=== PATIENT | female | born 1940 | race Caucasian/White ===

== ENCOUNTER 2019-10-21 06:48 | Inpatient (IN) ==
--- NOTE | 2019-09-29 15:30 | PAT Medication Instructions ---
Medication Instructions Date of Service September 29, 2019 Home Medications amlodipine 2.5 mg PO HS aspirin [Aspirin Low Dose] 81 mg PO HS atorvastatin 10 mg PO HS metoprolol succinate 50 mg PO HS clopidogrel 75 mg PO QAM acetaminophen [Tylenol Extra Strength] 1,000 mg PO Q6H PRN pantoprazole 20 mg PO QAM hydrochlorothiazide 25 mg PO QAM lisinopril 20 mg PO BID prednisone 5 mg PO DAILY PRN ASK your prescriber and surgeon clopidogrel 75 mg PO QAM DO NOT take the morning of surgery lisinopril 20 mg PO BID hydrochlorothiazide 25 mg PO QAM Take morning of surgery With a small sip of water, OTHERWISE NOTHING TO EAT OR DRINK AFTER MIDNIGHT: prednisone 5 mg PO DAILY PRN (if needed) acetaminophen [Tylenol Extra Strength] 1,000 mg PO Q6H PRN (okay to take up to 4 hours prior to surgery if needed) pantoprazole 20 mg PO QAM Take evening before surgery amlodipine 2.5 mg PO HS aspirin [Aspirin Low Dose] 81 mg PO HS atorvastatin 10 mg PO HS metoprolol succinate 50 mg PO HS acetaminophen [Tylenol Extra Strength] 1,000 mg PO Q6H PRN (if needed) lisinopril 20 mg PO BID prednisone 5 mg PO DAILY PRN (if needed) Other Notes If you have any questions please call us at [phone] or [phone] or [phone] or [phone]
--- NOTE | 2019-10-01 12:17 | Anesthesiology Consultation ---
Date of Service October 01, 2019 Assessment & Plan (1) Encounter for pre-operative examination: Chart Review Chart Review: Pending: Refer to Additional Notes / Consult section (awaiting PCP clearance (seen 09/24) and preop Covid testing ) and Patient seen in Pre Admission Testing Awaiting 09/24 PCP clearance. Did inform blood bank of positive antibodies- blood bank aware and will be prepared DOS. Pt does not need any additional work up prior to DOS. Per PAT appt on 10/01/19, resides in [facility]. Traveled to [facility] 09/19/19 to go out to eat. Travels to [facility] of medical appts. Wears mask and uses good hand hygiene in public. Educated patient to follow up with surgeon's office regarding Covid testing. Educated on importance of self quarantining, social distancing and wearing mask in public both for the patient and household contacts. Teaching & Discussion Pre-Anesthesia Teaching/Discussion Notes: Instructed NPO after midnight before surgery,except medications with 15 cc of water. Medication instructions provided according to the PAT guidelines. History Surgery Operation Date: 10/21/19 07:30 Proposed Procedures p Left Total Shoulder Arthroplasty versus Left Reverse Total Shoulder - Trev Samano, Height/Weight Height: 5 ft 3 in Weight: 101.7 kg Allergies Allergy/AdvReac Type Severity Reaction Status Date / Time No Known Allergies Allergy Unknown Verified 09/25/19 08:12 Medications Home Medications Medication Instructions Recorded Confirmed Last Taken amlodipine 2.5 mg PO HS 07/10/18 09/25/19 11/20/18 aspirin [Aspirin Low Dose] 81 mg PO 07/10/18 09/25/19 11/20/18 atorvastatin 10 mg PO 07/10/18 09/25/19 11/20/18 metoprolol succinate 50 mg PO HS 07/10/18 09/25/19 11/20/18 clopidogrel 75 mg PO QAM 07/24/18 09/25/19 11/21/18 acetaminophen [Tylenol Extra 1,000 mg PO Q6H PRN 11/21/18 09/25/19 11/21/18 08:00 Strength] 1000 mg pantoprazole 20 mg PO QAM 11/21/18 09/25/19 11/21/18 hydrochlorothiazide 25 mg PO QAM 09/25/19 09/25/19 Unknown lisinopril 20 mg PO BID 09/25/19 09/25/19 Unknown prednisone 5 mg PO DAILY PRN 09/25/19 09/25/19 Unknown Past Medical History Medical History (Updated 10/01/19 @ 13:10 by Jaz Villa PA-C) Aortic stenosis Mild per 11/2018 ECHO GERD (gastroesophageal reflux disease) Well controlled and stable Hyperlipidemia Hypertension Rheumatoid arthritis F/U PCP [facility] Can radiate down right or left side Seizure TIA vs SEIZURE: "BLACKED OUT IN HER HEAD AND CAME TO"/BECAME ALERT-NEVER DX'D ANY FURTHER-4 YRS AGO-NO OTHER OCCURRENCES TIA (transient ischemic attack) X 4- PLACED ON PLAVIX (FIRST TIA AFTER SURGERY- HAS HAD SURGERY SINCE WITHOUT ISSUES). NO ISSUES X YEARS Exercise / Class Metabolic Activity III < 4 Walking/Shop/Light housework (one flight of stairs - no chest pain- does have to pull herself up due to knee pain ) Past Family History Family History (Updated 09/25/19 @ 08:26 by Liliya Ashley RN) Father Family history of diabetes mellitus Mother Family hx of colon cancer Past Surgical History Surgical History (Updated 10/01/19 @ 13:09 by Jaz Villa PA-C) History of anesthesia reaction SLOW TO WAKE UP-HAD TIA DURING SURGERY AND POST OP-[facility]AGE 66 History of cataract surgery R/L History of colonoscopy History of esophagogastroduodenoscopy (EGD) S/P bilateral breast reduction AGE 66 YRS S/P TKR (total knee replacement) LEFT Past Anesthesia History No Hx of Anesthesia Complications (with excpetion to slow wake - no reintubation or ICU stay - just groggy ) and No Family Hx of Anesthesia Complications History of PONV No Hx of PONV and No Hx of Motion Sickness Social History Smoking Status: Never smoker Do You Dip or Chew Tobacco: No Hx Alcohol Use: No Hx Substance Use: No Review of Systems Patient denies chest pain, shortness of breath, dyspnea on exertion, cough, wheezing, palpitations. No hx of ID, apnea/snoring. No hx of blood clots or blood transfusions Physical Exam Vital Signs VITALS BP 130/76 P 61 TEMP 98.0 SP02 97% RESP 16 Constitutional no acute distress ENMT Mouth: no TMJ clicking Thyromental Distance: < 3.5 Finger Breadths (3.0) Mallampati Class: III Caps to molars and left upper I tooth Neck + short neck and + limited neck extension (significant ) Respiratory normal respiratory effort; no respiratory distress Auscultation: lungs clear to auscultation bilaterally; no wheezes Cardiovascular Rate/Rhythm: regular rate and regular rhythm Heart Sounds: + murmur (IV/ murmur ) Vessels: + carotid bruit (bilateral faint bruit vs cardiac murmur ) Musculoskeletal Spine: no pain with cervical ROM Neurologic moves all extremities Psychiatric Orientation: alert Testing Laboratory Results 10/01/19 12:35 10/01/19 12:35 PT 10.9 Seconds (9.0-12.0) 10/01/19 12:35 INR 1.0 (0.9-1.1) 10/01/19 12:35 APTT 28.5 Seconds (21.0-31.0) 10/01/19 12:35 Blood Type O Negative 10/01/19 12:35 Antibody Screen POSITIVE A 10/01/19 12:35 Electrocardiogram Date: 10/01/19 NSR with sinus arrhythmia at 62 bpm. Chest X-Ray Date: 10/01/19 Findings: + NAD and + cardiomegaly (mild) Echocardiogram Date: 12/11/18 EF: 60-65% LV Function: normal RWMA: + none Other Findings: + LVH (mild/concentric ) Valvular Disease: + (mild; LILIANE= 0.84cm2; AV velocity 2.001 v/s; AV max gradient 16.0 mmHg) Cervical Spine Date: 10/01/19 Severe disc space narrowing at C5-C6 and C6-C7. 3 mm anterolisthesis C4 on C5 an d 3 mm retrolisthesis C5 on C6 is unchanged with neutral, flexion and extension. C1-C2 articulation appears normal. No acute fracture or subluxation. Moderate to severe multilevel facet arthrosis. T7 cervical segment is suboptimally visualized secondary to overlying soft tissue. No prevertebral soft tissue swelling. IMPRESSION: No acute fracture, subluxation or evidence of instability. Other Testing Neck CTA 12/29/15= No significant stenosis, occlusion, or dissection identified within the carotid or vertebral arteries. Of note, the right internal carotid artery and right vertebral artery are slightly hypoplastic in comparison to the left
--- NOTE | 2019-10-01 13:14 | XRay Report ---
XR cervical spine 2 or 3V HISTORY: 79 years-old Female preop- RA- flexion, ext and neutral positions preoperative exam. COMPARISON: CTA of the neck 12/30/2015 TECHNIQUE: 3 views of the cervical spine FINDINGS: Severe disc space narrowing at C5-C6 and C6-C7. 3 mm anterolisthesis C4 on C5 and 3 mm retrolisthesis C5 on C6 is unchanged with neutral, flexion and extension. C1-C2 articulation appears normal. No acu te fracture or subluxation. Moderate to severe multilevel facet arthrosis. T7 cervical segment is sub optimally visualized secondary to overlying soft tissue. No prevertebral soft tissue swelling. IMPRESSION: No acute fracture, subluxation or evidence of instability. ACT 112: Negative or not required by law. The above report was generated using voice recognition software. It may contain grammatical, syntax o r spelling errors. Electronically signed by: Reinier Flores M.D. 10/01/2019 1:13 PM
[2019-10-01 13:15] LABS: Basophils # (auto) 0.06 K/uL (0-0.2); Basophils % (auto) 0.5 %; Eosinophils # (auto) 0.15 K/uL (0-0.5); Eosinophils % (auto) 1.3 %; Hematocrit (blood only) 37.5 % (37-47); Hemoglobin 12.6 g/dL (12.0-16.0); Immature Granulocytes # (auto) 0.02 K/uL (0.00-0.02); Immature Granulocytes % (auto) 0.2 %; Lymphocytes # (auto) 1.34 K/uL (1.2-3.4); Mean Corpuscular Hgb Conc 33.6 g/dL (32-36); Mean Corpuscular Volume 89.3 fL (80-100); Mean Platelet Volume 10.9 fL (7.4-10.4); Monocytes # (auto) 0.48 K/uL (0.11-0.59); Monocytes % (auto) 4.3 %; Neutrophils # (auto) 9.11 K/uL (1.4-6.5); Neutrophils % (auto) 81.7 %; Platelet Count 314 K/uL (130-400); RDW Coefficient of Variation 13.9 % (11.5-14.5); RDW Standard Deviation 45.4 fL (36.4-46.3); White Blood Count 11.16 K/uL (4.8-10.8)
--- NOTE | 2019-10-01 13:16 | XRay Report ---
XR chest Pre-admission PA/Lat HISTORY: 79 years-old Female U preoperative exam. No acute chest complaints COMPARISON: Chest radiograph 12/28/2015 TECHNIQUE: PA and lateral views of the chest FINDINGS: Calcification of the left breast. Cardiac silhouette is mildly enlarged. Calcified plaque of the thor acic aortic arch. No pneumothorax, pleural effusion, airspace consolidation or overt pulmonary edema. Degenerative changes of the shoulders and spine. IMPRESSION: No acute process. ACT 112: Negative or not required by law. The above report was generated using voice recognition software. It may contain grammatical, syntax o r spelling errors. Electronically signed by: Reinier Flores M.D. 10/01/2019 1:14 PM
[2019-10-01 13:28] LABS: Partial Thromboplastin Time 28.5 Seconds (21.0-31.0); Prothrombin Time 10.9 Seconds (9.0-12.0)
[2019-10-01 13:32] LABS: BUN Creatinine Ratio 21.1 (10-20); Calcium 9.3 mg/dl (8.5-10.1); Creatinine Clr Calc Pharmacy 47.9 ml/min; Est GFR (African American) 54.9; Est GFR (Non-African American) 47.3; Potassium 4.3 mmol/L (3.5-5.1)
--- NOTE | 2019-10-01 17:15 | Electrocardiogram Report ---
Test Reason : Blood Pressure : / mmHG Vent. Rate : 062 BPM Atrial Rate : 062 BPM P-R Int : 148 ms QRS Dur : 082 ms QT Int : 428 ms P-R-T Axes : 048 -13 023 degrees QTc Int : 434 ms Normal sinus rhythm with sinus arrhythmia Normal ECG When compared with ECG of 28-DEC-2015 15:09, No significant change was found Confirmed by Eliseo Terry ([id number]) on 10/01/2019 5:15:02 PM Referred By: Trev Samano Confirmed By:Pierce Terry
--- NOTE | 2019-10-16 13:51 | History & Physical Report ---
Date of Service October 16, 2019 Assessment & Plan (1) DJD of both shoulders: We will proceed with a left total shoulder arthroplasty. Postoperatively she will be placed in a sling and kept overnight in the hospital for postoperative medical management. She plans to use Haofangtong upon discharge. Present on Admission?: Yes History of Present Illness Chief Complaint: Primary osteoarthritis of the left shoulder Primary Care Provider: Justino Levine Anitra Wilcox is a pleasant 79-year-old female who is been dealing with chronic increasing left shoulder pain. X-rays and clinical examination have been diagnostic for advanced osteoarthritis of the left shoulder. She has had 2 cortisone injections in the past. Unfortunately she continues to have pain and limited range of motion. After failing conservative treatment, she has elected proceed with a left total shoulder arthroplasty. Allergies Allergy/AdvReac Type Severity Reaction Status Date / Time No Known Allergies Allergy Unknown Verified 09/25/19 08:12 Home Medications Home Medications Medication Instructions Recorded Confirmed Type amlodipine 2.5 mg PO HS 07/10/18 09/25/19 History aspirin [Aspirin Low Dose] 81 mg PO HS 07/10/18 09/25/19 History atorvastatin 10 mg PO HS 07/10/18 09/25/19 History metoprolol succinate 50 mg PO HS 07/10/18 09/25/19 History clopidogrel 75 mg PO QAM 07/24/18 09/25/19 History acetaminophen [Tylenol Extra 1,000 mg PO Q6H PRN 11/21/18 09/25/19 History Strength] pantoprazole 20 mg PO QAM 11/21/18 09/25/19 History hydrochlorothiazide 25 mg PO QAM 09/25/19 09/25/19 History lisinopril 20 mg PO BID 09/25/19 09/25/19 History prednisone 5 mg PO DAILY PRN 09/25/19 09/25/19 History Past Med/Surg History Medical History Aortic stenosis Mild per 11/2018 ECHO GERD (gastroesophageal reflux disease) Well controlled and stable Hyperlipidemia Hypertension Rheumatoid arthritis F/U PCP [facility] Can radiate down right or left side Seizure TIA vs SEIZURE: "BLACKED OUT IN HER HEAD AND CAME TO"/BECAME ALERT-NEVER DX'D ANY FURTHER-4 YRS AGO-NO OTHER OCCURRENCES TIA (transient ischemic attack) X 4- PLACED ON PLAVIX (FIRST TIA AFTER SURGERY- HAS HAD SURGERY SINCE WITHOUT ISSUES). NO ISSUES X YEARS Surgical History History of anesthesia reaction SLOW TO WAKE UP-HAD TIA DURING SURGERY AND POST OP-[facility]-AGE 66 History of cataract surgery R/L History of colonoscopy History of esophagogastroduodenoscopy (EGD) S/P bilateral breast reduction AGE 66 YRS S/P TKR (total knee replacement) LEFT Family History Father Family history of diabetes mellitus Mother Family hx of colon cancer Social History Smoking Status: Never smoker Second Hand Exposure: No; Hx Alcohol Use: No Hx Substance Use: No Preferred Language: Uruguayan Communication Ability: Effective Revenue Accountant Required: No Beliefs That Will Affect Care: None marital status: Current Living Situation: Spouse Feels Safe at Home: Yes Review of Systems Review of Systems: All systems reviewed & are unremarkable except as noted in HPI & below Physical Exam Constitutional: WD/WN, vitals as above Eyes: PERRL, conjunctivae normal, anicteric sclerae ENMT: external ear and nose normal, oropharynx normal Neck: trachea midline, no thyromegaly Respiratory: normal respiratory effort Cardiovascular: RRR, no murmur, no edema Gastrointestinal (Abdomen): normal bowel sounds, soft, nontender, no hepatosplenomegaly Musculoskeletal: Physical examination of the left shoulder reveals decreased range of motion and crepitis throughout. There is good strength with full can testing and external rotation. There is tenderness palpation along the anterior glenohumeral joint line. The right upper extremity is neurovascularly intact. Psychiatric: A+Ox3, euthymic affect Results & Data Results & Data ([facility]) Diagnostic Findings Radiographs of the left shoulder show osteoarthritis of the glenohumeral joint. There is joint space narrowing, osteophyte formation, and [id number] articulation. PG Care Time/CCT Total # of Minutes Spent Total Time Spent with Patient: Total time spent is greater than 50% in coordination of care (as documented) at patient's floor/unit and/or counseling patient: Coding Level of Care Code 30585 Initial Inpt Care Lvl 2 Diagnoses DJD of both shoulders M19.011; M19.012
[~2019-10-21 06:48] MED LIST: ACETAMINOPHEN 500 MG TAB PO SCH; BUPIVACAINE 0.5 % 5 MG/1 ML MPF 30ML VIAL ONE; CEFAZOLIN 2000MG 2,000 MG/15 ML SYR IV SCH; FAMOTIDINE 20 MG TAB PO SCH; GABAPENTIN 300 MG CAP PO SCH; LR 15ML/HR IV SCH; LR 60ML/HR IV SCH; ROPIVACAINE 0.5% HCL/PF 150 MG, BUPIVACAINE 0.5% MPF 30 ML, EPINEPHrine 30MG/30ML (OR U... INFIL SCH; TRANEXAMIC ACID 1,000 MG **IV Intra-op IV SCH; TRANEXAMIC ACID 1,000 MG **IV Pre-op IV SCH; dexAMETHasone 4 MG TAB PO SCH
[2019-10-21] MEDS ORDERED: fentaNYL citrate 100 MCG/2 ML VIAL ONE (08:05)
[2019-10-21] MEDS ORDERED: MIDAZOLAM HCL 1 MG/ML 2ML VIAL ONE ×2 (08:05)
--- NOTE | 2019-10-21 08:47 | History & Physical Bridge Note ---
Date of Service October 21, 2019 History & Physical Bridge Note I have examined the patient, reviewed the History & Physical and in the interval since the performance of the History & Physical I have noted the following changes of clinical significance: The procedure will be a total shoulder arthrop lasty versus reverse shoulder arthroplasty
[2019-10-21] MEDS ORDERED: ORTHO JOINT ANESTHETIC ONE (09:02)
[2019-10-21] MEDS ORDERED: ePHEDrine sulfate 50 MG/ML AMP IV PRN (09:30)
[2019-10-21] MEDS ORDERED: ATROPINE SULFATE 0.1 MG/ML 10ML SYR IV PRN (09:30)
[2019-10-21] MEDS ORDERED: fentaNYL citrate 100 MCG/2 ML VIAL IV PRN (09:30)
[2019-10-21] MEDS ORDERED: ONDANSETRON INJ 2 MG/ML 2 ML VIAL IV PRN ×2 (09:30→12:30)
[2019-10-21] MEDS ORDERED: ePHEDrine sulfate 50 MG/ML SYR ONE (10:18)
[2019-10-21] MEDS ORDERED: LIDOCAINE HCL 2% 2 ML VIAL/AMP(20MG/ML) INFIL ONE (10:18)
[2019-10-21] MEDS ORDERED: PROPOFOL IV EMULSION 10 MG/ML 20 ML VIAL IV ONE (10:18)
[2019-10-21] MEDS ORDERED: ONDANSETRON INJ 2 MG/ML 2 ML VIAL ONE (10:18)
--- NOTE | 2019-10-21 10:57 | Operative Report ---
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 of the long head of the biceps tendon I identified the patient and participated in the time-out.: Yes Procedure Operation Date: 10/21/19 09:05 Actual Procedures p Left Reverse Total Shoulder Arthroplasty with open biceps tenodesis as a disti nct and separate procedure (modifier 59) (Left) - Trev Samano DO Surgeon Trev Samano DO Stress Analyst Trev Colmenares PAC Estimated Blood Loss 250 Findings Consistent with Post-Op Diagnosis Specimens Left humeral head Complications none Disposition Disposition: Recovery Room Indications Rosario is a pleasant 79-year-old female who is been doing chronic increasing left shoulder pain. X-rays and clinical examination were diagnostic for advanced osteoarthritis of the left shoulder. She is also having some weakness in her shoulder and some pain in the biceps tendon. After failing conservative treatment, she elected proceed with a left shoulder arthroplasty. Description of Procedure A CPT code modifier 59: The long head of the biceps tendon was enlarged and inflamed consistent with tendinopathy. A tenodesis was opted. This was a separate and distinct portion of the procedure. For these reasons, a CPT code modifier 59 will be added to this case. Implants used: I used a [employer] Comprehensive reverse total shoulder arthroplasty system with a size 11 press fit micro humeral stem, a +6 offset humeral tray and a standard humeral bearing, a 25 mm small augment baseplate with a 6.5 mm central screw and superior and inferior locking screws, and a size 40 mm eccentric glenosphere. Rosario arrived at [facility] for the above procedure. She was seen in the preoperative holding area and the operative extremity was identified and signed. She was given a preoperative antibiotic, TXA, and an interscalene nerve block. She was taken back to the operating room, laid on table in supine posi tion, and put under general anesthesia. She was then put into the beachchair position. The shoulder was then prepped and draped in sterile fashion. A timeout was done and the patient and the operative extremity was properly identified. A deltopectoral approach was used. Dissection was taken down through the fascia and the deltoid was retracted laterally and the conjoined tendon was retracted medially. The anterior shoulder was exposed. The biceps groove was opened up and the biceps tendon was examined extensively. The biceps tendon demonstrated enlargement and inflammatory changes consistent with longstanding inflammation in the context of osteoarthritis and cuff arthropathy. The long head of the biceps tendon was then tenodesed to the upper border of the pectoralis major. This was a separate and distinct portion of the procedure. The subscapularis was then directly released off the lesser tuberosity with a peel technique. The inferior capsule was released and the humeral head was dislocated. A canal finding reamer was sent down the center of the humeral canal. Sequential reaming up to a size 11 reamer was done. Off that reamer, a proximal humeral resection guide was placed. The proximal humerus was resected at 135 of inclination and 25 of retroversion. Osteophytes were then removed and the glenoid was exposed. Time was spent doing a complete capsular and labral release. The glenoid guide was then placed in the inferior aspect of the glenoid. A 3.2 mm Steinmann pin was then placed into the glenoid vault at 10 of inclination. The glenoid baseplate was then reamed. The final size 25 mm small augment baseplate was then impacted in the place. A 6.5 mm central screw was then placed followed by superior and inferior locking screws. A 40 mm eccentric glenosphere was then impacted into place. Surrounding soft tissues were then injected with 100 cc an orthopedic pain control cocktail. The proximal humerus was then exposed. Sequential broaching of the humerus up to a size 11 broach was done. Off that broach a +6 offset humeral tray was trialed. The shoulder was then reduced, brought through a full range of motion, and felt to be stable. The shoulder was then dislocated and the broach was removed. The final size 11 micro press-fit humeral stem was then impacted into place. A standard humeral bearing was then snapped onto a +6 offset humeral tray. The humeral tray was then impacted onto the humeral stem. The shoulder was once again reduced, brought through a full range of motion, and felt to be stable. The subscapularis was then tenodesed back to the lesser tuberosity with transosseous FiberWire sutures and side to side sutures with the arm in 45 of external rotation. A dilute betadyne lavage was then done for 3 minutes. The joint was then irrigated with normal saline solution. Hemostasis was obtained. The interval was closed with 2-0 Vicryl suture. The skin was then closed with 2-0 Vicryl and raj. A Silverlon dressing was placed and the arm was rested in a regular arm sling. She was then extubated and transferred to a hospital bed. She taken to the postanesthesia care unit in stable condition. She tolerated the procedure well. Trev Colmenares PA-C, was present for the entire procedure. He was critical for patient positioning, prepping, draping, retraction exposure, wound closure and application of sterile dressing. I attest to the content of the Intraoperative Record and any orders documented therein. Any exceptions are noted below.
[2019-10-21] MEDS ORDERED: METOPROLOL TARTRATE 1 MG/ML VIAL IV ONE (11:47)
[2019-10-21] MEDS ORDERED: METOPROLOL TARTRATE 1 MG/ML VIAL IV STA (11:48)
--- NOTE | 2019-10-21 11:55 | XRay Report ---
LEFT SHOULDER 2 VIEWS CLINICAL HISTORY: Postoperative examination. FINDINGS: 2 portable views of the left shoulder are obtained. A left shoulder arthroplasty is in near anatomic alignment. No acute fracture is seen. Productive degenerative change is noted at the acromi oclavicular joint. Soft tissue edema, subcutaneous gas, and skin clips are expected postoperative fin dings. The visualized left lung parenchyma appears clear. IMPRESSION: Expected postoperative findings status post left shoulder arthroplasty. No fracture is se en. Electronically signed by: Garrett Weathers M.D. 10/21/2019 11:54 AM
[2019-10-21] MEDS ORDERED: HYDROmorphone INJ 0.5 MG/0.5 ML SYR IV PRN (12:30)
[2019-10-21] MEDS ORDERED: OXYCODONE HCL IR 5 MG TAB (IMMEDIATE RELEASE) PO PRN (12:30)
[2019-10-21] MEDS ORDERED: bisacodyL 10 MG SUPP PR PRN (12:30)
[2019-10-21] MEDS ORDERED: MAGNESIUM HYDROXIDE SUSP 30 ML UDC PO PRN (12:30)
[2019-10-21] MEDS ORDERED: METOCLOPRAMIDE HCL INJ 5 MG/ML 2 ML VIAL IV PRN (12:30)
[2019-10-21] MEDS ORDERED: NALOXONE HCL 0.4 MG/1 ML VIAL/CARP IV PRN (12:30)
--- NOTE | 2019-10-21 12:32 | Anesthesiology Progress Note ---
Date of Service October 21, 2019 Anesthesia Post Procedure Vital Signs Vital Signs: Temp Pulse Pulse Pulse Resp BP BP 10/21/19 11:55 97.5 F L 90 17 121/56 L 10/21/19 11:49 110 H 129/42 L 10/21/19 11:45 112 H 17 129/72 10/21/19 11:35 104 H 17 127/58 L 10/21/19 11:25 103 H 18 131/58 L 10/21/19 11:19 97.0 F L 116 H 18 112/80 10/21/19 09:16 79 19 132/71 10/21/19 09:12 77 15 10/21/19 09:07 85 16 150/60 H 10/21/19 09:02 74 14 130/74 10/21/19 08:57 72 18 112/80 10/21/19 08:18 76 20 162/63 H 10/21/19 07:30 99.0 F 90 20 157/69 H Pulse Ox 10/21/19 11:55 94 10/21/19 11:49 10/21/19 11:45 93 10/21/19 11:35 95 10/21/19 11:25 97 10/21/19 11:19 97 10/21/19 09:16 99 10/21/19 09:12 100 10/21/19 09:07 99 10/21/19 09:02 97 10/21/19 08:57 98 10/21/19 08:18 97 10/21/19 07:30 95 Pain Intensity Left Shoulder: Pain Intensity: 3 Transfer of Care Handoff Completed per policy Notes Mental Status: alert / awake / arousable and participated in evaluation Patient Amnestic to Procedure: Yes Nausea / Vomiting: adequately controlled Pain: adequately controlled Airway Patency, RR, SpO2: stable & adequate BP & HR: stable & adequate Hydration State: stable & adequate Anesthetic Complications: no major complications apparent and Pt Satisfied with anesthetic care
[2019-10-21] MEDS: SODIUM CHLORIDE 0.9% 1000ML 1,000 ML IV SCH ×2 (12:55→22:57)
[2019-10-21] MEDS: KETOROLAC TROMETHAMINE 15 MG/ML VIAL IV SCH ×2 (12:57→18:34)
[2019-10-21] MEDS: ACETAMINOPHEN 500 MG TAB PO SCH ×2 (13:20→21:00)
[2019-10-21] MEDS: CEFAZOLIN 2000MG 2,000 MG/15 ML SYR IV SCH (18:57)
[2019-10-21] MEDS: lisinopriL 20 MG TAB PO SCH (20:58)
[2019-10-21] MEDS: DOCUSATE SODIUM 100 MG CAP PO SCH (20:59)
[2019-10-21] MEDS ORDERED: AMLODIPINE BESYLATE 5 MG TAB PO SCH (21:00)
[2019-10-21] MEDS ORDERED: SENNA 8.6 MG TAB PO SCH (21:00)
[2019-10-21] MEDS ORDERED: METOPROLOL SUCC 50MG EXT REL TAB PO SCH (21:00)
[2019-10-21] MEDS ORDERED: ATORVASTATIN 10 MG TAB PO SCH (21:00)
[2019-10-21] MEDS ORDERED: ASPIRIN 81 MG ECTAB PO SCH (21:00)
[2019-10-22] MEDS: KETOROLAC TROMETHAMINE 15 MG/ML VIAL IV SCH ×3 (00:10→11:26)
[2019-10-22] MEDS: CEFAZOLIN 2000MG 2,000 MG/15 ML SYR IV SCH (02:59)
[2019-10-22] MEDS: ACETAMINOPHEN 500 MG TAB PO SCH ×2 (06:27→12:43)
--- NOTE | 2019-10-22 06:39 | Orthopedic Progress Note ---
Date of Service October 22, 2019 Assessment & Plan (1) Status post replacement of left shoulder joint: Overall she is doing very well. She is not having much pain in the left shoulder. She will be seen by physical therapy this morning for ambulation and range of motion exercises. She can be discharged home later today. She will follow-up with orthopedics in 2 weeks. Present on Admission?: Yes Admission and Anticipated Discharge Date Admission Date: October 21, 2019 Kaya Wilcox was seen and examined at bedside this morning. Overall she is doing very well. She is not having any pain in the left shoulder. She was able to get some sleep last night. She has no complaints. Physical Exam Musculoskeletal: On physical examination of the left shoulder, the Silverlon dressing is clean and dry. Her radial, median, and ulnar nerves are checked and intact at her wrist. Her axillary nerve was not checked yet. She is wearing her sling as instructed. Results & Data ([facility]) Vital Signs (Past 12 Hours) Vital Signs Temp Pulse Resp BP Pulse Ox 10/22/19 03:02 36.5 C 78 16 101/62 93 10/22/19 00:11 36.4 C L 98 H 15 147/75 H 91 10/21/19 20:57 83 116/67 94 10/21/19 20:24 36.6 C 88 17 104/61 92 Diagnostic Findings Postoperative x-rays of the left shoulder show the prosthesis to be in anatomic alignment without any evidence of fracture, dislocation, or loosening. PG Care Time/CCT Total # of Minutes Spent Total Time Spent with Patient: Total time spent is greater than 50% in coordination of care (as documented) at patient's floor/unit and/or counseling patient: Coding Level of Care Code None Diagnoses Status post replacement of left shoulder joint Z96.612
--- NOTE | 2019-10-22 06:41 | Discharge Summary ---
Date of Service October 22, 2019 Admission HPI Per Admitting Provider Jeri is a pleasant 79-year-old female who is been dealing with chronic increasing left shoulder pain. X-rays and clinical examination have been diagnostic for advanced osteoarthritis of the left shoulder. She has had 2 cortisone injections in the past. Unfortunately she continues to have pain and limited range of motion. After failing conservative treatment, she has elected proceed with a left total shoulder arthroplasty. Principal Diagnosis Left reverse shoulder replacement Discharge Data Allergies Allergy/AdvReac Type Severity Reaction Status Date / Time No Known Allergies Allergy Unknown Verified 10/21/19 07:12 Consultations 10/21/19 12:30 Consult Case Management - Discharge Planning Routine Procedures Performed Operation Date: 10/21/19 09:05 Actual Procedures p Left Reverse Total Shoulder Arthroplasty(Left) - Trev Samano DO Ordered Studies 10/21/19 05:00 US - OR guided needle placemen Routine Hospital Course (1) Status post replacement of left shoulder joint: On October 21, 2019 jeri arrived at [facility] and underwent a left reverse shoulder arthroplasty without complication. She had a general anesthetic and a left interscalene nerve block. Postoperatively she was placed in a sling and transferred to the general orthopedic floors. Her hospital course was uneventful. On postop day #1 her H&H was stable and her pain was well controlled. She was able to participate well with physical therapy doing ambulation and range of motion exercises. She was then discharged home. She will follow-up with orthopedics in 2 weeks. Total Time Total Time Spent Total Time Spent (In Minutes): 20 Discharge Plan Discharge Items Patient Disposition: Home - Home Health Services Reason For Visit: Left Shoulder Degeneative Joint Disease Discharge Diagnosis: Left reverse shoulder arthroplasty Activity: As commented below Non-emergency contact: Surgeon Call non-emergency contact if: your wound has increased redness and your wound has increased drainage Follow-up/Referrals: Justino Ayoub [Primary Care Provider] - Diet: Regular Addtl Attending Provider Instructions: Activity and Therapy Recommendations: * If you are using [facility] then therapy will be provided at your home until they feel you have accomplished all of your goals. * If you are using [facility] then Physical Therapy will be provided until they feel you are ready to start Outpatient Physical Therapy. * If you are not using home therapy then Outpatient Physical Therapy should start about 3-5 days from your day of surgery. Therapy will last about 8-12 weeks * Wear your sling for 3 weeks, unless otherwise instructed. You may remove your sling to shower and to dress, but otherwise, you should be in your sling at all times, including while sleeping * The shoulder replacement is very stable and you can use your hand while in the sling * You were shown a series of exercises in the hospital. Do these exercises daily including the exercises you were shown in physical therapy. Medications: * Narcotic You will likely be sent home from the hospital with a prescription for the narcotic pain medication that worked best throughout your stay. * Other medications may be prescribed for specific circumstances. If you have any questions, please call the office at . * Resume previous home medications unless otherwise instructed Dressing Care: Leave the Silverlon dressing in place for 7 days. After 7 days you may remove the dressing. If the incision is not draining then you may leave the raj open to air. If there is a little bit of drainage or if the raj are getting stuck on your clothing then cover the incision with a dry dressing. The raj will be removed at your 2 week follow-up appointment. Showering: You may shower with the Silverlon dressing in place. Do not let the shower spray hit the dressing directly. Pat the Silverlon dressing dry. If the dressing becomes wet underneath, then simply remove the dressing. Keep the incision dry until you are 7 days out from the day of surgery. After 7 days you may remove the Silverlon dressing and shower with the raj exposed. Let soapy water run over the raj and pat them dry. Do not scrub or soak the incision. Things To Watch For: * Drainage from the incision site that occurs more than one week after your surgery. * Increased redness at the incision site. * Fever above 102 degrees Fahrenheit. * Unusual chest pain or shortness of breath. * Call [facility] at with any of the above problems Follow-Up Visit: Follow-up with Dr. Samano's PA (Trev Colmenares) 2-3 weeks after your day of surgery. He will remove your raj and answer any questions. If you have any additional questions or concerns, Dr Samano is usually in the office at the same time and will be available An appointment was probably scheduled when you signed-up for surgery in the office. If you have any questions call More detailed instructions as well as Frequently Asked Questions were provided in a folder by our office when you signed-up for surgery. Please review these instructions when you get home. If you have any further questions or concerns, please feel free to call the office at [phone] Pending Studies at Discharge: No Stand-Alone Forms: [facility], Smoking Cessation Medications and DC Order Prescriptions: New tramadol 50 mg tablet 50 mg PO Q8H PRN (Reason: pain) Qty: 30 RF: 0 Continued clopidogrel 75 mg tablet 75 mg PO QAM RF: 0 lisinopril 20 mg Tablet 20 mg PO BID RF: 0 prednisone 5 mg Tablet 5 mg PO DAILY PRN (Reason: Pain) RF: 0 hydrochlorothiazide 25 mg Tablet 25 mg PO QAM RF: 0 atorvastatin 10 mg tablet 10 mg PO HS RF: 0 metoprolol succinate 50 mg tablet extended release 24 hr 50 mg PO HS RF: 0 amlodipine 2.5 mg tablet 2.5 mg PO HS RF: 0 aspirin [Aspirin Low Dose] 81 mg Tablet,Delayed Release (Dr/Ec) 81 mg PO HS RF: 0 pantoprazole 20 mg tablet,delayed release (DR/EC) 20 mg PO QAM RF: 0 acetaminophen [Tylenol Extra Strength] 500 mg Tablet 1,000 mg PO Q6H PRN (Reason: Pain) RF: 0 Discharge Orders: Discharge Order (Routine); Ordered 10/22/19 Ordered By: Trev Samano Admission Data Admit Date/Time: 10/21/19 11:18 Attending Provider: Trev Samano Admit Provider: Trev Samano Primary Care Provider: Justino Ayoub Coding Level of Care Code D/C Day Management <30 mins Diagnoses Status post replacement of left shoulder joint Z96.612
[2019-10-22 07:35] LABS: Basophils # (auto) 0.01 K/uL (0-0.2); Hematocrit (blood only) 34.4 % (37-47); Hemoglobin 11.3 g/dL (12.0-16.0); Immature Granulocytes # (auto) 0.07 K/uL (0.00-0.02); Immature Granulocytes % (auto) 0.3 %; Lymphocytes # (auto) 1.33 K/uL (1.2-3.4); Lymphocytes % (auto) 6.3 %; Mean Corpuscular Hgb Conc 32.8 g/dL (32-36); Mean Corpuscular Volume 94.2 fL (80-100); Mean Platelet Volume 10.4 fL (7.4-10.4); Monocytes # (auto) 1.08 K/uL (0.11-0.59); Monocytes % (auto) 5.1 %; Neutrophils # (auto) 18.49 K/uL (1.4-6.5); Neutrophils % (auto) 88.3 %; Platelet Count 355 K/uL (130-400); RDW Coefficient of Variation 13.6 % (11.5-14.5); RDW Standard Deviation 46.7 fL (36.4-46.3); Red Blood Count 3.65 M/uL (4.2-5.4); White Blood Count 20.98 K/uL (4.8-10.8)
[2019-10-22] MEDS ORDERED: dexAMETHasone 4 MG TAB PO SCH (08:00)
--- NOTE | 2019-10-22 08:08 | Anesthesiology Progress Note ---
Date of Service October 22, 2019 Anesthesia Post Procedure Vital Signs Vital Signs: Temp Pulse Pulse Pulse Resp BP BP 10/22/19 07:58 36.7 C 61 18 112/67 10/22/19 07:43 36.5 C 78 16 101/62 10/22/19 03:02 36.5 C 78 16 101/62 10/22/19 00:11 36.4 C L 98 H 15 147/75 H 10/21/19 20:57 83 116/67 10/21/19 20:24 36.6 C 88 17 104/61 10/21/19 16:14 100 H 18 123/72 10/21/19 14:54 85 18 150/79 H 10/21/19 14:13 36.5 C 95 H 18 121/64 10/21/19 13:19 36.5 C 91 H 18 119/71 10/21/19 12:45 36.4 C L 85 18 115/72 10/21/19 12:15 36.4 C L 90 18 123/74 10/21/19 11:55 36.4 C L 90 17 121/56 L 10/21/19 11:49 110 H 129/42 L 10/21/19 11:45 112 H 17 129/72 10/21/19 11:35 104 H 17 127/58 L 10/21/19 11:25 103 H 18 131/58 L 10/21/19 11:19 36.1 C L 116 H 18 112/80 10/21/19 09:16 79 19 132/71 10/21/19 09:12 77 15 10/21/19 09:07 85 16 150/60 H 10/21/19 09:02 74 14 130/74 10/21/19 08:57 72 18 112/80 10/21/19 08:18 76 20 162/63 H Pulse Ox 10/22/19 07:58 93 10/22/19 07:43 93 10/22/19 03:02 93 10/22/19 00:11 91 10/21/19 20:57 94 10/21/19 20:24 92 10/21/19 16:14 92 10/21/19 14:54 100 10/21/19 14:13 97 10/21/19 13:19 91 10/21/19 12:45 98 10/21/19 12:15 97 10/21/19 11:55 94 10/21/19 11:49 10/21/19 11:45 93 10/21/19 11:35 95 10/21/19 11:25 97 10/21/19 11:19 97 10/21/19 09:16 99 10/21/19 09:12 100 10/21/19 09:07 99 10/21/19 09:02 97 10/21/19 08:57 98 10/21/19 08:18 97 Pain Intensity Left Shoulder: Pain Intensity: 3 Notes Mental Status: alert / awake / arousable Patient Amnestic to Procedure: Yes Nausea / Vomiting: adequately controlled Pain: adequately controlled Airway Patency, RR, SpO2: stable & adequate BP & HR: stable & adequate Hydration State: stable & adequate Anesthetic Complications: no major complications apparent and Pt Satisfied with anesthetic care
[2019-10-22 08:09] LABS: Calcium 8.7 mg/dl (8.5-10.1); Creatinine Clr Calc Pharmacy 29.9 ml/min; Est GFR (African American) 30.7; Est GFR (Non-African American) 26.5; Potassium 4.1 mmol/L (3.5-5.1)
[2019-10-22] MEDS: DOCUSATE SODIUM 100 MG CAP PO SCH (08:10)
[2019-10-22] MEDS: lisinopriL 20 MG TAB PO SCH (08:10)
[2019-10-22] MEDS ORDERED: PANTOprazole 40 MG TAB PO SCH (09:00)
[2019-10-22] MEDS ORDERED: CLOPIDOGREL BISULFATE 75 MG TAB PO SCH (09:00)
[2019-10-22] MEDS ORDERED: hydroCHLOROthiazide 25 MG TAB PO SCH (09:00)
[2019-10-22] MEDS ORDERED: MULTIVITAMIN TAB PO SCH (09:00)
== END 2019-10-22 14:27 | disposition home health service (06) | DRG 483 ==
LOC: ASU 06:48 → 3E 11:18

== ENCOUNTER 2021-10-18 12:21 | Observation (INO) ==
[2021-10-18 13:15] LABS: Basophils # (auto) 0.04 K/uL (0-0.2); Basophils % (auto) 0.2 %; Eosinophils # (auto) 0.03 K/uL (0-0.50); Eosinophils % (auto) 0.2 %; Hematocrit (blood only) 36.5 % (34.1-44.9); Hemoglobin 12.2 g/dl (12.0-16.0); Immature Granulocytes # (auto) 0.11 K/uL (0.00-0.02); Immature Granulocytes % (auto) 0.7 %; Lymphocytes # (auto) 1.66 K/uL (1.2-3.4); Lymphocytes % (auto) 10.1 %; Mean Corpuscular Hemoglobin 31.1 pg (25.0-34.0); Mean Corpuscular Hgb Conc 33.4 g/dL (32.0-36.0); Mean Corpuscular Volume 93.1 fL (80.0-100.0); Mean Platelet Volume 10.3 fL (9.4-12.3); Monocytes # (auto) 0.81 K/uL (0.24-0.82); Monocytes % (auto) 4.9 %; Neutrophils # (auto) 13.83 K/uL (1.4-6.5); Neutrophils % (auto) 83.9 %; Platelet Count 314 K/uL (130-400); RDW Coefficient of Variation 13.9 % (11.5-14.5); RDW Standard Deviation 47.5 fL (36.4-46.3); Red Blood Count 3.92 M/uL (3.93-5.22); White Blood Count 16.48 K/ul (4.8-10.8)
[2021-10-18 13:29] LABS: Partial Thromboplastin Ratio 0.9; Prothrombin Time 10.4 Seconds (9.0-12.0)
[2021-10-18 13:37] LABS: Albumin Globulin Ratio 1.4 (0.9-2); Albumin Level 3.9 gm/dl (3.4-5.0); Bilirubin,Total 0.9 mg/dl (0.2-1.0); Est GFR (African American) 52.4 ml/min; Est GFR (Non-African American) 45.2 ml/min; Globulin 2.7 gm/dl (2.5-4.0); Potassium 3.9 mmol/L (3.5-5.1); Total Protein 6.6 gm/dl (6.0-8.3)
--- NOTE | 2021-10-18 13:38 | Electrocardiogram Report ---
Test Reason : Blood Pressure : / mmHG Vent. Rate : 076 BPM Atrial Rate : 076 BPM P-R Int : 142 ms QRS Dur : 074 ms QT Int : 362 ms P-R-T Axes : 031 -15 048 degrees QTc Int : 407 ms Poor data quality, interpretation may be adversely affected Sinus rhythm with Premature atrial complexes Minimal voltage criteria for LVH, may be normal variant Borderline ECG When compared with ECG of 02-AUG-2021 17:17, Premature atrial complexes are now Present Confirmed by Deni Viera ([id number]) on 10/18/2021 1:37:51 PM Referred By: Confirmed By:Deni Viera
[2021-10-18] MEDS ORDERED: fentaNYL citrate 100 MCG/2 ML VIAL IV STA ×2 (15:15→16:16)
[2021-10-18] MEDS ORDERED: ONDANSETRON INJ 2 MG/ML 2 ML VIAL IV STA (15:15)
--- NOTE | 2021-10-18 15:26 | Emergency Department Note ---
Impression & Plan Left-sided chest pain, Elevated troponin Admit to the [facility] Provider Note NAME: ROJELIO PARKS AGE: 81 SEX: F ARRIVES VIA: Walk-In INFORMANT: Patient and her daughters ED PROVIDER(S): Nica Kauffman DO CHIEF COMPLAINT: Left-sided chest pain PLAN: Disposition: Admit to the [facility] Condition: Stable MEDICAL DECISION MAKING: This is a 81-year-old female patient who presents to the emergency department with left-sided chest pain. Patient noted some swelling in her left arm and left leg. The pain seems to grab her when she takes a deep breath. The pain woke her from her sleep. The patient has a normal-appearing EKG but has an elevated troponin. I did a CT scan of the chest to rule out aortic dissection and this was unremarkable. The patient received IV fentanyl for pain with moderate relief of her symptoms. I discussed the case with the [facility] and they will evaluate for further management. Triage Nursing notes reviewed and agree with them. Additional history obtained from family members at the bedside Prior medical records reviewed Vital Signs: reviewed and remarkable for hypertension Differential diagnosis: Cardiac ischemia, STEMI, aortic dissection, costochondritis ER treatment provided: IV fentanyl IV Zofran x2 Diagnostics interpreted by me: ECG: Normal sinus rhythm at a rate of [address] segment elevation or signs of ischemia. There are PACs. Cardiac Monitoring: Normal sinus rhythm at a rate of 77 Laboratory studies: See below Imaging studies: As per radiology CT scan of the chest: See report HPI: 81/F arrives for evaluation of chest pain. The patient woke this morning with midsternal chest pain that radiated into her back and shoulders. She describes some chills and shortness of breath. The patient took heartburn medications which did not help. She noted some swelling in her left leg and left arm. Every time the patient takes a breath the pain seems to grab her. The pain is worsened since she arrived here in the emergency department. ROS: See above HPI for pertinent positives & negatives. A total of 10 systems reviewed and were otherwise negative. PAST MEDICAL HISTORY:See Below PAST SURGICAL HISTORY:See Below FAMILY HISTORY:See Below SOCIAL HISTORY:See Below HOME MEDICATIONS: See list ALLERGIES: None VITALS:See Below PHYSICAL EXAMINATION: HEENT: Head - normocephalic and atraumatic Pupils are equal, round, and reactive to light. Extraocular eye muscles are intact, and sclera are anicteric. Nose - moist nasal mucosa without discharge. Mouth - moist buccal mucosa. Oropharynx is nonerythematous and there is no tonsillar exudate or edema noted. Neck: Supple; no JVD, nuchal rigidity, cervical lymphadenopathy, or auscultated bruits. Chest: I could not reproduce any pain in the anterior chest wall. Heart: Regular rate and rhythm. There is a normal S1 and S2 with no murmurs, clicks, or gallops appreciated. Lungs: Clear to auscultation bilaterally with no wheezes, rales, or rhonchi. Abdomen: Soft, completely nontender, nondistended, with good bowel sounds. There are no palpable pulsatile masses or hepatosplenomegaly. There is no guarding, rigidity, or rebound noted. Extremities: I cannot appreciate any edema in the patient's left arm or left leg. There are easily palpable peripheral pulses. Skin: warm and dry with good turgor and no rashes. Back: I could not reproduce any pain in the left side of the patient's back. ED COURSE: Times/Reassessments: 1445 the patient was evaluated in room A7 initially. A complete history and physical was performed. Laboratory studies have been drawn by nurses for protocol. The patient had a twelve-lead EKG performed and it was reviewed by me. Patient was medicated with IV fentanyl and Zofran for her chest discomfort. She was ordered up a CT scan of her chest to rule out dissection. She was then moved to room C1. An order was placed for continuous cardiac monitoring. The patient was in a normal sinus rhythm at a rate of 77. I reviewed the results of the laboratory studies and CT scan with the patient and her family. The patient was having some return of the discomfort in her chest especially as it would grab her if she would take a deeper breath. I redosed her with IV fentanyl. I discussed the case with the [facility] and they will evaluate her for further management. Nica Kauffman DO Past Med/Surg History Medical History (Updated 10/19/21 @ 12:33 by Nica Kauffman DO) Aortic stenosis Mild per 11/2018 ECHO GERD (gastroesophageal reflux disease) Well controlled and stable Hyperlipidemia Hypertension Knee pain, right Rheumatoid arthritis F/U PCP Right knee DJD Rotator cuff arthropathy Sciatica Can radiate down right or left side Seizure TIA vs SEIZURE: "BLACKED OUT IN HER HEAD AND CAME TO"/BECAME ALERT-NEVER DX'D ANY FURTHER-4 YRS AGO-NO OTHER OCCURRENCES TIA (transient ischemic attack) X 4- PLACED ON PLAVIX (FIRST TIA AFTER SURGERY- HAS HAD SURGERY SINCE WITHOUT ISSUES). NO ISSUES X YEARS Surgical History History of anesthesia reaction SLOW TO WAKE UP-HAD [place] DURING SURGERY [place] [place] 66 History of cataract surgery R/L History of colonoscopy History of esophagogastroduodenoscopy (EGD) S/P bilateral breast reduction AGE 66 YRS S/P TKR (total knee replacement) LEFT Status post replacement of left shoulder joint (~09/2019) Family History Father Family history of diabetes mellitus Mother Family hx of colon cancer Social History Smoking Status: Never smoker Second Hand Exposure: No; Hx Alcohol Use: No Hx Substance Use: No Preferred Language: Kazakh Communication Ability: Effective Creative Recruiter Required: No Beliefs That Will Affect Care: None marital status: Current Living Situation: Spouse Other Information That Helps Us Care for You: No Feels Safe at Home: Yes Safety Concerns: Feels Safe At This Time Assistive Devices: Cane Allergies Allergies Allergy/AdvReac Type Severity Reaction Status Date / Time No Known Allergies Allergy Unknown Verified 08/02/21 17:59 Home Meds Home Medications Medication Instructions Recorded Confirmed atorvastatin 10 mg tablet 10 mg PO MOWEFR@0900 07/10/18 10/18/21 metoprolol succinate 50 mg 50 mg PO HS 07/10/18 10/18/21 tablet,extended release 24 hr acetaminophen 500 mg tablet 1,000 mg PO Q6H PRN Pain 11/21/18 10/18/21 (Tylenol Extra Strength) pantoprazole 20 mg tablet,delayed 20 mg PO QAM 11/21/18 10/18/21 release hydrochlorothiazide 25 mg tablet 25 mg PO QAM 09/25/19 10/18/21 lisinopril 20 mg tablet 20 mg PO BID 09/25/19 10/18/21 amlodipine 5 mg tablet 5 mg PO QPM 08/02/21 10/18/21 aspirin 25 mg-dipyridamole 200 mg 1 cap PO BID 10/18/21 10/18/21 capsule,ext.release 12 hr multiphase cholecalciferol (vitamin D3) 1,250 1,250 mcg PO FR@0900 10/18/21 10/18/21 mcg (50,000 unit) capsule Results & Data (ED) Vital Signs Vital Signs - 24 hr 10/18/21 14:44 10/18/21 15:30 10/18/21 16:35 Pulse Rate 80 73 Pulse Rate [Left Finger] 77 Respiratory Rate 18 20 20 Blood Pressure 138/76 154/66 H Blood Pressure [Left Arm] 150/76 H Blood Pressure Mean 96 95 Blood Pressure Mean [Left Arm] 100 Blood Pressure Position [Left Arm] Sitting Pulse Oximetry 98 98 98 Oxygen Delivery Method Room Air Nasal Cannula Nasal Cannula Oxygen Flow Rate 2 2 Laboratory Data Result diagrams: 10/19/21 08:04 10/19/21 06:59 Lab Results 10/18/21 10/18/21 10/18/21 Range/Units 12:59 12:59 12:59 WBC 16.48 H (4.8-10.8) K/ul RBC 3.92 L (3.93-5.22) M/uL Hgb 12.2 (12.0-16.0) g/dl Hct 36.5 (34.1-44.9) % MCV 93.1 (80.0-100.0) fL MCH 31.1 (25.0-34.0) pg MCHC 33.4 (32.0-36.0) g/dL RDW Std Deviation 47.5 H (36.4-46.3) fL RDW Coeff of Marcio 13.9 (11.5-14.5) % Plt Count 314 (130-400) K/uL MPV 10.3 (9.4-12.3) fL Immature Gran % (Auto) 0.7 % Neut % (Auto) 83.9 % Lymph % (Auto) 10.1 % Scurry % (Auto) 4.9 % Eos % (Auto) 0.2 % Baso % (Auto) 0.2 % Neut # (Auto) 13.83 H (1.4-6.5) K/uL Lymph # (Auto) 1.66 (1.2-3.4) K/uL Scurry # (Auto) 0.81 (0.24-0.82) K/uL Eos # (Auto) 0.03 (0-0.50) K/uL Baso # (Auto) 0.04 (0-0.2) K/uL Immature Gran # (Auto) 0.11 H (0.00-0.02) K/uL ESR (0-30) mm/hr PT 10.4 (9.0-12.0) Seconds INR 1.0 (0.9-1.1) APTT 26.0 (21.0-31.0) Seconds PTT Ratio 0.9 Sodium 138 (136-145) mmol/L Potassium 3.9 (3.5-5.1) mmol/L Chloride 101 (98-107) mmol/L Carbon Dioxide 29 (21-32) mmol/L Anion Gap 8 (3-11) BUN 23 (6-23) mg/dl Creatinine 1.15 (0.6-1.2) mg/dl Est Cr Clr Drug Dosing 46.0 ml/min Est GFR ( Amer) 52.4 ml/min Est GFR (Non-Af Amer) 45.2 ml/min BUN/Creatinine Ratio 20.0 (10-20) Glucose 127 H (70-99(Fasting)) mg/dl Calcium 10.0 (8.5-10.1) mg/dl Total Bilirubin 0.9 (0.2-1.0) mg/dl AST 16 (13-39) U/L ALT 13 (7-52) U/L Alkaline Phosphatase 73 (34-104) U/L Troponin I High Sens 33.0 H D (0-14) pg/ml Total Protein 6.6 (6.0-8.3) gm/dl Albumin 3.9 (3.4-5.0) gm/dl Globulin 2.7 (2.5-4.0) gm/dl Albumin/Globulin Ratio 1.4 (0.9-2) Procalcitonin (0-0.5) ng/ml Anaplasma Smear Babesia Smear Lyme Disease IgG Ab (Negative) Lyme Disease IgM Ab (Negative) SARS-CoV-2, RNA, NAAT (NEGATIVE) 10/18/21 10/18/21 10/18/21 Range/Units 12:59 12:59 12:59 WBC (4.8-10.8) K/ul RBC (3.93-5.22) M/uL Hgb (12.0-16.0) g/dl Hct (34.1-44.9) % MCV (80.0-100.0) fL MCH (25.0-34.0) pg MCHC (32.0-36.0) g/dL RDW Std Deviation (36.4-46.3) fL RDW Coeff of Marcio (11.5-14.5) % Plt Count (130-400) K/uL MPV (9.4-12.3) fL Immature Gran % (Auto) % Neut % (Auto) % Lymph % (Auto) % Scurry % (Auto) % Eos % (Auto) % Baso % (Auto) % Neut # (Auto) (1.4-6.5) K/uL Lymph # (Auto) (1.2-3.4) K/uL Scurry # (Auto) (0.24-0.82) K/uL Eos # (Auto) (0-0.50) K/uL Baso # (Auto) (0-0.2) K/uL Immature Gran # (Auto) (0.00-0.02) K/uL ESR 32 H (0-30) mm/hr PT (9.0-12.0) Seconds INR (0.9-1.1) APTT (21.0-31.0) Seconds PTT Ratio Sodium (136-145) mmol/L Potassium (3.5-5.1) mmol/L Chloride (98-107) mmol/L Carbon Dioxide (21-32) mmol/L Anion Gap (3-11) BUN (6-23) mg/dl Creatinine (0.6-1.2) mg/dl Est Cr Clr Drug Dosing ml/min Est GFR ( Amer) ml/min Est GFR (Non-Af Amer) ml/min BUN/Creatinine Ratio (10-20) Glucose (70-99(Fasting)) mg/dl Calcium (8.5-10.1) mg/dl Total Bilirubin (0.2-1.0) mg/dl AST (13-39) U/L ALT (7-52) U/L Alkaline Phosphatase (34-104) U/L Troponin I High Sens (0-14) pg/ml Total Protein (6.0-8.3) gm/dl Albumin (3.4-5.0) gm/dl Globulin (2.5-4.0) gm/dl Albumin/Globulin Ratio (0.9-2) Procalcitonin 0.06 (0-0.5) ng/ml Anaplasma Smear See Comment Babesia Smear See Comment Lyme Disease IgG Ab Negative (Negative) Lyme Disease IgM Ab Negative (Negative) SARS-CoV-2, RNA, NAAT (NEGATIVE) 10/18/21 Range/Units 16:35 WBC (4.8-10.8) K/ul RBC (3.93-5.22) M/uL Hgb (12.0-16.0) g/dl Hct (34.1-44.9) % MCV (80.0-100.0) fL MCH (25.0-34.0) pg MCHC (32.0-36.0) g/dL RDW Std Deviation (36.4-46.3) fL RDW Coeff of Marcio (11.5-14.5) % Plt Count (130-400) K/uL MPV (9.4-12.3) fL Immature Gran % (Auto) % Neut % (Auto) % Lymph % (Auto) % Scurry % (Auto) % Eos % (Auto) % Baso % (Auto) % Neut # (Auto) (1.4-6.5) K/uL Lymph # (Auto) (1.2-3.4) K/uL Scurry # (Auto) (0.24-0.82) K/uL Eos # (Auto) (0-0.50) K/uL Baso # (Auto) (0-0.2) K/uL Immature Gran # (Auto) (0.00-0.02) K/uL ESR (0-30) mm/hr PT (9.0-12.0) Seconds INR (0.9-1.1) APTT (21.0-31.0) Seconds PTT Ratio Sodium (136-145) mmol/L Potassium (3.5-5.1) mmol/L Chloride (98-107) mmol/L Carbon Dioxide (21-32) mmol/L Anion Gap (3-11) BUN (6-23) mg/dl Creatinine (0.6-1.2) mg/dl Est Cr Clr Drug Dosing ml/min Est GFR ( Amer) ml/min Est GFR (Non-Af Amer) ml/min BUN/Creatinine Ratio (10-20) Glucose (70-99(Fasting)) mg/dl Calcium (8.5-10.1) mg/dl Total Bilirubin (0.2-1.0) mg/dl AST (13-39) U/L ALT (7-52) U/L Alkaline Phosphatase (34-104) U/L Troponin I High Sens (0-14) pg/ml Total Protein (6.0-8.3) gm/dl Albumin (3.4-5.0) gm/dl Globulin (2.5-4.0) gm/dl Albumin/Globulin Ratio (0.9-2) Procalcitonin (0-0.5) ng/ml Anaplasma Smear Babesia Smear Lyme Disease IgG Ab (Negative) Lyme Disease IgM Ab (Negative) SARS-CoV-2, RNA, NAAT NEGATIVE (NEGATIVE) Administered Medications Amlodipine Besylate (Amlodipine Besylate 5 Mg Tab) 5 mg PO QPM [facility] Stop: 11/17/21 21:24 Last Admin: 10/18/21 22:35 Dose: Not Given Documented By: MACY Atorvastatin Calcium (Atorvastatin 10 Mg Tab) 10 mg PO MOWEFR@0900 [facility] Stop: 11/18/21 08:59 Last Admin: 10/19/21 08:20 Dose: 10 mg Documented By: KIAH Dipyridamole/Aspirin (Dipyridamole/Aspirin Cap) 1 cap PO BID [facility] Stop: 11/17/21 21:08 Last Admin: 10/19/21 08:20 Dose: 1 cap Documented By: Admin: 10/18/21 23:13 Dose: 1 cap Documented By: [facility] Hydrochlorothiazide (Hydrochlorothiazide 25 Mg Tab) 25 mg PO QAM [facility] Stop: 11/18/21 08:59 Last Admin: 10/19/21 08:20 Dose: 25 mg Documented By: KIAH Ceftriaxone Sodium 2,000 mg/ (Dextrose) 70 mls @ 100 mls/hr IV Q24H [facility]; Protocol Stop: 10/20/21 20:59 Last Infusion: 10/18/21 23:54 Dose: 0 mls/hr Documented By: Admin: 10/18/21 23:12 Dose: 100 mls/hr Documented By: MACY Ibuprofen (Ibuprofen 600 Mg Tab) 600 mg PO QID [facility] Stop: 11/17/21 20:59 Last Admin: 10/19/21 12:29 Dose: 600 mg Documented By: Admin: 10/19/21 08:21 Dose: 600 mg Documented By: Admin: 10/18/21 21:22 Dose: 600 mg Documented By: MACY Lisinopril (Lisinopril 20 Mg Tab) 20 mg PO BID [facility] Stop: 11/18/21 08:59 Last Admin: 10/19/21 09:24 Dose: 20 mg Documented By: Admin: 10/18/21 23:13 Dose: 20 mg Documented By: MACY Metoprolol Succinate (Metoprolol Succ 50mg Ext Rel Tab) 50 mg PO HS [facility] Stop: 11/17/21 21:24 Last Admin: 10/18/21 22:35 Dose: Not Given Documented By: MACY Pantoprazole Sodium (Pantoprazole 40 Mg Tab) 40 mg PO QAM [facility] Stop: 11/18/21 08:59 Last Admin: 10/19/21 08:21 Dose: 40 mg Documented By: CG Tramadol HCl (Tramadol Hcl 50 Mg Tablet) 50 mg PO Q6H PRN PRN Reason: moderate-severe pain Stop: 11/18/21 09:27 Last Admin: 10/19/21 10:01 Dose: 50 mg Documented By: KIAH Discontinued Medications Fentanyl Citrate (Fentanyl Citrate 100 Mcg/2 Ml Vial) 50 mcg IV NOW STA Stop: 10/18/21 15:16 Last Admin: 10/18/21 15:23 Dose: 50 mcg Documented By: KT Fentanyl Citrate (Fentanyl Citrate 100 Mcg/2 Ml Vial) 50 mcg IV NOW STA Stop: 10/18/21 16:17 Last Admin: 10/18/21 16:33 Dose: 50 mcg Documented By: NATALIA Ioversol (Optiray 300 500ml) 119 ml IV ONCE ONE Stop: 10/18/21 15:49 Last Admin: 10/18/21 15:49 Dose: 110 ml Documented By: DARYL Ondansetron HCl (Ondansetron Inj 2 Mg/Ml 2 Ml Vial) 4 mg IV NOW STA Stop: 10/18/21 15:16 Last Admin: 10/18/21 15:23 Dose: 4 mg Documented By: KT Discharge Plan Visit Data Chief Complaint: Chest Pain Stated Complaint: CHEST PAIN ED Provider: Nica Kauffman Discharge Problem: Left-sided chest pain, Elevated troponin Patient Disposition: Admitted As Inpatient Discharge Instructions Interventions: ED Discharge Assessment Last Done: 10/18/21 20:37
[2021-10-18] MEDS ORDERED: OPTIRAY 300 500mL IV ONE (15:48)
--- NOTE | 2021-10-18 16:05 | CT Scan Report ---
CT ANGIOGRAM OF THE CHEST COMBO CLINICAL HISTORY: Atypical chest pain. COMPARISON STUDY: Chest x-ray dated 10/01/2019. TECHNIQUE: Before and following the IV administration of 110 cc of Optiray 300, CT angiogram of the c hest was performed from the thoracic inlet to the upper abdomen utilizing the dissection protocol. Im ages are reviewed in the axial, sagittal, and coronal planes. 3-D MIPS images are created and assesse d. IV contrast was administered without complication. A dose lowering technique was utilized adherin g to the principles of ALARA. The examination is degraded by streak artifact from a left shoulder art hroplasty. CT DOSE: 1440.31 mGy.cm FINDINGS: Thyroid: Normal in size and heterogeneous in attenuation. Thoracic aorta: No intramural hematoma is seen on the unenhanced series. There is mild atheroscleroti c calcification of the thoracic aorta, which is normal in caliber and demonstrates standard 3-vessel arch anatomy. No dissection is seen. The arch vessels are widely patent. Pulmonary vasculature: The pulmonary trunk is normal in caliber. There are no central filling defects identified in the pulmonary vessels to suggest pulmonary embolus. Note that this examination was not specifically protocoled to assess for pulmonary emboli. Heart: The heart is normal in size and without pericardial effusion. The coronary arteries are densel y calcified. Lungs and pleural spaces: Evaluation of the lung parenchyma is compromised by motion artifact. There is no airspace consolidation typical for pneumonia or pleural effusion. Scarring/atelectasis is prese nt at both lung bases. The trachea and central airways are clear. An 8 mm pleural-based nodule at the right lung base is seen on image #136, and a 5 mm pleural-based nodule in the right lower lobe is se en on image #105. Mediastinum: There is no mediastinal lymphadenopathy. Josefina: Clear. Axillae: There is no axillary lymphadenopathy. Upper abdomen: There is a small hiatal hernia. Partially visualized upper abdominal viscera is within normal limits. Skeletal structures: The skeletal structures are osteopenic. Spondylotic change is noted in the thora cic spine. No lytic or blastic bony lesions are seen. A left shoulder arthroplasty is in place. Advan gianluca arthritic change is seen in the right shoulder. There are subacute appearing right anterior rib f ractures (4th-7th). Soft tissues: A 6.3 cm peripherally calcified structure in the left breast has been present on prior examinations. IMPRESSION: 1. Unremarkable CT angiogram of the thoracic aorta. 2. There is no airspace consolidation or pleural effusion. 3. There are subacute appearing right anterior rib fractures. Correlate for point tenderness. 4. Low suspicion pleural-based nodules in the right lower lobe measure up to 8mm. This can be followe d as per the Fleischner criteria if clinically warranted. See below. 5. A 6.3 cm peripherally calcified and benign-appearing structure in the right breast has been presen t on prior examinations. Clinical correlation will be required. If not recently performed consider no nemergent mammographic follow-up. 6. Additional findings as above. ACT 112: Negative or not required by law. Electronically signed by: Garrett Weathers M.D. 10/18/2021 4:04 PM
--- NOTE | 2021-10-18 17:12 | History & Physical Report ---
Date of Service October 18, 2021 Assessment & Plan (1) Chest pain: (2) Hypertension: (3) GERD (gastroesophageal reflux disease): (4) TIA (transient ischemic attack): (5) Aortic stenosis: (6) Rheumatoid arthritis: (7) Dyslipidemia: Plan This is a 81-year-old female with PMH of carotid stenosis, hypertension, history of stroke, GERD, dyslipidemia and other medical problems listed below who presents with chest pain since 4 this morning. Chest pain Pain is worse when lying down and with deep inspiration Chest CTA performed -unremarkable CT angiogram of the thoracic aorta. No evidence of pericardial effusion. No findings to suggest pulmonary emboli EKG unchanged from prior HS troponin 33 --> 35 Concern for pericarditis given clinical presentation - last viral illness over a month ago VSS, BP stable Ibuprofen 600mg QID, added GI ppx with Protonix 2D echo, trend troponin, discussed with Dr. Broderick Leukocytosis WBC 16 K, afebrile, Chest CTA without infectious picture, UA and tick serology pending Pro-Prashant ESR, CRP and blood cx added Empiric Rocephin for now Carotid stenosis History of TIA Continue aspirin-dipyridamole Lung nodule on CT RLL 8 mm nodule, needs repeat CT scan in 3-6 months, patient made aware to contact with PCP as outpatient Hypertension Home medications include lisinopril BID, amlodipine, hctz, Toprol Aortic stenosis Mild noted on 2019 echo DVT Ppx: SCDs Code status: FULL PCP: Anitra Dispo: Observation PCU Patient seen in collaboration with Dr. Vines. Please see addendum. History of Present Illness Chief Complaint: Chest discomfort Primary Care Provider: Justino Ayoub This is a 81-year-old female with PMH of carotid stenosis, hypertension, history of stroke, GERD, dyslipidemia and other medical problems listed below who presents with chest pain since 4 this morning. Woke up with sharp, pleuritic chest pain radiating to her back that is exacerbated with inspiration. Pain is also much more severe when lying down and patient has been sitting upright since then with some improvement. Had another severe bout of pain around 7 AM that persisted despite taking antacid medication. Notes trace swelling in lower extremities but states it is close to baseline. No nausea or vomiting. Does endorse chills. No fever. Did have bronchitis at the end of July but no viral illnesses since then. No recent medication changes. Denies known history of coronary artery disease but states she did have an echo in the past and was told the one of her valves was abnormal. Follows with Dr. Ayoub for primary care. No headache, congestion, wheezing, nausea, vomiting, abdominal pain, dysuria, diarrhea or constipation. Allergies Allergy/AdvReac Type Severity Reaction Status Date / Time No Known Allergies Allergy Unknown Verified 08/02/21 17:59 Home Medications Medication Instructions Recorded Confirmed Type atorvastatin 10 mg tablet 10 mg PO MOWEFR@0900 07/10/18 10/18/21 History metoprolol succinate 50 mg 50 mg PO HS 07/10/18 10/18/21 History tablet,extended release 24 hr acetaminophen 500 mg tablet 1,000 mg PO Q6H PRN Pain 11/21/18 10/18/21 History (Tylenol Extra Strength) pantoprazole 20 mg tablet,delayed 20 mg PO QAM 11/21/18 10/18/21 History release hydrochlorothiazide 25 mg tablet 25 mg PO QAM 09/25/19 10/18/21 History lisinopril 20 mg tablet 20 mg PO BID 09/25/19 10/18/21 History amlodipine 5 mg tablet 5 mg PO QPM 08/02/21 10/18/21 History aspirin 25 mg-dipyridamole 200 mg 1 cap PO BID 10/18/21 10/18/21 History capsule,ext.release 12 hr multiphase cholecalciferol (vitamin D3) 1,250 1,250 mcg PO FR@0900 10/18/21 10/18/21 History mcg (50,000 unit) capsule Past Med/Surg History Medical History (Updated 10/18/21 @ 20:42 by Rahel Collazo PA-C) Aortic stenosis Mild per 11/2018 ECHO GERD (gastroesophageal reflux disease) Well controlled and stable Hyperlipidemia Hypertension Knee pain, right Rheumatoid arthritis F/U PCP Right knee DJD Rotator cuff arthropathy Sciatica Can radiate down right or left side Seizure TIA vs SEIZURE: "BLACKED OUT IN HER HEAD AND CAME TO"/BECAME ALERT-NEVER DX'D ANY FURTHER-4 YRS AGO-NO OTHER OCCURRENCES TIA (transient ischemic attack) X 4- PLACED ON PLAVIX (FIRST TIA AFTER SURGERY- HAS HAD SURGERY SINCE WITHOUT ISSUES). NO ISSUES X YEARS Surgical History History of anesthesia reaction SLOW TO WAKE UP-HAD TIA DURING SURGERY AND POST OP-C-AGE 66 History of cataract surgery R/L History of colonoscopy History of esophagogastroduodenoscopy (EGD) S/P bilateral breast reduction AGE 66 YRS S/P TKR (total knee replacement) LEFT Status post replacement of left shoulder joint (~09/2019) Family History Father Family history of diabetes mellitus Mother Family hx of colon cancer Social History Smoking Status: Never smoker Second Hand Exposure: No; Hx Alcohol Use: No Hx Substance Use: No Preferred Language: Frisian Communication Ability: Effective 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 Physical Exam Physical Exam: General Appearance: WD/WN, vitals as above, NAD, sitting up in wheelchair, pleasant, conversing easily Head: normocephalic, atraumatic Eyes: normal inspection, PERRL, conjunctivae normal, anicteric sclerae ENT: external ear and nose normal, oropharynx normal Neck: normal visual inspection, trachea midline, no thyromegaly Respiratory: normal respiratory effort, diminished lung sounds bilaterally 2/2 shallow breathing, no wheeze, rales or rhonchi. No accessory muscle use Cardiovascular: regular rate, rhythm, +systolic murmur, normal peripheral pulses, trace BLE edema. Vessels: no JVD Chest: normal inspection of chest Abdomen/GI: normal bowel sounds, soft, nontender, no hepatosplenomegaly Extremities/Musculoskeletal: no cyanosis or clubbing, extremities motor strength 5/5 Neurologic: PERRL, EOMI, accommodation nl, no face palsy, no dysarthria, CN's II-XI intact bilaterally and moves all extremities Psychiatric: A+Ox3, euthymic affect Skin: no rashes, normal color, warm/dry Results & Data Results & Data ([facility]) Vital Signs (Past 12 Hours) Vital Signs Temp Pulse Pulse Resp BP BP Pulse Ox 10/18/21 16:35 73 20 154/66 H 98 10/18/21 15:30 80 20 138/76 98 10/18/21 14:44 77 18 150/76 H 98 10/18/21 12:28 36.5 C 81 20 142/68 H 99 O2 Del Method O2 Flow Rate 10/18/21 16:35 Nasal Cannula 2 10/18/21 15:30 Nasal Cannula 2 10/18/21 14:44 Room Air 10/18/21 12:28 Room Air Laboratory Results Short CBC 10/18/21 Range/Units 12:59 WBC 16.48 H (4.8-10.8) K/ul Hgb 12.2 (12.0-16.0) g/dl Hct 36.5 (34.1-44.9) % Plt Count 314 (130-400) K/uL BMP 10/18/21 12:59 Sodium 138 Potassium 3.9 Chloride 101 Carbon Dioxide 29 BUN 23 Creatinine 1.15 Glucose 127 H Calcium 10.0 Liver Function 10/18/21 Range/Units 12:59 Total Bilirubin 0.9 (0.2-1.0) mg/dl AST 16 (13-39) U/L ALT 13 (7-52) U/L Alkaline Phosphatase 73 (34-104) U/L Albumin 3.9 (3.4-5.0) gm/dl Diagnostic Findings Chest CTA 10/18/21 15:15 CT ANGIOGRAM OF THE CHEST COMBO CLINICAL HISTORY: Atypical chest pain. COMPARISON STUDY: Chest x-ray dated 10/01/2019. TECHNIQUE: Before and following the IV administration of 110 cc of Optiray 300, CT angiogram of the chest was performed from the thoracic inlet to the upper abdomen utilizing the dissection protocol. Images are reviewed in the axial, sagittal, and coronal planes. 3-D MIPS images are created and assessed. IV contrast was administered without complication. A dose lowering technique was utilized adhering to the principles of ALARA. The examination is degraded by streak artifact from a left shoulder arthroplasty. CT DOSE: 1440.31 mGy.cm FINDINGS: Thyroid: Normal in size and heterogeneous in attenuation. Thoracic aorta: No intramural hematoma is seen on the unenhanced series. There is mild atherosclerotic calcification of the thoracic aorta, which is normal in caliber and demonstrates standard 3-vessel arch anatomy. No dissection is seen. The arch vessels are widely patent. Pulmonary vasculature: The pulmonary trunk is normal in caliber. There are no central filling defects identified in the pulmonary vessels to suggest pulmonary embolus. Note that this examination was not specifically protocoled to assess for pulmonary emboli. Heart: The heart is normal in size and without pericardial effusion. The coronary arteries are densely calcified. Lungs and pleural spaces: Evaluation of the lung parenchyma is compromised by motion artifact. There is no airspace consolidation typical for pneumonia or pleural effusion. Scarring/atelectasis is present at both lung bases. The trachea and central airways are clear. An 8 mm pleural-based nodule at the right lung base is seen on image #136, and a 5 mm pleural-based nodule in the right lower lobe is seen on image #105. Mediastinum: There is no mediastinal lymphadenopathy. Josefina: Clear. Axillae: There is no axillary lymphadenopathy. Upper abdomen: There is a small hiatal hernia. Partially visualized upper abdominal viscera is within normal limits. Skeletal structures: The skeletal structures are osteopenic. Spondylotic change is noted in the thoracic spine. No lytic or blastic bony lesions are seen. A left shoulder arthroplasty is in place. Advanced arthritic change is seen in the right shoulder. There are subacute appearing right anterior rib fractures (4th- 7th). Soft tissues: A 6.3 cm peripherally calcified structure in the left breast has been present on prior examinations. IMPRESSION: 1. Unremarkable CT angiogram of the thoracic aorta. 2. There is no airspace consolidation or pleural effusion. 3. There are subacute appearing right anterior rib fractures. Correlate for point tenderness. 4. Low suspicion pleural-based nodules in the right lower lobe measure up to 8mm. This can be followed as per the Fleischner criteria if clinically warranted. See below. 5. A 6.3 cm peripherally calcified and benign-appearing structure in the right breast has been present on prior examinations. Clinical correlation will be required. If not recently performed consider nonemergent mammographic follow-up. 6. Additional findings as above. ACT 112: Negative or not required by law. Electronically signed by: Garrett Weathers M.D. 10/18/2021 4:04 PM Code Status & VTE Plan VTE Prophylaxis Plan VTE Prophylaxis will be ordered: Yes Supervising Physician Co-Signing Physician Notes 81-year-old lady with PMH of carotid stenosis, HTN, stroke, GERD, HLD presented to our ED 10/18 with complaint of chest pain that onset 4 AM today morning. Patient reports being woken up by chest pain 4 AM in the morning, exacerbated by lying down and deep inspiration, sharp and pleuritic in nature, radiating to back, also complained of left forearm and hand pain which has resolved at bedside exam. Patient denies any tick bite, last once he could remember was tick bite 5 years ago. Patient reports feeling heavy in the chest and worsening pain. Patient does not have a history of gastritis or GI bleed. Patient denies any acute changes in her bowel or bladder habits, denies fever/chills/sore throat/cough/any new skin rashes anywhere in the body. Patient does report having recurrent falls. Labs reviewed with mild elevation of troponin, trend troponin, EKG with sinus rhythm with PACs. Given clinical picture, likely pericarditis, tickborne serology, ibuprofen, cardiology consult, trend troponin, EKG in a.m., ESR/CRP. ECHO. GI prophylaxis while on ibuprofen. RLL 8 mm nodule, patient made aware, needs repeat CT scan in 3-6 months, patient made aware to contact with PCP as outpatient. Patient denies smoking history. For recurrent falls, PT/OT. WBC elevated, procal sent, iv rocephin until procal is out and negative, consider continuing antibiotic if tick borne serology is positive. Upon examination: GENERAL: Alert and oriented x3. NAD. Sitting up in Chair, on 2L NC O2 HEENT: No pallor, no icterus. Pupils equal, round and reactive to light. Oral mucosa moist. NECK: No JVD, no neck masses. HEART: S1 and S2 heard. Regular rate and rhythm. systolic murmur at Aortic > Pulmonic area, no gallop. RESPIRATORY SYSTEM: Normal AP diameter. No accessory muscle use. No wheezing, no crackles. ABDOMEN: Soft, bowel sounds present, nontender, no distention. CENTRAL NERVOUS SYSTEM: No facial droop. Speech is clear. Obeys simple commands. Moves extremities. EXTREMITIES: trace ble edema, no erythema seen. I have seen and examined the patient and have discussed the case with the provider above. I agree with the assessment and plan as stated.
[2021-10-18] MEDS ORDERED: ACETAMINOPHEN 500 MG TAB PO PRN (21:09)
[2021-10-18] MEDS ORDERED: ONDANSETRON INJ 2 MG/ML 2 ML VIAL IV PRN (21:09)
[2021-10-18] MEDS ORDERED: NITROGLYCERIN SL 0.4 MG/TAB TAB SL PRN (21:09)
[2021-10-18] MEDS ORDERED: POLYETHYLENE (MIRALAX) 17 GM PACK PO PRN (21:09)
[2021-10-18 21:17] LABS: Procalcitonin 0.06 ng/ml (0-0.5)
[2021-10-18] MEDS: IBUPROFEN 600 MG TAB PO SCH (21:22)
[2021-10-18 21:23] LABS: Lyme Ab IgG w/WB Rflx Negative (Negative); Lyme Ab IgM w/WB Rflx Negative (Negative)
[2021-10-18] MEDS: METOPROLOL SUCC 50MG EXT REL TAB PO SCH (22:35)
[2021-10-18] MEDS: amLODIPine BESYLATE 5 MG TAB PO SCH (22:35)
[2021-10-18] MEDS: cefTRIAXone SODIUM 2,000 MG in DEXTROSE 5% 50 ML IV SCH (23:12)
[2021-10-18] MEDS: DIPYRIDAMOLE/ASPIRIN CAP PO SCH (23:13)
[2021-10-18] MEDS: lisinopril 20 MG TAB PO SCH (23:13)
[2021-10-19] MEDS: ATORVASTATIN 10 MG TAB PO SCH (08:20)
[2021-10-19] MEDS: DIPYRIDAMOLE/ASPIRIN CAP PO SCH ×2 (08:20→20:34)
[2021-10-19 08:21] LABS: Hematocrit (blood only) 35.3 % (34.1-44.9); Hemoglobin 11.9 g/dl (12.0-16.0); Mean Corpuscular Hemoglobin 31.3 pg (25.0-34.0); Mean Corpuscular Hgb Conc 33.7 g/dL (32.0-36.0); Mean Corpuscular Volume 92.9 fL (80.0-100.0); Mean Platelet Volume 10.3 fL (9.4-12.3); Platelet Count 246 K/uL (130-400); RDW Coefficient of Variation 14.4 % (11.5-14.5); White Blood Count 15.04 K/ul (4.8-10.8)
[2021-10-19] MEDS: PANTOprazole 40 MG TAB PO SCH (08:21)
[2021-10-19] MEDS: IBUPROFEN 600 MG TAB PO SCH ×2 (08:21→12:29)
[2021-10-19 08:25] LABS: Troponin I High Sensitivity 34.8 pg/ml (0-14)
[2021-10-19 08:30] LABS: BUN Creatinine Ratio 19.2 (10-20); Calcium 9.4 mg/dl (8.5-10.1); Creatinine Clr Calc Pharmacy 36.3 ml/min; Est GFR (African American) 39.3 ml/min; Est GFR (Non-African American) 33.9 ml/min; Potassium 4.4 mmol/L (3.5-5.1)
--- NOTE | 2021-10-19 08:48 | Cardiology Consultation ---
Date of Consultation October 19, 2021 Assessment & Plan (1) Ribs, multiple fractures: (2) Chest pain: (3) Rheumatoid arthritis: (4) TIA (transient ischemic attack): (5) Osteopenia: Plan 2D echocardiogram did confirm the presence of a small loculated anterior pericardial effusion without hemodynamic compromise. With recent rib fractures it is not unexpected for pericarditis/pericardial fluid to develop. Recommend treating for acute pericarditis with colchicine 0.6 mg p.o. twice daily x3 months along with ibuprofen 600 mg p.o. 3 times daily for 1 month. GI prophylaxis is also recommended. No further cardiac test intervention necessary at this time. Okay to discharge to home from a cardiac standpoint once pain is controlled. Should follow-up with cardiology as an outpatient in 4 to 6 weeks. History of Present Illness Reason for Consultation: Chest pain Requesting Physician: Rahel Collazo Attending Physician: Nalini Vines MD History of Present Illness It was my pleasure to see Mrs. Winters in cardiac consultation today October 19, 2021. She is a very pleasant 81-year-old woman who presented to [facility] on 10/18/2021 with complaints of chest pain. She states that she was woken up abruptly at approximately 4 AM with significant left-sided chest pain. She described as a pressure sensation that radiated to her left shoulder and to her back. The discomfort was worse with movement, inhalation and lying down. Discomfort improved with sitting upright. She has had 3 mechanical falls over the last several weeks including complications of 3 broken ribs on the right. Allergies Allergy/AdvReac Type Severity Reaction Status Date / Time No Known Allergies Allergy Unknown Verified 08/02/21 17:59 Home Medications Medication Instructions Recorded Confirmed Type atorvastatin 10 mg tablet 10 mg PO MOWEFR@0900 07/10/18 10/18/21 History metoprolol succinate 50 mg 50 mg PO HS 07/10/18 10/18/21 History tablet,extended release 24 hr acetaminophen 500 mg tablet 1,000 mg PO Q6H PRN Pain 11/21/18 10/18/21 History (Tylenol Extra Strength) pantoprazole 20 mg tablet,delayed 20 mg PO QAM 11/21/18 10/18/21 History release hydrochlorothiazide 25 mg tablet 25 mg PO QAM 09/25/19 10/18/21 History lisinopril 20 mg tablet 20 mg PO BID 09/25/19 10/18/21 History amlodipine 5 mg tablet 5 mg PO QPM 08/02/21 10/18/21 History aspirin 25 mg-dipyridamole 200 mg 1 cap PO BID 10/18/21 10/18/21 History capsule,ext.release 12 hr multiphase cholecalciferol (vitamin D3) 1,250 1,250 mcg PO FR@0900 10/18/21 10/18/21 History mcg (50,000 unit) capsule Patient History Medical History (Updated 10/19/21 @ 08:47 by Eyal Aragon, DO) Aortic stenosis Mild per 11/2018 ECHO GERD (gastroesophageal reflux disease) Well controlled and stable Hyperlipidemia Hypertension Knee pain, right Rheumatoid arthritis F/U PCP Right knee DJD Rotator cuff arthropathy Sciatica Can radiate down right or left side Seizure TIA vs SEIZURE: "BLACKED OUT IN HER HEAD AND CAME TO"/BECAME ALERT-NEVER DX'D ANY FURTHER-4 YRS AGO-NO OTHER OCCURRENCES TIA (transient ischemic attack) X 4- PLACED ON PLAVIX (FIRST TIA AFTER SURGERY- HAS HAD SURGERY SINCE WITHOUT ISSUES). NO ISSUES X YEARS Surgical History History of anesthesia reaction SLOW TO WAKE UP-HAD [place]IA DUR[place] [place] 66 History of cataract surgery R/L History of colonoscopy History of esophagogastroduodenoscopy (EGD) S/P bilateral breast reduction AGE 66 YRS S/P TKR (total knee replacement) LEFT Status post replacement of left shoulder joint (~09/2019) Family History Father Family history of diabetes mellitus Mother Family hx of colon cancer Social History Smoking Status: Never smoker Second Hand Exposure: No; Hx Alcohol Use: No Hx Substance Use: No Preferred Language: Maltese Communication Ability: Effective Manager Of Network Required: No Beliefs That Will Affect Care: None marital status: Current Living Situation: Spouse Other Information That Helps Us Care for You: No Feels Safe at Home: Yes Safety Concerns: Feels Safe At This Time Assistive Devices: Cane Physical Exam Physical Exam: General: Awake, alert and oriented x 3. No acute distress. HEENT: Normocephalic, atraumatic. Pupils equal, round and reactive to light and accommodation. Extraocular muscles are intact. Anicteric sclera. Moist mucous membranes. Neck: No JVD. No bruit. Cardiovascular: Regular. Positive S-4. Normal S-1 and S-2. No S-3. 3/6 mid to late systolic ejection murmur, greatest at the right sternal border, second intercostal space with radiation to the bilateral carotids. No rubs. Pulmonary: Clear to auscultation bilaterally. No rales, rhonchi, or wheezing. Abdomen: Bowel sounds x 4, soft. No rebound, guarding or tenderness. No organomegaly. Extremities: No clubbing, cyanosis or edema. +2 pedal pulses bilaterally. Skin: Warm and dry. Musculoskeletal: Direct palpation of the left sternal border was unable to elic it the discomfort Results & Data ([facility]) Vital Signs (Past 12 Hours) Vital Signs Temp Pulse Pulse Resp BP Pulse Ox O2 Del Method 10/19/21 06:06 67 10/19/21 07:16 36.3 C L 70 19 137/67 98 Nasal Cannula 10/19/21 03:30 36.9 C 73 18 135/75 99 Nasal Cannula 10/18/21 23:00 59 L 10/18/21 23:06 36.9 C 68 18 102/66 99 Nasal Cannula 10/18/21 21:15 Nasal Cannula 10/18/21 21:15 Nasal Cannula 10/18/21 21:21 36.6 C 70 20 97/58 L 99 Nasal Cannula O2 Flow Rate 10/19/21 06:06 10/19/21 07:16 2 10/19/21 03:30 2 10/18/21 23:00 10/18/21 23:06 2 10/18/21 21:15 3 10/18/21 21:15 3 10/18/21 21:21 3
[2021-10-19 08:52] LABS: Estimated Average Glucose 117 mg/dl; Hemoglobin A1C 5.7 % (4.5-5.6)
--- NOTE | 2021-10-19 08:58 | Electrocardiogram Report ---
Test Reason : Blood Pressure : / mmHG Vent. Rate : 070 BPM Atrial Rate : 070 BPM P-R Int : 140 ms QRS Dur : 080 ms QT Int : 396 ms P-R-T Axes : 042 -16 038 degrees QTc Int : 427 ms Sinus rhythm with Premature atrial complexes Minimal voltage criteria for LVH, may be normal variant Minor ST elevation in multiple leads Abnormal ECG When compared with ECG of 18-OCT-2021 12:38, Minor ST elevation now present in multiple leads Confirmed by Deni Viera ([id number]) on 10/19/2021 8:57:37 AM Referred By: REFERRED SELF Confirmed By:Deni Viera
[2021-10-19] MEDS ORDERED: hydroCHLOROthiazide 25 MG TAB PO SCH (09:00)
[2021-10-19] MEDS: lisinopril 20 MG TAB PO SCH (09:24)
[2021-10-19] MEDS: traMADol HCL 50 MG TABLET PO PRN ×2 (10:01→20:43)
[2021-10-19] MEDS: SODIUM CHLORIDE 0.9% 1000ML 1,000 ML IV SCH (13:37)
[2021-10-19] MEDS: COLCHICINE 0.6 MG TAB PO SCH ×2 (14:19→20:33)
--- NOTE | 2021-10-19 17:01 | Hospitalist Progress Note ---
Date of Service October 19, 2021 Assessment & Plan (1) Chest pain: (2) Hypertension: (3) GERD (gastroesophageal reflux disease): (4) TIA (transient ischemic attack): (5) Aortic stenosis: (6) Rheumatoid arthritis: (7) Dyslipidemia: Plan per admitting service notes with addendum: This is a 81-year-old female with PMH of carotid stenosis, hypertension, history of stroke, GERD, dyslipidemia and other medical problems listed below who presents with chest pain since 4 this morning. Chest pain Pain is worse when lying down and with deep inspiration Chest CTA performed -unremarkable CT angiogram of the thoracic aorta. No evidence of pericardial effusion. No findings to suggest pulmonary emboli EKG unchanged from prior HS troponin 33 --> 35 Concern for pericarditis given clinical presentation - last viral illness over a month ago VSS, BP stable Ibuprofen 600mg QID, added GI ppx with Protonix 2D echo, trend troponin, discussed with Dr. Broderick 10/19: Colchicine 0.6mg po BID started per Cardiology Hold Ibuprofen 600mg TID for now in light of acute kidney injury PRN Tramadol ordered once crea improves, start Ibuprofen Acute Kidney Injury crea 1.1 to 1.4 hold HCTZ, Lisinopril gentle IV fluids repeat labs tomorrow Leukocytosis WBC 16 K, afebrile, Chest CTA without infectious picture, UA and tick serology pending Pro-Prashant ESR, CRP and blood cx added Empiric Rocephin for now Carotid stenosis History of TIA Continue aspirin-dipyridamole Lung nodule on CT RLL 8 mm nodule, needs repeat CT scan in 3-6 months, patient made aware to contact with PCP as outpatient Hypertension Home medications include l amlodipine, Toprol hold Lisinopril, HCTZ Aortic stenosis Mild noted on 2019 echo DVT Ppx: SCDs Code status: FULL PCP: Anitra Dispo: PT/OT anticipate d/c home when pain controlled Admission and Anticipated Discharge Date Admission Date: October 18, 2021 Subjective ff up for acute pericarditis, etc seen resting in bed, comfortable states chest pain has improved from 10 to 3 no palpitations, dyspnea, fever/chills, nausea/vomiting no other symptoms Review of Systems Review of Systems: all noted and negative except for above Physical Exam Physical Exam: General- oriented x 3, not in distress, speaks in sentences with no effort or accessory muscle use Eyes- anicteric Neck- no JVD Lungs- clear BS bilaterally, no rales/wheezes Heart- normal rate, regular rhythm; no murmurs Abdomen- normal bowel sounds, nondistended, soft, nontender Extremities- no pretibial edema, no calf tenderness Neuro- alert, oriented x 3; no gross focal neurologic deficits Skin- warm & dry Results & Data Results & Data ([facility]) Vital Signs (Past 12 Hours) Vital Signs Temp Pulse Pulse Resp BP Pulse Ox O2 Del Method 10/19/21 15:37 36.3 C L 77 19 105/66 92 10/19/21 14:16 79 10/19/21 11:13 36.5 C 74 16 97/61 L 97 Nasal Cannula 10/19/21 08:00 Nasal Cannula 10/19/21 06:06 67 10/19/21 07:16 36.3 C L 70 19 137/67 98 Nasal Cannula O2 Flow Rate 10/19/21 15:37 10/19/21 14:16 10/19/21 11:13 2 10/19/21 08:00 2 10/19/21 06:06 10/19/21 07:16 2 all noted and reviewed including below
[2021-10-19] MEDS: amLODIPine BESYLATE 5 MG TAB PO SCH (20:33)
[2021-10-19] MEDS: METOPROLOL SUCC 50MG EXT REL TAB PO SCH (20:34)
[2021-10-19] MEDS: cefTRIAXone SODIUM 2,000 MG in DEXTROSE 5% 50 ML IV SCH (20:42)
[2021-10-20] MEDS: SODIUM CHLORIDE 0.9% 1000ML 1,000 ML IV SCH (05:45)
[2021-10-20 07:46] LABS: Basophils # (auto) 0.04 K/uL (0-0.2); Basophils % (auto) 0.3 %; Eosinophils # (auto) 0.11 K/uL (0-0.50); Eosinophils % (auto) 0.8 %; Hematocrit (blood only) 31.5 % (34.1-44.9); Hemoglobin 10.3 g/dl (12.0-16.0); Immature Granulocytes # (auto) 0.08 K/uL (0.00-0.02); Immature Granulocytes % (auto) 0.6 %; Lymphocytes # (auto) 1.14 K/uL (1.2-3.4); Lymphocytes % (auto) 8.3 %; Mean Corpuscular Hemoglobin 30.7 pg (25.0-34.0); Mean Corpuscular Hgb Conc 32.7 g/dL (32.0-36.0); Mean Corpuscular Volume 93.8 fL (80.0-100.0); Mean Platelet Volume 10.9 fL (9.4-12.3); Monocytes # (auto) 0.69 K/uL (0.24-0.82); Neutrophils # (auto) 11.71 K/uL (1.4-6.5); Platelet Count 278 K/uL (130-400); RDW Coefficient of Variation 14.3 % (11.5-14.5); RDW Standard Deviation 49.6 fL (36.4-46.3); Red Blood Count 3.36 M/uL (3.93-5.22); White Blood Count 13.77 K/ul (4.8-10.8)
[2021-10-20 08:13] LABS: BUN Creatinine Ratio 22.3 (10-20); Creatinine Clr Calc Pharmacy 35.9 ml/min; Est GFR (African American) 38.6 ml/min; Est GFR (Non-African American) 33.3 ml/min; Potassium 4.2 mmol/L (3.5-5.1)
[2021-10-20] MEDS: DIPYRIDAMOLE/ASPIRIN CAP PO SCH ×2 (08:48→20:10)
[2021-10-20] MEDS: PANTOprazole 40 MG TAB PO SCH (08:48)
[2021-10-20] MEDS: COLCHICINE 0.6 MG TAB PO SCH ×2 (08:48→20:10)
--- NOTE | 2021-10-20 11:48 | Cardiology Progress Note ---
Date of Service October 20, 2021 Assessment & Plan (1) Ribs, multiple fractures: (2) Chest pain: (3) Rheumatoid arthritis: (4) TIA (transient ischemic attack): (5) Osteopenia: Plan 2D echocardiogram did confirm the presence of a small loculated anterior pericardial effusion without hemodynamic compromise. With recent rib fractures it is not unexpected for pericarditis/pericardial fluid to develop. Recommend treating for acute pericarditis with colchicine 0.6 mg p.o. twice kuldip y x3 months along with ibuprofen 600 mg p.o. 3 times daily for 1 month. Slight decline in renal function so ibuprofen has not been started GI prophylaxis is also recommended. No further cardiac test intervention necessary at this time. Okay to discharge to home from a cardiac standpoint Should follow-up with cardiology as an outpatient in 4 to 6 weeks. Admission and Anticipated Discharge Date Admission Date: October 19, 2021 Subjective Patient seen and examined. Chart reviewed. Telemetry reviewed. States that she is feeling better today. Notes chest pain has resolved but still with continued left shoulder pain which is a chronic issue. Review of Systems Review of Systems: All systems reviewed & are unremarkable except as noted in HPI & below Physical Exam Physical Exam: General: Awake, alert and oriented x 3. No acute distress. HEENT: Normocephalic, atraumatic. Pupils equal, round and reactive to light and accommodation. Extraocular muscles are intact. Anicteric sclera. Moist mucous membranes. Neck: No JVD. No bruit. Cardiovascular: Regular. Positive S-4. Normal S-1 and S-2. No S-3. 3/6 mid to late systolic ejection murmur, greatest at the right sternal border, second intercostal space with radiation to the bilateral carotids. No rubs. Pulmonary: Clear to auscultation bilaterally. No rales, rhonchi, or wheezing. Abdomen: Bowel sounds x 4, soft. No rebound, guarding or tenderness. No organomegaly. Extremities: No clubbing, cyanosis or edema. +2 pedal pulses bilaterally. Skin: Warm and dry. Musculoskeletal: Direct palpation of the left sternal border was unable to elicit the discomfort Results & Data ([facility]) Vital Signs (Past 12 Hours) Vital Signs Temp Pulse Pulse Resp BP Pulse Ox O2 Del Method 10/20/21 09:18 Room Air 10/20/21 07:17 37.3 C 70 18 121/71 94 Room Air 10/20/21 07:09 60 10/20/21 02:48 36.4 C L 63 18 137/70 93 Room Air
[2021-10-20] MEDS: LOPERAMIDE HCL 2 MG CAP PO PRN ×2 (11:58→20:10)
[2021-10-20] MEDS: traMADol HCL 50 MG TABLET PO PRN ×2 (11:58→20:09)
[2021-10-20 12:19] LABS: Appearance Urine Clear (Clear); Bacteria Urine Automated Negative (Negative); Bilirubin Urine Negative (Negative); Blood Urine Negative (Negative); Color Urine Yellow; Epithelial Cell Urine Auto >30 /lpf (0-5); Glucose Urine UA Negative (Negative); Ketones Urine Negative (Negative); Leukocyte Esterase Urine Trace (Negative); Nitrite Urine Negative (Negative); Protein Urine Trace (Negative); RBC Urine Automated 0-4 /hpf (0-4); Specific Gravity Urine 1.016 (1.000-1.030); Urobilinogen Urine Negative (Negative); pH Urine 5.5 (4.5-7.5)
--- NOTE | 2021-10-20 15:55 | XRay Report ---
XR chest 1V portable HISTORY: wheezing COMPARISON: Chest 10/01/2019. Chest CTA 10/18/2021. FINDINGS: No pneumothorax. The cardiac silhouette is mildly enlarged. Is left-sided shoulder prosthes is. There is mild central pulmonary vascular congestion without overt edema. No new focal lung consol idations to suggest pneumonia. There may be trace bilateral pleural effusions. IMPRESSION: 1. Cardiomegaly with mild central pulmonary vascular congestion without overt edema. 2. Possible trace bilateral pleural effusions. ACT 112: Negative or not required by law. Electronically signed by: Bo Christine M.D. 10/20/2021 3:53 PM
--- NOTE | 2021-10-20 17:51 | Hospitalist Progress Note ---
Date of Service October 20, 2021 Assessment & Plan (1) Chest pain: (2) Hypertension: (3) GERD (gastroesophageal reflux disease): (4) TIA (transient ischemic attack): (5) Aortic stenosis: (6) Rheumatoid arthritis: (7) Dyslipidemia: Plan per admitting service notes with addendum: This is a 81-year-old female with PMH of carotid stenosis, hypertension, history of stroke, GERD, dyslipidemia and other medical problems listed below who presents with chest pain since 4 this morning. Chest pain, secondary to acute pericarditis Right anterior rib fractures contributing Pain is worse when lying down and with deep inspiration Chest CTA performed -unremarkable CT angiogram of the thoracic aorta. No evidence of pericardial effusion. No findings to suggest pulmonary emboli EKG unchanged from prior HS troponin 33 --> 35 Concern for pericarditis given clinical presentation - last viral illness over a month ago Echocardiogram: Small, loculated anterior pericardial effusion without hemodynamic significance, mild concentric LVH, EF 65 to 70%, no segmental left ventricular wall motion abnormalities, grade 1 diastolic dysfunction 10/20: Chest pain mild to moderate, improved since admission overall Colchicine 0.6mg po BID started per Cardiology Hold Ibuprofen 600mg TID for now in light of acute kidney injury PRN Tramadol ordered once crea improves, start Ibuprofen Acute Kidney Injury CT contrast nephropathy? crea 1.1 to 1.4 hold HCTZ, Lisinopril Creatinine remains at 1.4 IV fluids held in light of wheezing Monitor creatinine Hold off on ibuprofen Diarrhea Stool for C. difficile negative Patient reports having diarrhea at home secondary to IBS As needed Imodium Leukocytosis WBC 16 K, afebrile, Chest CTA without infectious picture, UA and tick serology pending Pro-Prashant ESR, CRP and blood cx added --Leukocytosis improving --No urinary symptoms, DC ceftriaxone Carotid stenosis History of TIA Continue aspirin-dipyridamole Lung nodule on CT RLL 8 mm nodule, needs repeat CT scan in 3-6 months, patient made aware to contact with PCP as outpatient Abnormal CT chest findings A 6.3 cm peripherally calcified and benign-appearing structure in the right breast has been present on prior examinations. Clinical correlation will be required. If not recently performed consider nonemergent mammographic follow-up. -- Follow-up as an outpatient Hypertension Home medications include amlodipine, Toprol hold Lisinopril, HCTZ in light of ALAN Aortic stenosis Mild noted on 2018 echo DVT Ppx: SCDs Code status: FULL PCP: Anitra Dispo: PT/OT anticipate d/c home when kidney function improves Admission and Anticipated Discharge Date Admission Date: October 19, 2021 Subjective Follow-up for acute pericarditis, etc. Seen resting in bed, comfortable not in distress States chest pain mostly improving this morning, but seems to be worsening this afternoon again Relieved with tramadol No shortness of breath, fevers, palpitations No problems with urination No Other symptoms Review of Systems Review of Systems: all noted and negative except for above Physical Exam Physical Exam: General- oriented x 3, not in distress, speaks in sentences with no effort or accessory muscle use Eyes- anicteric Neck- no JVD Lungs- clear breath sounds bilaterally, no rales/wheezes Heart- normal rate, regular rhythm; no murmurs Abdomen- normal bowel sounds, nondistended, soft, nontender Extremities- no pretibial edema, no calf tenderness Neuro- alert, oriented x 3; no gross focal neurologic deficits Skin- warm & dry Results & Data Results & Data ([facility]) Vital Signs (Past 12 Hours) Vital Signs Temp Pulse Pulse Resp BP Pulse Ox O2 Del Method 10/20/21 15:48 75 10/20/21 15:36 37.2 C 58 L 18 127/57 L 91 Room Air 10/20/21 12:18 36.4 C L 67 18 112/62 91 Room Air 10/20/21 09:18 Room Air 10/20/21 07:17 37.3 C 70 18 121/71 94 Room Air 10/20/21 07:09 60
[2021-10-20] MEDS ORDERED: LEVALBUTEROL 1.25MG/0.5ML NEB NEB SCH (19:00)
[2021-10-20] MEDS: amLODIPine BESYLATE 5 MG TAB PO SCH (20:11)
[2021-10-20] MEDS: METOPROLOL SUCC 50MG EXT REL TAB PO SCH (20:11)
[2021-10-21] MEDS: DIPYRIDAMOLE/ASPIRIN CAP PO SCH (07:35)
[2021-10-21] MEDS: COLCHICINE 0.6 MG TAB PO SCH (07:35)
[2021-10-21] MEDS: ATORVASTATIN 10 MG TAB PO SCH (07:35)
[2021-10-21] MEDS: PANTOprazole 40 MG TAB PO SCH (07:35)
[2021-10-21 08:32] LABS: Basophils # (auto) 0.05 K/uL (0-0.2); Basophils % (auto) 0.5 %; Eosinophils # (auto) 0.14 K/uL (0-0.50); Eosinophils % (auto) 1.5 %; Hematocrit (blood only) 32.7 % (34.1-44.9); Hemoglobin 10.7 g/dl (12.0-16.0); Immature Granulocytes # (auto) 0.06 K/uL (0.00-0.02); Immature Granulocytes % (auto) 0.6 %; Lymphocytes # (auto) 1.33 K/uL (1.2-3.4); Lymphocytes % (auto) 14.3 %; Mean Corpuscular Hemoglobin 31.1 pg (25.0-34.0); Mean Corpuscular Hgb Conc 32.7 g/dL (32.0-36.0); Mean Corpuscular Volume 95.1 fL (80.0-100.0); Mean Platelet Volume 10.4 fL (9.4-12.3); Monocytes # (auto) 0.77 K/uL (0.24-0.82); Monocytes % (auto) 8.3 %; Neutrophils # (auto) 6.97 K/uL (1.4-6.5); Neutrophils % (auto) 74.8 %; Platelet Count 301 K/uL (130-400); RDW Coefficient of Variation 14.2 % (11.5-14.5); RDW Standard Deviation 48.9 fL (36.4-46.3); Red Blood Count 3.44 M/uL (3.93-5.22); White Blood Count 9.32 K/ul (4.8-10.8)
[2021-10-21 08:53] LABS: Calcium 8.9 mg/dl (8.5-10.1); Creatinine Clr Calc Pharmacy 40.2 ml/min; Est GFR (African American) 44.4 ml/min; Est GFR (Non-African American) 38.3 ml/min; Potassium 4.1 mmol/L (3.5-5.1)
[2021-10-21] MEDS ORDERED: ERGOCALCIFEROL 50,000 UNITS 1250 MCG CAP PO SCH (09:00)
--- NOTE | 2021-10-21 10:35 | Cardiology Progress Note ---
Date of Service October 21, 2021 Assessment & Plan (1) Ribs, multiple fractures: (2) Chest pain: (3) Rheumatoid arthritis: (4) TIA (transient ischemic attack): (5) Osteopenia: Plan 2D echocardiogram did confirm the presence of a small loculated anterior pericardial effusion without hemodynamic compromise. With recent rib fractures it is not unexpected for pericarditis/pericardial fluid to develop. Recommend treating for acute pericarditis with colchicine 0.6 mg p.o. twice kuldip y x3 months along with ibuprofen 600 mg p.o. 3 times daily for 1 month. Slight decline in renal function so ibuprofen has not been started GI prophylaxis is also recommended. No further cardiac test intervention necessary at this time. Okay to discharge to home from a cardiac standpoint Should follow-up with cardiology as an outpatient in 4 to 6 weeks. Admission and Anticipated Discharge Date Admission Date: October 19, 2021 Subjective Patient seen and examined. Chart reviewed. Telemetry reviewed. Complains of diarrhea overnight. States chest pain has significantly improved. Still with chronic left shoulder pain. Review of Systems Review of Systems: All systems reviewed & are unremarkable except as noted in HPI & below Physical Exam Physical Exam: General: Awake, alert and oriented x 3. No acute distress. HEENT: Normocephalic, atraumatic. Pupils equal, round and reactive to light and accommodation. Extraocular muscles are intact. Anicteric sclera. Moist mucous membranes. Neck: No JVD. No bruit. Cardiovascular: Regular. Positive S-4. Normal S-1 and S-2. No S-3. 3/6 mid to late systolic ejection murmur, greatest at the right sternal border, second intercostal space with radiation to the bilateral carotids. No rubs. Pulmonary: Clear to auscultation bilaterally. No rales, rhonchi, or wheezing. Abdomen: Bowel sounds x 4, soft. No rebound, guarding or tenderness. No organomegaly. Extremities: No clubbing, cyanosis or edema. +2 pedal pulses bilaterally. Skin: Warm and dry. Musculoskeletal: Direct palpation of the left sternal border was unable to elicit the discomfort Results & Data ([facility]) Vital Signs (Past 12 Hours) Vital Signs Temp Pulse Pulse Pulse Resp BP Pulse Ox 10/21/21 08:00 36.9 C 56 L 20 114/70 94 10/21/21 02:53 36.8 C 54 L 18 127/64 91 10/20/21 23:27 36.8 C 57 L 18 126/51 L 90 10/20/21 22:52 59 L O2 Del Method O2 Flow Rate 10/21/21 08:00 Nasal Cannula 2 10/21/21 02:53 Room Air 10/20/21 23:27 Room Air 10/20/21 22:52
--- NOTE | 2021-10-21 12:29 | Hospitalist Progress Note ---
Date of Service October 21, 2021 Assessment & Plan (1) Chest pain: (2) Hypertension: (3) GERD (gastroesophageal reflux disease): (4) TIA (transient ischemic attack): (5) Aortic stenosis: (6) Rheumatoid arthritis: (7) Dyslipidemia: Plan per admitting service notes with addendum: This is a 81-year-old female with PMH of carotid stenosis, hypertension, history of stroke, GERD, dyslipidemia and other medical problems listed below who presents with chest pain since 4 this morning. Chest pain, secondary to acute pericarditis Right anterior rib fractures contributing Pain is worse when lying down and with deep inspiration Chest CTA performed -unremarkable CT angiogram of the thoracic aorta. No evidence of pericardial effusion. No findings to suggest pulmonary emboli EKG unchanged from prior HS troponin 33 --> 35 Concern for pericarditis given clinical presentation - last viral illness over a month ago Echocardiogram: Small, loculated anterior pericardial effusion without hemodynamic significance, mild concentric LVH, EF 65 to 70%, no segmental left ventricular wall motion abnormalities, grade 1 diastolic dysfunction 10/21 Chest pain- much better, now -04/07 Colchicine 0.6mg po BID and Ibuprofen 600mg TID x 1 month recommended by Card iologist Held Ibuprofen 600mg TID for now in light of acute kidney injury--> crea improving to 1.3, recommend Ibuprofen 400mg BID continue Colchicine 0.6mg BID x 1 month Ibuprofen 400mg TID x 2 weeks, consider tapering earlief repeat crea next week and monitor regularly while on Ibuprofem PRN Tramadol ordered Acute Kidney Injury CT contrast nephropathy? crea 1.1 to 1.4 held HCTZ, Lisinopril Creatinine improved to 1.3 resume Lisinopril, hold HCTZ monitor BP as outpatient Diarrhea Stool for C. difficile negative Patient reports having diarrhea at home secondary to IBS As needed Imodium Leukocytosis WBC 16 K, afebrile, Chest CTA without infectious picture, UA and tick serology pending Pro-Prashant ESR, CRP and blood cx added --Leukocytosis improving --No urinary symptoms, DC ceftriaxone Carotid stenosis History of TIA Continue aspirin-dipyridamole Lung nodule on CT RLL 8 mm nodule, needs repeat CT scan in 3-6 months, patient made aware to contact with PCP as outpatient Abnormal CT chest findings A 6.3 cm peripherally calcified and benign-appearing structure in the right breast has been present on prior examinations. Clinical correlation will be required. If not recently performed consider nonemergent mammographic follow-up. -- Mammogram and Follow-up as an outpatient Hypertension Home medications include amlodipine, Toprol hold Lisinopril, HCTZ in light of ALAN Aortic stenosis Mild noted on 2019 echo DVT Ppx: SCDs Code status: FULL PCP: Anitra Dispo: d/c home ff up with PCP in 1 week plan of care discussed with patient in detail and at length all questions answered she is understanding, agreeable, comfortable with the plan of care Admission and Anticipated Discharge Date Admission Date: October 19, 2021 Subjective ff up for acute pericarditis, etc seen resting in bed, comfortable states chest pain is much better 1-2/10 denies shortness of breath, palpitations, dizziness no diarrhea, abdominal pain, nausea/vomiting no other symptoms Review of Systems Review of Systems: all noted and negative except for above Physical Exam Physical Exam: General- oriented x 3, not in distress, speaks in sentences with no effort or accessory muscle use Eyes- anicteric Neck- no JVD Lungs- clear breath sounds bilaterally, no rales/wheezes Heart- normal rate, regular rhythm; no murmurs Abdomen- normal bowel sounds, nondistended, soft, nontender Extremities- no pretibial edema, no calf tenderness Neuro- alert, oriented x 3; no gross focal neurologic deficits Skin- warm & dry Results & Data Results & Data ([facility]) Vital Signs (Past 12 Hours) Vital Signs Temp Pulse Pulse Resp BP Pulse Ox O2 Del Method 10/21/21 08:00 36.9 C 56 L 20 114/70 94 Nasal Cannula 10/21/21 02:53 36.8 C 54 L 18 127/64 91 Room Air O2 Flow Rate 10/21/21 08:00 2 10/21/21 02:53 all noted and reviewed including below
[2021-10-21] MEDS: LOPERAMIDE HCL 2 MG CAP PO PRN (13:19)
--- NOTE | 2021-10-23 18:46 | Discharge Summary ---
Date of Service October 23, 2021 delayed entry date of service 10/21/21 Admission HPI Per Admitting Provider This is a 81-year-old female with PMH of carotid stenosis, hypertension, history of stroke, GERD, dyslipidemia and other medical problems listed below who presents with chest pain since 4 this morning. Woke up with sharp, pleuritic chest pain radiating to her back that is exacerbated with inspiration. Pain is also much more severe when lying down and patient has been sitting upright since then with some improvement. Had another severe bout of pain around 7 AM that persisted despite taking antacid medication. Notes trace swelling in lower extremities but states it is close to baseline. No nausea or vomiting. Does endorse chills. No fever. Did have bronchitis at the end of July but no viral illnesses since then. No recent medication changes. Denies known history of coronary artery disease but states she did have an echo in the past and was told the one of her valves was abnormal. Follows with Dr. Ayoub for primary care. No headache, congestion, wheezing, nausea, vomiting, abdominal pain, dysuria, diarrhea or constipation. Admission Exam Per Admitting Provider General Appearance:WD/WN, vitals as above, NAD, sitting up in wheelchair, pleasant, conversing easily Head: normocephalic, atraumatic Eyes:normal inspection, PERRL, conjunctivae normal, anicteric sclerae ENT: external ear and nose normal, oropharynx normal Neck: normal visual inspection, trachea midline, no thyromegaly Respiratory:normal respiratory effort, diminished lung sounds bilaterally 2/2 shallow breathing, no wheeze, rales or rhonchi. No accessory muscle use Cardiovascular: regular rate, rhythm, +systolic murmur, normal peripheral pulses, trace BLE edema. Vessels: no JVD Chest: normal inspection of chest Abdomen/GI: normal bowel sounds, soft, nontender, no hepatosplenomegaly Extremities/Musculoskeletal: no cyanosis or clubbing, extremities motor strength 5/5 Neurologic: PERRL, EOMI, accommodation nl, no face palsy, no dysarthria, CN's II-XI intact bilaterally and moves all extremities Psychiatric:A+Ox3, euthymic affect Skin: no rashes, normal color, warm/dry Principal Diagnosis ACUTE PERICARDITIS Discharge Data Allergies Allergy/AdvReac Type Severity Reaction Status Date / Time No Known Allergies Allergy Unknown Verified 08/02/21 17:59 Consultations 08/23/22 17:04 ED Decision to Admit Stat 10/18/21 21:09 Consult Cardiology Routine Ordered Studies 10/18/21 15:15 CT angio chest dissec wo/w con Stat COMPARISON STUDY: Chest x-ray dated 10/01/2019. TECHNIQUE: Before and following the IV administration of 110 cc of Optiray 300, CT angiogram of the chest was performed from the thoracic inlet to the upper abdomen utilizing the dissection protocol. Images are reviewed in the axial, sagittal, and coronal planes. 3-D MIPS images are created and assessed. IV contrast was administered without complication. A dose lowering technique was utilized adhering to the principles of ALARA. The examination is degraded by streak artifact from a left shoulder arthroplasty. CT DOSE: 1440.31 mGy.cm FINDINGS: Thyroid: Normal in size and heterogeneous in attenuation. Thoracic aorta: No intramural hematoma is seen on the unenhanced series. There is mild atherosclerotic calcification of the thoracic aorta, which is normal in caliber and demonstrates standard 3-vessel arch anatomy. No dissection is seen. The arch vessels are widely patent. Pulmonary vasculature: The pulmonary trunk is normal in caliber. There are no central filling defects identified in the pulmonary vessels to suggest pulmonary embolus. Note that this examination was not specifically protocoled to assess for pulmonary emboli. Heart: The heart is normal in size and without pericardial effusion. The hermelinda nary arteries are densely calcified. Lungs and pleural spaces: Evaluation of the lung parenchyma is compromised by motion artifact. There is no airspace consolidation typical for pneumonia or pleural effusion. Scarring/atelectasis is present at both lung bases. The trachea and central airways are clear. An 8 mm pleural-based nodule at the right lung base is seen on image #136, and a 5 mm pleural-based nodule in the right lower lobe is seen on image #105. Mediastinum: There is no mediastinal lymphadenopathy. Josefina: Clear. Axillae: There is no axillary lymphadenopathy. Upper abdomen: There is a small hiatal hernia. Partially visualized upper abdominal viscera is within normal limits. Skeletal structures: The skeletal structures are osteopenic. Spondylotic change is noted in the thoracic spine. No lytic or blastic bony lesions are seen. A left shoulder arthroplasty is in place. Advanced arthritic change is seen in the right shoulder. There are subacute appearing right anterior rib fractures (4th- 7th). Soft tissues: A 6.3 cm peripherally calcified structure in the left breast has been present on prior examinations. IMPRESSION: 1. Unremarkable CT angiogram of the thoracic aorta. 2. There is no airspace consolidation or pleural effusion. 3. There are subacute appearing right anterior rib fractures. Correlate for point tenderness. 4. Low suspicion pleural-based nodules in the right lower lobe measure up to 8mm. This can be followed as per the Fleischner criteria if clinically warranted. See below. 5. A 6.3 cm peripherally calcified and benign-appearing structure in the right breast has been present on prior examinations. Clinical correlation will be required. If not recently performed consider nonemergent mammographic follow-up. 6. Additional findings as above. ACT 112: Negative or not required by law. Hospital Course (1) Chest pain: (2) Hypertension: (3) GERD (gastroesophageal reflux disease): (4) TIA (transient ischemic attack): (5) Aortic stenosis: (6) Rheumatoid arthritis: (7) Dyslipidemia: Plan per admitting service notes with addendum: This is a 81-year-old female with PMH of carotid stenosis, hypertension, history of stroke, GERD, dyslipidemia and other medical problems listed below who presents with chest pain since 4 this morning. Chest pain, secondary to acute pericarditis Right anterior rib fractures contributing Pain is worse when lying down and with deep inspiration Chest CTA performed -unremarkable CT angiogram of the thoracic aorta. No evidence of pericardial effusion. No findings to suggest pulmonary emboli EKG unchanged from prior HS troponin 33 --> 35 Concern for pericarditis given clinical presentation - last viral illness over a month ago Echocardiogram: Small, loculated anterior pericardial effusion without hemodynamic significance, mild concentric LVH, EF 65 to 70%, no segmental left ventricular wall motion abnormalities, grade 1 diastolic dysfunction 10/21 Chest pain- much better, now -04/07 Colchicine 0.6mg po BID and Ibuprofen 600mg TID x 1 month recommended by [employer] Ibuprofen 600mg TID for now in light of acute kidney injury--> crea improving to 1.3, recommend Ibuprofen 400mg BID continue Colchicine 0.6mg BID x 1 month Ibuprofen 400mg TID x 2 weeks, consider tapering earlief repeat crea next week and monitor regularly while on Ibuprofem PRN Tramadol ordered Acute Kidney Injury CT contrast nephropathy? crea 1.1 to 1.4 held HCTZ, Lisinopril Creatinine improved to 1.3 resume Lisinopril, hold HCTZ monitor BP as outpatient Diarrhea Stool for C. difficile negative Patient reports having diarrhea at home secondary to IBS As needed Imodium Leukocytosis WBC 16 K, afebrile, Chest CTA without infectious picture, UA and tick serology pending Pro-Prashant ESR, CRP and blood cx added --Leukocytosis improving --No urinary symptoms, DC ceftriaxone Carotid stenosis History of TIA Continue aspirin-dipyridamole Lung nodule on CT Please refer to full report in the Ordered Studies section above Low suspicion pleural-based nodules in the right lower lobe measure up to 8mm. This can be followed as per the Fleischner criteria if clinically warranted. See below. RLL 8 mm nodule, needs repeat CT scan in 3-6 months, patient made aware to contact with PCP as outpatient Abnormal CT chest findings Please refer to full report in the Ordered Studies section above A 6.3 cm peripherally calcified and benign-appearing structure in the right breast has been present on prior examinations. Clinical correlation will be required. If not recently performed consider nonemergent mammographic follow-up. -- Mammogram and Follow-up as an outpatient Hypertension Home medications include amlodipine, Toprol hold Lisinopril, HCTZ in light of ALAN Aortic stenosis Mild noted on 2019 echo DVT Ppx: SCDs Code status: FULL PCP: Anitra Dispo: d/c home ff up with PCP in 1 week plan of care discussed with patient in detail and at length all questions answered she is understanding, agreeable, comfortable with the plan of care Total Time Total Time Spent Total Time Spent (In Minutes): >30 minutes Discharge Plan Discharge Items Patient Disposition: Home - Self-Care Reason For Visit: CP Discharge Diagnosis: ACUTE PERICARDITIS Activity: Resume your previous activity Activity Comment: RESUME ACTIVITY GRADUALLY TOLERATED Driving/Machine Use: NO DRIVING UNTIL RE-EVALUATED AND ALLOWED BY PRIMARY CARE PHYSICIAN Non-emergency contact: Primary Care Provider Call non-emergency contact if: you have any medication questions, your symptoms worsen, your pain is not controlled, your pain is worsening, your pain is unusual for you, your pain is concerning for you and you have a fever Follow-up/Referrals: Eyal Aragon DO [Physician] - Justino Ayoub [Primary Care Provider] - Diet: Heart Healthy Add Attending Provider Instructions: PLEASE REFER TO YOUR NEW MEDICATION LIST AND FOLLOW INSTRUCTIONS CAREFULLY. YOUR NEW MEDICATIONS INCLUDE: Colchicine-for acute pericarditis Ibuprofen-for acute pericarditis Tramadol-as needed for chest pain ALWAYS TAKE IBUPROFEN WITH A FULL STOMACH. DRINK PLENTY OF WATER- AT LEAST 8 CUPS/DAY. ALWAYS TALK TO YOUR PRIMARY CARE PHYSICIAN BEFORE STARTING ANY NEW MEDIATI PLEASE CALL YOUR PRIMARY CARE PHYSICIAN OR RETURN TO THE ER IF WITH WORSENING OF SYMPTOMS, INCLUDING CHEST PAIN, SHORTNESS OF BREATH, FEVER/CHILLS, CHANGES WITH URINATION. FOLLOW UP WITH PRIMARY CARE PHYSICIAN OUTLINED ABOVE. Pending Studies at Discharge: Yes Studies:: REPEAT BLOOD WORK (BASIC METABOLIC PROFILE) AT [facility] 1 DAY BEFORE FF UP APPOINTMENT WITH DR. AYOUB. MAMMOGRAM TO BE SCHEDULED ON FF UP WITH DR. AYOUB NEXT WEEK. REPEAT CT SCAN CHEST IN 3 MONTHS. Stand-Alone Forms: My Wipebook, Smoking Cessation Medications and DC Order Prescriptions: New tramadol 50 mg Tablet 50 mg PO Q6H PRN (Reason: severe pain (scale score 7-10)) Qty: 10 0RF colchicine [Colcrys] 0.6 mg Tablet 0.6 mg PO BID 28 Days Qty: 56 0RF ibuprofen 400 mg tablet 400 mg PO BID 14 Days Qty: 28 0RF promethazine 12.5 mg tablet 12.5 mg PO Q6H PRN (Reason: nausea and vomiting) Qty: 8 0RF Continued lisinopril 20 mg Tablet 20 mg PO BID atorvastatin 10 mg tablet 10 mg PO MOWEFR@0900 Rx Instructions: take daily sunday,sunday,fridays metoprolol succinate 50 mg tablet extended release 24 hr 50 mg PO HS pantoprazole 20 mg tablet,delayed release (DR/EC) 20 mg PO QAM Rx Instructions: take 1/2 hour before breakfast acetaminophen [Tylenol Extra Strength] 500 mg Tablet 1,000 mg PO Q6H PRN (Reason: Pain) amlodipine 5 mg tablet 5 mg PO QPM aspirin-dipyridamole 25-200 mg capsule, ER multiphase 12 hr 1 cap PO BID cholecalciferol (vitamin D3) 1,250 mcg (50,000 unit) capsule 1,250 mcg PO FR@0900 Discontinued hydrochlorothiazide 25 mg Tablet 25 mg PO QAM Discharge Orders: Discharge Order (Routine); Ordered 10/21/21 Ordered By: Jc West Admission Data Admit Date/Time: 10/19/21 18:22 Attending Provider: Jc West Admit Provider: Nalini Vines Primary Care Provider: Justino Ayoub Other Providers: Nalini Vines ; Phil Broderick Other Interventions: Discharge Summary Assessment (RN) Last Done: 10/21/21 13:11
[2021-10-24 15:53] LABS: Ehrlichia chaff DNA Bld Negative (Negative)
[2021-10-29] MEDS ORDERED: LIDOCAINE 1% LOCAL 20 ML VIAL ONE (08:52)
== END 2021-10-21 14:48 | disposition home or self-care (01) ==
LOC: EDINP 12:21 → ED 12:21 → SUATTDRO 17:09 → 2S 20:37

== ENCOUNTER 2021-10-24 16:38 | Observation (INO) ==
[2021-10-24] MEDS ORDERED: SODIUM CHLORIDE 0.9% 1000ML 1,000 ML IV SCH (17:15)
[2021-10-24 17:40] LABS: Basophils # (auto) 0.07 K/uL (0-0.2); Basophils % (auto) 0.8 %; Eosinophils # (auto) 0.18 K/uL (0-0.50); Eosinophils % (auto) 2.1 %; Hematocrit (blood only) 33.1 % (34.1-44.9); Hemoglobin 11.2 g/dl (12.0-16.0); Immature Granulocytes # (auto) 0.04 K/uL (0.00-0.02); Immature Granulocytes % (auto) 0.5 %; Lymphocytes # (auto) 1.48 K/uL (1.2-3.4); Lymphocytes % (auto) 17.1 %; Mean Corpuscular Hemoglobin 31.7 pg (25.0-34.0); Mean Corpuscular Hgb Conc 33.8 g/dL (32.0-36.0); Mean Corpuscular Volume 93.8 fL (80.0-100.0); Mean Platelet Volume 10.7 fL (9.4-12.3); Monocytes % (auto) 8.1 %; Neutrophils # (auto) 6.21 K/uL (1.4-6.5); Neutrophils % (auto) 71.4 %; Platelet Count 358 K/uL (130-400); RDW Coefficient of Variation 14.1 % (11.5-14.5); RDW Standard Deviation 48.1 fL (36.4-46.3); Red Blood Count 3.53 M/uL (3.93-5.22); White Blood Count 8.68 K/ul (4.8-10.8)
[2021-10-24] MEDS ORDERED: FAMOTIDINE 20MG IV PUSH 20 MG/5 ML SYR IV STA (17:41)
[2021-10-24] MEDS ORDERED: ONDANSETRON INJ 2 MG/ML 2 ML VIAL IV STA (17:41)
[2021-10-24 18:05] LABS: Alanine Aminotransferase 20 U/L (7-52); Albumin Globulin Ratio 1.2 (0.9-2); Albumin Level 3.5 gm/dl (3.4-5.0); Alkaline Phosphatase 69 U/L (34-104); Anion Gap 9 (3-11); Aspartate Aminotransferase 28 U/L (13-39); BUN Creatinine Ratio 13.1 (10-20); Bilirubin,Total 0.4 mg/dl (0.2-1.0); Blood Urea Nitrogen 20 mg/dl (6-23); Calcium 9.5 mg/dl (8.5-10.1); Carbon Dioxide 23 mmol/L (21-32); Chloride 108 mmol/L (98-107); Est GFR (African American) 37.1 ml/min; Glucose 83 mg/dl (70-99(Fasting)); Lipase 14 U/L (11-82); Magnesium 1.1 mg/dl (1.7-2.4); Potassium 3.9 mmol/L (3.5-5.1); Sodium 140 mmol/L (136-145); Total Protein 6.5 gm/dl (6.0-8.3)
--- NOTE | 2021-10-24 18:40 | Emergency Department Note ---
History of Present Illness General Chief complaint: Diarrhea Stated complaint: UNABLE TO EAT, DIARRHEA, NAUSEA, VOMIT, ABD PAIN Time Seen by Provider: 10/24/21 17:08 Source: patient Mode of arrival: wheelchair Limitations: no limitations History of Present Illness Provider complaint: Vomiting, diarrhea, dehydration Onset (ago): day(s) 2 This is a 81-year-old female presents due to concern for persistent nausea, vomiting, dehydration. Patient just recently discharged from the hospital yes terday after being admitted with chest pain and being found to have pericarditis. She states she was started on colchicine and ibuprofen for this. Patient states she does have prior history of GERD and takes a stomach medication daily. She has not noticed any hematemesis or hematochezia. Patient states she did contact the on-call physician last night and was instructed to stop the colchicine. She states her stools are now more loose and not malcolm watery diarrhea. She states she has been unable to take a lot of her medications due to the vomiting. She states a prescription for Zofran was called in and she did take that and had short-term relief of symptoms for approximately 2 hours. She states she has been increasingly fatigued from all the vomiting and diarrhea. She denies fevers or chills. Denies abdominal pain. She states the chest pain she originally presented with is resolved however she still gets intermittent left shoulder pain and is slightly winded with exertion. Pt seen during a time of high acuity and national emergency pandemic while wearing PPE. Home Medications Medication Instructions Recorded Confirmed Type atorvastatin 10 mg tablet 10 mg PO MOWEFR@0900 07/10/18 10/24/21 History metoprolol succinate 50 mg 50 mg PO HS 07/10/18 10/24/21 History tablet,extended release 24 hr acetaminophen 500 mg tablet 1,000 mg PO Q6H PRN Pain 11/21/18 10/24/21 History (Tylenol Extra Strength) pantoprazole 20 mg tablet,delayed 20 mg PO QAM 11/21/18 10/24/21 History release lisinopril 20 mg tablet 20 mg PO BID 09/25/19 10/24/21 History amlodipine 5 mg tablet 5 mg PO QPM 08/02/21 10/24/21 History aspirin 25 mg-dipyridamole 200 mg 1 cap PO BID 10/18/21 10/24/21 History capsule,ext.release 12 hr multiphase cholecalciferol (vitamin D3) 1,250 1,250 mcg PO FR@0900 10/18/21 10/24/21 History mcg (50,000 unit) capsule colchicine 0.6 mg tablet (Colcrys) 0.6 mg PO BID 28 days #56 tabs 10/21/21 10/24/21 Rx ibuprofen 400 mg tablet 400 mg PO BID 14 days #28 tabs 10/21/21 10/24/21 Rx tramadol 50 mg tablet 50 mg PO Q6H PRN severe pain 10/21/21 10/24/21 Rx (scale score 7-10) #10 tabs promethazine 12.5 mg tablet 12.5 mg PO Q6H PRN nausea and 10/22/21 10/24/21 Rx vomiting #8 tabs Allergies Allergy/AdvReac Type Severity Reaction Status Date / Time colchicine AdvReac Intermediate Diarrhea Verified 10/24/21 20:22 Past Med/Surg History Medical History Aortic stenosis Mild per 11/2018 ECHO GERD (gastroesophageal reflux disease) Well controlled and stable Hyperlipidemia Hypertension Knee pain, right Rheumatoid arthritis F/U PCP Right knee DJD Rotator cuff arthropathy Sciatica Can radiate down right or left side Seizure TIA vs SEIZURE: "BLACKED OUT IN HER HEAD AND CAME TO"/BECAME ALERT-NEVER DX'D ANY FURTHER-4 YRS AGO-NO OTHER OCCURRENCES TIA (transient ischemic attack) X 4- PLACED ON PLAVIX (FIRST TIA AFTER SURGERY- HAS HAD SURGERY SINCE WITHOUT ISSUES). NO ISSUES X YEARS Surgical History History of anesthesia reaction SLOW TO WAKE UP-HAD TIA DURING SURGERY AND POST OP-[facility] [place]-AGE 66 History of cataract surgery R/L History of colonoscopy History of esophagogastroduodenoscopy (EGD) S/P bilateral breast reduction AGE 66 YRS S/P TKR (total knee replacement) LEFT Status post replacement of left shoulder joint (~09/2019) Family History Father Family history of diabetes mellitus Mother Family hx of colon cancer Social History Smoking Status: Never smoker Second Hand Exposure: No; Hx Alcohol Use: No Hx Substance Use: No Preferred Language: Azeri Communication Ability: Effective Workforce Planner Required: No Beliefs That Will Affect Care: None marital status: Current Living Situation: Spouse How many Children do You have: 2 Other Information That Helps Us Care for You: No Feels Safe at Home: Yes Safety Concerns: Feels Safe At This Time Assistive Devices: Cane and Walker Review of Systems A total of 10 systems reviewed and were otherwise negative All systems reviewed & are unremarkable except as noted in HPI & below Physical Exam Vital Signs Vital Signs - 24 hr 10/24/21 16:39 10/24/21 18:32 10/24/21 18:32 Temperature 36.7 C Temperature Source Temporal Artery Scan Pulse Rate 65 58 L Pulse Rate [Apical] Pulse Rate from SpO2 Sensor 57 L Pulse Rhythm [Apical] Respiratory Rate 18 26 H Respiratory Effort / Characteristics Non-Labored Respiratory Depth Normal Blood Pressure 215/107 H 151/47 H Blood Pressure [Right Arm] Blood Pressure Mean 143 81 Blood Pressure Mean [Right Arm] Pulse Oximetry 96 95 Oxygen Delivery Method Room Air Sepsis Recent Fever Within 48 Hours No Sepsis New/Unexplained Change in Mental Status No Sepsis Action Taken by Nursing No Action Required 10/24/21 20:45 Temperature Temperature Source Pulse Rate Pulse Rate [Apical] 56 L Pulse Rate from SpO2 Sensor Pulse Rhythm [Apical] Regular Respiratory Rate 17 Respiratory Effort / Characteristics Respiratory Depth Blood Pressure Blood Pressure [Right Arm] 152/68 H Blood Pressure Mean Blood Pressure Mean [Right Arm] 96 Pulse Oximetry 97 Oxygen Delivery Method Room Air Sepsis Recent Fever Within 48 Hours Sepsis New/Unexplained Change in Mental Status Sepsis Action Taken by Nursing GENERAL: alert, well appearing, well nourished, no distress, non-toxic EYE EXAM: normal conjunctiva, PERRL and EOM's grossly intact OROPHARYNX: no exudate, no erythema, lips, buccal mucosa, and tongue normal and mucous membranes are moist NECK: supple, no nuchal rigidity, no adenopathy, non-tender LUNGS: Clear to auscultation. Normal chest wall mechanics, no w/r/r HEART: no murmurs, S1 normal and S2 normal ABDOMEN: abdomen soft, non-tender, normo-active bowel sounds, no masses, no rebound or guarding. BACK: Back is symmetrical on inspection and there is no deformity, no midline tenderness, no CVA tenderness. SKIN: no rashes and no bruising UPPER EXTREMITIES: upper extremities are grossly normal. FROM, nml pulses b/l. LOWER EXTREMITIES: No pitting edema. FROM, nml pulses b/l. NEURO EXAM: Normal sensorium, cranial nerves II-XII grossly intact, normal speech, no gross weakness of arms, no gross weakness of legs. Gross sensation intact. Course Administered Medications Amlodipine Besylate (Amlodipine Besylate 5 Mg Tab) 5 mg PO QPM LAVERNE Stop: 11/24/21 20:59 Last Admin: 10/25/21 20:15 Dose: 5 mg Documented By: ZANDRA Dipyridamole/Aspirin (Dipyridamole/Aspirin Cap) 1 cap PO BID LAVERNE Stop: 11/23/21 22:51 Last Admin: 10/25/21 20:15 Dose: 1 cap Documented By: Admin: 10/25/21 08:16 Dose: 1 cap Documented By: Admin: 10/24/21 23:49 Dose: 1 cap Documented By: MARLIN Heparin Sodium (Porcine) (Heparin Sod 5,000 Unit/0.5 Ml Vial) 5,000 units SQ Q8 LAVERNE Stop: 11/24/21 05:59 Last Admin: 10/26/21 04:53 Dose: 5,000 units Documented By: Admin: 10/25/21 20:14 Dose: 5,000 units Documented By: Admin: 10/25/21 15:07 Dose: 5,000 units Documented By: Admin: 10/25/21 05:38 Dose: 5,000 units Documented By: MARLIN Lactated Ringer's (Lr) 1,000 mls @ 80 mls/hr IV .[id number] LAVERNE Stop: 11/24/21 21:59 Last Admin: 10/25/21 23:35 Dose: 80 mls/hr Documented By: ZANDRA Metoprolol Succinate (Metoprolol Succ 50mg Ext Rel Tab) 50 mg PO HS LAVERNE Stop: 11/23/21 22:51 Last Admin: 10/25/21 20:16 Dose: 50 mg Documented By: Admin: 10/24/21 23:49 Dose: 50 mg Documented By: LMP Nystatin (Nystatin Susp 500,000 U/5 Ml Udc) 5 ml PO QID LAVERNE Stop: 11/04/21 12:59 Last Admin: 10/25/21 20:16 Dose: Not Given Documented By: Admin: 10/25/21 17:21 Dose: 5 ml Documented By: Admin: 10/25/21 13:56 Dose: 5 ml Documented By: MG Pantoprazole Sodium (Pantoprazole 40 Mg Tab) 40 mg PO DAILYBB LAVERNE Stop: 11/24/21 06:29 Last Admin: 10/26/21 04:53 Dose: 40 mg Documented By: Admin: 10/25/21 05:37 Dose: 40 mg Documented By: LMP Discontinued Medications Sodium Chloride (Nss 1000ml) 1,000 mls @ 125 mls/hr IV .Q8H LAVERNE Stop: 11/23/21 17:14 Last Infusion: 10/25/21 00:01 Dose: 0 mls/hr Documented By: Admin: 10/24/21 17:54 Dose: 125 mls/hr Documented By: MNE Famotidine (Pepcid 20mg Iv Push) 20 mg in 5 mls @ 2.5 mls/min IV NOW STA Stop: 10/24/21 17:42 Last Admin: 10/24/21 17:54 Dose: 2.5 mls/min Documented By: MNE Magnesium Sulfate/Dextrose (Magnesium Sulfate / D5w) 1 gm in 100 mls @ 100 mls/hr IV Q1H LAVERNE Stop: 10/24/21 21:04 Last Infusion: 10/24/21 22:29 Dose: 0 mls/hr Documented By: Admin: 10/24/21 20:42 Dose: 100 mls/hr Documented By: Infusion: 10/24/21 20:34 Dose: 100 mls/hr Documented By: Admin: 10/24/21 19:34 Dose: 100 mls/hr Documented By: EMB Sodium Chloride (Nss 1000ml) 1,000 mls @ 100 mls/hr IV .Q10H ONE Stop: 10/25/21 06:23 Last Infusion: 10/25/21 09:40 Dose: 0 mls/hr Documented By: Admin: 10/24/21 22:50 Dose: 100 mls/hr Documented By: LMP Magnesium Sulfate/Dextrose (Magnesium Sulfate / D5w) 1 gm in 100 mls @ 50 mls/hr IV ONE ONE Stop: 10/24/21 22:31 Last Infusion: 10/25/21 00:20 Dose: 0 mls/hr Documented By: Infusion: 10/24/21 23:57 Dose: 50 mls/hr Documented By: Infusion: 10/24/21 23:57 Dose: 0 mls/hr Documented By: Admin: 10/24/21 22:13 Dose: 50 mls/hr Documented By: EMB Sodium Chloride (Nss) 500 mls @ 60 mls/hr IV .Q8H20M LAVERNE Stop: 11/24/21 10:44 Last Admin: 10/25/21 20:16 Dose: 60 mls/hr Documented By: Infusion: 10/25/21 19:37 Dose: 60 mls/hr Documented By: Admin: 10/25/21 11:17 Dose: 60 mls/hr Documented By: MG Miscellaneous (Patient's Height &/Or Weight Needed) 1 each N/A Q30M LAVERNE Stop: 10/25/21 03:00 Last Admin: 10/24/21 23:59 Dose: 1 each Documented By: Admin: 10/24/21 23:59 Dose: 1 each Documented By: Admin: 10/24/21 23:50 Dose: 1 each Documented By: LMP Ondansetron HCl (Ondansetron Inj 2 Mg/Ml 2 Ml Vial) 4 mg IV NOW STA Stop: 10/24/21 17:42 Last Admin: 10/24/21 17:54 Dose: 4 mg Documented By: MNE Medical Decision Making Differential Diagnosis Differential: Gastroenteritis, Food Borne, Esophageal Perforation, , Electrolyte Abnormality, Dehydration, Intraabdominal Infection, UTI/Pyelonephritis, Bowel Obstruction, Biliary Pathology, amongst other pathology entertained. Medical Records Attestation: I reviewed the patient's medical records. Home Medications Current Medication List: was personally reviewed by me Laboratory Data Attestation: I reviewed the patient's lab results. Result diagrams: 10/25/21 07:12 10/25/21 21:07 Lab Results 10/24/21 10/24/21 10/24/21 Range/Units 17:22 17:22 19:51 WBC 8.68 (4.8-10.8) K/ul RBC 3.53 L (3.93-5.22) M/uL Hgb 11.2 L (12.0-16.0) g/dl Hct 33.1 L (34.1-44.9) % MCV 93.8 (80.0-100.0) fL MCH 31.7 (25.0-34.0) pg MCHC 33.8 (32.0-36.0) g/dL RDW Std Deviation 48.1 H (36.4-46.3) fL RDW Coeff of Marcio 14.1 (11.5-14.5) % Plt Count 358 (130-400) K/uL MPV 10.7 (9.4-12.3) fL Immature Gran % (Auto) 0.5 % Neut % (Auto) 71.4 % Lymph % (Auto) 17.1 % [place] % (Auto) 8.1 % Eos % (Auto) 2.1 % Baso % (Auto) 0.8 % Neut # (Auto) 6.21 (1.4-6.5) K/uL Lymph # (Auto) 1.48 (1.2-3.4) K/uL [place] # (Auto) 0.70 (0.24-0.82) K/uL Eos # (Auto) 0.18 (0-0.50) K/uL Baso # (Auto) 0.07 (0-0.2) K/uL Immature Gran # (Auto) 0.04 H (0.00-0.02) K/uL Sodium 140 (136-145) mmol/L Potassium 3.9 (3.5-5.1) mmol/L Chloride 108 H (98-107) mmol/L Carbon Dioxide 23 (21-32) mmol/L Anion Gap 9 (3-11) BUN 20 (6-23) mg/dl Creatinine 1.53 H (0.6-1.2) mg/dl Est Cr Clr Drug Dosing Not Reportable Est GFR ( Amer) 37.1 ml/min Est GFR (Non-Af Amer) 32.0 ml/min BUN/Creatinine Ratio 13.1 (10-20) Glucose 83 (70-99(Fasting)) mg/dl Calcium 9.5 (8.5-10.1) mg/dl Magnesium 1.1 L (1.7-2.4) mg/dl Total Bilirubin 0.4 (0.2-1.0) mg/dl AST 28 (13-39) U/L ALT 20 (7-52) U/L Alkaline Phosphatase 69 (34-104) U/L Total Protein 6.5 (6.0-8.3) gm/dl Albumin 3.5 (3.4-5.0) gm/dl Globulin 3.0 (2.5-4.0) gm/dl Albumin/Globulin Ratio 1.2 (0.9-2) Lipase 14 (11-82) U/L TSH 2.866 (0.300-4.500) uIu/ml Imaging Data Radiologist's Impression: Chest X-Ray 10/24/21 19:21 XR chest 1V portable CLINICAL HISTORY: tachypnea TECHNIQUE: Single frontal radiograph of the chest was obtained. Comparison: Comparison is made to chest radiograph 10/20/2021 FINDINGS: Right reverse shoulder arthroplasty is seen. Cardiomegaly is noted. Calcified aortic knob is seen. The lungs are clear . Pulmonary vascular prominence is unchanged from prior exam but there is no malcolm edema. No evidence of pleural effusion or pneumothorax. IMPRESSION: Cardiomegaly without additional acute abnormality. ACT 112: Negative or not required by law. Electronically signed by: Raul Rehman M.D. 10/24/2021 8:15 PM ECG Data Attestation: I personally reviewed and interpreted this ECG as follows: Indication: + vomiting and + weakness Rate (beats per minute): 57 Rhythm: + sinus bradycardia ECG Intervals/blocks: + Normal QRS and + Normal QT ECG [place]: + Normal ECG ST segments: + Nonspecific ST abnormalities MDM Narrative An order was placed for continuous cardiac monitoring. The monitor shows a rate of ___59 with _sinus bradycardia_ rhythm. THis is a 81 yo female who presents with nausea/vomiting/diarrhea and concern for dehydration. Patient feels symptoms related to recent initiation of med ication for pericarditis. Patient just discharged yesterday. While chest pain is improved, diarrhea began with start of colchicine. She was advised she could stop this, however she still was nauseated and zofran called in. No improvement with zofran. No reported GI bleed. Patient found to have significant hypomagnesemia and worsening Creatinine. She was afebrile and VS stable. We discussed repletion of magnesium and careful IVF while monitored in the hospital and discussion of possible alternatives to treat her pericarditis. She and family verbalized understanding. Case discussed with hospitalist. Impression & Plan Nausea & vomiting, Diarrhea, Hypomagnesemia, ALAN (acute kidney injury), Dehydration Discharge Plan Visit Data Chief Complaint: Diarrhea Stated Complaint: UNABLE TO EAT, DIARRHEA, NAUSEA, VOMIT, ABD PAIN ED Provider: Katy Kinsey Discharge Problem: Nausea & vomiting, Diarrhea, Hypomagnesemia, ALAN (acute kidney injury), Dehydration Patient Disposition: Admitted As Inpatient Discharge Instructions Interventions: ED Discharge Assessment Last Done: 10/24/21 22:52
--- NOTE | 2021-10-24 19:21 | History & Physical Report ---
Date of Service October 24, 2021 Assessment & Plan (1) ARF (acute renal failure): Plan: ? Underlying CKD (Serum creatinine on discharge last week was 1.3) Multifactorial: NSAID Rx, GI symptoms from colchicine for pericarditis Other home medications contributory hx CVA/PVD hx aortic stenosis hypertension, slightly elevated hyperlipidemia on statin Rx GERD, symptoms controlled chronic anemia, hemoglobin at baseline Hyperglycemia likely secondary to prediabetes, hemoglobin A1c of 5.7 from last confinement GMF Baseline UA Monitor creatinine response to IVF Hold NSAID, MARY inhibitor for now given kidney dysfunction Renal ultrasound if without improvement in renal function Cardiology consult Re: Recommendations for alternative Rx for viral pericarditis given colchicine intolerance and current kidney dysfunction. DVT prophylaxis. Heparin subcu Full code Patient daughter requesting updates providers. Ms. Jackie Gupta, contact #[phone]. Text document was generated using [employer] voice recognition software. It may contain grammatical or spelling errors. Kindly contact undersigned for clarification of any documentation item in question. History of Present Illness Chief Complaint: Nausea, vomiting, diarrhea Primary Care Provider: Justino Ayoub History obtained from patient, family, and records. Medical history significant for CVA, PVD, aortic stenosis, rheumatoid arthritis, hypertension, hyperlipidemia, GERD, chronic anemia (baseline hemoglobin 10-11 ). Recent confinement last week for chest pain attributed to pericarditis.. Cardiology recommended colchicine and ibuprofen course. Patient noted nausea and diarrhea symptoms upon starting medications in the hospital. No abdominal pain. Stool C. difficile was negative. Patient not feeling well on day of discharge but she just wanted to go home. At home, patient noted worsening nausea, vomiting, diarrhea symptoms. No fever, no chills. Mild chest pain going to the shoulder from recent pericarditis attack as per patient No actual abdominal pain or dysuria symptoms. Poor appetite. Patient primary care doctor recommended stopping colchicine. Diarrhea not as bad with initiation of Imodium Rx. Patient brought to ER for persistent nausea, emesis, dehydration symptoms. MEDICAL HISTORY: As above. SURGERIES: She has had knee surgery and breast reduction surgery. FAMILY HISTORY: There is a family history of hypertension and diabetes, colon cancer PERSONAL AND SOCIAL HISTORY: Nonsmoker. No EtOH intake, retired business services sales agent Allergies Allergy/AdvReac Type Severity Reaction Status Date / Time colchicine AdvReac Intermediate Diarrhea Verified 10/24/21 20:22 Home Medications Medication Instructions Recorded Confirmed Type atorvastatin 10 mg tablet 10 mg PO MOWEFR@0900 07/10/18 10/24/21 History metoprolol succinate 50 mg 50 mg PO HS 07/10/18 10/24/21 History tablet,extended release 24 hr acetaminophen 500 mg tablet 1,000 mg PO Q6H PRN Pain 11/21/18 10/24/21 History (Tylenol Extra Strength) pantoprazole 20 mg tablet,delayed 20 mg PO QAM 11/21/18 10/24/21 History release lisinopril 20 mg tablet 20 mg PO BID 09/25/19 10/24/21 History amlodipine 5 mg tablet 5 mg PO QPM 08/02/21 10/24/21 History aspirin 25 mg-dipyridamole 200 mg 1 cap PO BID 10/18/21 10/24/21 History capsule,ext.release 12 hr multiphase cholecalciferol (vitamin D3) 1,250 1,250 mcg PO FR@0900 10/18/21 10/24/21 History mcg (50,000 unit) capsule colchicine 0.6 mg tablet (Colcrys) 0.6 mg PO BID 28 days #56 tabs 10/21/21 10/24/21 Rx ibuprofen 400 mg tablet 400 mg PO BID 14 days #28 tabs 10/21/21 10/24/21 Rx tramadol 50 mg tablet 50 mg PO Q6H PRN severe pain 10/21/21 10/24/21 Rx (scale score 7-10) #10 tabs promethazine 12.5 mg tablet 12.5 mg PO Q6H PRN nausea and 10/22/21 10/24/21 Rx vomiting #8 tabs Past Med/Surg History Medical History Aortic stenosis Mild per 11/2018 ECHO GERD (gastroesophageal reflux disease) Well controlled and stable Hyperlipidemia Hypertension Knee pain, right Rheumatoid arthritis F/U PCP Right knee DJD Rotator cuff arthropathy Sciatica Can radiate down right or left side Seizure TIA vs SEIZURE: "BLACKED OUT IN HER HEAD AND CAME TO"/BECAME ALERT-NEVER DX'D ANY FURTHER-4 YRS AGO-NO OTHER OCCURRENCES TIA (transient ischemic attack) X 4- PLACED ON PLAVIX (FIRST TIA AFTER SURGERY- HAS HAD SURGERY SINCE WITHOUT ISSUES). NO ISSUES X YEARS Surgical History History of anesthesia reaction SLOW TO WAKE UP-HAD TIA DURING SURGERY AND POST OP-[facility]-AGE 66 History of cataract surgery R/L History of colonoscopy History of esophagogastroduodenoscopy (EGD) S/P bilateral breast reduction AGE 66 YRS S/P TKR (total knee replacement) LEFT Status post replacement of left shoulder joint (~09/2019) Family History Father Family history of diabetes mellitus Mother Family hx of colon cancer Social History Smoking Status: Never smoker Second Hand Exposure: No; Hx Alcohol Use: No Hx Substance Use: No Preferred Language: Yoruba Communication Ability: Effective Punchboard Stuffer Required: No Beliefs That Will Affect Care: None marital status: Current Living Situation: Spouse How many Children do You have: 2 Other Information That Helps Us Care for You: No Feels Safe at Home: Yes Safety Concerns: Feels Safe At This Time Assistive Devices: Cane and Walker Review of Systems Review of Systems: As per HPI, all other systems reviewed and negative Physical Exam Physical Exam: GENERAL: Comfortable, pleasant, morbidly obese, no respiratory distress SKIN: Pallor,, warm HEENT: Pale palpebral conjunctivae, no ptosis, dry buccal mucosa NECK : Supple, short neck, no tenderness CHEST : Decreased breath sounds, no tenderness HEART : Bradycardic, systolic murmur ABDOMEN: Some distention, nontender EXTREMITIES : Minimal LE swelling, no LE tenderness, no other conspicuous deformities noted NEUROLOGIC : Coherent, no facial asymmetry, no other gross focality Results & Data Results & Data ([facility]) Vital Signs (Past 12 Hours) Vital Signs Temp Pulse Resp BP Pulse Ox O2 Del Method 10/24/21 18:32 58 L 26 H 95 10/24/21 18:32 151/47 H 10/24/21 16:39 36.7 C 65 18 215/107 H 96 Room Air Laboratory Results Laboratory Results WBC 8.68 K/ul (4.8-10.8) 10/24/21 17:22 RBC 3.53 M/uL (3.93-5.22) L 10/24/21 17:22 Hgb 11.2 g/dl (12.0-16.0) L 10/24/21 17: Hct 33.1 % (34.1-44.9) L 10/24/21 17: MCV 93.8 fL (80.0-100.0) 10/24/21 17: MCH 31.7 pg (25.0-34.0) 10/24/21 17: MCHC 33.8 g/dL (32.0-36.0) 10/24/21 17: RDW Std Deviation 48.1 fL (36.4-46.3) H 10/24/21: RDW Coeff of Marcio 14.1 % (11.5-14.5) 10/24/21: Plt Count 358 K/uL (130-400) 10/24/21: MPV 10.7 fL (9.4-12.3) 10/24/21 17: Immature Gran % (Auto) 0.5 % 10/24/21 17: Neut % (Auto) 71.4 % 10/24/21 17: Lymph % (Auto) 17.1 % 10/24/21 17: [place] % (Auto) 8.1 % 10/24/21 17: Eos % (Auto) 2.1 % 10/24/21 17: Baso % (Auto) 0.8 % 10/24/21: Neut # (Auto) 6.21 K/uL (1.4-6.5) 10/24/21: Lymph # (Auto) 1.48 K/uL (1.2-3.4) 10/24/21 17: [place] # (Auto) 0.70 K/uL (0.24-0.82) 10/24/21: Eos # (Auto) 0.18 K/uL (0-0.50) 10/24/21: Baso # (Auto) 0.07 K/uL (0-0.2) 10/24/21 17: Immature Gran # (Auto) 0.04 K/uL (0.00-0.02) H 10/24/21 17:22 Sodium 140 mmol/L (136-145) 10/24/21 17:22 Potassium 3.9 mmol/L (3.5-5.1) 10/24/21 17:22 Chloride 108 mmol/L (98-107) H 10/24/21 17:22 Carbon Dioxide 23 mmol/L (21-32) 10/24/21 17:22 Anion Gap 9 (3-11) 10/24/21 17:22 BUN 20 mg/dl (6-23) 10/24/21 17:22 Creatinine 1.53 mg/dl (0.6-1.2) H 10/24/21 17:22 Est Cr Clr Drug Dosing Not Reportable 10/24/21 17:22 Est GFR ( Amer) 37.1 ml/min 10/24/21 17:22 Est GFR (Non-Af Amer) 32.0 ml/min 10/24/21 17:22 BUN/Creatinine Ratio 13.1 (10-20) 10/24/21 17:22 Glucose 83 mg/dl (70-99(Fasting)) 10/24/21 17:22 Calcium 9.5 mg/dl (8.5-10.1) 10/24/21 17:22 Magnesium 1.1 mg/dl (1.7-2.4) L 10/24/21 17:22 Total Bilirubin 0.4 mg/dl (0.2-1.0) 10/24/21 17:22 AST 28 U/L (13-39) 10/24/21 17:22 ALT 20 U/L (7-52) 10/24/21 17:22 Alkaline Phosphatase 69 U/L (34-104) 10/24/21 17:22 Total Protein 6.5 gm/dl (6.0-8.3) 10/24/21 17:22 Albumin 3.5 gm/dl (3.4-5.0) 10/24/21 17:22 Globulin 3.0 gm/dl (2.5-4.0) 10/24/21 17:22 Albumin/Globulin Ratio 1.2 (0.9-2) 10/24/21 17:22 Lipase 14 U/L (11-82) 10/24/21 17:22 Diagnostic Findings Chest x-ray: Cardiomegaly without additional acute abnormality. EKG as per my interpretation : Rate 55, sinus bradycardia, LAD, LAFB, LVH, ischemia
[2021-10-24] MEDS: MAGNESIUM SULFATE / D5W 1 GM/100 ML BAG IV SCH ×2 (19:34→20:42)
--- NOTE | 2021-10-24 20:16 | XRay Report ---
XR chest 1V portable CLINICAL HISTORY: tachypnea TECHNIQUE: Single frontal radiograph of the chest was obtained. Comparison: Comparison is made to chest radiograph 10/20/2021 FINDINGS: Right reverse shoulder arthroplasty is seen. Cardiomegaly is noted. Calcified aortic knob is seen. Th e lungs are clear . Pulmonary vascular prominence is unchanged from prior exam but there is no malcolm edema. No evidence of pleural effusion or pneumothorax. IMPRESSION: Cardiomegaly without additional acute abnormality. ACT 112: Negative or not required by law. Electronically signed by: Raul Rehman M.D. 10/24/2021 8:15 PM
[2021-10-24] MEDS ORDERED: PROMETHAZINE HCL 12.5 MG in SODIUM CHLORIDE 0.9% 50 ML IV PRN (20:24)
[2021-10-24] MEDS ORDERED: LOPERAMIDE HCL 2 MG CAP PO PRN (20:24)
[2021-10-24] MEDS ORDERED: SODIUM CHLORIDE 0.9% 1000ML 1,000 ML IV ONE (20:24)
[2021-10-24] MEDS ORDERED: traMADol HCL 50 MG TABLET PO PRN (20:24)
[2021-10-24] MEDS ORDERED: MAGNESIUM SULFATE / D5W 1 GM/100 ML BAG IV ONE (20:32)
[2021-10-24 22:32] LABS: Appearance Urine Clear (Clear); Bacteria Urine Automated Negative (Negative); Bilirubin Urine Negative (Negative); Blood Urine Negative (Negative); Color Urine Yellow; Epithelial Cell Urine Auto >30 /lpf (0-5); Glucose Urine UA Negative (Negative); Ketones Urine Negative (Negative); Leukocyte Esterase Urine 2+ (Negative); Nitrite Urine Negative (Negative); Protein Urine Negative (Negative); RBC Urine Automated 0-4 /hpf (0-4); Specific Gravity Urine 1.008 (1.000-1.030); Urobilinogen Urine Negative (Negative)
[2021-10-24] MEDS ORDERED: ACETAMINOPHEN 325 MG TAB PO PRN (22:52)
[2021-10-24] MEDS: DIPYRIDAMOLE/ASPIRIN CAP PO SCH (23:49)
[2021-10-24] MEDS: METOPROLOL SUCC 50MG EXT REL TAB PO SCH (23:49)
[2021-10-24] MEDS: Patient's HEIGHT &/or WEIGHT Needed SCH ×2 (23:50→23:59)
[2021-10-25] MEDS: PANTOprazole 40 MG TAB PO SCH (05:37)
[2021-10-25] MEDS: HEPARIN SOD 5,000 UNIT/0.5 ML VIAL SQ SCH ×3 (05:38→20:14)
[2021-10-25 07:58] LABS: Basophils # (auto) 0.05 K/uL (0-0.2); Basophils % (auto) 0.6 %; Eosinophils # (auto) 0.19 K/uL (0-0.50); Eosinophils % (auto) 2.3 %; Hematocrit (blood only) 34.3 % (34.1-44.9); Hemoglobin 11.1 g/dl (12.0-16.0); Immature Granulocytes # (auto) 0.03 K/uL (0.00-0.02); Immature Granulocytes % (auto) 0.4 %; Lymphocytes # (auto) 0.95 K/uL (1.2-3.4); Lymphocytes % (auto) 11.4 %; Mean Corpuscular Hemoglobin 30.7 pg (25.0-34.0); Mean Corpuscular Hgb Conc 32.4 g/dL (32.0-36.0); Mean Platelet Volume 10.7 fL (9.4-12.3); Monocytes # (auto) 0.69 K/uL (0.24-0.82); Monocytes % (auto) 8.3 %; Neutrophils # (auto) 6.45 K/uL (1.4-6.5); Platelet Count 349 K/uL (130-400); RDW Standard Deviation 48.5 fL (36.4-46.3); Red Blood Count 3.61 M/uL (3.93-5.22); White Blood Count 8.36 K/ul (4.8-10.8)
[2021-10-25] MEDS: DIPYRIDAMOLE/ASPIRIN CAP PO SCH ×2 (08:16→20:15)
[2021-10-25 08:29] LABS: BUN Creatinine Ratio 11.6 (10-20); Creatinine Clr Calc Pharmacy 38.3 ml/min; Est GFR (Non-African American) 36.3 ml/min; Potassium 4.1 mmol/L (3.5-5.1)
[2021-10-25] MEDS ORDERED: PANTOprazole 40 MG TAB PO SCH (09:00)
[2021-10-25] MEDS ORDERED: ENOXAPARIN INJ 40 MG/0.4 ML SYR SQ SCH (09:00)
--- NOTE | 2021-10-25 09:54 | Cardiology Consultation ---
Date of Consultation October 25, 2021 Assessment & Plan (1) Ribs, multiple fractures: (2) Chest pain: (3) Rheumatoid arthritis: Plan I suspect that the patient's findings on echocardiogram of a loculated small pericardial effusion most likely represent a cardiac contusion due to a m echanical fall and that her chest pain was more likely to be from her rib fractures than an actual pericarditis. In any case, I think her gastroenteritis is most likely from the colchicine with some contribution of the high dose ibuprofen. I would not restart the the colchicine. Currently, 95% of her chest discomfort is gone and I would continue to treat her with as needed tramadol as well as ibuprofen at a much lower dose of 200 mg on an as-needed basis. From our standpoint I do not believe any further work-up is indicated. When the patient is ready, I think she can be discharged to outpatient follow-up. History of Present Illness Attending Physician: Jc West MD History of Present Illness This is a 81-year-old female with a history of aortic stenosis, rheumatoid arthritis, hypertension, and GERD who had mechanical fall approximately 2 weeks ago resulting in several rib fractures on the right side. She then presented with pleuritic chest pain and had a small loculated anterior pericardial effusion by echocardiography most likely from a cardiac contusion from her fall. She was started on colchicine and high-dose ibuprofen. She returned to the hospital with dehydration from nausea, vomiting and diarrhea most likely from the colchicine and contributed to by the high-dose ibuprofen. These medications have been stopped. She ate breakfast this morning and has felt well for the first time in about a week. Her chest pain has almost completely resolved. She denies shortness of breath. She has had no heart palpitations or tachycardia. Allergies Allergy/AdvReac Type Severity Reaction Status Date / Time colchicine AdvReac Intermediate Diarrhea Verified 10/24/21 20:22 Home Medications Medication Instructions Recorded Confirmed Type atorvastatin 10 mg tablet 10 mg PO MOWEFR@0900 07/10/18 10/24/21 History metoprolol succinate 50 mg 50 mg PO HS 07/10/18 10/24/21 History tablet,extended release 24 hr acetaminophen 500 mg tablet 1,000 mg PO Q6H PRN Pain 11/21/18 10/24/21 History (Tylenol Extra Strength) pantoprazole 20 mg tablet,delayed 20 mg PO QAM 11/21/18 10/24/21 History release lisinopril 20 mg tablet 20 mg PO BID 09/25/19 10/24/21 History amlodipine 5 mg tablet 5 mg PO QPM 08/02/21 10/24/21 History aspirin 25 mg-dipyridamole 200 mg 1 cap PO BID 10/18/21 10/24/21 History capsule,ext.release 12 hr multiphase cholecalciferol (vitamin D3) 1,250 1,250 mcg PO FR@0900 10/18/21 10/24/21 History mcg (50,000 unit) capsule colchicine 0.6 mg tablet (Colcrys) 0.6 mg PO BID 28 days #56 tabs 10/21/21 10/24/21 Rx ibuprofen 400 mg tablet 400 mg PO BID 14 days #28 tabs 10/21/21 10/24/21 Rx tramadol 50 mg tablet 50 mg PO Q6H PRN severe pain 10/21/21 10/24/21 Rx (scale score 7-10) #10 tabs promethazine 12.5 mg tablet 12.5 mg PO Q6H PRN nausea and 10/22/21 10/24/21 Rx vomiting #8 tabs Patient History Medical History Aortic stenosis Mild per 11/2018 ECHO GERD (gastroesophageal reflux disease) Well controlled and stable Hyperlipidemia Hypertension Knee pain, right Rheumatoid arthritis F/U PCP Right knee DJD Rotator cuff arthropathy Sciatica Can radiate down right or left side Seizure TIA vs SEIZURE: "BLACKED OUT IN HER HEAD AND CAME TO"/BECAME ALERT-NEVER DX'D ANY FURTHER-4 YRS AGO-NO OTHER OCCURRENCES TIA (transient ischemic attack) X 4- PLACED ON PLAVIX (FIRST TIA AFTER SURGERY- HAS HAD SURGERY SINCE WITHOUT ISSUES). NO ISSUES X YEARS Surgical History History of anesthesia reaction SLOW TO WAKE UP-HAD TIA DURING SURGERY AND POST OP-[facility] [place]-AGE 66 History of cataract surgery R/L History of colonoscopy History of esophagogastroduodenoscopy (EGD) S/P bilateral breast reduction AGE 66 YRS S/P TKR (total knee replacement) LEFT Status post replacement of left shoulder joint (~09/2019) Family History Father Family history of diabetes mellitus Mother Family hx of colon cancer Social History Smoking Status: Never smoker Second Hand Exposure: No; Hx Alcohol Use: No Hx Substance Use: No Preferred Language: Mauritian Communication Ability: Effective Public Relations Player Required: No Beliefs That Will Affect Care: None marital status: Current Living Situation: Spouse How many Children do You have: 2 Other Information That Helps Us Care for You: No Feels Safe at Home: Yes Safety Concerns: Feels Safe At This Time Assistive Devices: Cane and Walker Review of Systems Review of Systems: Review of Systems: See HPI for pertinent positives. All other 10 point review of systems are negative. Physical Exam Physical Exam: General: no acute distress and stated age Head: normocephalic, no masses, lesions, tenderness or abnormalities Eyes: conjunctiva are pink and non-injected, sclera clear Neck: supple, no adenopathy, no bruits, normal jugular venous pulse, no hepatoju gular reflux Chest: normal shape and normal respiratory effort Lungs: clear to auscultation and percussion Cardiac Exam: - regular rate & rhythm, no murmurs gallops or rubs - normal S1, normal S2 Pulses: 2(+) throughout Abdomen: abdomen soft, non-tender, no abnormal masses and no hepatosplenomegaly Musculoskeletal: no gait disturbance, no joint inflammation, no deforming arthritis Extremities: no edema and no cyanosis Neuro: grossly normal exam Results & Data ([facility]) Vital Signs (Past 12 Hours) Vital Signs Temp Pulse Pulse Resp BP BP BP 10/25/21 07:49 10/25/21 07:37 36.8 C 50 L 18 161/63 H 10/24/21 23:04 36.7 C 59 L 143/56 H 10/24/21 22:00 60 23 10/24/21 22:00 176/84 H Pulse Ox O2 Del Method 10/25/21 07:49 Room Air 10/25/21 07:37 93 10/24/21 23:04 95 Room Air 10/24/21 22:00 94 10/24/21 22:00 Laboratory Results Laboratory Results - last 24 hr 10/24/21 10/24/21 10/24/21 17:22 17:22 19:51 WBC 8.68 RBC 3.53 L Hgb 11.2 L Hct 33.1 L MCV 93.8 MCH 31.7 MCHC 33.8 RDW Std Deviation 48.1 H RDW Coeff of Marcio 14.1 Plt Count 358 MPV 10.7 Immature Gran % (Auto) 0.5 Neut % (Auto) 71.4 Lymph % (Auto) 17.1 Gu[place]upe % (Auto) 8.1 Eos % (Auto) 2.1 Baso % (Auto) 0.8 Neut # (Auto) 6.21 Lymph # (Auto) 1.48 [place]upe # (Auto) 0.70 Eos # (Auto) 0.18 Baso # (Auto) 0.07 Immature Gran # (Auto) 0.04 H Sodium 140 Potassium 3.9 Chloride 108 H Carbon Dioxide 23 Anion Gap 9 BUN 20 Creatinine 1.53 H Est Cr Clr Drug Dosing Not Reportable Est GFR ( Amer) 37.1 Est GFR (Non-Af Amer) 32.0 BUN/Creatinine Ratio 13.1 Glucose 83 Calcium 9.5 Magnesium 1.1 L Total Bilirubin 0.4 AST 28 ALT 20 Alkaline Phosphatase 69 Total Protein 6.5 Albumin 3.5 Globulin 3.0 Albumin/Globulin Ratio 1.2 Lipase 14 TSH 2.866 Urine Color Urine Appearance Urine pH Ur Specific Exline Urine Protein Urine Glucose (UA) Urine Ketones Urine Blood Urine Nitrite Urine Bilirubin Urine Urobilinogen Ur Leukocyte Esterase Urine WBC (Auto) Urine RBC (Auto) U Hyaline Cast (Auto) U Epithel Cells (Auto) Urine Bacteria (Auto) SARS-CoV-2, RNA, NAAT 10/24/21 10/24/21 10/25/21 21:52 22:27 07:12 WBC 8.36 RBC 3.61 L Hgb 11.1 L Hct 34.3 MCV 95.0 MCH 30.7 MCHC 32.4 RDW Std Deviation 48.5 H RDW Coeff of Marcio 14.0 Plt Count 349 MPV 10.7 Immature Gran % (Auto) 0.4 Neut % (Auto) 77.0 Lymph % (Auto) 11.4 [place]upe % (Auto) 8.3 Eos % (Auto) 2.3 Baso % (Auto) 0.6 Neut # (Auto) 6.45 Lymph # (Auto) 0.95 L [place] # (Auto) 0.69 Eos # (Auto) 0.19 Baso # (Auto) 0.05 Immature Gran # (Auto) 0.03 H Sodium Potassium Chloride Carbon Dioxide Anion Gap BUN Creatinine Est Cr Clr Drug Dosing Est GFR ( Amer) Est GFR (Non-Af Amer) BUN/Creatinine Ratio Glucose Calcium Magnesium Total Bilirubin AST ALT Alkaline Phosphatase Total Protein Albumin Globulin Albumin/Globulin Ratio Lipase TSH Urine Color Yellow Urine Appearance Clear Urine pH 5.0 Ur Specific Exline 1.008 Urine Protein Negative Urine Glucose (UA) Negative Urine Ketones Negative Urine Blood Negative Urine Nitrite Negative Urine Bilirubin Negative Urine Urobilinogen Negative Ur Leukocyte Esterase 2+ H Urine WBC (Auto) 10-30 H Urine RBC (Auto) 0-4 U Hyaline Cast (Auto) 5-10 H U Epithel Cells (Auto) >30 H Urine Bacteria (Auto) Negative SARS-CoV-2, RNA, NAAT NEGATIVE 10/25/21 07:12 WBC RBC Hgb Hct MCV MCH MCHC RDW Std Deviation RDW Coeff of Marcio Plt Count MPV Immature Gran % (Auto) Neut % (Auto) Lymph % (Auto) [place]upe % (Auto) Eos % (Auto) Baso % (Auto) Neut # (Auto) Lymph # (Auto) [place] # (Auto) Eos # (Auto) Baso # (Auto) Immature Gran # (Auto) Sodium 142 Potassium 4.1 Chloride 111 H Carbon Dioxide 25 Anion Gap 6 BUN 16 Creatinine 1.38 H Est Cr Clr Drug Dosing 38.3 Est GFR ( Amer) 42.0 Est GFR (Non-Af Amer) 36.3 BUN/Creatinine Ratio 11.6 Glucose 85 Calcium 9.0 Magnesium Total Bilirubin AST ALT Alkaline Phosphatase Total Protein Albumin Globulin Albumin/Globulin Ratio Lipase TSH Urine Color Urine Appearance Urine pH Ur Specific Exline Urine Protein Urine Glucose (UA) Urine Ketones Urine Blood Urine Nitrite Urine Bilirubin Urine Urobilinogen Ur Leukocyte Esterase Urine WBC (Auto) Urine RBC (Auto) U Hyaline Cast (Auto) U Epithel Cells (Auto) Urine Bacteria (Auto) SARS-CoV-2, RNA, NAAT Medications Administered Current Inpatient Medications Acetaminophen (Acetaminophen 325 Mg Tab) 650 mg PO Q4H PRN PRN Reason: pain/fever Stop: 11/23/21 22:51 Amlodipine Besylate (Amlodipine Besylate 5 Mg Tab) 5 mg PO QPM [place] Stop: 11/24/21 20:59 Atorvastatin Calcium (Atorvastatin 10 Mg Tab) 10 mg PO MOWEFR@0900 [facility] Stop: 11/25/21 08:59 Dipyridamole/Aspirin (Dipyridamole/Aspirin Cap) 1 cap PO BID [facility] Stop: 11/23/21 22:51 Last Admin: 10/25/21 08:16 Dose: 1 cap Heparin Sodium (Porcine) (Heparin Sod 5,000 Unit/0.5 Ml Vial) 5,000 units SQ Q8 [facility] Stop: 11/24/21 05:59 Last Admin: 10/25/21 05:38 Dose: 5,000 units Promethazine HCl 12.5 mg/ (Sodium Chloride) 50.5 mls @ 202 mls/hr IV Q6H PRN PRN Reason: Nausea And Vomiting Stop: 11/23/21 20:23 Loperamide HCl (Loperamide Hcl 2 Mg Cap) 2 mg PO UD PRN PRN Reason: Diarrhea Stop: 11/23/21 20:23 Metoprolol Succinate (Metoprolol Succ 50mg Ext Rel Tab) 50 mg PO HS [facility] Stop: 11/23/21 22:51 Last Admin: 10/24/21 23:49 Dose: 50 mg Pantoprazole Sodium (Pantoprazole 40 Mg Tab) 40 mg PO DAILYBB [facility] Stop: 11/24/21 06:29 Last Admin: 10/25/21 05:37 Dose: 40 mg Tramadol HCl (Tramadol Hcl 50 Mg Tablet) 25 - 50 mg PO Q4H PRN PRN Reason: Pain Stop: 11/23/21 20:23
[2021-10-25] MEDS: SODIUM CHLORIDE 0.9% 500 ML IV SCH ×2 (11:17→20:16)
--- NOTE | 2021-10-25 13:55 | Electrocardiogram Report ---
Test Reason : Blood Pressure : / mmHG Vent. Rate : 057 BPM Atrial Rate : 057 BPM P-R Int : 140 ms QRS Dur : 082 ms QT Int : 450 ms P-R-T Axes : 015 -15 024 degrees QTc Int : 438 ms Poor data quality, interpretation may be adversely affected Sinus bradycardia Minimal voltage criteria for LVH, may be normal variant Borderline ECG When compared with ECG of 19-OCT-2021 06:38, Premature atrial complexes are no longer Present Confirmed by Polo Yu ([id number]) on 10/25/2021 1:54:53 PM Referred By: REFERRED SELF Confirmed By:Polo Yu
[2021-10-25] MEDS: NYSTATIN SUSP 500,000 U/5 ML UDC PO SCH ×3 (13:56→20:16)
--- NOTE | 2021-10-25 19:03 | Hospitalist Progress Note ---
Date of Service October 25, 2021 Assessment & Plan (1) ARF (acute renal failure): Plan: ? Underlying CKD (Serum creatinine on discharge last week was 1.3) Multifactorial: NSAID Rx, GI symptoms from colchicine for pericarditis Other home medications contributory -Creatinine improving, 1.5 now 1.3 500 cc NSS continue Monitor -Hospital Clinic Assistant consulted Does not recommend further treatment for acute pericarditis Findings during last echocardiogram likely cardiac contusion hx CVA/PVD hx aortic stenosis hypertension, slightly elevated, continue amlodipine hyperlipidemia on statin Rx GERD, symptoms controlled chronic anemia, hemoglobin at baseline Hyperglycemia likely secondary to prediabetes, hemoglobin A1c of 5.7 from last confinement DVT prophylaxis. Heparin subcu Full code Disposition Anticipate discharge to home tomorrow Admission and Anticipated Discharge Date Admission Date: October 24, 2021 Subjective For acute renal failure, nausea and vomiting secondary to colchicine, etc. Seen resting in chair, comfortable, not in distress States she feels fine overall Much better since admission Nausea vomiting, abdominal pain resolved Chest pain has also resolved, no palpitation dizziness No other symptoms Review of Systems Review of Systems: all noted and negative except for above Physical Exam Physical Exam: General- oriented x 3, not in distress, speaks in sentences with no effort or accessory muscle use Eyes- anicteric Neck- no JVD Lungs- clear breath sounds bilaterally, no rales/wheezes Heart- normal rate, regular rhythm; no murmurs Abdomen- normal bowel sounds, nondistended, soft, nontender Extremities- no pretibial edema, no calf tenderness Neuro- alert, oriented x 3; no gross focal neurologic deficits Skin- warm & dry Results & Data Results & Data ([facility]) Vital Signs (Past 12 Hours) Vital Signs Temp Pulse Resp BP BP Pulse Ox O2 Del Method 10/25/21 14:23 36.8 C 64 18 142/74 H 98 Room Air 10/25/21 07:49 Room Air 10/25/21 07:37 36.8 C 50 L 18 161/63 H 93 all noted and reviewed including below
[2021-10-25] MEDS: METOPROLOL SUCC 50MG EXT REL TAB PO SCH (20:16)
[2021-10-25] MEDS ORDERED: SODIUM CHLORIDE 0.9% 500 ML IV ONE (20:27)
[2021-10-25] MEDS ORDERED: amLODIPine BESYLATE 5 MG TAB PO SCH (21:00)
[2021-10-25 21:40] LABS: BUN Creatinine Ratio 11.8 (10-20); Calcium 8.8 mg/dl (8.5-10.1); Creatinine Clr Calc Pharmacy 25.9 ml/min; Est GFR (African American) 26.2 ml/min; Est GFR (Non-African American) 22.6 ml/min; Potassium 3.9 mmol/L (3.5-5.1)
--- NOTE | 2021-10-25 21:51 | Communication Note ---
Date of Service: October 25, 2021 Patient asked RN if ongoing maintenance IVF still needed. Patient thought she needed just 1 bag as per RN. Serum creatinine 2.04 from 1.38 in a.m. AP Worsening kidney dysfunction Rule out obstructive uropathy Continue IVF Renal ultrasound May need nephrology eval if renal ultrasound does not show obstruction and kidney function does not improve in a.m.
[2021-10-25] MEDS: LACTATED RINGER'S 1,000 ML IV SCH (23:35)
[2021-10-26] MEDS: PANTOprazole 40 MG TAB PO SCH (04:53)
[2021-10-26] MEDS: HEPARIN SOD 5,000 UNIT/0.5 ML VIAL SQ SCH ×2 (04:53→13:12)
[2021-10-26] MEDS: NYSTATIN SUSP 500,000 U/5 ML UDC PO SCH ×2 (08:41→13:11)
[2021-10-26] MEDS: DIPYRIDAMOLE/ASPIRIN CAP PO SCH (08:41)
--- NOTE | 2021-10-26 08:55 | Ultrasound Report ---
RENAL ULTRASOUND HISTORY: renal failure COMPARISON: None. FINDINGS: Right kidney: 8.3 cm. No hydronephrosis. Mild cortical thinning. Left kidney: 8.1 cm. No hydronephrosis. Mild cortical thinning. Bladder: Decompressed and not well visualized. IMPRESSION: 1. No hydronephrosis. 2. Mild bilateral renal atrophy. 3. The bladder is decompressed and not well visualized. ACT 112: Negative or not required by law. Electronically signed by: Bo Christine M.D. 10/26/2021 8:54 AM
[2021-10-26] MEDS ORDERED: ATORVASTATIN 10 MG TAB PO SCH (09:00)
[2021-10-26 09:33] LABS: Basophils # (auto) 0.05 K/uL (0-0.2); Basophils % (auto) 0.8 %; Eosinophils # (auto) 0.13 K/uL (0-0.50); Eosinophils % (auto) 2.1 %; Hematocrit (blood only) 31.9 % (34.1-44.9); Hemoglobin 10.6 g/dl (12.0-16.0); Immature Granulocytes # (auto) 0.03 K/uL (0.00-0.02); Immature Granulocytes % (auto) 0.5 %; Lymphocytes # (auto) 1.11 K/uL (1.2-3.4); Lymphocytes % (auto) 18.3 %; Mean Corpuscular Hemoglobin 30.7 pg (25.0-34.0); Mean Corpuscular Hgb Conc 33.2 g/dL (32.0-36.0); Mean Corpuscular Volume 92.5 fL (80.0-100.0); Mean Platelet Volume 10.3 fL (9.4-12.3); Monocytes # (auto) 0.51 K/uL (0.24-0.82); Monocytes % (auto) 8.4 %; Neutrophils # (auto) 4.24 K/uL (1.4-6.5); Neutrophils % (auto) 69.9 %; Platelet Count 328 K/uL (130-400); RDW Standard Deviation 47.7 fL (36.4-46.3); Red Blood Count 3.45 M/uL (3.93-5.22); White Blood Count 6.07 K/ul (4.8-10.8)
[2021-10-26 10:16] LABS: BUN Creatinine Ratio 13.9 (10-20); Calcium 8.8 mg/dl (8.5-10.1); Creatinine Clr Calc Pharmacy 36.7 ml/min; Est GFR (African American) 39.9 ml/min; Est GFR (Non-African American) 34.5 ml/min; Magnesium 1.5 mg/dl (1.7-2.4); Potassium 3.8 mmol/L (3.5-5.1)
--- NOTE | 2021-10-26 10:38 | Cardiology Progress Note ---
Date of Service October 26, 2021 Assessment & Plan (1) Nausea & vomiting: (2) Diarrhea: (3) Heart contusion: Plan 81-year-old female with a recent mechanical falls with resultant right sided rib fractures, pleuritic chest pain. Minimal high sensitivity troponin I, minor ST elevated in multiple leads, and a small loculated anterior pericardial effusion noted, pericarditis versus cardiac contusion. Patient returned to the hospital with GI upset likely secondary to colchicine and high-dose ibuprofen, resolving with discontinuation. At present, she is asymptomatic and feels back to baseline. Continue without colchicine and NSAID's. Limited resting echocardiography requested to reassess the previously observed pericardial effusion. Admission and Anticipated Discharge Date Admission Date: October 24, 2021 Supervising Physician Co-Signing Physician Notes Patient seen and examined with Vladimir Lau PA-C. Agree with findings and assessment as above. Patient is now symptom-free from a cardiac standpoint. Would not restart colchicine. Ibuprofen can be used as needed. Okay to discharge home from a cardiac standpoint. Subjective Patient seen and examined. Chart, medications, and telemetry reviewed. Feeling well. No complaints. " I feel great. I'm back to my old self. Can I go home?" No chest pain. No palpitations. No unusual shortness of breath. No orthopnea or PND. No peripheral edema. No fevers or chills. Physical Exam Physical Exam: General: A&Ox3. NAD. HENT: Normocephalic. Atraumatic. Eyes: PER. Conjunctiva pink, sclera clear. Neck: No overt JVD. Heart: RRR. Grade II systolic murmur in the outflow tract. No diastolic murmur. No rub. Lungs: Clear to auscultation. Abdomen: +BS. Extremities: Minimal edema. No clubbing. No cyanosis. Limited neurological examination is without focal deficits. Results & Data ([facility]) Vital Signs (Past 12 Hours) Vital Signs Temp Pulse Resp BP Pulse Ox O2 Del Method 10/26/21 07:46 36.7 C 63 18 157/77 H 94 Room Air Laboratory Results CBC 10/26/21 Range/Units 09:20 WBC 6.07 (4.8-10.8) K/ul RBC 3.45 L (3.93-5.22) M/uL Hgb 10.6 L (12.0-16.0) g/dl Hct 31.9 L (34.1-44.9) % Plt Count 328 (130-400) K/uL Neut # (Auto) 4.24 (1.4-6.5) K/uL Lymph # (Auto) 1.11 L (1.2-3.4) K/uL Sunflower # (Auto) 0.51 (0.24-0.82) K/uL Eos # (Auto) 0.13 (0-0.50) K/uL Baso # (Auto) 0.05 (0-0.2) K/uL Comprehensive Metabolic Panel 10/25/21 10/26/21 Range/Units 21:07 09:20 Sodium 138 142 (136-145) mmol/L Potassium 3.9 3.8 (3.5-5.1) mmol/L Chloride 107 110 H (98-107) mmol/L Carbon Dioxide 24 25 (21-32) mmol/L BUN 24 H 20 (6-23) mg/dl Creatinine 2.04 H D 1.44 H D (0.6-1.2) mg/dl Glucose 98 95 (70-99(Fasting)) mg/dl Calcium 8.8 8.8 (8.5-10.1) mg/dl Intake and Output 10/25/21 10/26/21 10/26/21 22:59 06:59 14:59 Intake Total 800 / 2325 150 / 2325 Balance 800 / 2325 150 / 2325 Intake: IV 500 / 1500 Sodium Chloride 0.9% 500 ml @ 500 / 500 60 mls/hr IV .Q8H20M [facility] Rx#: [id number] Oral 300 / 825 150 / 825 Other: # Unmeasured Voids 1 1
[2021-10-26] MEDS ORDERED: MAGNESIUM SULFATE / D5W 1 GM/100 ML BAG IV ONE (10:59)
[2021-10-26] MEDS ORDERED: MAGNESIUM SULFATE / D5W 1 GM/100 ML BAG IV SCH (11:00)
[2021-10-26] MEDS: LACTATED RINGER'S 1,000 ML IV SCH (15:12)
--- NOTE | 2021-10-26 15:30 | Hospitalist Progress Note ---
Date of Service October 26, 2021 Assessment & Plan (1) ARF (acute renal failure): Plan: This is a 81-year-old female with PMH of carotid stenosis, hypertension, history of stroke, GERD, dyslipidemia and other medical problems listed below who was admitted 3 days for acute pericarditis, discharged on Colchicine and Ibuprofen, presenting with persistent nausea/vomiting, poor oral intake. Nausea/Vomiting, secondary to Colchicine, Ibuprofen - Colchicine, Ibuprofen discontinued given IV fluids, antiemetics - all GI symptoms resolved discussed with Cardiology- recommend to discontinue Colchicine, Ibuprofen; no further treatment necessary as anterior loculated effusion on echo may have been secondary to cardiac contusion repeat limited echo: unchanged, small loculated effusion w/o HD significance - cleared for discharge Episode of Chest pain Right anterior rib fractures Possible Cardiac contusion - reason for previous admission 10/18 to 10/23 Chest CTA performed -unremarkable CT angiogram of the thoracic aorta. No evidence of pericardial effusion. No findings to suggest pulmonary emboli EKG unchanged from prior HS troponin 33 --> 35 Concern for pericarditis given clinical presentation - last viral illness over a month ago Echocardiogram: Small, loculated anterior pericardial effusion without hemodynamic significance, mild concentric LVH, EF 65 to 70%, no segmental left ventricular wall motion abnormalities, grade 1 diastolic dysfunction PRN Tramadol ordered Acute Kidney Injury CT contrast nephropathy? poor oral intake crea 1.1 --> 1.4 --> 2.0 --> 1.4 HOLD HCTZ, Lisinopril increase Amlodipine to 5mg BID ff up with PCP in 1 week Diarrhea Stool for C. difficile negative Patient reports having diarrhea at home secondary to IBS As needed Imodium Leukocytosis WBC 16 K, afebrile, Chest CTA without infectious picture, UA and tick serology negative --Leukocytosis resolved Carotid stenosis History of TIA Continue aspirin-dipyridamole Lung nodule on CT Please refer to full report in the Ordered Studies section above Low suspicion pleural-based nodules in the right lower lobe measure up to 8mm. This can be followed as per the Fleischner criteria if clinically warranted. See below. RLL 8 mm nodule, needs repeat CT scan in 3-6 months, patient made aware to contact with PCP as outpatient Abnormal CT chest findings Please refer to full report in the Ordered Studies section above A 6.3 cm peripherally calcified and benign-appearing structure in the right breast has been present on prior examinations. Clinical correlation will be required. If not recently performed consider nonemergent mammographic follow-up. -- Mammogram and Follow-up as an outpatient Hypertension Home medications include amlodipine, Toprol hold Lisinopril, HCTZ in light of ALAN increase Amlodipine to 5mg BID ff up with PCP in 1 week Aortic stenosis Mild noted on 2019 echo PCP: Anitra Dispo: d/c home ff up with PCP in 1 week plan of care discussed with patient in detail and at length all questions answered she is understanding, agreeable, comfortable with the plan of care Admission and Anticipated Discharge Date Admission Date: October 24, 2021 Subjective ff up for nausea/vomiting, etc seen resting in chair, comfortable states she feels fine overall nausea, vomiting, abdominal pain resolved tolerating low fiber diet well no chest pain at all no dyspnea, palpitations, dizziness ambulating well no other symptoms Review of Systems Review of Systems: all noted and negative except for above Physical Exam Physical Exam: General- oriented x 3, not in distress, speaks in sentences with no effort or accessory muscle use Eyes- anicteric Neck- no JVD Lungs- clear BS bilaterally, no rales/wheezes Heart- normal rate, regular rhythm; no murmurs Abdomen- normal bowel sounds, nondistended, soft, nontender Extremities- no pretibial edema, no calf tenderness Neuro- alert, oriented x 3; no gross focal neurologic deficits Skin- warm & dry Results & Data Results & Data ([place]) Vital Signs (Past 12 Hours) Vital Signs Temp Pulse Pulse Pulse Resp BP BP 10/26/21 15:25 36.8 C 56 L 64 57 L 18 148/71 H 157/77 H 10/26/21 14:10 36.8 C 57 L 18 148/71 H 10/26/21 07:46 36.7 C 63 18 157/77 H Pulse Ox O2 Del Method 10/26/21 15:25 95 10/26/21 14:10 95 Room Air 10/26/21 07:46 94 Room Air all noted and reviewed including below
--- NOTE | 2021-10-26 15:48 | Discharge Summary ---
Date of Service October 26, 2021 Admission HPI Per Admitting Provider History obtained from patient, family, and records. Medical history significant for CVA, PVD, aortic stenosis, rheumatoid arthritis, hypertension, hyperlipidemia, GERD, chronic anemia (baseline hemoglobin 10-11 ). Recent confinement last week for chest pain attributed to pericarditis.. Cardiology recommended colchicine and ibuprofen course. Patient noted nausea and diarrhea symptoms upon starting medications in the hospital. No abdominal pain. Stool C. difficile was negative. Patient not feeling well on day of discharge but she just wanted to go home. At home, patient noted worsening nausea, vomiting, diarrhea symptoms. No fever, no chills. Mild chest pain going to the shoulder from recent pericarditis attack as per patient No actual abdominal pain or dysuria symptoms. Poor appetite. Patient primary care doctor recommended stopping colchicine. Diarrhea not as bad with initiation of Imodium Rx. Patient brought to ER for persistent nausea, emesis, dehydration symptoms. MEDICAL HISTORY: As above. SURGERIES: She has had knee surgery and breast reduction surgery. FAMILY HISTORY: There is a family history of hypertension and diabetes, colon cancer PERSONAL AND SOCIAL HISTORY: Nonsmoker. No EtOH intake, retired business info consultant Admission Exam Per Admitting Provider GENERAL: Comfortable, pleasant, morbidly obese, no respiratory distress SKIN: Pallor,, warm HEENT: Pale palpebral conjunctivae, no ptosis, dry buccal mucosa NECK : Supple, short neck, no tenderness CHEST : Decreased breath sounds, no tenderness HEART : Bradycardic, systolic murmur ABDOMEN: Some distention, nontender EXTREMITIES : Minimal LE swelling, no LE tenderness, no other conspicuous deformities noted NEUROLOGIC : Coherent, no facial asymmetry, no other gross focality Principal Diagnosis INTRACTABLE NAUSEA/VOMITING SECONDARY TO COLCHICINE, IBUPROFEN Discharge Exam General- oriented x 3, not in distress, speaks in sentences with no effort or accessory muscle use Eyes- anicteric Neck- no JVD Lungs- clear BS bilaterally, no rales/wheezes Heart- normal rate, regular rhythm; no murmurs Abdomen- normal bowel sounds, nondistended, soft, nontender Extremities- no pretibial edema, no calf tenderness Neuro- alert, oriented x 3; no gross focal neurologic deficits Skin- warm & dry Discharge Data Allergies Allergy/AdvReac Type Severity Reaction Status Date / Time colchicine AdvReac Intermediate Diarrhea Verified 10/24/21 20:22 Consultations 10/24/21 19:13 ED Decision to Admit Stat 10/24/21 22:52 Consult Cardiology Routine Ordered Studies 10/18/21 15:15 CT angio chest dissec wo/w con Stat COMPARISON STUDY: Chest x-ray dated 10/01/2019. TECHNIQUE: Before and following the IV administration of 110 cc of Optiray 300, CT angiogram of the chest was performed from the thoracic inlet to the upper abdomen utilizing the dissection protocol. Images are reviewed in the axial, sagittal, and coronal planes. 3-D MIPS images are created and assessed. IV contrast was administered without complication. A dose lowering technique was utilized adhering to the principles of ALARA. The examination is degraded by streak artifact from a left shoulder arthroplasty. CT DOSE: 1440.31 mGy.cm FINDINGS: Thyroid: Normal in size and heterogeneous in attenuation. Thoracic aorta: No intramural hematoma is seen on the unenhanced series. There is mild atherosclerotic calcification of the thoracic aorta, which is normal in caliber and demonstrates standard 3-vessel arch anatomy. No dissection is seen. The arch vessels are widely patent. Pulmonary vasculature: The pulmonary trunk is normal in caliber. There are no central filling defects identified in the pulmonary vessels to suggest pulmonary embolus. Note that this examination was not specifically protocoled to assess for pulmonary emboli. Heart: The heart is normal in size and without pericardial effusion. The coronary arteries are densely calcified. Lungs and pleural spaces: Evaluation of the lung parenchyma is compromised by motion artifact. There is no airspace consolidation typical for pneumonia or pleural effusion. Scarring/atelectasis is present at both lung bases. The trachea and central airways are clear. An 8 mm pleural-based nodule at the right lung base is seen on image #136, and a 5 mm pleural-based nodule in the right lower lobe is seen on image #105. Mediastinum: There is no mediastinal lymphadenopathy. Josefina: Clear. Axillae: There is no axillary lymphadenopathy. Upper abdomen: There is a small hiatal hernia. Partially visualized upper abdominal viscera is within normal limits. Skeletal structures: The skeletal structures are osteopenic. Spondylotic change is noted in the thoracic spine. No lytic or blastic bony lesions are seen. A left shoulder arthroplasty is in place. Advanced arthritic change is seen in the right shoulder. There are subacute appearing right anterior rib fractures (4th- 7th). Soft tissues: A 6.3 cm peripherally calcified structure in the left breast has been present on prior examinations. IMPRESSION: 1. Unremarkable CT angiogram of the thoracic aorta. 2. There is no airspace consolidation or pleural effusion. 3. There are subacute appearing right anterior rib fractures. Correlate for point tenderness. 4. Low suspicion pleural-based nodules in the right lower lobe measure up to 8mm. This can be followed as per the Fleischner criteria if clinically warranted . See below. 5. A 6.3 cm peripherally calcified and benign-appearing structure in the right breast has been present on prior examinations. Clinical correlation will be required. If not recently performed consider nonemergent mammographic follow-up. 6. Additional findings as above. ACT 112: Negative or not required by law. 10/25/21 21:50 US Renal Bladder [US renal/blad retro comp] Urgent FINDINGS: Right kidney: 8.3 cm. No hydronephrosis. Mild cortical thinning. Left kidney: 8.1 cm. No hydronephrosis. Mild cortical thinning. Bladder: Decompressed and not well visualized. IMPRESSION: 1. No hydronephrosis. 2. Mild bilateral renal atrophy. 3. The bladder is decompressed and not well visualized. ACT 112: Negative or not required by law. Hospital Course (1) ARF (acute renal failure): This is a 81-year-old female with PMH of carotid stenosis, hypertension, history of stroke, GERD, dyslipidemia and other medical problems listed below who was admitted 3 days for acute pericarditis, discharged on Colchicine and Ibuprofen, presenting with persistent nausea/vomiting, poor oral intake. Nausea/Vomiting, secondary to Colchicine, Ibuprofen - Colchicine, Ibuprofen discontinued given IV fluids, antiemetics - all GI symptoms resolved discussed with Cardiology- recommend to discontinue Colchicine, Ibuprofen; no further treatment necessary as anterior loculated effusion on echo may have been secondary to cardiac contusion repeat limited echo: unchanged, small loculated effusion w/o HD significance - cleared for discharge Hypomagnesemia - Mg 1.1, given IV Mg improved to 1.5 - Mg Oxide 500mg BID ordered repeat Mg on ff up with PCP next week Oral Thrush - Nystatin x 1 week Episode of Chest pain Right anterior rib fractures Possible Cardiac contusion - reason for previous admission 10/18 to 10/23 Chest CTA performed -unremarkable CT angiogram of the thoracic aorta. No evidence of pericardial effusion. No findings to suggest pulmonary emboli EKG unchanged from prior HS troponin 33 --> 35 Concern for pericarditis given clinical presentation - last viral illness over a month ago Echocardiogram: Small, loculated anterior pericardial effusion without hemodynamic significance, mild concentric LVH, EF 65 to 70%, no segmental left ventricular wall motion abnormalities, grade 1 diastolic dysfunction PRN Tramadol ordered Acute Kidney Injury CT contrast nephropathy? poor oral intake crea 1.1 --> 1.4 --> 2.0 --> 1.4 HOLD HCTZ, Lisinopril increase Amlodipine to 5mg BID ff up with PCP in 1 week Diarrhea Stool for C. difficile negative Patient reports having diarrhea at home secondary to IBS As needed Imodium Leukocytosis WBC 16 K, afebrile, Chest CTA without infectious picture, UA and tick serology negative --Leukocytosis resolved Carotid stenosis History of TIA Continue aspirin-dipyridamole Lung nodule on CT Please refer to full report in the Ordered Studies section above Low suspicion pleural-based nodules in the right lower lobe measure up to 8mm. This can be followed as per the Fleischner criteria if clinically warranted. See below. RLL 8 mm nodule, needs repeat CT scan in 3-6 months, patient made aware to contact with PCP as outpatient Abnormal CT chest findings Please refer to full report in the Ordered Studies section above A 6.3 cm peripherally calcified and benign-appearing structure in the right breast has been present on prior examinations. Clinical correlation will be required. If not recently performed consider nonemergent mammographic follow-up. -- Mammogram and Follow-up as an outpatient Hypertension Home medications include amlodipine, Toprol hold Lisinopril, HCTZ in light of ALAN increase Amlodipine to 5mg BID ff up with PCP in 1 week Aortic stenosis Mild noted on 2019 echo PCP: Anitra Dispo: d/c home ff up with PCP in 1 week plan of care discussed with patient in detail and at length all questions answered she is understanding, agreeable, comfortable with the plan of care Total Time Total Time Spent Total Time Spent (In Minutes): >30 minutes Discharge Plan Discharge Items Patient Disposition: Home - Self-Care Reason For Visit: HYPOMAGNESEMIA Discharge Diagnosis: NAUSEA/VOMITING/DIARRHEA SECONDARY TO COLCHICINE, IBUPROFEN ACUTE KIDNEY INJURY Activity: Resume your previous activity Activity Comment: INCREASE ACTIVITY GRADUALLY TOLERATED Lifting: Wait until after follow-up appointment Exercise/Sports: Wait until after follow-up appointment Non-emergency contact: Primary Care Provider Call non-emergency contact if: you have any medication questions, your symptoms worsen, your pain is not controlled, your pain is worsening, your pain is unusual for you, your pain is concerning for you and you have a fever Follow-up/Referrals: Justino Ayoub [Primary Care Provider] - Diet: Heart Healthy Addtl Attending Provider Instructions: PLEASE REFER TO YOUR NEW MEDICATION LIST AND FOLLOW INSTRUCTIONS CAREFULLY. YOUR NEW MEDICATIONS INCLUDE: HOLD (DO NOT TAKE) LISINOPRIL AND HCTZ FOR NOW. (DR. AYOUB WILL ADVISE YOU ON YOUR FF UP VISIT WITH HER.) INCREASE AMLODIPINE TO 5MG TWICE A DAY. NYSTATIN- for oral thrush MAGNESIUM OXIDE- supplement for low magnesium DRINK PLENTY OF WATER- AT LEAST 8 CUPS/DAY. ALWAYS TALK TO YOUR PRIMARY CARE PHYSICIAN BEFORE STARTING ANY NEW MEDICATIONS. PLEASE CALL YOUR PRIMARY CARE PHYSICIAN OR RETURN TO THE ER IF WITH WORSENING OF SYMPTOMS, INCLUDING nausea, vomiting, abdominal pain, diarrhea, chest pain, changes with urination. FOLLOW UP WITH PRIMARY CARE PHYSICIAN in 1 week. Pending Studies at Discharge: Yes Studies:: REPEAT BLOOD WORK- BASIC METABOLIC PROFILE, MAGNESIUM LEVEL, ON FOLLOW UP WITH PRIMARY CARE PHYSICIAN WITHIN 1 WEEK MAMMOGRAM TO BE SCHEDULED ON FF UP WITH DR. AYOUB REPEAT CT SCAN CHEST IN 3 MONTHS. Stand-Alone Forms: My [facility] [email or web address], Smoking Cessation Medications and DC Order Prescriptions: New nystatin 100,000 unit/mL Suspension 5 ml PO QID 6 Days Qty: 120 0RF amlodipine [Norvasc] 5 mg Tablet 5 mg PO BID 30 Days Qty: 60 0RF magnesium oxide 400 mg (241.3 mg magnesium) Tablet 400 mg PO BID 7 Days Qty: 14 0RF Continued atorvastatin 10 mg tablet 10 mg PO MOWEFR@0900 Rx Instructions: take daily sunday,sunday,fridays metoprolol succinate 50 mg tablet extended release 24 hr 50 mg PO HS pantoprazole 20 mg tablet,delayed release (DR/EC) 20 mg PO QAM Rx Instructions: take 1/2 hour before breakfast acetaminophen [Tylenol Extra Strength] 500 mg Tablet 1,000 mg PO Q6H PRN (Reason: Pain) aspirin-dipyridamole 25-200 mg capsule, ER multiphase 12 hr 1 cap PO BID cholecalciferol (vitamin D3) 1,250 mcg (50,000 unit) capsule 1,250 mcg PO FR@0900 tramadol 50 mg Tablet 50 mg PO Q6H PRN (Reason: severe pain (scale score 7-10)) Qty: 10 0RF promethazine 12.5 mg tablet 12.5 mg PO Q6H PRN (Reason: nausea and vomiting) Qty: 8 0RF Discontinued lisinopril 20 mg Tablet 20 mg PO BID amlodipine 5 mg tablet 5 mg PO QPM colchicine [Colcrys] 0.6 mg Tablet 0.6 mg PO BID 28 Days Qty: 56 0RF ibuprofen 400 mg tablet 400 mg PO BID 14 Days Qty: 28 0RF Discharge Orders: Discharge Order (Routine); Ordered 10/26/21 Ordered By: Jc West Admission Data Admit Date/Time: 10/24/21 20:20 Attending Provider: Edgar Buitrago Admit Provider: Gildardo Ramos Primary Care Provider: Justino Ayoub Other Providers: Gildardo Ramos ; Eyal Aragon ; Arnel Lane ; Phil Broderick ; Jonathan Cervantes ; Sam Blue ; Vladimir Lau ; Jaz Robison ; Britney Taylor ; Marah Khanna ; William Quintero ; Jc West Other Interventions: Discharge Summary Assessment (RN) Last Done: 10/26/21 15:25
[2021-10-26] MEDS ORDERED: MAGNESIUM OXIDE 400 MG TAB PO SCH (21:00)
== END 2021-10-26 16:39 | disposition home or self-care (01) ==
LOC: ED 16:38 → 3N 20:20 → INTOOBSV 20:20 → SUATTDRO 20:20 → 3N 22:52

== ENCOUNTER 2024-01-15 08:06 | Inpatient (IN) ==
[2024-01-15 08:54] LABS: Basophils % (auto) 0.5 %; Eosinophils # (auto) 0.03 K/uL (0.00-0.50); Eosinophils % (auto) 0.2 %; Hematocrit (blood only) 37.2 % (37.0-47.0); Hemoglobin 12.1 g/dl (12.0-16.0); Immature Granulocytes # (auto) 0.18 K/uL (0.01-0.20); Lymphocytes # (auto) 1.58 K/uL (1.20-3.40); Lymphocytes % (auto) 8.4 %; Mean Corpuscular Hemoglobin 29.7 pg (25.0-34.0); Mean Corpuscular Hgb Conc 32.5 g/dL (32.0-36.0); Mean Corpuscular Volume 91.4 fL (80.0-100.0); Mean Platelet Volume 10.5 fL (9.4-12.4); Monocytes # (auto) 1.94 K/uL (0.11-0.59); Monocytes % (auto) 10.3 %; Neutrophils # (auto) 15.01 K/uL (1.40-6.50); Neutrophils % (auto) 79.6 %; Platelet Count 301 K/uL (130-400); RDW Coefficient of Variation 15.7 % (11.5-14.5); RDW Standard Deviation 52.7 fL (36.4-46.3); Red Blood Count 4.07 M/uL (4.20-5.40); White Blood Count 18.84 K/ul (4.8-10.8)
--- NOTE | 2024-01-15 09:01 | Electrocardiogram Report ---
Test Reason : Blood Pressure : */* mmHG Vent. Rate : 88 BPM Atrial Rate : * BPM P-R Int : * ms QRS Dur : 76 ms QT Int : 358 ms P-R-T Axes : * -21 32 degrees QTcB Int : 433 ms Poor data quality, interpretation may be adversely affected Sinus rhythm with Premature atrial complexes Minimal voltage criteria for LVH, may be normal variant ( R in aVL ) Cannot rule out Anterior infarct , age undetermined Possible Inferior infarct Abnormal ECG When compared with ECG of 24-Oct-2021 17:35, Premature atrial complexes are now Present Vent. rate has increased by 31 bpm Confirmed by Polo Yu ([id number]) on 01/15/2024 9:01:26 AM Referred By: Confirmed By: Polo Yu
[2024-01-15 09:22] LABS: Albumin Globulin Ratio 1.1 (0.9-2); Albumin Level 3.5 gm/dl (3.4-5.0); Bilirubin,Total 1.5 mg/dl (0.2-1.0); Calcium 9.9 mg/dl (8.6-10.3); Creatinine Clr Calc Pharmacy 50.1 ml/min; Globulin 3.2 gm/dl (2.5-4.0); Potassium 4.5 mmol/L (3.5-5.1); Total Protein 6.7 gm/dl (6.0-8.3)
--- NOTE | 2024-01-15 09:25 | XRay Report ---
XR chest 1V portable CLINICAL HISTORY: Dyspnea COMPARISON STUDY: Chest CT October 18, 2021. Chest radiograph October 24, 2021. FINDINGS: Left shoulder arthroplasty is incidentally noted. There is no pneumothorax or pleural effus ion. Moderate cardiomegaly is unchanged. There is no evidence for pulmonary edema. Linear right basil ar densities represent atelectasis or scarring. IMPRESSION: No acute cardiopulmonary findings. Stable cardiomegaly. ACT 112: Negative or not required by law. Electronically signed by: Anmol Cuellar M.D. 01/15/2024 9:23 AM
[2024-01-15 09:44] LABS: Adenovirus PCR Not Detected (NotDetected); Bordetella parapertussis PCR Not Detected (NotDetected); Bordetella pertussis PCR Not Detected (NotDetected); Chlamydia pneumoniae PCR Not Detected (NotDetected); Coronavirus 229E PCR Not Detected (NotDetected); Coronavirus CoV-2 (COVID19)PCR Not Detected (NotDetected); Coronavirus HKU1 PCR Not Detected (NotDetected); Coronavirus NL63 PCR Not Detected (NotDetected); Coronavirus OC43PCR Not Detected (NotDetected); Human Metapneumovirus PCR Not Detected (NotDetected); Influenza A PCR Not Detected (NotDetected); Influenza B PCR Not Detected (NotDetected); Mycoplasma pneumoniae PCR Not Detected (NotDetected); Parainfluenza Virus 1 PCR Not Detected (NotDetected); Parainfluenza Virus 2 PCR Not Detected (NotDetected); Parainfluenza Virus 3 PCR Not Detected (NotDetected); Parainfluenza Virus 4 PCR Not Detected (NotDetected); Respiratory Syncytial VirusPCR Not Detected (NotDetected); Rhinovirus/Enterovirus PCR DETECTED (NotDetected)
--- NOTE | 2024-01-15 09:50 | Emergency Department Note ---
Impression & Plan Upper respiratory infection, viral, Acute hypoxemic respiratory failure ED Provider Note NAME: ROJELIO PARKS AGE: 83 SEX: F : 1940 ARRIVES VIA: Walk-In INFORMANT: Patient, ED PROVIDER(S): Garcia Lee MD CHIEF COMPLAINT: shortness of breath, leg pain HPI: This is a an 83-year-old female presenting for shortness of breath. Patient states that she has had cough, congestion and upper respiratory type symptoms for the past few days. She notes that she also has had a new left lower foot/leg pain and swelling. She notes that she usually has swelling in this leg. She notes it is painful to walk and she is unable to walk due to the pain. She also notes weakness that is progressive over the past few days and extremities. She notes fatigue. She does have productive sputum. ROS: See above HPI for pertinent positives & negatives. A total of 10 systems reviewed and were otherwise negative. PAST MEDICAL HISTORY: See Below PAST SURGICAL HISTORY: See Below FAMILY HISTORY: See Below SOCIAL HISTORY: See Below HOME MEDICATIONS: See Below ALLERGIES: See Below VITALS: See Below PHYSICAL EXAMINATION: General: resting comfortably in no acute distress Head: Normocephalic and atraumatic Eyes: Normal inspection, extraocular muscles intact Ear, nose, throat: Normal external exam Neck: Normal range of motion Respiratory: lungs clear to auscultation bilaterally Cardiovascular: Regular rate/rhythm, no murmur GI: soft, nontender, no guarding or rebound, Extremities: nontender, moves all extremities2+ pitting edema to left lower extremity Neuro: The patient awake and alert, appropriately conversive, no focal deficits, symmetric faces Skin: Warm, dry, and intact MEDICAL DECISION MAKING: This is an 83-year-old female present for shortness of breath. Consider CHF, PE, DVT, pneumonia, URI -Blood work is reviewed showing leukocytosis to 18 otherwise electrolytes within normal limits. -Upper respiratory panel is positive for entero-/rhinovirus -Lower extremity DVT study is currently negative -Patient is currently hypoxic requiring 2 L nasal cannula. Will admit for URI with hypoxia and leg pain/swelling -[facility] Differential diagnosis: CHF, PE, DVT, pneumonia, URI ER treatment provided: See below Independent History obtained from: Daughter Diagnostics interpreted by me: ECG: ECG independently interpreted by me with sinus rhythm with rate of 88, occasional PAC, normal QRS, normal QTc, no ST segment elevations consistent with STEMI criteria Cardiac Monitoring: An order was placed for continuous cardiac monitoring. The monitor shows a rate of 76 with sinus rhythm. Laboratory studies: As stated above and show below. Imaging studies: See below. Past Med/Surg History Problem List (Updated 01/15/24 @ 14:40 by Garcia Lee MD) Acute hypoxemic respiratory failure (Acute) Upper respiratory infection, viral (Acute) PAF (paroxysmal atrial fibrillation) Left ankle pain Cellulitis of left leg Acute bronchitis due to Rhinovirus Hypoxia Rotator cuff arthropathy of right shoulder Osteoarthritis, knee Heart contusion Nausea & vomiting (Acute) Diarrhea (Acute) Hypomagnesemia (Acute) ALAN (acute kidney injury) (Acute) Dehydration (Acute) ARF (acute renal failure) Left-sided chest pain (Acute) Elevated troponin (Acute) Osteopenia Ribs, multiple fractures There are subacute appearing right anterior rib fractures (4th-7th). Chest pain Rheumatoid arthritis F/U PCP Aortic stenosis Mild per 11/2018 ECHO Status post replacement of left shoulder joint (~09/2019) Dyslipidemia Hypertension GERD (gastroesophageal reflux disease) Well controlled and stable S/P TKR (total knee replacement) LEFT Seizure TIA vs SEIZURE: "BLACKED OUT IN HER HEAD AND CAME TO"/BECAME ALERT-NEVER DX'D ANY FURTHER-4 YRS AGO-NO OTHER OCCURRENCES TIA (transient ischemic attack) X 4- PLACED ON PLAVIX (FIRST TIA AFTER SURGERY- HAS HAD SURGERY SINCE WITHOUT ISSUES). NO ISSUES X YEARS Medical History Rotator cuff arthropathy Sciatica Can radiate down right or left side Hyperlipidemia Knee pain, right Right knee DJD Surgical History History of cataract surgery R/L History of anesthesia reaction SLOW TO WAKE UP-HAD TIA DURING SURGERY AND POST [place] [place] 66 History of esophagogastroduodenoscopy (EGD) History of colonoscopy S/P bilateral breast reduction AGE 66 YRS Family History Father Family history of diabetes mellitus Mother Family hx of colon cancer Social History Smoking Status: Never smoker Second Hand Exposure: No; Do You Dip or Chew Tobacco: No; Hx Alcohol Use: No Hx Substance Use: No Preferred Language: [place]amb[place] Communication Ability: Effective Caisson Worker Required: No Beliefs That Will Affect Care: None marital status: Current Living Situation: Spouse How many Children do You have: 2 Feels Safe at Home: Yes Assistive Devices: Cane and Walker Allergies Allergies Allergy/AdvReac Type Severity Reaction Status Date / Time colchicine AdvReac Intermediate Diarrhea Verified 01/15/24 10:17 Home Meds Home Medications Medication Instructions Recorded Confirmed atorvastatin 10 mg tablet 10 mg PO 3XWK 07/10/18 01/15/24 metoprolol succinate 50 mg 50 mg PO HS 07/10/18 01/15/24 tablet,extended release 24 hr pantoprazole 20 mg tablet,delayed 20 mg PO QAM 11/21/18 01/15/24 release cholecalciferol (vitamin D3) 1,250 1,250 mcg PO WK 10/18/21 01/15/24 mcg (50,000 unit) capsule amlodipine 10 mg tablet 10 mg PO DAILYBL 01/15/24 01/15/24 apixaban 2.5 mg tablet (Eliquis) 2.5 mg PO BID 01/15/24 01/15/24 aspirin 81 mg tablet,delayed 81 mg PO QAM 01/15/24 01/15/24 release furosemide 40 mg tablet 40 mg PO QAM 01/15/24 01/15/24 Results & Data (ED) Vital Signs Vital Signs - 24 hr 01/15/24 08:31 01/15/24 08:31 01/15/24 08:32 Temperature 37.1 C Temperature Source Oral Pulse Rate 87 88 Pulse Rate from SpO2 Sensor Pulse Rhythm Regular Pulse Strength Normal Respiratory Rate 22 Respiratory Effort / Characteristics Non-Labored Respiratory Depth Normal Respiratory Pattern Regular Blood Pressure 170/114 H 162/85 H Blood Pressure Mean 132 90 Blood Pressure Position Lying Pulse Oximetry 91 Oxygen Delivery Method Room Air Sepsis Recent Fever Within 48 Hours No Sepsis New/Unexplained Change in Mental Status N/A Sepsis Action Taken by Nursing No Action Required 01/15/24 08:36 01/15/24 08:42 01/15/24 08:42 Temperature Temperature Source Pulse Rate 87 Pulse Rate from SpO2 Sensor 87 Pulse Rhythm Pulse Strength Respiratory Rate 18 Respiratory Effort / Characteristics Non-Labored Spontaneous Respiratory Depth Normal Respiratory Pattern Regular Blood Pressure Blood Pressure Mean Blood Pressure Position Pulse Oximetry 93 90 Oxygen Delivery Method Room Air Room Air Sepsis Recent Fever Within 48 Hours Sepsis New/Unexplained Change in Mental Status Sepsis Action Taken by Nursing 01/15/24 08:45 01/15/24 08:57 01/15/24 09:01 Temperature Temperature Source Pulse Rate 92 H Pulse Rate from SpO2 Sensor 84 Pulse Rhythm Pulse Strength Respiratory Rate 20 Respiratory Effort / Characteristics Respiratory Depth Respiratory Pattern Blood Pressure 155/63 H Blood Pressure Mean 130 Blood Pressure Position Pulse Oximetry 92 91 Oxygen Delivery Method Room Air Sepsis Recent Fever Within 48 Hours Sepsis New/Unexplained Change in Mental Status Sepsis Action Taken by Nursing 01/15/24 09:15 01/15/24 09:21 01/15/24 09:27 Temperature Temperature Source Pulse Rate 81 85 78 Pulse Rate from SpO2 Sensor 82 84 79 Pulse Rhythm Pulse Strength Respiratory Rate 20 20 20 Respiratory Effort / Characteristics Respiratory Depth Respiratory Pattern Blood Pressure Blood Pressure Mean Blood Pressure Position Pulse Oximetry 87 L 89 L 95 Oxygen Delivery Method Sepsis Recent Fever Within 48 Hours Sepsis New/Unexplained Change in Mental Status Sepsis Action Taken by Nursing 01/15/24 09:31 01/15/24 09:33 01/15/24 09:51 Temperature Temperature Source Pulse Rate 84 82 Pulse Rate from SpO2 Sensor 83 Pulse Rhythm Pulse Strength Respiratory Rate 24 20 Respiratory Effort / Characteristics Respiratory Depth Respiratory Pattern Blood Pressure 163/71 H Blood Pressure Mean 95 Blood Pressure Position Pulse Oximetry 97 Oxygen Delivery Method Sepsis Recent Fever Within 48 Hours Sepsis New/Unexplained Change in Mental Status Sepsis Action Taken by Nursing 01/15/24 10:18 01/15/24 10:27 01/15/24 10:30 Temperature Temperature Source Pulse Rate 81 76 Pulse Rate from SpO2 Sensor 84 78 Pulse Rhythm Pulse Strength Respiratory Rate 19 24 Respiratory Effort / Characteristics Respiratory Depth Respiratory Pattern Blood Pressure 157/104 H Blood Pressure Mean 120 Blood Pressure Position Pulse Oximetry 90 88 L Oxygen Delivery Method Sepsis Recent Fever Within 48 Hours Sepsis New/Unexplained Change in Mental Status Sepsis Action Taken by Nursing 01/15/24 10:30 01/15/24 11:00 01/15/24 11:06 Temperature Temperature Source Pulse Rate 81 86 Pulse Rate from SpO2 Sensor 82 85 Pulse Rhythm Pulse Strength Respiratory Rate 20 20 Respiratory Effort / Characteristics Respiratory Depth Respiratory Pattern Blood Pressure 103/77 Blood Pressure Mean 91 Blood Pressure Position Pulse Oximetry 84 L 85 L Oxygen Delivery Method Sepsis Recent Fever Within 48 Hours Sepsis New/Unexplained Change in Mental Status Sepsis Action Taken by Nursing 01/15/24 11:18 01/15/24 11:21 01/15/24 11:30 Temperature Temperature Source Pulse Rate 76 74 78 Pulse Rate from SpO2 Sensor 76 75 78 Pulse Rhythm Pulse Strength Respiratory Rate 19 19 22 Respiratory Effort / Characteristics Respiratory Depth Respiratory Pattern Blood Pressure Blood Pressure Mean Blood Pressure Position Pulse Oximetry 97 97 98 Oxygen Delivery Method Sepsis Recent Fever Within 48 Hours Sepsis New/Unexplained Change in Mental Status Sepsis Action Taken by Nursing 01/15/24 11:30 01/15/24 11:45 01/15/24 11:57 Temperature Temperature Source Pulse Rate 79 80 Pulse Rate from SpO2 Sensor 79 79 Pulse Rhythm Pulse Strength Respiratory Rate 23 23 Respiratory Effort / Characteristics Respiratory Depth Respiratory Pattern Blood Pressure 159/84 H Blood Pressure Mean 100 Blood Pressure Position Pulse Oximetry 95 98 Oxygen Delivery Method Sepsis Recent Fever Within 48 Hours Sepsis New/Unexplained Change in Mental Status Sepsis Action Taken by Nursing 01/15/24 12:00 01/15/24 12:03 01/15/24 12:12 Temperature Temperature Source Pulse Rate 80 80 Pulse Rate from SpO2 Sensor 78 81 Pulse Rhythm Pulse Strength Respiratory Rate 22 22 Respiratory Effort / Characteristics Respiratory Depth Respiratory Pattern Blood Pressure 150/111 H Blood Pressure Mean 124 Blood Pressure Position Pulse Oximetry 98 98 Oxygen Delivery Method Sepsis Recent Fever Within 48 Hours Sepsis New/Unexplained Change in Mental Status Sepsis Action Taken by Nursing 01/15/24 12:21 01/15/24 12:27 01/15/24 12:30 Temperature Temperature Source Pulse Rate 81 79 Pulse Rate from SpO2 Sensor 80 79 Pulse Rhythm Pulse Strength Respiratory Rate 21 21 Respiratory Effort / Characteristics Respiratory Depth Respiratory Pattern Blood Pressure 149/92 H Blood Pressure Mean 111 Blood Pressure Position Pulse Oximetry 98 98 Oxygen Delivery Method Sepsis Recent Fever Within 48 Hours Sepsis New/Unexplained Change in Mental Status Sepsis Action Taken by Nursing 01/15/24 12:37 01/15/24 12:39 01/15/24 13:01 Temperature Temperature Source Pulse Rate 78 78 Pulse Rate from SpO2 Sensor 78 Pulse Rhythm Pulse Strength Respiratory Rate 25 H Respiratory Effort / Characteristics Respiratory Depth Respiratory Pattern Blood Pressure 165/91 H Blood Pressure Mean 105 Blood Pressure Position Pulse Oximetry 98 Oxygen Delivery Method Sepsis Recent Fever Within 48 Hours Sepsis New/Unexplained Change in Mental Status Sepsis Action Taken by Nursing 01/15/24 13:01 01/15/24 13:03 01/15/24 13:12 Temperature Temperature Source Pulse Rate 76 76 Pulse Rate from SpO2 Sensor 77 75 Pulse Rhythm Pulse Strength Respiratory Rate 15 17 Respiratory Effort / Characteristics Respiratory Depth Respiratory Pattern Blood Pressure 165/91 H Blood Pressure Mean 105 Blood Pressure Position Pulse Oximetry 98 97 Oxygen Delivery Method Sepsis Recent Fever Within 48 Hours Sepsis New/Unexplained Change in Mental Status Sepsis Action Taken by Nursing Laboratory Data 01/15/24 08:40 01/15/24 08:40 Lab Results 01/15/24 01/15/24 Range/Units 08:10 08:40 WBC 18.84 H (4.8-10.8) K/ul RBC 4.07 L (4.20-5.40) M/uL Hgb 12.1 (12.0-16.0) g/dl Hct 37.2 (37.0-47.0) % MCV 91.4 (80.0-100.0) fL MCH 29.7 (25.0-34.0) pg MCHC 32.5 (32.0-36.0) g/dL RDW Std Deviation 52.7 H (36.4-46.3) fL RDW Coeff of Marcio 15.7 H (11.5-14.5) % Plt Count 301 (130-400) K/uL MPV 10.5 (9.4-12.4) fL Immature Gran % (Auto) 1.0 % Neut % (Auto) 79.6 % Lymph % (Auto) 8.4 % Coffey % (Auto) 10.3 % Eos % (Auto) 0.2 % Baso % (Auto) 0.5 % Neut # (Auto) 15.01 H (1.40-6.50) K/uL Lymph # (Auto) 1.58 (1.20-3.40) K/uL Coffey # (Auto) 1.94 H (0.11-0.59) K/uL Eos # (Auto) 0.03 (0.00-0.50) K/uL Baso # (Auto) 0.10 (0.00-0.20) K/uL Immature Gran # (Auto) 0.18 (0.01-0.20) K/uL ESR 64 H (0-30) mm/hr Sodium 138 (136-145) mmol/L Potassium 4.5 (3.5-5.1) mmol/L Chloride 98 (98-107) mmol/L Carbon Dioxide 31 (21-32) mmol/L Anion Gap 9 (3-11) BUN 19 (6-23) mg/dl Creatinine 1.00 (0.6-1.2) mg/dl Est Cr Clr Drug Dosing 50.1 ml/min eGFR 56.60 BUN/Creatinine Ratio 19.0 (10-20) Glucose 134 H (70-99(Fasting)) mg/dl Uric Acid 4.6 (2.6-7.2) mg/dl Calcium 9.9 (8.6-10.3) mg/dl Total Bilirubin 1.5 H (0.2-1.0) mg/dl AST 19 (13-39) U/L ALT 10 (7-52) U/L Alkaline Phosphatase 84 (34-104) U/L C-Reactive Protein 23.49 H (0-0.5) mg/dl B-Natriuretic Peptide 258 H (0-100) pg/ml Total Protein 6.7 (6.0-8.3) gm/dl Albumin 3.5 (3.4-5.0) gm/dl Globulin 3.2 (2.5-4.0) gm/dl Albumin/Globulin Ratio 1.1 (0.9-2) Procalcitonin 0.84 H (0-0.5) ng/ml Adenovirus (PCR) Not Detected (NotDetected) B. pertussis DNA (PCR) Not Detected (NotDetected) B.parapertussis DNA PCR Not Detected (NotDetected) C. pneumoniae DNA (PCR) Not Detected (NotDetected) Coronavirus OC43 (PCR) Not Detected (NotDetected) Coronavirus HKU1 (PCR) Not Detected (NotDetected) Coronavirus 229E (PCR) Not Detected (NotDetected) SARS-CoV-2 (PCR) Not Detected (NotDetected) Coronavirus NL63 (PCR) Not Detected (NotDetected) Human Metapneumovir PCR Not Detected (NotDetected) Influenza Type A (PCR) Not Detected (NotDetected) Influenza Type B (PCR) Not Detected (NotDetected) M. pneumoniae (PCR) Not Detected (NotDetected) Parainfluenza 1 (PCR) Not Detected (NotDetected) Parainfluenza 2 (PCR) Not Detected (NotDetected) Parainfluenza 3 (PCR) Not Detected (NotDetected) Parainfluenza 4 (PCR) Not Detected (NotDetected) RSV (PCR) Not Detected (NotDetected) Entero/Rhino (PCR) DETECTED A (NotDetected) Administered Medications Discontinued Medications Albuterol (Albuterol 0.083% Nebu Soln 3 Ml Vial) 2.5 mg NEB NOW STA; Protocol Stop: 01/15/24 12:55 Last Admin: 01/15/24 13:39 Dose: 2.5 mg Documented By: BINA Apixaban (Apixaban 2.5 Mg Tab) 2.5 mg PO NOW STA Stop: 01/15/24 12:44 Last Admin: 01/15/24 13:38 Dose: 2.5 mg Documented By: BINA Imaging Data Radiologist's Impression: Chest X-Ray 01/15/24 08:39 XR chest 1V portable CLINICAL HISTORY: Dyspnea COMPARISON STUDY: Chest CT October 18, 2021. Chest radiograph October 24, 2021. FINDINGS: Left shoulder arthroplasty is incidentally noted. There is no pneumothorax or pleural effusion. Moderate cardiomegaly is unchanged. There is no evidence for pulmonary edema. Linear right basilar densities represent atelectasis or scarring. IMPRESSION: No acute cardiopulmonary findings. Stable cardiomegaly. ACT 112: Negative or not required by law. Electronically signed by: Anmol Cuellar M.D. 01/15/2024 9:23 AM Venous Doppler Study 01/15/24 09:50 LEFT LOWER EXTREMITY VENOUS DOPPLER CLINICAL HISTORY: Left leg pain and swelling. Evaluate for deep venous thrombus. COMPARISON STUDY: Left lower extremity venous Doppler ultrasound June 24, 2012. TECHNIQUE: Sonography of the deep venous system of the left lower extremity was performed. Compression and augmentation were evaluated. FINDINGS: The left common femoral, superficial femoral and popliteal veins were compressible. Augmentation was normal. Flow was shown within the deep calf vessels. IMPRESSION: No evidence of deep venous thrombus within the left lower extremity. ACT 112: Negative or not required by law. Electronically signed by: Anmol Cuellar M.D. 01/15/2024 11:14 AM Discharge Plan Visit Data Chief Complaint: Shortness of Breath/Dyspnea Stated Complaint: FELL, ON FLOOR LAST NIGHT, WEAKNESS, LT LEG/FOOT P ED Provider: Garcia Lee Discharge Problem: Upper respiratory infection, viral, Acute hypoxemic respiratory failure Forms Stand Alone Forms: My [facility] Prescriptions Prescriptions: No Action atorvastatin 10 mg tablet 10 mg PO [id number] Rx Instructions: Sun/Sun/Sun only metoprolol succinate 50 mg tablet extended release 24 hr 50 mg PO HS pantoprazole 20 mg tablet,delayed release (DR/EC) 20 mg PO QAM Rx Instructions: take 1/2 hour before breakfast cholecalciferol (vitamin D3) 1,250 mcg (50,000 unit) capsule 1,250 mcg PO WK Rx Instructions: Fridays furosemide 40 mg tablet 40 mg PO QAM aspirin 81 mg Tablet,Delayed Release (Dr/Ec) 81 mg PO QAM amlodipine 10 mg tablet 10 mg PO DAILYBL Eliquis 2.5 mg tablet 2.5 mg PO BID Referrals Referrals: Justino Ayoub [Primary Care Provider] -
--- NOTE | 2024-01-15 11:15 | Ultrasound Report ---
LEFT LOWER EXTREMITY VENOUS DOPPLER CLINICAL HISTORY: Left leg pain and swelling. Evaluate for deep venous thrombus. COMPARISON STUDY: Left lower extremity venous Doppler ultrasound June 24, 2012. TECHNIQUE: Sonography of the deep venous system of the left lower extremity was performed. Compressi on and augmentation were evaluated. FINDINGS: The left common femoral, superficial femoral and popliteal veins were compressible. Augmen tation was normal. Flow was shown within the deep calf vessels. IMPRESSION: No evidence of deep venous thrombus within the left lower extremity. ACT 112: Negative or not required by law. Electronically signed by: Anmol Cuellar M.D. 01/15/2024 11:14 AM
--- NOTE | 2024-01-15 13:08 | History & Physical Report ---
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 Hypoxia Acute bronchitis due to rhinovirus admit to med tele continue supplemental O2, wean as able pulmonary toilet with ISP, flutter valve, scheduled nebs BID and prn Robitussin DM CXR: no acute cardiopulmonary abn Pt will be covered with IV rocephin for skin/soft tissue No evidence of PNA Generalized weakness: likely 2/2 above, PT/OT L ankle Pain LLE Cellulitis vs inflammatory arthropathy? Chronic LLE edema/venous stasis Given leukocytosis favor celluitis tx with Empiric IV Rocephin and probiotic will utilize skin marker to follow progression checking ESR, CRP, Uric acid to r/o gout vs pseudogout Obtain Ankle & foot XR possible L ankle sprain as well - ICE and topical volaren Gel for now, prn APAP PAF: continue metoprolol and eliquis, pt reports eliquis reduced to 2.5mg bid by PCP, will increase pt to 5mg bid as she does not meet requirements for reduced dosage and has prior hx of 4 CVA, obtain records froM PCP to monitor outpt cr to make final decision at discharge HTN: chronic, stable, continue amlodipine and metoprolol, hold lasix for now given poor intake, monitor and resume HLD: Chronic, stable continue statin Hx of CVA with residual L sided weakness: continue asa, statin, eliquis DVT ppx: Eliquis FULL CODE PCP: Anitra Dispo: admit to med tele, PT OT orders placed, may need rehab prior to return home Pt was seen and examined in collaboration with Dr. Raymond, please see addendum I spent a total of 76 minutes reviewing notes, outpatient records, labs, medication, coordinating, documenting and providing care for this patient excluding time spent in the performance of separately billed services. History of Present Illness Chief Complaint: Generalized weakness, URI sx x 4 days. 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 History was obtained from patient, daughter and chart review. She reports that symptoms started approximately 4 days ago with sinus congestion, rhinorrhea, postnasal drip and a productive cough with yellow sputum. She also complains of wheezing. She did have a one-time episode of fever where she woke up in the Middle of the night and was completely soaked. she reports taking [id number] Mucinex for symptom relief. She also has decreased appetite. She notes over the last 2 days that she has been getting increasingly more weak. Typically she ambulates with a cane and lives with her . This morning the daughter states that it took 3 of them just to get her out of bed. She also reported an episode of where she slid out of bed. Further she complains of left sided foot pain that started approximately 3 days ago. She denies any trauma, fall or inverting her ankle. The pain has been so severe she is been having difficulty putting weight on it. She denied any numbness or tingling to the left foot. She does have chronic lower extremity swelling for which she feels this is unchanged. Daughter also notes redness and to the lower left leg which is new. She has been compliant with her medications, but she did not take anything this morning. In ED patient made hemodynamically stable. She was slightly hypoxic requiring 2 L of oxygen via nasal cannula. She did have a significant leukocytosis at 18,000 otherwise lab work was generally unremarkable. Her BNP was mildly elevated at 258. Her respiratory bio fire was positive for entero-/rhinovirus. Allergies Allergy/AdvReac Type Severity Reaction Status Date / Time colchicine AdvReac Intermediate Diarrhea Verified 01/15/24 10:17 Home Medications Medication Instructions Recorded Confirmed Type atorvastatin 10 mg tablet 10 mg PO 3XWK 07/10/18 01/15/24 History metoprolol succinate 50 mg 50 mg PO HS 07/10/18 01/15/24 History tablet,extended release 24 hr pantoprazole 20 mg tablet,delayed 20 mg PO QAM 11/21/18 01/15/24 History release cholecalciferol (vitamin D3) 1,250 1,250 mcg PO WK 10/18/21 01/15/24 History mcg (50,000 unit) capsule amlodipine 10 mg tablet 10 mg PO DAILYBL 01/15/24 01/15/24 History apixaban 2.5 mg tablet (Eliquis) 2.5 mg PO BID 01/15/24 01/15/24 History aspirin 81 mg tablet,delayed 81 mg PO QAM 01/15/24 01/15/24 History release furosemide 40 mg tablet 40 mg PO QAM 01/15/24 01/15/24 History Past Med/Surg History Problem List (Updated 01/15/24 @ 14:40 by Garcia Lee MD) Acute hypoxemic respiratory failure (Acute) Upper respiratory infection, viral (Acute) PAF (paroxysmal atrial fibrillation) Left ankle pain Cellulitis of left leg Acute bronchitis due to Rhinovirus Hypoxia Rotator cuff arthropathy of right shoulder Osteoarthritis, knee Heart contusion Nausea & vomiting (Acute) Diarrhea (Acute) Hypomagnesemia (Acute) ALAN (acute kidney injury) (Acute) Dehydration (Acute) ARF (acute renal failure) Left-sided chest pain (Acute) Elevated troponin (Acute) Osteopenia Ribs, multiple fractures There are subacute appearing right anterior rib fractures (4th-7th). Chest pain Rheumatoid arthritis F/U PCP Aortic stenosis Mild per 11/2018 ECHO Status post replacement of left shoulder joint (~09/2019) Dyslipidemia Hypertension GERD (gastroesophageal reflux disease) Well controlled and stable S/P TKR (total knee replacement) LEFT Seizure TIA vs SEIZURE: "BLACKED OUT IN HER HEAD AND CAME TO"/BECAME ALERT-NEVER DX'D ANY FURTHER-4 YRS AGO-NO OTHER OCCURRENCES TIA (transient ischemic attack) X 4- PLACED ON PLAVIX (FIRST TIA AFTER SURGERY- HAS HAD SURGERY SINCE WITHOUT ISSUES). NO ISSUES X YEARS Medical History Rotator cuff arthropathy Sciatica Can radiate down right or left side Hyperlipidemia Knee pain, right Right knee DJD Surgical History History of cataract surgery R/L History of anesthesia reaction SLOW TO WAKE UP-HAD TIA DURING SURGERY AND POST OP-[facility] [place]-AGE 66 History of esophagogastroduodenoscopy (EGD) History of colonoscopy S/P bilateral breast reduction AGE 66 YRS Family History Father Family history of diabetes mellitus Mother Family hx of colon cancer Social History Smoking Status: Never smoker Second Hand Exposure: No; Do You Dip or Chew Tobacco: No; Hx Alcohol Use: No Hx Substance Use: No Preferred Language: [place] Communication Ability: Effective Grouter Helper Required: No Beliefs That Will Affect Care: None marital status: Current Living Situation: Spouse How many Children do You have: 2 Feels Safe at Home: Yes Assistive Devices: Cane and Walker Review of Systems Review of Systems: All systems reviewed & are unremarkable except as noted in HPI & below Physical Exam Physical Exam: Gen: WD/WN, Elderly, F, sitting up in bed, converising easily, NAD, A&O x3 HEENT: Normocephalic, atraumatic, conjunctivae moist, sclerae anicteric, mucous membranes dry . Lung: Clear to Auscultation bilaterally with expiratory wheezing throughout, initial rhonchi noted which cleared with coughing, no rales Heart: Regular rate, regular rhythm,1/6 ANGI noted LUSB no, rubs, or gallops Abdomen: Soft, obese, NT, ND +BS x 4 Extremities: LLE pretibial nodular edema which is chronic per pt, erythematous and warm MSK: pain with passive ROM to b/l ankle/feet, pain with dorsiflexion to L foot Skin: Warm, no rash, negative turgor. Results & Data Results & Data Vital Signs (Past 12 Hours) Vital Signs Temp Pulse Resp BP Pulse Ox O2 Del Method 01/15/24 12:37 78 01/15/24 12:03 80 22 98 01/15/24 12:00 150/111 H 01/15/24 11:57 80 23 98 01/15/24 11:45 79 23 95 01/15/24 11:30 159/84 H 01/15/24 11:30 78 22 98 01/15/24 11:21 74 19 97 01/15/24 11:18 76 19 97 01/15/24 11:06 86 20 85 L 01/15/24 11:00 103/77 01/15/24 10:30 81 20 84 L 01/15/24 10:30 157/104 H 01/15/24 10:27 76 24 88 L 01/15/24 10:18 81 19 90 01/15/24 09:51 82 20 01/15/24 09:33 84 24 97 01/15/24 09:31 163/71 H 01/15/24 09:27 78 20 95 01/15/24 09:21 85 20 89 L 01/15/24 09:15 81 20 87 L 01/15/24 09:01 155/63 H 01/15/24 08:57 92 H 20 91 01/15/24 08:45 92 Room Air 01/15/24 08:42 90 Room Air 01/15/24 08:42 Room Air 01/15/24 08:36 87 18 93 01/15/24 08:32 88 01/15/24 08:31 162/85 H 01/15/24 08:31 37.1 C 87 22 170/114 H 91 Room Air Laboratory Results I have independently reviewed and interpreted patient's admitting labs including CBC, CMP, resp biofire Diagnostic Findings Chest X-Ray 01/15/24 08:39 XR chest 1V portable CLINICAL HISTORY: Dyspnea COMPARISON STUDY: Chest CT October 18, 2021. Chest radiograph October 24, 2021. FINDINGS: Left shoulder arthroplasty is incidentally noted. There is no pneumothorax or pleural effusion. Moderate cardiomegaly is unchanged. There is no evidence for pulmonary edema. Linear right basilar densities represent atelectasis or scarring. IMPRESSION: No acute cardiopulmonary findings. Stable cardiomegaly. ACT 112: Negative or not required by law. Electronically signed by: Anmol Cuellar M.D. 01/15/2024 9:23 AM Venous Doppler Study 01/15/24 09:50 LEFT LOWER EXTREMITY VENOUS DOPPLER CLINICAL HISTORY: Left leg pain and swelling. Evaluate for deep venous thrombus. COMPARISON STUDY: Left lower extremity venous Doppler ultrasound June 24, 2012. TECHNIQUE: Sonography of the deep venous system of the left lower extremity was performed. Compression and augmentation were evaluated. FINDINGS: The left common femoral, superficial femoral and popliteal veins were compressible. Augmentation was normal. Flow was shown within the deep calf vessels. IMPRESSION: No evidence of deep venous thrombus within the left lower extremity. ACT 112: Negative or not required by law. Electronically signed by: Anmol Cuellar M.D. 01/15/2024 11:14 AM ECG Additional Comments: I have independently reviewed and interpreted patient's admitting EKG which revealed: NSR, PAC 99 bpm, PAC, qtc 433ms COVID-19 Results Results COVID-19 Adm Lab Results: RBC 4.07 M/uL (4.20-5.40) L 01/15/24 WBC 18.84 K/ul (4.8-10.8) H 01/15/24 Hgb 12.1 g/dl (12.0-16.0) 01/15/24 Hct 37.2 % (37.0-47.0) 01/15/24 Plt Count 301 K/uL (130-400) 01/15/24 Neutrophils (%) (Auto) 79.6 % 01/15/24 Lymphocytes (%) (Auto) 8.4 % 01/15/24 Monocytes # (Auto) 1.94 K/uL (0.11-0.59) H 01/15/24 Eosinophils # (Auto) 0.03 K/uL (0.00-0.50) 01/15/24 Immature Granulocyte % (Auto) 1.0 % 01/15/24 Neutrophils # (Auto) 15.01 K/uL (1.40-6.50) H 01/15/24 Lymphocytes # (Auto) 1.58 K/uL (1.20-3.40) 01/15/24 Monocytes # (Auto) 1.94 K/uL (0.11-0.59) H 01/15/24 Eosinophils # (Auto) 0.03 K/uL (0.00-0.50) 01/15/24 Basophils # (Auto) 0.10 K/uL (0.00-0.20) 01/15/24 Immature Granulocyte # (Auto) 0.18 K/uL (0.01-0.20) 4 Na 138 mmol/L (136-145) 01/15/24 K 4.5 mmol/L (3.5-5.1) 01/15/24 Cl 98 mmol/L (98-107) 01/15/24 CO2 31 mmol/L (21-32) 01/15/24 Anion Gap 9 (3-11) 01/15/24 BUN 19 mg/dl (6-23) 01/15/24 Creatinine 1.00 mg/dl (0.6-1.2) 01/15/24 BUN/Creatinine Ratio 19.0 (10-20) 01/15/24 Glucose Level 134 mg/dl (70-99(Fasting)) H 01/15/24 Ca 9.9 mg/dl (8.6-10.3) 01/15/24 Total Bilirubin 1.5 mg/dl (0.2-1.0) H 01/15/24 AST/SGOT 19 U/L (13-39) 01/15/24 ALT/SGPT 10 U/L (7-52) 01/15/24 Alkaline Phosphatase 84 U/L (34-104) 01/15/24 Total Protein 6.7 gm/dl (6.0-8.3) 01/15/24 Albumin 3.5 gm/dl (3.4-5.0) 01/15/24 Globulin 3.2 gm/dl (2.5-4.0) 01/15/24 Albumin/Globulin Ratio 1.1 (0.9-2) 01/15/24 Total CK 77 U/L (26-192) 01/15/24 CRP 23.49 mg/dl (0-0.5) H 01/15/24 Procalcitonin 0.84 ng/ml (0-0.5) H 01/15/24 Adenovirus (PCR) Not Detected (NotDetected) 01/15/24 B. parapertussis DNA (PCR) Not Detected (NotDetected) 12/27 11/19 B. pertussis DNA (PCR) Not Detected (NotDetected) 01/15/24 C. pneumoniae DNA (PCR) Not Detected (NotDetected) 4 Coronavirus Type OC43 (PCR) Not Detected (NotDetected) Coronavirus Type HKU1 (PCR) Not Detected (NotDetected) Coronavirus Type 229E (PCR) Not Detected (NotDetected) COVID-19 PCR Not Detected (NotDetected) 01/15/24 Coronavirus Type NL63 (PCR) Not Detected (NotDetected) Human Metapneumovirus (PCR) Not Detected (NotDetected) Influenza Virus Type A (PCR) Not Detected (NotDetected) Influenza Virus Type B (PCR) Not Detected (NotDetected) M. pneumoniae (PCR) Not Detected (NotDetected) 01/15/24 Parainfluenza Type 1 (PCR) Not Detected (NotDetected) 12/27 11/19 Parainfluenza Type 2 (PCR) Not Detected (NotDetected) 12/27 11/19 Parainfluenza Type 3 (PCR) Not Detected (NotDetected) 12/27 11/19 Parainfluenza Type 4 (PCR) Not Detected (NotDetected) 12/27 11/19 RSV (PCR) Not Detected (NotDetected) 01/15/24 Enterovirus/Rhinovirus (PCR) DETECTED (NotDetected) A 12/27 11/19 Chest X-Ray 01/15/24 Code Status & VTE Plan Code Status FULL CODE VTE Prophylaxis Plan VTE Prophylaxis will be ordered: No Supervising Physician Co-Signing Physician Notes 83-year-old female who has significant past medical history of PAF anticoagulated on Eliquis, 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 Sick contacts at home Reported left foot pain and increased swelling overnight. She even tried to get out of bed and had difficulty walking, slid down and stayed on the ground from about 1AM to 6AM She stated she did not fall but slid down on her own due to difficulty and laid there. Denied head trauma/LOC Exam notable for obese elderly woman on nasal cannula, diminished breath sounds, Left leg edema/erythema and tenderness marked by clerical car checker notable for leukocytosis of 18K, Resp PCR +rhinovirus CXR did not show acute abnormalities Rhinovirus infection Left leg cellulitis IV ceftriaxone Get XR Left leg Doppler was negative for DVT Check Uric acid Supportive care for rhinovirus infection. Agree with plans as detailed by Teresa Teran PA-C I spent a total of 40 minutes coordinating, documenting and providing care for this patient excluding time spent in performance of separately billed services
[2024-01-15 13:27] LABS: C Reactive Protein 23.49 mg/dl (0-0.5)
[2024-01-15] MEDS: APIXABAN 2.5 MG TAB PO STA (13:38)
[2024-01-15] MEDS: ALBUTEROL 0.083% NEBU SOLN 3 ML VIAL NEB STA (13:39)
[2024-01-15 13:51] LABS: Uric Acid 4.6 mg/dl (2.6-7.2)
--- NOTE | 2024-01-15 14:45 | XRay Report ---
XR foot LT min 3V routine HISTORY: 83 years-old Female pain acute pain left foot and ankle with soft tissue swelling COMPARISON: Left ankle radiographs of same day TECHNIQUE: 3 views of the left foot FINDINGS: Arterial calcifications. Moderate soft tissue swelling. Multifocal osteoarthritis is predominantly mi ld. No acute fracture, dislocation, osseous erosion or opaque foreign body. IMPRESSION: Soft tissue swelling without acute osseous abnormality. ACT 112: Negative or not required by law. The above report was generated using voice recognition software. It may contain grammatical, syntax o r spelling errors. Electronically signed by: Eros Flores M.D. 01/15/2024 2:44 PM
--- NOTE | 2024-01-15 15:10 | XRay Report ---
XR ankle LT min 3V routine CLINICAL HISTORY: Left ankle pain. Possible cellulitis. COMPARISON: None FINDINGS: Alignment of the left ankle is anatomic. There is no acute fracture. No bony erosions are identified. Talar dome is intact. Diffuse soft tissue swelling is noted. Minimal posterior calcaneal spurring is noted. There is soft tissue swelling posterior to the calcaneus. IMPRESSION: 1. No fractures within the left ankle. No evidence for acute osteomyelitis. 2. Left ankle soft tissue swelling. ACT 112: Negative or not required by law. Electronically signed by: Anmol Cuellar M.D. 01/15/2024 3:08 PM
[2024-01-15] MEDS: cefTRIAXone SODIUM 2,000 MG/50 ML BAG IV ONE (15:54)
[2024-01-15] MEDS ORDERED: DICLOFENAC SOD 1% GEL 100 GM TUBE EXT STA (16:04)
[2024-01-15] MEDS ORDERED: ONDANSETRON INJ 2 MG/ML 2 ML VIAL IV PRN (16:11)
[2024-01-15] MEDS ORDERED: POLYETHYLENE (MIRALAX) 17 GM PACK PO PRN (16:11)
[2024-01-15] MEDS ORDERED: ACETAMINOPHEN 325 MG TAB PO PRN (16:11)
[2024-01-15] MEDS ORDERED: ALBUTEROL 0.083% NEBU SOLN 3 ML VIAL NEB PRN (16:11)
[2024-01-15] MEDS ORDERED: NON-FORMULARY MEDICATION (Cholecalciferol (Vitamin D3) 1,250 mcg (50,000 unit) capsule) PO SCH (16:11)
[2024-01-15] MEDS: DICLOFENAC SOD 1% GEL 100 GM TUBE EXT SCH (16:31)
[2024-01-15] MEDS: amLODIPine BESYLATE 5 MG TAB PO SCH (17:19)
[2024-01-15] MEDS: predniSONE 20 MG TAB PO SCH (17:20)
[2024-01-15 18:29] LABS: Appearance Urine Clear (Clear); Bacteria Urine Automated 1+ (None Seen); Bilirubin Urine Negative (Negative); Blood Urine 1+ (Negative); Cast Urine Automated 0-2 /lpf (0-2); Color Urine Dark Yellow; Glucose Urine UA Negative (Negative); Ketones Urine Trace (Negative); Leukocyte Esterase Urine 1+ (Negative); Nitrite Urine Negative (Negative); Protein Urine 1+ (Negative); Specific Gravity Urine 1.018 (1.000-1.030); Urobilinogen Urine Negative (Negative); WBC Urine Automated 0-5 /hpf (0-5); pH Urine 6.5 (4.5-7.5)
[2024-01-15] MEDS: ALBUTEROL 0.083% NEBU SOLN 3 ML VIAL NEB SCH (19:44)
[2024-01-15] MEDS: APIXABAN 5 MG TABLET PO SCH (20:17)
[2024-01-15] MEDS: METOPROLOL SUCC 50MG EXT REL TAB PO SCH (20:17)
[2024-01-15] MEDS: guaiFENesin/DEXTROM SYRUP 200MG/20MG 10ML UDC PO PRN (20:17)
[2024-01-15] MEDS ORDERED: MELATONIN 3 MG TAB PO PRN (21:00)
[2024-01-16 08:16] LABS: Hematocrit (blood only) 34.6 % (37.0-47.0); Hemoglobin 11.5 g/dl (12.0-16.0); Mean Corpuscular Hemoglobin 30.3 pg (25.0-34.0); Mean Corpuscular Hgb Conc 33.2 g/dL (32.0-36.0); Mean Corpuscular Volume 91.1 fL (80.0-100.0); Mean Platelet Volume 10.7 fL (9.4-12.4); Platelet Count 292 K/uL (130-400); RDW Coefficient of Variation 14.9 % (11.5-14.5); RDW Standard Deviation 50.3 fL (36.4-46.3); White Blood Count 16.75 K/ul (4.8-10.8)
[2024-01-16 08:40] LABS: BUN Creatinine Ratio 22.4 (10-20); Calcium 9.4 mg/dl (8.6-10.3); Creatinine Clr Calc Pharmacy 51.2 ml/min
[2024-01-16 08:44] LABS: Basophils # (auto) 0.01 K/uL (0.00-0.20); Basophils % (auto) 0.1 %; Immature Granulocytes % (auto) 0.6 %; Lymphocytes # (auto) 0.68 K/uL (1.20-3.40); Lymphocytes % (auto) 4.1 %; Monocytes # (auto) 0.66 K/uL (0.11-0.59); Monocytes % (auto) 3.9 %; Neutrophils % (auto) 91.3 %
[2024-01-16] MEDS: ADVANCED PROBIOTIC 625 MG CAPSULE PO SCH (08:52)
[2024-01-16] MEDS: ATORVASTATIN 10 MG TAB PO SCH (08:54)
[2024-01-16] MEDS: ASPIRIN 81 MG ECTAB PO SCH (08:54)
[2024-01-16] MEDS: PANTOprazole 40 MG TAB PO SCH (08:55)
[2024-01-16 09:05] LABS: Estimated Average Glucose 114 mg/dl; Hemoglobin A1C 5.6 % (4.5-5.6)
--- NOTE | 2024-01-16 11:49 | Hospitalist Progress Note ---
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 Hypoxia Acute bronchitis due to rhinovirus cont. on med/tele Has been weaned to RA; SpO2 92% continue pulmonary toilet with Incentive spirometry, flutter valve, scheduled nebs BID and prn Robitussin DM seems to help per patient; continues with yellow productive sputum CXR: no acute cardiopulmonary abn No evidence of PNA. Leukocytosis improving 18.84--> 16.75 today; being covered with IV Rocephin as outlined below L ankle Pain LLE Cellulitis vs inflammatory arthropathy? Chronic LLE edema/venous stasis Given leukocytosis favor cellulitis; significantly improving today tx with Empiric IV Rocephin and probiotic CRP elevated 23.49, urine acid 4.6 Ankle & foot XR obtained yesterday; Soft tissue swelling without acute osseous abnormality and no fractures possible L ankle sprain as well - ICE and topical volaren Gel, prn APAP; does not recall any falls Generalized weakness: likely 2/2 above, PT/OT started today PAF: continue metoprolol and eliquis, pt reports eliquis reduced to 2.5mg bid by PCP, will increase pt to 5mg bid as she does not meet requirements for reduced dosage and has prior hx of 4 CVA, obtain records froM PCP to monitor outpt cr to make final decision at discharge HTN: chronic, stable, continue amlodipine and metoprolol, hold lasix for now given poor intake, monitor and resume HLD: Chronic, stable continue statin Hx of CVA with residual L sided weakness: continue asa, statin, eliquis Disposition: DVT ppx: Eliquis Code Status: FULL CODE PCP: Anitra Dispo: admit to med tele, PT OT orders placed, has significant family support at home; likely DC 11/21 I spent a total of 52 minutes reviewing notes, outpatient records, labs, medication, coordinating, documenting and providing care for this patient excluding time spent in the performance of separately billed services. Admission and Anticipated Discharge Date Admission Date: January 15, 2024 Supervising Physician Co-Signing Physician Notes Patient seen and examined Presenting symptoms significantly improved URI symptoms improving Left leg edema, erythema and tenderness improving Continue current treatment PT/OT Agree with other plans as detailed by Joana YARBROUGH I spent a total of 35 minutes coordinating, documenting and providing care for this patient excluding time spent in performance of separately billed services Subjective Pt was working with PT when I entered the room. Pt had just ambulated to BR with walker without assistance from PT to the BR and is able to speak in complete sentences States "I feel much better than yesterday" Denies AGUILAR, dizziness, SOB, chest pain, palpitations, N/V/D. Swelling improved in RLE. See A/P For further details and POC. Review of Systems Review of Systems: Neuro: (-) Falls, trauma, slurred speech HEENT: (-) AGUILAR, dizziness, dysphagia, visual or auditory changes CV: (-) CP, palpitations, swelling Resp: (-) SOB GI: (-) appetite changes, N/V/D, bowel changes : (-) urinary changes Skin: (-) rashes (+) swelling RLE; improved per patient Psych: (-) anxiety, depression Physical Exam Physical Exam: Neuro: AAOx4, PERRLA, no aphagia, memory changes, CNII-XII grossly intact HEENT: head normocephalic, moist mucus membranes CV: S1/S2, (-) M/G/R, (-) edema, cap refill < 3 seconds Resp: (+) course rhonchi posterior lung [place] GI: Abdomen S/NT/ND, Ax4 bowel sounds, (-) CVA tenderness Musculoskeletal: 5/5 B/L UE strength, 5/5 B/L LE strength. No gait disturbance Skin: (-) rashes , (-) erythema (+) non pitting edema in RLE; erythema improved from admission. Psych: euthymic mood Results & Data Results & Data Vital Signs (Past 12 Hours) Vital Signs Temp Pulse Pulse Resp BP Pulse Ox O2 Del Method 01/16/24 11:32 36.7 C 76 20 148/70 H 91 Room Air 01/16/24 10:00 75 01/16/24 09:41 Room Air 01/16/24 07:42 76 16 99 Nasal Cannula 01/16/24 07:39 36.5 C 65 20 128/72 97 Nasal Cannula 01/16/24 03:46 36.6 C 79 20 158/68 H 98 Room Air 01/16/24 00:00 36.7 C 85 20 157/73 H 97 Nasal Cannula O2 Flow Rate 01/16/24 11:32 01/16/24 10:00 01/16/24 09:41 01/16/24 07:42 5 01/16/24 07:39 5 01/16/24 03:46 01/16/24 00:00 2 Laboratory Results Short CBC 01/16/24 Range/Units 07:54 WBC 16.75 H (4.8-10.8) K/ul Hgb 11.5 L (12.0-16.0) g/dl Hct 34.6 L (37.0-47.0) % Plt Count 292 (130-400) K/uL BMP 01/16/24 07:54 Sodium 140 Potassium 4.0 Chloride 103 Carbon Dioxide 27 BUN 22 Creatinine 0.98 Glucose 128 H Calcium 9.4 Cardiac Enzymes 01/15/24 Range/Units 08:40 Total Creatine Kinase 77 (26-192) U/L Urine 01/15/24 Range/Units 18:10 Urine Color Dark Yellow Urine Appearance Clear (Clear) Urine pH 6.5 (4.5-7.5) Ur Specific [place] 1.018 (1.000-1.030) Urine Protein 1+ H (Negative) Urine Glucose (UA) Negative (Negative)
[2024-01-16] MEDS: cefTRIAXone SODIUM 2,000 MG/50 ML BAG IV SCH (16:28)
[2024-01-17 07:26] LABS: Hematocrit (blood only) 32.5 % (37.0-47.0); Hemoglobin 10.8 g/dl (12.0-16.0); Mean Corpuscular Hemoglobin 29.9 pg (25.0-34.0); Mean Corpuscular Hgb Conc 33.2 g/dL (32.0-36.0); Mean Platelet Volume 10.7 fL (9.4-12.4); Platelet Count 324 K/uL (130-400); RDW Coefficient of Variation 14.8 % (11.5-14.5); RDW Standard Deviation 48.7 fL (36.4-46.3); Red Blood Count 3.61 M/uL (4.20-5.40); White Blood Count 15.36 K/ul (4.8-10.8)
[2024-01-17 07:43] LABS: BUN Creatinine Ratio 31.9 (10-20); Calcium 9.4 mg/dl (8.6-10.3); Creatinine Clr Calc Pharmacy 45.5 ml/min; Potassium 4.2 mmol/L (3.5-5.1)
[2024-01-17 08:00] VITALS: PULSE 65; RESP 18; TEMP 97.9
[2024-01-17 12:04] VITALS: BP 137/68; O2SAT 95
--- NOTE | 2024-01-17 13:30 | Discharge Summary ---
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 History was obtained from patient, daughter and chart review. She reports that symptoms started approximately 4 days ago with sinus congestion, rhinorrhea, postnasal drip and a productive cough with yellow sputum. She also complains of wheezing. She did have a one-time episode of fever where she woke up in the Middle of the night and was completely soaked. she reports taking [id number] Mucinex for symptom relief. She also has decreased appetite. She notes over the last 2 days that she has been getting increasingly more weak. Typically she ambulates with a cane and lives with her . This morning the daughter states that it took 3 of them just to get her out of bed. She also reported an episode of where she slid out of bed. Further she complains of left sided foot pain that started approximately 3 days ago. She denies any trauma, fall or inverting her ankle. The pain has been so severe she is been having difficulty putting weight on it. She denied any numbness or tingling to the left foot. She does have chronic lower extremity swelling for which she feels this is unchanged. Daughter also notes redness and to the lower left leg which is new. She has been compliant with her medications, but she did not take anything this morning. In ED patient made hemodynamically stable. She was slightly hypoxic requiring 2 L of oxygen via nasal cannula. She did have a significant leukocytosis at 18,000 otherwise lab work was generally unremarkable. Her BNP was mildly elevated at 258. Her respiratory bio fire was positive for entero-/rhinovirus. Admission Exam Per Admitting Provider Gen: WD/WN, Elderly, F, sitting up in bed, converising easily, NAD, A&O x3 HEENT: Normocephalic, atraumatic, conjunctivae moist, sclerae anicteric, mucous membranes dry . Lung: Clear to Auscultation bilaterally with expiratory wheezing throughout, initial rhonchi noted which cleared with coughing, no rales Heart: Regular rate, regular rhythm,1/6 ANGI noted LUSB no, rubs, or gallops Abdomen: Soft, obese, NT, ND +BS x 4 Extremities: LLE pretibial nodular edema which is chronic per pt, erythematous and warm MSK: pain with passive ROM to b/l ankle/feet, pain with dorsiflexion to L foot Skin: Warm, no rash, negative turgor. Principal Diagnosis Left leg cellulitis Rhinovirus infection Discharge Exam Neuro: AAOx4, PERRLA, no aphagia, memory changes, CNII-XII grossly intact HEENT: head normocephalic, moist mucus membranes CV: S1/S2, (-) M/G/R, cap refill < 3 seconds, lower extremity swelling significantly improved Resp: Lungs CTA in all [place]. On RA GI: Abdomen S/NT/ND, Ax4 bowel sounds, (-) CVA tenderness Musculoskeletal: 5/5 B/L UE strength, 5/5 B/L LE strength. No gait disturbance Skin: (-) rashes , (-) erythema. Psych: euthymic mood Discharge Data Allergies Allergy/AdvReac Type Severity Reaction Status Date / Time colchicine AdvReac Intermediate Diarrhea Verified 01/15/24 10:17 Consultations 01/15/24 12:18 ED Decision to Admit Stat 01/15/24 13:35 HIM [Consult Health Information Management] Stat Ordered Studies 01/15/24 09:50 US venous doppler LE LT Urgent Hospital Course (1) Cellulitis of left leg: (2) Upper respiratory infection, viral: Plan Ms. Winters was admitted to the [facility] on 01/14 for weakness and upper respiratory symptoms. Additionally, she were experiencing left lower extremity swelling. Due to her history of having atrial fibrillation and a history of stroke; despite being on a blood thinner, it was recommended that she receive a LE doppler US which was negative for clots. A left foot and a left ankle x-ray were obtained and revealed soft tissue swelling without acute osseous abnormality. She had leukocytosis initially 18.84 improved upon discharge 15.36. There also was suspicion that she may have a gout flare, but her uric acid level which is typically high with gout, was normal. You were started on IV Ceftriaxone for treatment of cellulitis and discharged home on Keflex for the continued course. She did test positive for rhinovirus infection and was being treated supportively including Robitussin DM. See below for her discharge instructions. Total Time Total Time Spent Total Time Spent (In Minutes): I spent a total of 54 minutes coordinating, documenting, and providing care for this patient excluding time spent in the performance of separately billed services. All of the aforementioned completed while collaborating with the assigned attending physician for a full treatment plan. Please see their addendum for further details. Discharge Plan Discharge Items Patient Disposition: Home - Self-Care Reason For Visit: HYPOXIA, RHINOVIRUS, cellulitis Discharge Diagnosis: rhinovirus Condition on Discharge: Good Activity: Resume your previous activity Bathing: No limitations Non-emergency contact: Primary Care Provider Call non-emergency contact if: you have any medication questions, your symptoms worsen, your pain is not controlled and your temperature is above 101 Follow-up/Referrals: Justino Ayoub [Primary Care Provider] - (Post Hospital follow up appointment: SundayJanuary 20 at 3:00 PM [address] [place] [id number]) Diet: Heart Healthy Diet Texture: Easy to Chew Addtl Attending Provider Instructions: Jeri, You were admitted to the [facility] on 01/14 for weakness and upper respiratory symptoms. Additionally, you were experiencing left lower extremity swelling. Due to your history of having atrial fibrillation and a history of stroke; despite being on a blood thinner, it was recommended that you receive a scan to rule out a DVT (Deep Vein Thrombosis) otherwise known as clots. This scan was negative for clots. We also considered that you may have a gout flare, but your uric acid level which is typically high with gout, was normal. You were started on IV Antibiotics which is not necessary for a viral illness, rather will assist with treating any infection that could be in your left foot. A left foot and a left ankle x-ray were obtained and revealed soft tissue swelling without acute osseous abnormality. You did test positive for rhinovirus infection, otherwise known as the common cold and you are being treated for conservatively. MEDICATION CHANGES: You received three doses of IV antibiotics and will be sent home on the following antibiotic: Keflex 500 mg by mouth twice daily for 4 days; completing on SundayJanuary 20. When you are taking an antibiotic, you should take a probiotic as well to protect your gut lining. Please continue taking a probiotic x1 week post completion of your antibiotics. For your upper respiratory symptoms, continue conservative treatment including Mucinex and nightly cough syrup as indicated over the counter. RECOMMENDATIONS FOR FOLLOW-UP: It is recommended that you follow up with your primary care provider and an appointment has been arranged with Shital Ayoub for: SundayJanuary 20 at 3:[address] [place] [id number] OTHER INSTRUCTIONS: Seek medical attention if you have: * temperature above 101 * chest pain or trouble breathing * abdominal pain, nausea, vomiting * diarrhea, dark stools or bloody stools * any unanswered questions or concerns Call 911 if symptoms are severe. Please take good care of yourself. It has been a pleasure taking care of you. Please take care of yourself. If you have any questions regarding your recent hospitalization please contact [facility] and request Tori Duarteist @ [phone]. Pending Studies at Discharge: No Stand-Alone Forms: My [facility], Smoking Cessation Medications and DC Order Prescriptions: New diclofenac sodium [Voltaren Arthritis Pain] 1 % Gel 2 g EXT QID Qty: 100 0RF cephalexin 500 mg capsule 500 mg PO BID 4 Days Qty: 8 0RF Continued atorvastatin 10 mg tablet 10 mg PO 3XWK Rx Instructions: Sun/Sun/Sun only metoprolol succinate 50 mg tablet extended release 24 hr 50 mg PO HS pantoprazole 20 mg tablet,delayed release (DR/EC) 20 mg PO QAM Rx Instructions: take 1/2 hour before breakfast cholecalciferol (vitamin D3) 1,250 mcg (50,000 unit) capsule 1,250 mcg PO WK Rx Instructions: Fridays furosemide 40 mg tablet 40 mg PO QAM aspirin 81 mg Tablet,Delayed Release (Dr/Ec) 81 mg PO QAM amlodipine 10 mg tablet 10 mg PO DAILYBL Eliquis 2.5 mg tablet 2.5 mg PO BID Discharge Orders: Discharge Order (Routine); Ordered 01/17/24 Ordered By: Joana Howard Admission Data Admit Date/Time: 01/15/24 12:28 Attending Provider: Mila Raymond I. Admit Provider: Mila Raymond I. Primary Care Provider: Justino Ayoub Other Providers: Mila Raymond I. Other Interventions: Discharge Summary Assessment (RN) Last Done: 01/17/24 13:49 Supervising Physician Co-Signing Physician Notes Patient seen and examined Agree with findings and plans as detailed by Joana YARBROUGH and take full responsibility
== END 2024-01-17 14:25 | disposition home or self-care (01) | DRG 202 ==
LOC: ED 08:06 → EDINP 12:28 → 2W 16:06
DX: I35.0 Nonrheumatic aortic (valve) stenosis; I73.9 Peripheral vascular disease, unspecified; I69.354 Hemiplegia and hemiparesis following cerebral infarction affecting left non-dominant side; K21.9 Gastro-esophageal reflux disease without esophagitis; M06.9 Rheumatoid arthritis, unspecified; I48.0 Paroxysmal atrial fibrillation; I10 Essential (primary) hypertension; M25.572 Pain in left ankle and joints of left foot; Z79.01 Long term (current) use of anticoagulants; Z88.8 Allergy status to other drugs, medicaments and biological substances; L03.116 Cellulitis of left lower limb; Z79.82 Long term (current) use of aspirin; J20.6 Acute bronchitis due to rhinovirus; E78.5 Hyperlipidemia, unspecified; R09.02 Hypoxemia; I87.8 Other specified disorders of veins

== ENCOUNTER 2024-02-04 13:47 | Inpatient (IN) ==
[2024-02-04 14:30] LABS: Basophils # (auto) 0.08 K/uL (0.00-0.20); Basophils % (auto) 0.5 %; Eosinophils # (auto) 0.14 K/uL (0.00-0.50); Eosinophils % (auto) 0.8 %; Hemoglobin 12.4 g/dl (12.0-16.0); Immature Granulocytes # (auto) 0.12 K/uL (0.01-0.20); Immature Granulocytes % (auto) 0.7 %; Lymphocytes # (auto) 1.48 K/uL (1.20-3.40); Lymphocytes % (auto) 8.6 %; Mean Corpuscular Hemoglobin 28.9 pg (25.0-34.0); Mean Corpuscular Hgb Conc 32.6 g/dL (32.0-36.0); Mean Corpuscular Volume 88.6 fL (80.0-100.0); Mean Platelet Volume 10.8 fL (9.4-12.4); Monocytes # (auto) 1.07 K/uL (0.11-0.59); Monocytes % (auto) 6.2 %; Neutrophils # (auto) 14.41 K/uL (1.40-6.50); Neutrophils % (auto) 83.2 %; Platelet Count 495 K/uL (130-400); RDW Coefficient of Variation 14.7 % (11.5-14.5); RDW Standard Deviation 47.7 fL (36.4-46.3); Red Blood Count 4.29 M/uL (4.20-5.40)
[2024-02-04 14:46] LABS: Alanine Aminotransferase 13 U/L (7-52); Albumin Globulin Ratio 0.9 (0.9-2); Albumin Level 3.7 gm/dl (3.4-5.0); Alkaline Phosphatase 109 U/L (34-104); Anion Gap 8 (3-11); Bilirubin,Total 0.8 mg/dl (0.2-1.0); Blood Urea Nitrogen 15 mg/dl (6-23); Calcium 9.8 mg/dl (8.6-10.3); Carbon Dioxide 29 mmol/L (21-32); Chloride 99 mmol/L (98-107); Globulin 3.9 gm/dl (2.5-4.0); Glucose 122 mg/dl (70-99(Fasting)); Sodium 136 mmol/L (136-145); Total Protein 7.6 gm/dl (6.0-8.3)
[2024-02-04 14:59] LABS: Appearance Urine Cloudy (Clear); Bilirubin Urine Negative (Negative); Blood Urine Trace-lysed (Negative); Color Urine Yellow; Glucose Urine UA Negative (Negative); Ketones Urine Negative (Negative); Leukocyte Esterase Urine 2+ (Negative); Nitrite Urine Negative (Negative); Protein Urine Negative (Negative); Specific Gravity Urine 1.015 (1.000-1.030); Urobilinogen Urine Negative (Negative)
--- NOTE | 2024-02-04 15:04 | XRay Report ---
XR chest 1V portable HISTORY: 83 years-old Female fluid build up acute shortness of breath COMPARISON: 01/15/2024 TECHNIQUE: AP view the chest FINDINGS: Cardiac silhouette is enlarged. Pulmonary vascular congestion with interstitial coarsening. No pneumo thorax. Trace pleural effusions with bibasilar densities. Reverse left shoulder arthroplasty. Degener ative changes of the spine and right shoulder. IMPRESSION: 1. Cardiomegaly with mild interstitial pulmonary edema. 2. Trace pleural effusions. ACT 112: Negative or not required by law. The above report was generated using voice recognition software. It may contain grammatical, syntax o r spelling errors. Electronically signed by: Eros Flores M.D. 02/04/2024 3:02 PM
[2024-02-04 15:14] LABS: Epithelial Cell Urine >20 /hpf (0-2)
[2024-02-04 15:15] LABS: Bacteria Urine 1+ (None Seen); RBC Urine 0-2 /hpf (0-2); Renal Epithelial Cells Urine Present /lpf (None Presnt); WBC Urine 0-5 /hpf (0-5)
[2024-02-04 15:59] LABS: Potassium 4.2 mmol/L (3.5-5.1)
--- NOTE | 2024-02-04 16:08 | Emergency Department Note ---
Impression & Plan Hypoxia, Weakness, CHF (congestive heart failure), Cellulitis, Fracture of hand, Hypomagnesemia ED Provider Note NAME: ROJELIO PARKS AGE: 83 SEX: F : 1940 ARRIVES VIA: Walk-In INFORMANT: [Patient][family] ED PROVIDER(S): [Garrett Jordan MD] CHIEF COMPLAINT: Shoulder pain, weakness HISTORY OF PRESENT ILLNESS: The patient is an 83-year-old female who presents with several weeks of increasing right shoulder pain to the point where she cannot move her arm. She cannot sleep. She has tried aehr-[id number] meds without relief. She does have a history of issues with this right shoulder. The patient in addition, has been weaker and could not really get out of bed the last few days. She has been holding her Lasix because she cannot get to the bathroom. As per her family, they have noticed that she seems more short of breath. They also state that the patient appears now to have some swelling of her left hand, this has been present for about a week, some redness has been noted. There was no fall or trauma. There has been no fever, no cough. The patient denies current dyspnea although, the nursing staff noted an oxygen saturation in the upper 80s and applied nasal cannula O2 when she was brought back into her room. The patient was admitted to the hospital a few weeks ago for a lower extremity cellulitis. She has never really bounced back since that timeframe. She did not attend rehab after discharge. She is not currently on antibiotics. PMHx/PSHx/Social Hx: See Below PHYSICAL EXAM: GENERAL: Patient is in no acute distress. HEENT: No acute trauma, normocephalic atraumatic, mucous membranes moist, no nasal congestion. NECK: No stridor, no adenopathy, no meningismus, trachea is midline. LUNGS: Clear to auscultation bilaterally, no wheeze, no rhonchi, breath sounds equal. HEART: Without murmurs gallops or rubs, regular rate and rhythm. ABDOMEN: Soft, nontender, no peritonitis. EXTREMITIES: No cyanosis. There is warmth and erythema to the left palm and left wrist. There is pain to palpate this area. No gross deformity. NEUROLOGIC: Oriented x 3, no acute motor or sensory deficits, no focal weakness. SKIN: No jaundice, no diaphoresis. DIFFERENTIAL DIAGNOSIS: Cellulitis, fracture, fluid overload, CHF, anemia, electrolyte imbalance, KS, among others. EMERGENCY DEPARTMENT PROCEDURES: MEDICAL DECISION MAKING: There is a moderate leukocytosis, this would be consistent with infection. There was a normal hemoglobin. Platelet count slightly elevated at 495. No renal failure. Magnesium was somewhat low at 1.5. Lactic acid level was not elevated making severe sepsis less likely. No concerning liver enzyme elevation. ECG showed a normal sinus rhythm, no obvious ischemia. Cardiac enzyme testing x 1 was slightly elevated, patient does have a history of a mild troponin elevation at baseline. Chest x-ray suggests some heart failure, no pneumonia. BNP was elevated consistent with fluid overload. Urinalysis did not show findings of infection. Left hand film does show a subtle fracture to the base of the second metacarpal. The patient had an external Molina catheter placed. She was given 40 mg of IV Lasix for the fluid overload/CHF. She was maintained on nasal cannula O2 as she was borderline hypoxic without O2 supplementation. She was given IV magnesium for the lower magnesium value. She received IV ceftriaxone as antibiotic therapy for the left upper extremity cellulitis. The patient presents with weakness, she has not taken her Lasix lately. She appears today to be in heart failure. She has a left upper extremity cellulitis, she has a fracture to the base of the second metacarpal of the left hand. Given her findings and presentation, given her hypoxia, hospitalization is indicated. I spoke with the patient and case management, the on-call hospitalist was consulted. Of note, I did not place a splint on the left hand as this is the same hand that appears cellulitic. I feel it is reasonable to withhold splinting so as to follow the left hand erythema/swelling. Prior/Outside records/notes reviewed: Previous discharge summary describing her presentation, hospital care and plan at discharge. ECG per my interpretation: Indication was weakness. The ECG shows a normal sinus rhythm with a rate of 76. LVH is present. There is no acute ST elevation, no PVCs. There is poor R wave progression. QTc is 445. Continuous Cardiac Monitoring per my interpretation: An order was placed for continuous cardiac monitoring. The monitor shows a rate of 81 with normal sinus rhythm. Imaging/x-ray results per my interpretation: Chest x-ray does not show pneumonia however, there appears to be some fluid overload/CHF. Left hand film shows a subtle fracture to the proximal aspect of the second metacarpal. Chronic Medical/Social conditions affecting care: Advanced age. Care/Management discussed with: Case management, the on-call hospitalist. Level of care consideration(s): After review of the information above and other included data: --I believe the patient requires escalation of care to admission DISPOSITION: Admission Past Med/Surg History Problem List Hypomagnesemia (Acute) Fracture of hand (Acute) Cellulitis (Acute) CHF (congestive heart failure) (Acute) Weakness (Acute) Hypoxia (Acute) Cellulitis of left hand Acute hypoxemic respiratory failure (Acute) Upper respiratory infection, viral (Acute) PAF (paroxysmal atrial fibrillation) Left ankle pain Cellulitis of left leg Acute bronchitis due to Rhinovirus Hypoxia Rotator cuff arthropathy of right shoulder Osteoarthritis, knee Heart contusion Nausea & vomiting (Acute) Diarrhea (Acute) Hypomagnesemia (Acute) ALAN (acute kidney injury) (Acute) Dehydration (Acute) ARF (acute renal failure) Left-sided chest pain (Acute) Elevated troponin (Acute) Osteopenia Ribs, multiple fractures There are subacute appearing right anterior rib fractures (4th-7th). Chest pain Rheumatoid arthritis F/U PCP Aortic stenosis Mild per 11/2018 ECHO Status post replacement of left shoulder joint (~09/2019) Dyslipidemia Hypertension GERD (gastroesophageal reflux disease) Well controlled and stable S/P TKR (total knee replacement) LEFT Seizure TIA vs SEIZURE: "BLACKED OUT IN HER HEAD AND CAME TO"/BECAME ALERT-NEVER DX'D ANY FURTHER-4 YRS AGO-NO OTHER OCCURRENCES TIA (transient ischemic attack) X 4- PLACED ON PLAVIX (FIRST TIA AFTER SURGERY- HAS HAD SURGERY SINCE WITHOUT ISSUES). NO ISSUES X YEARS Medical History Rotator cuff arthropathy Sciatica Can radiate down right or left side Hyperlipidemia Knee pain, right Right knee DJD Surgical History History of cataract surgery R/L History of anesthesia reaction SLOW TO WAKE UP-HAD TIA DURING SURGERY AND POST OP-[facility] [place]-AGE 66 History of esophagogastroduodenoscopy (EGD) History of colonoscopy S/P bilateral breast reduction AGE 66 YRS Family History Father Family history of diabetes mellitus Mother Family hx of colon cancer Social History Smoking Status: Never smoker Second Hand Exposure: No; Do You Dip or Chew Tobacco: No; Hx Alcohol Use: No Hx Substance Use: No Preferred Language: Tajik Communication Ability: Effective Monitor Worker Required: No Beliefs That Will Affect Care: None marital status: Current Living Situation: Spouse How many Children do You have: 2 Feels Safe at Home: Yes Assistive Devices: Raised Toilet Seat and Walker Allergies Allergies Allergy/AdvReac Type Severity Reaction Status Date / Time colchicine AdvReac Intermediate Diarrhea Verified 01/15/24 10:17 Home Meds Home Medications Medication Instructions Recorded Confirmed atorvastatin 10 mg tablet 10 mg PO 3XWK 07/10/18 02/04/24 metoprolol succinate 50 mg 50 mg PO HS 07/10/18 02/04/24 tablet,extended release 24 hr pantoprazole 20 mg tablet,delayed 20 mg PO QAM 11/21/18 02/04/24 release cholecalciferol (vitamin D3) 1,250 1,250 mcg PO WK 10/18/21 02/04/24 mcg (50,000 unit) capsule amlodipine 10 mg tablet 10 mg PO DAILYBL 01/15/24 02/04/24 apixaban 2.5 mg tablet (Eliquis) 2.5 mg PO BID 01/15/24 02/04/24 aspirin 81 mg tablet,delayed 81 mg PO QAM 01/15/24 02/04/24 release furosemide 40 mg tablet 40 mg PO QAM 01/15/24 02/04/24 tramadol 50 mg tablet 50 mg PO TID PRN Severe Pain 02/04/24 02/04/24 (Scale Score 7-10) Previous Rx's Medication Instructions Recorded diclofenac sodium 1 % topical gel 2 g EXT QID #100 grams 01/16/24 (Voltaren Arthritis Pain) Results & Data (ED) Vital Signs Vital Signs - 24 hr 02/04/24 13:53 02/04/24 14:55 02/04/24 14:59 Temperature 37.1 C Temperature Source Temporal Artery Scan Pulse Rate 73 74 Pulse Rate [Apical] 73 Pulse Rhythm Regular Pulse Strength Normal Respiratory Rate 18 18 Respiratory Effort / Characteristics Non-Labored Spontaneous Non-Labored Spontaneous Respiratory Depth Normal Blood Pressure 157/79 H Blood Pressure [Left Arm] 150/93 H Blood Pressure Mean 105 Blood Pressure Mean [Left Arm] 112 Blood Pressure Position Sitting Blood Pressure Position [Left Arm] Lying Pulse Oximetry 94 93 Oxygen Delivery Method Room Air Sepsis Recent Fever Within 48 Hours No Sepsis New/Unexplained Change in Mental Status N/A Sepsis Action Taken by Nursing No Action Required 02/04/24 15:12 02/04/24 16:00 Temperature Temperature Source Pulse Rate 77 Pulse Rate [Apical] 81 Pulse Rhythm Pulse Strength Respiratory Rate 16 Respiratory Effort / Characteristics Non-Labored Spontaneous Respiratory Depth Blood Pressure Blood Pressure [Left Arm] 148/106 H Blood Pressure Mean Blood Pressure Mean [Left Arm] 120 Blood Pressure Position Blood Pressure Position [Left Arm] Lying Pulse Oximetry 97 Oxygen Delivery Method Room Air Sepsis Recent Fever Within 48 Hours Sepsis New/Unexplained Change in Mental Status Sepsis Action Taken by Assisted Medications Current Medication List: was personally reviewed by me Laboratory Data Attestation: I reviewed the patient's lab results. 02/04/24 14:15 02/04/24 15:23 Lab Results 02/04/24 02/04/24 02/04/24 Range/Units 14:15 14:49 15:23 WBC 17.30 H (4.8-10.8) K/ul RBC 4.29 (4.20-5.40) M/uL Hgb 12.4 (12.0-16.0) g/dl Hct 38.0 (37.0-47.0) % MCV 88.6 (80.0-100.0) fL MCH 28.9 (25.0-34.0) pg MCHC 32.6 (32.0-36.0) g/dL RDW Std Deviation 47.7 H (36.4-46.3) fL RDW Coeff of Marcio 14.7 H (11.5-14.5) % Plt Count 495 H (130-400) K/uL MPV 10.8 (9.4-12.4) fL Immature Gran % (Auto) 0.7 % Neut % (Auto) 83.2 % Lymph % (Auto) 8.6 % [place] % (Auto) 6.2 % Eos % (Auto) 0.8 % Baso % (Auto) 0.5 % Neut # (Auto) 14.41 H (1.40-6.50) K/uL Lymph # (Auto) 1.48 (1.20-3.40) K/uL [place] # (Auto) 1.07 H (0.11-0.59) K/uL Eos # (Auto) 0.14 (0.00-0.50) K/uL Baso # (Auto) 0.08 (0.00-0.20) K/uL Immature Gran # (Auto) 0.12 (0.01-0.20) K/uL Sodium 136 (136-145) mmol/L Potassium TNP 4.2 Chloride 99 (98-107) mmol/L Carbon Dioxide 29 (21-32) mmol/L Anion Gap 8 (3-11) BUN 15 (6-23) mg/dl Creatinine 0.88 (0.6-1.2) mg/dl Est Cr Clr Drug Dosing Not Reportable eGFR 65.98 BUN/Creatinine Ratio 17.0 (10-20) Glucose 122 H (70-99(Fasting)) mg/dl Lactate (0.4-2.0) mmol/L Calcium 9.8 (8.6-10.3) mg/dl Magnesium 1.5 L (1.7-2.4) mg/dl Total Bilirubin 0.8 (0.2-1.0) mg/dl AST TNP 18 ALT 13 (7-52) U/L Alkaline Phosphatase 109 H (34-104) U/L Troponin I High Sens 26.5 H (0-14) pg/ml B-Natriuretic Peptide 316 H (0-100) pg/ml Total Protein 7.6 (6.0-8.3) gm/dl Albumin 3.7 (3.4-5.0) gm/dl Globulin 3.9 (2.5-4.0) gm/dl Albumin/Globulin Ratio 0.9 (0.9-2) Urine Color Yellow Urine Appearance Cloudy A (Clear) Urine pH 6.0 (4.5-7.5) Ur Specific [place] 1.015 (1.000-1.030) Urine Protein Negative (Negative) Urine Glucose (UA) Negative (Negative) Urine Ketones Negative (Negative) Urine Blood Trace-lysed H (Negative) Urine Nitrite Negative (Negative) Urine Bilirubin Negative (Negative) Urine Urobilinogen Negative (Negative) Ur Leukocyte Esterase 2+ H (Negative) Urine RBC 0-2 (0-2) /hpf Urine WBC 0-5 (0-5) /hpf Ur Epithelial Cells >20 H (0-2) /hpf Ur Renal Epithelial Cell Present A (None Presnt) /lpf Urine Bacteria 1+ H (None Seen) 02/04/24 Range/Units 16:18 WBC (4.8-10.8) K/ul RBC (4.20-5.40) M/uL Hgb (12.0-16.0) g/dl Hct (37.0-47.0) % MCV (80.0-100.0) fL MCH (25.0-34.0) pg MCHC (32.0-36.0) g/dL RDW Std Deviation (36.4-46.3) fL RDW Coeff of Marcio (11.5-14.5) % Plt Count (130-400) K/uL MPV (9.4-12.4) fL Immature Gran % (Auto) % Neut % (Auto) % Lymph % (Auto) % [place] % (Auto) % Eos % (Auto) % Baso % (Auto) % Neut # (Auto) (1.40-6.50) K/uL Lymph # (Auto) (1.20-3.40) K/uL [place] # (Auto) (0.11-0.59) K/uL Eos # (Auto) (0.00-0.50) K/uL Baso # (Auto) (0.00-0.20) K/uL Immature Gran # (Auto) (0.01-0.20) K/uL Sodium (136-145) mmol/L Potassium Chloride (98-107) mmol/L Carbon Dioxide (21-32) mmol/L Anion Gap (3-11) BUN (6-23) mg/dl Creatinine (0.6-1.2) mg/dl Est Cr Clr Drug Dosing eGFR BUN/Creatinine Ratio (10-20) Glucose (70-99(Fasting)) mg/dl Lactate 1.3 (0.4-2.0) mmol/L Calcium (8.6-10.3) mg/dl Magnesium (1.7-2.4) mg/dl Total Bilirubin (0.2-1.0) mg/dl AST ALT (7-52) U/L Alkaline Phosphatase (34-104) U/L Troponin I High Sens (0-14) pg/ml B-Natriuretic Peptide (0-100) pg/ml Total Protein (6.0-8.3) gm/dl Albumin (3.4-5.0) gm/dl Globulin (2.5-4.0) gm/dl Albumin/Globulin Ratio (0.9-2) Urine Color Urine Appearance (Clear) Urine pH (4.5-7.5) Ur Specific Gro[place] (1.000-1.030) Urine Protein (Negative) Urine Glucose (UA) (Negative) Urine Ketones (Negative) Urine Blood (Negative) Urine Nitrite (Negative) Urine Bilirubin (Negative) Urine Urobilinogen (Negative) Ur Leukocyte Esterase (Negative) Urine RBC (0-2) /hpf Urine WBC (0-5) /hpf Ur Epithelial Cells (0-2) /hpf Ur Renal Epithelial Cell (None Presnt) /lpf Urine Bacteria (None Seen) Administered Medications Discontinued Medications Furosemide (Furosemide 40 Mg/4 Ml Vial) 40 mg IV ONE ONE Stop: 02/04/24 15:56 Last Admin: 02/04/24 16:22 Dose: 40 mg Documented By: MORALES Ceftriaxone Sodium (Rocephin) 2,000 mg in 50 mls @ 100 mls/hr IV NOW STA Stop: 02/04/24 16:24 Last Admin: 02/04/24 17:27 Dose: 100 mls/hr Documented By: MORALES Imaging Data Radiologist's Impression: Chest X-Ray 02/04/24 13:57 XR chest 1V portable HISTORY: 83 years-old Female fluid build up acute shortness of breath COMPARISON: 01/15/2024 TECHNIQUE: AP view the chest FINDINGS: Cardiac silhouette is enlarged. Pulmonary vascular congestion with interstitial coarsening. No pneumothorax. Trace pleural effusions with bibasilar densities. Reverse left shoulder arthroplasty. Degenerative changes of the spine and right shoulder. IMPRESSION: 1. Cardiomegaly with mild interstitial pulmonary edema. 2. Trace pleural effusions. ACT 112: Negative or not required by law. The above report was generated using voice recognition software. It may contain grammatical, syntax or spelling errors. Electronically signed by: Eros Flores M.D. 02/04/2024 3:02 PM Hand X-Ray 02/04/24 15:55 EXAM:Radiographs of the Left Hand Complete 3 Views INDICATION: Pain and redness for about 1 week. Possible injury from pushing on hand due to shoulder immobility. TECHNIQUE: Frontal, lateral and oblique views of the left hand. COMPARISON: No relevant prior studies available. FINDINGS: Bones/joints: There is an acute minimally distracted fracture base of the second metacarpal along the radial side. Here is severe narrowing of the third and fourth distal interphalangeal joints. Mild to moderate narrowing of all other joints noted. Soft tissues: No abnormality noted. No radiopaque foreign body noted. IMPRESSION: 1. Acute minimally distracted fracture base of the second. 2. 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 ACT 112: Negative or not required by law. Electronically signed by Mary Ellen Brock 02-04-2024 4:20 PM Discharge Plan Visit Data Chief Complaint: Shoulder Pain Stated Complaint: PAIN IN SHOULDERS, ACROSS NECK AND ARMS/HANDS ED Provider: Garrett Jordan Discharge Problem: Hypoxia, Weakness, CHF (congestive heart failure), Cellulitis, Fracture of hand, Hypomagnesemia Patient Disposition: Admitted As Inpatient Condition: Fair Forms Stand Alone Forms: [facility], Important Visit Information Prescriptions Prescriptions: No Action atorvastatin 10 mg tablet 10 mg PO 3XWK Rx Instructions: Mon/Wed/Fri only metoprolol succinate 50 mg tablet extended release 24 hr 50 mg PO HS pantoprazole 20 mg tablet,delayed release (DR/EC) 20 mg PO QAM Rx Instructions: take 1/2 hour before breakfast cholecalciferol (vitamin D3) 1,250 mcg (50,000 unit) capsule 1,250 mcg PO WK Rx Instructions: Fridays furosemide 40 mg tablet 40 mg PO QAM aspirin 81 mg Tablet,Delayed Release (Dr/Ec) 81 mg PO QAM amlodipine 10 mg tablet 10 mg PO DAILYBL Eliquis 2.5 mg tablet 2.5 mg PO BID diclofenac sodium [Voltaren Arthritis Pain] 1 % Gel 2 g EXT QID Qty: 100 0RF tramadol 50 mg tablet 50 mg PO TID PRN (Reason: Severe Pain (Scale Score 7-10)) Rx Instructions: filled 01/29 7 day supply Referrals Referrals: Justino Ayoub [Primary Care Provider] - Discharge Problem: CHF (congestive heart failure) Qualifiers: Heart failure type: unspecified Heart failure chronicity: acute Qualified Code(s): I50.9 - Heart failure, unspecified Cellulitis Qualifiers: Site of cellulitis: extremity Site of cellulitis of extremity: upper extremity Laterality: left Qualified Code(s): L03.114 - Cellulitis of left upper limb Fracture of hand Qualifiers: Encounter type: initial encounter Fracture type: closed Laterality: left Q ualified Code(s): S62.92XA - Unspecified fracture of left wrist and hand, initial encounter for closed fracture
--- NOTE | 2024-02-04 16:21 | XRay Report ---
EXAM:Radiographs of the Left Hand Complete 3 Views INDICATION: Pain and redness for about 1 week. Possible injury from pushing on hand due to shoulder immobility. TECHNIQUE: Frontal, lateral and oblique views of the left hand. COMPARISON: No relevant prior studies available. FINDINGS: Bones/joints: There is an acute minimally distracted fracture base of the second metacarpal along the radial side. Here is severe narrowing of the third and fourth distal interphalangeal joints. Mild to moderate narrowing of all other joints noted. Soft tissues: No abnormality noted. No radiopaque foreign body noted. IMPRESSION: 1. Acute minimally distracted fracture base of the second. 2. 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 ACT 112: Negative or not required by law. Electronically signed by Mary Ellen Brock 02-04-2024 4:20 PM
[2024-02-04] MEDS: FUROSEMIDE 40 MG/4 ML VIAL IV ONE (16:22)
[2024-02-04 16:29] LABS: Magnesium 1.5 mg/dl (1.7-2.4); Troponin I High Sensitivity 26.5 pg/ml (0-14)
--- NOTE | 2024-02-04 17:10 | Electrocardiogram Report ---
Test Reason : Blood Pressure : */* mmHG Vent. 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
[2024-02-04] MEDS ORDERED: MAGNESIUM HYDROXIDE SUSP 30 ML UDC PO PRN (17:20)
[2024-02-04] MEDS ORDERED: POLYETHYLENE (MIRALAX) 17 GM PACK PO PRN (17:20)
[2024-02-04] MEDS ORDERED: ALUMINUM/MAGNESIUM SUSP 30 ML UDC PO PRN (17:20)
[2024-02-04] MEDS: cefTRIAXone SODIUM 2,000 MG/50 ML BAG IV STA (17:27)
--- NOTE | 2024-02-04 17:38 | History & Physical Report ---
Date of Service February 04, 2024 Assessment & Plan (1) Cellulitis of left hand: Plan Persistent/severe right shoulder pain And base of 2nd metacarpal fracture x left hand: Rt shoulder pain affecting activities of daily living, Has been ongoing for a while, receives cortisone injection at orthopedics office, her last cortisone injection was postponed until February of next year, patient has not been able to move around much because of severe right shoulder pain and has been overusing her left hand, patient noted to have left hand second metacarpal fracture in ED. Continue with pain management, bowel regimen. Orthopedic consult. PT/OT once more stable. Left hand cellulitis: Patient reports warmth and redness starting today, received Rocephin in the ED, will continue Rocephin, follow admitting blood culture. 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 Patient was saturating in upper 80s at presentation, needing 2 to 3 L oxygen at bedside exam. CXR with congestion, 2+ pitting edema on exam. BNP elevated. Last echo from September 2021 with EF of 65 to 70%, grade 1 diastolic dysfunction. Continue IV Lasix 40 mg daily, monitor replete electrolytes, give total of 3 g of IV magnesium today. Monitor I's and O's. Fluid restriction of 1800 mL a day Cardiology consult, notified via TT.. PAF: Continue home Eliquis. Other chronic medical conditions: History of stroke, CAD, GERD ---- continue with/resume home meds as and when able. DVT prophylaxis: Patient on Eliquis Full code PT/OT when more stable. 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 She finds herself using her left hand more since last 3 weeks. Patient reports that she has been lying in recliner mostly since last few weeks. Patient reports she was supposed to get right shoulder injection but it was postponed until February next year, she has been trying heat pad/tramadol/Motrin without any help and hence she decided to come to the ED. Patient also reports that since last 2 weeks she has left hand swelling, denies any trauma, has started getting redness and warmth over the right hand since today. Patient was noted to be saturating in upper 80s at presentation, received IV Lasix in the ED, has congestions in the CXR, 2-3+ BLE pitting edema on exam. Patient denies any obvious shortness of breath but is needing 2 to 3 L oxygen at bedside exam. Patient does not use any oxygen at home. Patient did stop her Eliquis and Lasix about 3 days ago CERTIFIED WELDER, resumed last evening. She stopped Lasix because he could not move out of her recliner chair to go to the bathroom, says stopped her Eliquis because she wanted to take Motrin. Patient denies fever/sore throat/cough/chest pain/belly pain/nausea/vomiting/diarrhea. Last bowel movement today. Denies pain or burning with passing urine. Reports eating okay. Patient denies smoking/alcohol/recreational drug use. Full code as per my discussion with the patient. Medications reviewed with the patient in detail at bedside. Plan of care discussed with the patient and her daughter at bedside, they voiced understanding. Allergies Allergy/AdvReac Type Severity Reaction Status Date / Time colchicine AdvReac Intermediate Diarrhea Verified 01/15/24 10:17 Home Medications Medication Instructions Recorded Confirmed Type atorvastatin 10 mg tablet 10 mg PO 3XWK 07/10/18 02/04/24 History metoprolol succinate 50 mg 50 mg PO HS 07/10/18 02/04/24 History tablet,extended release 24 hr pantoprazole 20 mg tablet,delayed 20 mg PO QAM 11/21/18 02/04/24 History release cholecalciferol (vitamin D3) 1,250 1,250 mcg PO WK 10/18/21 02/04/24 History mcg (50,000 unit) capsule amlodipine 10 mg tablet 10 mg PO DAILYBL 01/15/24 02/04/24 History apixaban 2.5 mg tablet (Eliquis) 2.5 mg PO BID 01/15/24 02/04/24 History aspirin 81 mg tablet,delayed 81 mg PO QAM 01/15/24 02/04/24 History release furosemide 40 mg tablet 40 mg PO QAM 01/15/24 02/04/24 History diclofenac sodium 1 % topical gel 2 g EXT QID #100 grams 01/16/24 02/04/24 Rx (Voltaren Arthritis Pain) tramadol 50 mg tablet 50 mg PO TID PRN Severe Pain 02/04/24 02/04/24 History (Scale Score 7-10) Past Med/Surg History Problem List (Updated 02/04/24 @ 17:38 by Nalini Vines MD) Cellulitis of left hand Acute hypoxemic respiratory failure (Acute) Upper respiratory infection, viral (Acute) PAF (paroxysmal atrial fibrillation) Left ankle pain Cellulitis of left leg Acute bronchitis due to Rhinovirus Hypoxia Rotator cuff arthropathy of right shoulder Osteoarthritis, knee Heart contusion Nausea & vomiting (Acute) Diarrhea (Acute) Hypomagnesemia (Acute) ALAN (acute kidney injury) (Acute) Dehydration (Acute) ARF (acute renal failure) Left-sided chest pain (Acute) Elevated troponin (Acute) Osteopenia Ribs, multiple fractures There are subacute appearing right anterior rib fractures (4th-7th). Chest pain Rheumatoid arthritis F/U PCP Aortic stenosis Mild per 11/2018 ECHO Status post replacement of left shoulder joint (~09/2019) Dyslipidemia Hypertension GERD (gastroesophageal reflux disease) Well controlled and stable S/P TKR (total knee replacement) LEFT Seizure TIA vs SEIZURE: "BLACKED OUT IN HER HEAD AND CAME TO"/BECAME ALERT-NEVER DX'D ANY FURTHER-4 YRS AGO-NO OTHER OCCURRENCES TIA (transient ischemic attack) X 4- PLACED ON PLAVIX (FIRST TIA AFTER SURGERY- HAS HAD SURGERY SINCE WITHOUT ISSUES). NO ISSUES X YEARS Medical History Rotator cuff arthropathy Sciatica Can radiate down right or left side Hyperlipidemia Knee pain, right Right knee DJD Surgical History History of cataract surgery R/L History of anesthesia reaction SLOW TO WAKE UP-HAD TIA DURING SURGERY AND POST OP-[facility] [place]-AGE 66 History of esophagogastroduodenoscopy (EGD) History of colonoscopy S/P bilateral breast reduction AGE 66 YRS Family History Father Family history of diabetes mellitus Mother Family hx of colon cancer Social History Smoking Status: Never smoker Second Hand Exposure: No; Do You Dip or Chew Tobacco: No; Hx Alcohol Use: No Hx Substance Use: No Preferred Language: Telugu Communication Ability: Effective Bus Boy Required: No Beliefs That Will Affect Care: None marital status: Current Living Situation: Spouse How many Children do You have: 2 Feels Safe at Home: Yes Assistive Devices: Raised Toilet Seat and Walker Review of Systems Review of Systems: Negative otherwise mentioned in HPI. Physical Exam Physical Exam: GENERAL: Alert and oriented x3. NAD, on 2L NC O2. Obese class II. HEENT: No pallor, no icterus. Pupils equal, round and reactive to light. Oral mucosa moist. NECK: No JVD, no neck masses. HEART: S1 and S2 heard. Regular rate and rhythm. + murmur, no gallop. RESPIRATORY SYSTEM: Normal AP diameter. No accessory muscle use. No wheezing, bb crackles. ABDOMEN: Soft, bowel sounds present, nontender, no distention. CENTRAL NERVOUS SYSTEM: No facial droop. Speech is clear. Obeys simple commands. Moves extremities. EXTREMITIES: 2-3 + ble pitting edema, no erythema seen. Left hand warm/red w/ tender base of 2nd metacarpal. Rt shoulder extremely painful rom. Results & Data Results & Data Vital Signs (Past 12 Hours) Vital Signs Temp Pulse Pulse Resp BP BP Pulse Ox 02/04/24 16:00 81 16 148/106 H 97 02/04/24 15:12 77 02/04/24 14:59 74 02/04/24 14:55 73 18 150/93 H 93 02/04/24 13:53 37.1 C 73 18 157/79 H 94 O2 Del Method 02/04/24 16:00 Room Air 02/04/24 15:12 02/04/24 14:59 02/04/24 14:55 02/04/24 13:53 Room Air
[2024-02-04] MEDS: MAGNESIUM SULFATE / D5W 1 GM/100 ML BAG IV SCH (18:14)
--- NOTE | 2024-02-04 18:20 | XRay Report ---
EXAM: Radiographs of the Right Shoulder Complete 2 Views INDICATION: Chronic shoulder pain. TECHNIQUE: 2 views of the right shoulder. COMPARISON: No relevant prior studies available. FINDINGS: Bones/joints: There is severe glenohumeral degenerative spurring and narrowing. There is significant loss of the supra humeral space consistent with chronic rotator cuff thinning and/or tear. There is moderate acromioclavicular spurring. No acute fracture. No subluxation or dislocation. Soft tissues: No abnormality noted. No radiopaque foreign body noted. IMPRESSION: Severe degenerative changes. No acute abnormality. ACT 112: Negative or not required by law. Electronically signed by Mary Ellen Brock 02-04-2024 6:19 PM
[2024-02-04] MEDS ORDERED: LABETALOL HCL IV 5 MG/ML 20ML IV PRN (18:26)
[2024-02-04] MEDS: MAGNESIUM SULFATE / D5W 1 GM/100 ML BAG IV STA (18:33)
[2024-02-04] MEDS: HYDROmorphone INJ 0.5 MG/0.5 ML SYR IV PRN (18:37)
--- NOTE | 2024-02-04 19:50 | Orthopedic Consultation ---
Date of Consultation February 04, 2024 Assessment & Plan (1) Right shoulder pain: Suspect severe arthritis as the cause of her pain. There is no warmth, swelling, or redness about the joint, do not suspect a septic joint. Pain seems better controlled now. Will likely benefit from a steroid injection which could either be performed at her outpatient appointment in 2 days or by her primary orthopedic team while she is admitted. She would likely benefit from another conversation about shoulder replacement in the future. Continue pain medication per primary service. PT/OT Pain radiating up into the trapezius area, may benefit from application of lidocaine patches as she is likely tense from self splinting the shoulder. (2) Cellulitis of left hand: Per my and Dr. Wu's impression of the left hand x-ray which was read as an acute fracture of the second metacarpal, we are not visualizing any definitive fracture. Suspect skin and soft tissue infection. Do not suspect osteomyelitis. There is no abscess to drain. Do not suspect gout. Leukocytosis could be attributed to the infection however could also be secondary to pain in shoulder and now hand. She has had leukocytosis since being discharged 2 weeks ago, and it appears she has been elevated in the past as well. Monitor blood cultures. Continue IV antibiotics per primary service. Range of motion as tolerated. Elevate extremity. Consider trending inflammatory markers. DVT prophylaxis per primary service History of Present Illness Reason for Consultation: Right shoulder pain, left hand redness pain and swelling Requesting Physician: Dr. Vines hospitalist Attending Physician: Israel Wu MD History of Present Illness This is an 83 year old female with a history of CVA, atrial fibrillation on eliquis, rheumatoid arthritis, CHF, s/p left shoulder replacement 2 years ago, follows with [facility] orthoped[facility] for her right shoulder, who presented to the emergency department this evening with persistent right shoulder pain and some new pain, redness, and swelling in her left hand. Patient also recently stopped taking her Lasix 3 days ago. X-ray of the right shoulder demonstrated severe degenerative change with evidence of likely chronic rotator cuff injury and bone spurring. Left hand x-ray was read by radiology as a fracture at the base of the left second metacarpal. White blood cell count was elevated at 17.3. Orthopedics was consulted. Patient states the right shoulder has been giving her pain for several years and she has been receiving cortisone injections every 3 months. This has been working well for her. She was due for another injection around this time but her appointment was unavailable. 2 weeks ago she woke up and felt like her shoulder was locked in place and she had severe pain anytime she tried to move the shoulder. The range of motion gradually improved however she still has severe pain with range of motion of the shoulder. She rescheduled her cortisone injection for this coming 02/06 but did not feel that she could wait any longer so decided to come to the emergency department. This pain starts deep in her shoulder and radiates up across the back of her neck. It is worse when she tries to move the shoulder. Regarding her left hand, she noticed gradual onset of pain, swelling, and redness about 3 to 4 days ago. She thinks this may be from pushing herself out of her recliner repetitively. She also notes that her right hand swelled up like this and she was having pain in the palm aspect near her thumb on both sides initially, but the pain and swelling in the right hand dissipated. The redness has become more progressive in the left hand. She denies any other specific injuries or falls where she may have injured the left hand recently. She is able to move all of her fingers including her thumb with minimal discomfort. She has been using heating pad, tramadol, and [id number] pain medication with little relief. She received pain medication in the emergency department and stating that she is feeling much better. She states that she was told she would need a shoulder replacement on the right side but she is hesitant to move forward with the surgery due to fears of suffering another TIA which apparently happened during another surgery. Patient denies any fevers, chills, sweats, recent tick bites, numbness or tingling in her fingers, pain in her left shoulder or bilateral knees. She has no history of gout. Of note, patient was discharged from this hospital about 2 weeks ago for cellulitis of her left leg and an upper respiratory infection. Allergies Allergy/AdvReac Type Severity Reaction Status Date / Time colchicine AdvReac Intermediate Diarrhea Verified 01/15/24 10:17 Home Medications Medication Instructions Recorded Confirmed Type atorvastatin 10 mg tablet 10 mg PO 3XWK 07/10/18 02/04/24 History metoprolol succinate 50 mg 50 mg PO HS 07/10/18 02/04/24 History tablet,extended release 24 hr pantoprazole 20 mg tablet,delayed 20 mg PO QAM 11/21/18 02/04/24 History release cholecalciferol (vitamin D3) 1,250 1,250 mcg PO WK 10/18/21 02/04/24 History mcg (50,000 unit) capsule amlodipine 10 mg tablet 10 mg PO DAILYBL 01/15/24 02/04/24 History apixaban 2.5 mg tablet (Eliquis) 2.5 mg PO BID 01/15/24 02/04/24 History aspirin 81 mg tablet,delayed 81 mg PO QAM 01/15/24 02/04/24 History release furosemide 40 mg tablet 40 mg PO QAM 01/15/24 02/04/24 History diclofenac sodium 1 % topical gel 2 g EXT QID #100 grams 01/16/24 02/04/24 Rx (Voltaren Arthritis Pain) tramadol 50 mg tablet 50 mg PO TID PRN Severe Pain 02/04/24 02/04/24 History (Scale Score 7-10) Patient History Medical History Rotator cuff arthropathy Sciatica Can radiate down right or left side Hyperlipidemia Knee pain, right Right knee DJD Surgical History (Updated 02/05/24 @ 00:28 by SONAL Chang) History of arthroplasty of left shoulder History of cataract surgery R/L History of anesthesia reaction SLOW TO WAKE UP-HAD TIA DURING SURGERY AND POST OP-[facility] [place], [place]-AGE 66 History of esophagogastroduodenoscopy (EGD) History of colonoscopy S/P bilateral breast reduction AGE 66 YRS Family History Father Family history of diabetes mellitus Mother Family hx of colon cancer Social History Smoking Status: Never smoker Second Hand Exposure: No; Do You Dip or Chew Tobacco: No; Hx Alcohol Use: No Hx Substance Use: No Preferred Language: Algerian Communication Ability: Effective Hi Ranger Operator Required: No Beliefs That Will Affect Care: None marital status: Current Living Situation: Spouse How many Children do You have: 2 Feels Safe at Home: Yes Assistive Devices: Walker Physical Exam Constitutional: Resting comfortably in no distress, laying in bed. Pleasant. Conversational. Cardiovascular: Radial pulses 2+ bilaterally Musculoskeletal: Right upper extremity: No deformities are noted. There is no swelling. Within the shoulder region, there is no redness or warmth, and active and passive range of motion is significantly limited secondary to pain. There is audible and palpable crepitus appreciated in the shoulder with passive range of motion. There is full range of motion without pain at the elbow, wrist, and fingers. Left upper extremity: The hand has a mild amount of diffuse soft tissue swelling extending into the wrist. There is skin erythema present about the thenar eminence extending onto the dorsum of the hand to about the third metacarpal and the erythema tracks up the dorsal radial forearm to about a third up the forearm. This is warm to touch. The majority of tenderness is located over the first metacarpal/thenar eminence. There is minimal tenderness in the second metacarpal. There is no decreased active range of motion in the wrist with flexion or extension. Patient is able to perform thumb extension, oppose thumb to little finger, make a complete fist, and fully extend all fingers. Passive range of motion of the thumb and second and third fingers does not elicit any pain. There is no fluctuance or abscess present. No lymphatic streaking. Able to perform thumb extension, opposition to little finger, wrist extension, and resisted finger abduction bilaterally. Bilateral lower extremities with 2+ pitting edema in the feet, ankles, and mid lower leg. Active range of motion of bilateral knees is full without any pain. There is no swelling about the knees. No redness or warmth. Skin: Pain, warm, dry Neurologic: No sensory deficits in bilateral fingers to light touch Results & Data Vital Signs (Past 12 Hours) Vital Signs Temp Pulse Pulse Resp BP BP Pulse Ox 02/04/24 19:37 77 16 136/81 96 02/04/24 18:57 77 02/04/24 18:24 81 18 191/109 H 97 02/04/24 18:24 18 96 02/04/24 18:00 79 18 191/109 H 97 02/04/24 16:00 81 16 148/106 H 97 02/04/24 15:12 77 02/04/24 14:59 74 02/04/24 14:55 73 18 150/93 H 93 02/04/24 13:53 98.8 F 73 18 157/79 H 94 O2 Del Method O2 Flow Rate 02/04/24 19:37 Nasal Cannula 2 02/04/24 18:57 02/04/24 18:24 Nasal Cannula 2 02/04/24 18:24 Nasal Cannula 2 02/04/24 18:00 Room Air 02/04/24 16:00 Room Air 02/04/24 15:12 02/04/24 14:59 02/04/24 14:55 02/04/24 13:53 Room Air Laboratory Results 02/04/24 16:18 Aerobic Blood Culture - Pending Blood Anaerobic Blood Culture - Pending 02/04/24 16:18 Aerobic Blood Culture - Pending Blood Anaerobic Blood Culture - Pending 02/04/24 14:49 Urine Culture - Pending Urine,Clean Catch 02/04/24 02/04/24 02/04/24 19:47 16:18 15:23 WBC RBC Hgb Hct MCV MCH MCHC RDW Std Deviation RDW Coeff of Marcio Plt Count MPV Immature Gran % (Auto) Neut % (Auto) Lymph % (Auto) Hettinger % (Auto) Eos % (Auto) Baso % (Auto) Neut # (Auto) Lymph # (Auto) Hettinger # (Auto) Eos # (Auto) Baso # (Auto) Immature Gran # (Auto) Sodium Potassium 4.2 Chloride Carbon Dioxide Anion Gap BUN Creatinine Est Cr Clr Drug Dosing eGFR BUN/Creatinine Ratio Glucose Lactate 1.3 Calcium Magnesium Total Bilirubin AST 18 ALT Alkaline Phosphatase Troponin I High Sens 26.7 H B-Natriuretic Peptide Total Protein Albumin Globulin Albumin/Globulin Ratio Urine Color Urine Appearance Urine pH Ur Specific Chama Urine Protein Urine Glucose (UA) Urine Ketones Urine Blood Urine Nitrite Urine Bilirubin Urine Urobilinogen Ur Leukocyte Esterase Urine RBC Urine WBC Ur Epithelial Cells Ur Renal Epithelial Cell Urine Bacteria 02/04/24 02/04/24 14:49 14:15 WBC 17.30 H RBC 4.29 Hgb 12.4 Hct 38.0 MCV 88.6 MCH 28.9 MCHC 32.6 RDW Std Deviation 47.7 H RDW Coeff of Marcio 14.7 H Plt Count 495 H MPV 10.8 Immature Gran % (Auto) 0.7 Neut % (Auto) 83.2 Lymph % (Auto) 8.6 Hettinger % (Auto) 6.2 Eos % (Auto) 0.8 Baso % (Auto) 0.5 Neut # (Auto) 14.41 H Lymph # (Auto) 1.48 Hettinger # (Auto) 1.07 H Eos # (Auto) 0.14 Baso # (Auto) 0.08 Immature Gran # (Auto) 0.12 Sodium 136 Potassium TNP Chloride 99 Carbon Dioxide 29 Anion Gap 8 BUN 15 Creatinine 0.88 Est Cr Clr Drug Dosing Not Reportable eGFR 65.98 BUN/Creatinine Ratio 17.0 Glucose 122 H Lactate Calcium 9.8 Magnesium 1.5 L Total Bilirubin 0.8 AST TNP ALT 13 Alkaline Phosphatase 109 H Troponin I High Sens 26.5 H B-Natriuretic Peptide 316 H Total Protein 7.6 Albumin 3.7 Globulin 3.9 Albumin/Globulin Ratio 0.9 Urine Color Yellow Urine Appearance Cloudy A Urine pH 6.0 Ur Specific Chama 1.015 Urine Protein Negative Urine Glucose (UA) Negative Urine Ketones Negative Urine Blood Trace-lysed H Urine Nitrite Negative Urine Bilirubin Negative Urine Urobilinogen Negative Ur Leukocyte Esterase 2+ H Urine RBC 0-2 Urine WBC 0-5 Ur Epithelial Cells >20 H Ur Renal Epithelial Cell Present A Urine Bacteria 1+ H Diagnostic Findings Hand X-Ray 02/04/24 15:55 EXAM:Radiographs of the Left Hand Complete 3 Views INDICATION: Pain and redness for about 1 week. Possible injury from pushing on hand due to shoulder immobility. TECHNIQUE: Frontal, lateral and oblique views of the left hand. COMPARISON: No relevant prior studies available. FINDINGS: Bones/joints: There is an acute minimally distracted fracture base of the second metacarpal along the radial side. Here is severe narrowing of the third and fourth distal interphalangeal joints. Mild to moderate narrowing of all other joints noted. Soft tissues: No abnormality noted. No radiopaque foreign body noted. IMPRESSION: 1. Acute minimally distracted fracture base of the second. 2. 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 ACT 112: Negative or not required by law. Electronically signed by Mary Ellen Brock 02-04-2024 4:20 PM Shoulder X-Ray 02/04/24 17:50 EXAM: Radiographs of the Right Shoulder Complete 2 Views INDICATION: Chronic shoulder pain. TECHNIQUE: 2 views of the right shoulder. COMPARISON: No relevant prior studies available. FINDINGS: Bones/joints: There is severe glenohumeral degenerative spurring and narrowing. There is significant loss of the supra humeral space consistent with chronic rotator cuff thinning and/or tear. There is moderate acromioclavicular spurring. No acute fracture. No subluxation or dislocation. Soft tissues: No abnormality noted. No radiopaque foreign body noted. IMPRESSION: Severe degenerative changes. No acute abnormality. ACT 112: Negative or not required by law. Electronically signed by Mary Ellen Brock 02-04-2024 6:19 PM (1) Right shoulder pain Chronicity: unspecified Qualified Code(s): M25.511 - Pain in right shoulder
[2024-02-04] MEDS: METOPROLOL SUCC 50MG EXT REL TAB PO SCH (21:27)
[2024-02-04] MEDS: DICLOFENAC SOD 1% GEL 100 GM TUBE EXT SCH (21:27)
[2024-02-04] MEDS: APIXABAN 2.5 MG TAB PO SCH (21:27)
[2024-02-04] MEDS: ATORVASTATIN 10 MG TAB PO SCH (21:27)
[2024-02-04] MEDS: DOCUSATE SODIUM 100 MG CAP PO SCH (21:28)
[2024-02-04] MEDS: NYSTATIN POWDER 15GM BTL EXT SCH (23:46)
[2024-02-04] MEDS: oxyCODONE HCL IR 5 MG TAB (IMMEDIATE RELEASE) PO PRN (23:53)
[2024-02-05 07:32] LABS: Hematocrit (blood only) 35.6 % (37.0-47.0); Hemoglobin 11.6 g/dl (12.0-16.0); Mean Corpuscular Hemoglobin 28.9 pg (25.0-34.0); Mean Corpuscular Hgb Conc 32.6 g/dL (32.0-36.0); Mean Corpuscular Volume 88.8 fL (80.0-100.0); Mean Platelet Volume 10.8 fL (9.4-12.4); Platelet Count 463 K/uL (130-400); RDW Coefficient of Variation 14.7 % (11.5-14.5); RDW Standard Deviation 47.5 fL (36.4-46.3); Red Blood Count 4.01 M/uL (4.20-5.40); White Blood Count 14.04 K/ul (4.8-10.8)
[2024-02-05 07:47] LABS: BUN Creatinine Ratio 14.6 (10-20); Calcium 9.5 mg/dl (8.6-10.3); Creatinine Clr Calc Pharmacy 57.7 ml/min; Phosphorus 3.8 mg/dl (2.5-4.9); Potassium 3.5 mmol/L (3.5-5.1)
--- NOTE | 2024-02-05 08:35 | Cardiology Consultation ---
Date of Consultation February 05, 2024 Assessment & Plan (1) Leukocytosis: (2) Neck pain: (3) Acute heart failure with preserved ejection fraction: (4) Aortic stenosis: Plan Patient with persistent Leukocytosis since Mid Dec. initially felt to be LE cellulitis treated with antibiotics during that admission. Blood cultures not performed. Repeat admission now with severe right shoulder pain. No signs of septic arthritis per ortho. Concerns for Left hand cellulitis? Started on IV ceftriaxone. This morning, patient with worsening neck pain with movement. Difficulty moving head side to side. 8/10 pain reported by patient. Recommend cervical/thoracic spinal imaging to r/o infectious process. Blood cultures are pending. Echo pending. At this time, source of infection is not clear. Patient reported non compliance of her diuretics at home this week due to difficulty getting out of chair quickly due to shoulder and hand pain. Upon admission, she was mildly hypoxic and chest xray with pulm vascular congestion. Started on IV furosemide in ER. Continue furosemide 40 mg IV today. Add potassium 20 meq this morning. Monitor I+O's. Minimally elevated troponin at 26, likely demand ischemia. No ischemic EKG changes Continue ASA, statin, BB Echo results pending. Continue amlodipine for HTN. History of Mild , per last known echo in [place] (2021). She reports she has yearly echo with Cardiology in [place]. History of PAF -continue metoprolol -currently NSR -Home dose Eliquis is 2.5 mg BID. She previously had findings of CKD stage 4 per review of labs several years ago, and likely was placed on low dose at that time. However, currently her labs would indicate she should be on higher dose Eliquis 5 mg BID given age, normal creatinine, weight. will not increase dose until further imaging is done on patients neck. May need to hold Eliquis. Case discussed with Dr. Lane I spent a total of 60 minutes on the date of service in preparation, delivery, and documentation of the care provided to this patient, excluding any time spent in the performance of separately billed services. Jaz Robison PA-C Department of Cardiology, [facility] This chart was completed in part utilizing Speech Voice Recognition Software. Grammatical errors, random word insertions, pronoun errors, and incomplete sentences are an occasional consequence of this system due to software limitations, ambient noise, and hardware issues. Any formal questions or concerns about the content, text, or information contained within the body of this dictation should be directly addressed to the provider for clarification. Supervising Physician Co-Signing Physician Notes Attending attestation: Case reviewed with the advanced practitioner. I have personally performed a history and physical examination on the patient. I have reviewed the advanced practitioner's documentation on the date of service referenced in note, and I agree with, and take responsibility for the plan of care. Subjective: Patient states that her degree of leg edema is much improved compared to when she had recently been admitted for cellulitis. Right now she is lying supine and in no acute distress. Her only subjective complaint is ongoing shoulder and neck pain. Exam: Cardiovascular regular rhythm, 1/6 systolic murmur, no edema Data: Leukocytosis noted Shoulder x-ray suggestive of arthritis Chest x-ray on presentation with interstitial edema Impression/ Plan: Acute on chronic heart failure with preserved ejection fraction Leukocytosis, possible underlying infection Right shoulder arthritis Neck pain -Continue IV furosemide -Echocardiogram has been requested and will be reviewed -Blood cultures have been obtained -Would have low threshold for considering advanced imaging of the cervical/thoracic spine with MRI or CT given patient's subjective complaints to exclude discitis or epidural abscess. I spent a total of 20 minutes coordinating, documenting, and providing care for this patient excluding time spent in the performance of separately billed services or time spent by another provider. Arnel Lane DO History of Present Illness Reason for Consultation: HFpEF Requesting Physician: Tori Light Attending Physician: Dr. Lane History of Present Illness Patient is a 83 year old female who presented to [facility] with severe right shoulder pain and left hand pain and swelling over the last few days/weeks. She was recently hospitalized in Dec 2023 for LE cellulitis and upper respiratory infection. Treated with antibiotics and discharged on Keflex. WBC was elevated during this admission. Blood cultures not drawn. Over the last few weeks, patient reported worsening shoulder pain. Due to inability to get out of recliner quickly, she stopped her diuretic several days ago. Due to pain, she presented to [facility] yesterday for evaluation. Upon evaluation, she was also found to be mildly hypoxic and pulm vascular congestion on chest xray consistent with HFpEF. Cardiology was consulted She was given several doses of IV lasix yesterday. She reports seeing cardiology 1x per year in [place] (Dr. Campbell). History includes: 1. PAF anticoagulated on Eliquis 2. 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 RA 4. Mild aortic stenosis 5. PVD 6. HTN 7. HLD 8. GERD At time of consult, patient complaining of severe neck pain, inability to move neck side to side due to severe pain. She reports her SOB has improved since admission. No chest pain. Mild edema, but patient reports this has improved from prior evaluation. Allergies Allergy/AdvReac Type Severity Reaction Status Date / Time colchicine AdvReac Intermediate Diarrhea Verified 01/15/24 10:17 Home Medications Medication Instructions Recorded Confirmed Type atorvastatin 10 mg tablet 10 mg PO 3XWK 07/10/18 02/04/24 History metoprolol succinate 50 mg 50 mg PO HS 07/10/18 02/04/24 History tablet,extended release 24 hr pantoprazole 20 mg tablet,delayed 20 mg PO QAM 11/21/18 02/04/24 History release cholecalciferol (vitamin D3) 1,250 1,250 mcg PO WK 10/18/21 02/04/24 History mcg (50,000 unit) capsule amlodipine 10 mg tablet 10 mg PO DAILYBL 01/15/24 02/04/24 History apixaban 2.5 mg tablet (Eliquis) 2.5 mg PO BID 01/15/24 02/04/24 History aspirin 81 mg tablet,delayed 81 mg PO QAM 01/15/24 02/04/24 History release furosemide 40 mg tablet 40 mg PO QAM 01/15/24 02/04/24 History diclofenac sodium 1 % topical gel 2 g EXT QID #100 grams 01/16/24 02/04/24 Rx (Voltaren Arthritis Pain) tramadol 50 mg tablet 50 mg PO TID PRN Severe Pain 02/04/24 02/04/24 History (Scale Score 7-10) Patient History Medical History (Updated 02/05/24 @ 09:45 by Jaz Robison PA-C) Rotator cuff arthropathy Sciatica Can radiate down right or left side Hyperlipidemia Knee pain, right Right knee DJD Surgical History (Updated 02/05/24 @ 00:28 by SONAL Chang) History of arthroplasty of left shoulder History of cataract surgery R/L History of anesthesia reaction SLOW TO WAKE UP-HAD TIA DURING SURGERY AND POST OP-[facility]-AGE 66 History of esophagogastroduodenoscopy (EGD) History of colonoscopy S/P bilateral breast reduction AGE 66 YRS Family History Father Family history of diabetes mellitus Mother Family hx of colon cancer Social History Smoking Status: Never smoker Second Hand Exposure: No; Do You Dip or Chew Tobacco: No; Hx Alcohol Use: No Hx Substance Use: No Preferred Language: Ukrainian Communication Ability: Effective Manifest Clerk Required: No Beliefs That Will Affect Care: None marital status: Current Living Situation: Spouse How many Children do You have: 2 Feels Safe at Home: Yes Assistive Devices: Walker Review of Systems Review of Systems: All systems reviewed & are unremarkable except as noted in HPI & below Physical Exam Constitutional: + acute distress (neck pain) Neck: + thick neck Respiratory: no respiratory distress Auscultation: + diminished lung sounds and + rales (faint bibasilar rales) Cardiovascular: Rate/Rhythm: regular rate and regular rhythm Heart Sounds: + murmur (II/ systolic murmur LSB) Extremities: + edema (1+ edema b/l) Gastrointestinal (Abdomen): normal bowel sounds, soft, nontender, no hepa tosplenomegaly Skin: no rashes, warm and dry Neurologic: PERRL, EOMI, accommodation nl, no face palsy, no dysarthria Results & Data Vital Signs (Past 12 Hours) Vital Signs Temp Pulse Pulse Resp BP Pulse Ox O2 Del Method 02/05/24 08:18 64 02/05/24 08:00 36.8 C 59 L 20 138/67 97 Nasal Cannula 02/05/24 02:51 36.9 C 66 16 148/78 H 96 Nasal Cannula 02/04/24 22:43 36.7 C 72 14 151/80 H 98 Nasal Cannula 02/04/24 21:35 77 02/04/24 21:23 36.8 C 75 20 156/81 H 95 Nasal Cannula 02/04/24 20:30 Nasal Cannula O2 Flow Rate 02/05/24 08:18 02/05/24 08:00 02/05/24 02:51 02/04/24 22:43 2 02/04/24 21:35 02/04/24 21:23 2 02/04/24 20:30 2 Laboratory Results Cardiac Enzymes 02/04/24 02/04/24 02/04/24 Range/Units 14:15 15:23 19:47 AST TNP 18 Troponin I High Sens 26.5 H 26.7 H (0-14) pg/ml B-Natriuretic Peptide 316 H (0-100) pg/ml Coagulation 02/04/24 Range/Units 14:15 B-Natriuretic Peptide 316 H (0-100) pg/ml CBC 02/04/24 02/05/24 Range/Units 14:15 06:54 WBC 17.30 H 14.04 H (4.8-10.8) K/ul RBC 4.29 4.01 L (4.20-5.40) M/uL Hgb 12.4 11.6 L (12.0-16.0) g/dl Hct 38.0 35.6 L (37.0-47.0) % Plt Count 495 H 463 H (130-400) K/uL Neut # (Auto) 14.41 H (1.40-6.50) K/uL Lymph # (Auto) 1.48 (1.20-3.40) K/uL Stokes # (Auto) 1.07 H (0.11-0.59) K/uL Eos # (Auto) 0.14 (0.00-0.50) K/uL Baso # (Auto) 0.08 (0.00-0.20) K/uL Comprehensive Metabolic Panel 02/04/24 02/04/24 02/05/24 Range/Units 14:15 15:23 06:54 Sodium 136 136 (136-145) mmol/L Potassium TNP 4.2 3.5 Chloride 99 95 L (98-107) mmol/L Carbon Dioxide 29 32 (21-32) mmol/L BUN 15 13 (6-23) mg/dl Creatinine 0.88 0.89 (0.6-1.2) mg/dl Glucose 122 H 116 H (70-99(Fasting)) mg/dl Calcium 9.8 9.5 (8.6-10.3) mg/dl AST TNP 18 ALT 13 (7-52) U/L Alkaline Phosphatase 109 H (34-104) U/L Total Protein 7.6 (6.0-8.3) gm/dl Albumin 3.7 (3.4-5.0) gm/dl Intake and Output 02/04/24 02/05/24 02/05/24 22:59 06:59 14:59 Intake Total 550 / 750 200 / 750 Output Total 200 / 600 400 / 600 Balance 350 / 150 -200 / 150 Intake: IV 150 / 350 200 / 350 Magnesium Sulfate / D5w 1 gm In 100 / 300 200 / 300 100 ml @ 50 mls/hr IV Q2H [facility] Rx#:[id number] cefTRIAXone SODIUM 2,000 mg In 50 / 50 50 ml @ 100 mls/hr IV NOW STA Rx#:[id number] Oral 400 / 400 Output: Urine Amount (Catheter) 200 / 600 400 / 600 External 200 / 600 400 / 600 Other: Other Intake Source water Weight 105.885 kg 105.7 kg Weight Measurement Method Built in [facility] Built in [facility] Diagnostic Findings Telemetry reviewed:NSR in the 60-70's. No arrhythmias. No atrial fibrillation Chest xray: IMPRESSION: 1. Cardiomegaly with mild interstitial pulmonary edema. 2. Trace pleural effusions. EKG reviewed from 02/05/24: NSR, moderate criteria for LVH No change from previous EKG reviewed from 02/04/24: NSR LVH with possible repolarization No change from previous Echo report pending Chest X-Ray 02/04/24 13:57 XR chest 1V portable HISTORY: 83 years-old Female fluid build up acute shortness of breath COMPARISON: 01/15/2024 TECHNIQUE: AP view the chest FINDINGS: Cardiac silhouette is enlarged. Pulmonary vascular congestion with interstitial coarsening. No pneumothorax. Trace pleural effusions with bibasilar densities. Reverse left shoulder arthroplasty. Degenerative changes of the spine and right shoulder. IMPRESSION: 1. Cardiomegaly with mild interstitial pulmonary edema. 2. Trace pleural effusions. Echo reviewed from September 2021: Small loculated anterior pericardial effusion without hemodynamic significance Normal LVEF at 65%. No wall motion abnormalities Grade I diastolic dysfunction. Moderately calcified, trileaflet aortic valve with mild stenosis. No aortic regurgitation Medications Administered Current Inpatient Medications Acetaminophen (Acetaminophen 325 Mg Tab) 650 mg PO Q4H PRN PRN Reason: Pain or Fever Stop: 03/05/24 17:19 Al Hydrox/Mg Hydrox/Simethicone (Aluminum/Magnesium Susp 30 Ml Udc) 15 ml PO Q4H PRN PRN Reason: Dyspepsia Stop: 03/05/24 17:19 Amlodipine Besylate ([facility] 5 Mg Tab) [facility] Stop: 03/06/24 10:29 Apixaban (Apixaban 2.5 Mg Tab) 2.5 mg PO BID [facility] Stop: 03/05/24 20:59 Last Admin: 02/04/24 21:27 Dose: 2.5 mg Aspirin (Aspirin 81 Mg Ectab) [facility]: 03/06/24 08:59 Atorvastatin Calcium (Atorvastatin 10 Mg Tab) 10 mg PO MoWeFr@0900 [facility] Stop: 03/05/24 20:59 Last Admin: 02/04/24 21:27 Dose: 10 mg Diclofenac Sodium (Diclofenac Sod 1% Gel 100 Gm Tube) 2 gm EXT QID [facility] Stop: 03/05/24 20:59 Last Admin: 02/04/24 21:27 Dose: 2 gm Docusate Sodium (Docusate Sodium 100 Mg Cap) 100 mg PO BID [facility] Stop: 03/05/24 20:59 Last Admin: 02/04/24 21:28 Dose: Not Given Ergocalciferol (Ergocalciferol 1250 Mcg (50,000 Units) Cap) 1,250 mcg PO Fr@0900 [facility] Stop: 03/09/24 08:59 Furosemide (Furosemide 40 Mg/4 Ml Vial) [facility] Stop: 03/06/24 08:59 Hydromorphone HCl (Hydromorphone Inj 0.5 Mg/0.5 Ml Syr) 0.5 mg IV Q6H PRN PRN Reason: Severe Pain (Scale 7, 8, 9,10) Stop: 02/18/24 17:13 Last Admin: 02/05/24 04:49 Dose: 0.5 mg Ceftriaxone Sodium (Rocephin) 2,000 mg in 50 mls @ 100 mls/hr IV Q24H [facility]; Protocol Stop: 02/10/24 17:29 Labetalol HCl (Labetalol Hcl Iv 5 Mg/Ml 20ml) 10 mg IV Q6H PRN PRN Reason: Hypertension Stop: 03/05/24 18:25 Lactobacillus Acidophilus (Advanced Probiotic 625 Mg Capsule) 1,250 mg PO DAILY [facility] Stop: 03/06/24 08:59 Magnesium Hydroxide (Magnesium Hydroxide Susp 30 Ml Udc) 30 ml PO Q12H PRN PRN Reason: Constipation Stop: 03/05/24 17:19 Metoprolol Succinate (Metoprolol Succ 50mg Ext Rel Tab) 50 mg PO HS [facility] Stop: 03/05/24 20:59 Last Admin: 02/04/24 21:27 Dose: 50 mg Nystatin (Nystatin Powder 15gm Btl) 1 appln EXT BID [facility] Stop: 03/05/24 22:44 Last Admin: 02/04/24 23:46 Dose: 1 appln Oxycodone HCl (Oxycodone Hcl Ir 5 Mg Tab (Immediate Release)) 5 mg PO Q6H PRN PRN Reason: Moderate Pain (Scale 4, 5, 6) Stop: 02/18/24 17:13 Last Admin: 02/04/24 23:53 Dose: 5 mg Pantoprazole Sodium (Pantoprazole 40 Mg Tab) 40 mg PO QAM [facility] Stop: 03/06/24 08:59 Polyethylene Glycol (Polyethylene (Miralax) 17 Gm Pack) 17 gm PO DAILY PRN PRN Reason: Constipation Stop: 03/05/24 17:19 (1) Leukocytosis Leukocytosis type: unspecified Qualified Code(s): D72.829 - Elevated white blood cell count, unspecified (4) Aortic stenosis Cardiac valve disease etiology: nonrheumatic Qualified Code(s): I35.0 - Nonrheumatic aortic (valve) stenosis
[2024-02-05] MEDS: ASPIRIN 81 MG ECTAB PO SCH (09:27)
[2024-02-05] MEDS: FUROSEMIDE 40 MG/4 ML VIAL IV SCH (09:31)
[2024-02-05] MEDS: amLODIPine BESYLATE 5 MG TAB PO SCH (09:31)
[2024-02-05] MEDS: ADVANCED PROBIOTIC 625 MG CAPSULE PO SCH (09:31)
[2024-02-05] MEDS: PANTOprazole 40 MG TAB PO SCH (09:31)
--- NOTE | 2024-02-05 10:02 | Hospitalist Progress Note ---
Date of Service February 05, 2024 Assessment & Plan (1) Cellulitis of left hand: Plan Persistent/severe right shoulder pain Severe shoulder osteoarthritis Patient presents with right shoulder pain going on for several months; received cortisone injection at the orthopedic. Next injection in February. Shoulder x-ray shows severe degenerative changes Evaluated by orthopedic; possible steroid injection While inpatient. Reached out to Dr. Samano; Cellulitis of left hand- ruled out Suspected fracture of second metatarsal on lef hand, rule out Patient reports pain, warmth and redness of left hand starting on a day prior to admission. X-ray on admission was concerning for fracture Of second metatarsal; evaluated by orthopedic. No definitive fracture noted. No cellulitis noted on examination Acute UTI- Urine culture growing Enterobacter faecalis; awaiting sensitivity. Antibiotics changed to amoxicillin. might need changed on antiboitics depending on sensitivity. blood culture pending. 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 Patient was saturating in upper 80s at presentation, needing 2 to 3 L oxygen at bedside exam. CXR with congestion, 2+ pitting edema on exam. BNP elevated. Last echo from September 2021 with EF of 65 to 70%, grade 1 diastolic dysfunction. Continue IV Lasix 40 mg daily, monitor replete electrolytes, Monitor I's and O's. Fluid restriction of 1800 mL a day Cardiology on board; recommended to continue iv lasix for now. PAF: Continue home Eliquis. Other chronic medical conditions: History of stroke, CAD, GERD ---- continue with/resume home meds as and when able. DVT prophylaxis: Patient on Eliquis Full code PT/OT ordered Please note the above document was generated using voice recognition software. It may contain grammatical, syntax or spelling errors. Any formal questions or concerns about the content, text or information contained within the body of this dictation should be directly addressed to the provider for clarification Admission and Anticipated Discharge Date Admission Date: February 04, 2024 Subjective Patient seen and examined at bedside. She is alert oriented x 3; not in distress. Reports pain is much more controlled Review of Systems Review of Systems: All systems reviewed & are unremarkable except as noted in Subjective Physical Exam Physical Exam: GENERAL: Alert and oriented x3. NAD, on 2L NC O2. HEENT: No pallor, no icterus. Pupils equal, round and reactive to light. Oral mucosa moist. NECK: No JVD, no neck masses. HEART: S1 and S2 heard. Regular rate and rhythm. + murmur, no gallop. RESPIRATORY SYSTEM: Normal AP diameter. No accessory muscle use. No wheezing, bb crackles. ABDOMEN: Soft, bowel sounds present, nontender, no distention. CENTRAL NERVOUS SYSTEM: No facial droop. Speech is clear. Obeys simple commands. Moves extremities. EXTREMITIES: 3+ ble pitting edema, no erythema seen. Left hand warm/red w/ tender base of 2nd metacarpal. Rt shoulder extremely painful rom. Results & Data Results & Data Vital Signs (Past 12 Hours) Vital Signs Temp Pulse Pulse Resp BP Pulse Ox O2 Del Method 02/05/24 08:18 64 02/05/24 08:00 36.8 C 59 L 20 138/67 97 Nasal Cannula 02/05/24 02:51 36.9 C 66 16 148/78 H 96 Nasal Cannula 02/04/24 22:43 36.7 C 72 14 151/80 H 98 Nasal Cannula O2 Flow Rate 02/05/24 08:18 02/05/24 08:00 02/05/24 02:51 02/04/24 22:43 2
--- NOTE | 2024-02-05 10:24 | Orthopedic Progress Note ---
Date of Service February 05, 2024 Assessment & Plan (1) Right shoulder pain: Plan: Patient states that she usually sees Dr. Samano for her shoulder issues and has not scheduled to have a corticosteroid injection until February. Continue pain medication per primary service.She states that the oxycodone that they give her does alleviate her pain I did give her a one-time dose of Flexeril for the trapezius spasm PT/OT (2) Cellulitis of left hand: Plan: Previously documented cellulitis in the patient's left hand has resolved completely. DVT prophylaxis per primary service IV antibiotics as needed per medicine service Appreciate cardiology consultation Admission and Anticipated Discharge Date Admission Date: February 04, 2024 Subjective This 83-year-old female seen today for follow-up of right shoulder pain and left hand cellulitis. She states that the pain in her shoulder is much better today and she is able to actively move her right upper extremity. She states that the cellulitis in her hand is also improving. She states that her biggest issue today is severe neck pain worse in the right side of her neck posteriorly. She states the pain is exacerbated with rotation of her head. She states she also has the pain on the left side but it is not near as bad as the right. Patient is currently on oxygen via nasal cannula. She denies chest pain, fever, chills, sweats, numbness or tingling in her upper extremities. She also states that the swelling in her lower extremities has improved as well. She attributes this to being given Lasix. Review of Systems Review of Systems: All systems reviewed & are unremarkable except as noted in Subjective Physical Exam Physical Exam: Right shoulder: Patient has tenderness to palpation over the glenohumeral groove. She tolerates light passive forward flexion to 70 degrees. She is able to reach terminal flexion extension at her elbow. She has full range of motion of her wrist and appropriate dexterity of her fingers. She is neurovascularly intact. There is no visible edema, erythema or ecchymosis. I did not attempt abduction. Left hand: There is no visible edema erythema ecchymosis or palpable warmth. Patient is able to fully flex and extend her wrist, ulnarly and radially deviate pronate and supinate with only mild discomfort near her CMC joint of her thumb. She is able to detect light sensation to touch over the pads of all digits. She is neurovascularly intact. Neck: Patient experiences referred pain to the superior trapezius with rotation of her head to the left. She also has some mild pain with rotation to the right. There is palpable spasm of the right superior trapezius however none is evident in the left trapezius. Results & Data Vital Signs (Past 12 Hours) Vital Signs Temp Pulse Pulse Resp BP Pulse Ox O2 Del Method 02/05/24 08:18 64 02/05/24 08:00 36.8 C 59 L 20 138/67 97 Nasal Cannula 02/05/24 02:51 36.9 C 66 16 148/78 H 96 Nasal Cannula 02/04/24 22:43 36.7 C 72 14 151/80 H 98 Nasal Cannula O2 Flow Rate 02/05/24 08:18 02/05/24 08:00 02/05/24 02:51 02/04/24 22:43 2 Diagnostic Findings Laboratory Results WBC 14.04 K/ul (4.8-10.8) H 02/05/24 06:54 RBC 4.01 M/uL (4.20-5.40) L 02/05/24 06:54 Hgb 11.6 g/dl (12.0-16.0) L 02/05/24 06:54 Hct 35.6 % (37.0-47.0) L 02/05/24 06:54 MCV 88.8 fL (80.0-100.0) 02/05/24 06:54 MCH 28.9 pg (25.0-34.0) 02/05/24 06:54 MCHC 32.6 g/dL (32.0-36.0) 02/05/24 06:54 RDW Std Deviation 47.5 fL (36.4-46.3) H 02/05/24 06:54 RDW Coeff of Marcio 14.7 % (11.5-14.5) H 02/05/24 06:54 Plt Count 463 K/uL (130-400) H 02/05/24 06:54 MPV 10.8 fL (9.4-12.4) 02/05/24 06:54 Immature Gran % (Auto) 0.7 % 02/04/24 14:15 Neut % (Auto) 83.2 % 02/04/24 14:15 Lymph % (Auto) 8.6 % 02/04/24 14:15 [place] % (Auto) 6.2 % 02/04/24 14:15 Eos % (Auto) 0.8 % 02/04/24 14:15 Baso % (Auto) 0.5 % 02/04/24 14:15 Neut # (Auto) 14.41 K/uL (1.40-6.50) H 02/04/24 14:15 Lymph # (Auto) 1.48 K/uL (1.20-3.40) 02/04/24 14:15 [place] # (Auto) 1.07 K/uL (0.11-0.59) H 02/04/24 14:15 Eos # (Auto) 0.14 K/uL (0.00-0.50) 02/04/24 14:15 Baso # (Auto) 0.08 K/uL (0.00-0.20) 02/04/24 14:15 Immature Gran # (Auto) 0.12 K/uL (0.01-0.20) 02/04/24 14:15 Sodium 136 mmol/L (136-145) 02/05/24 06:54 Potassium 3.5 mmol/L (3.5-5.1) 02/05/24 06:54 Chloride 95 mmol/L (98-107) L 02/05/24 06:54 Carbon Dioxide 32 mmol/L (21-32) 02/05/24 06:54 Anion Gap 9 (3-11) 02/05/24 06:54 BUN 13 mg/dl (6-23) 02/05/24 06:54 Creatinine 0.89 mg/dl (0.6-1.2) 02/05/24 06:54 Est Cr Clr Drug Dosing 57.7 ml/min 02/05/24 06:54 eGFR 65.09 02/05/24 06:54 BUN/Creatinine Ratio 14.6 (10-20) 02/05/24 06:54 Glucose 116 mg/dl (70-99(Fasting)) H 02/05/24 06:54 Lactate 1.3 mmol/L (0.4-2.0) 02/04/24 16:18 Calcium 9.5 mg/dl (8.6-10.3) 02/05/24 06:54 Phosphorus 3.8 mg/dl (2.5-4.9) 02/05/24 06:54 Magnesium 2.0 mg/dl (1.7-2.4) 02/05/24 06:54 Total Bilirubin 0.8 mg/dl (0.2-1.0) 02/04/24 14:15 AST 18 U/L (13-39) 02/04/24 15:23 ALT 13 U/L (7-52) 02/04/24 14:15 Alkaline Phosphatase 109 U/L (34-104) H 02/04/24 14:15 Troponin I High Sens 26.7 pg/ml (0-14) H 02/04/24 19:47 B-Natriuretic Peptide 316 pg/ml (0-100) H 02/04/24 14:15 Total Protein 7.6 gm/dl (6.0-8.3) 02/04/24 14:15 Albumin 3.7 gm/dl (3.4-5.0) 02/04/24 14:15 Globulin 3.9 gm/dl (2.5-4.0) 02/04/24 14:15 Albumin/Globulin Ratio 0.9 (0.9-2) 02/04/24 14:15 Urine Color Yellow 02/04/24 14:49 Urine Appearance Cloudy (Clear) A 02/04/24 14:49 Urine pH 6.0 (4.5-7.5) 02/04/24 14:49 Ur Specific [place] 1.015 (1.000-1.030) 02/04/24 14:49 Urine Protein Negative (Negative) 02/04/24 14:49 Urine Glucose (UA) Negative (Negative) 02/04/24 14:49 Urine Ketones Negative (Negative) 02/04/24 14:49 Urine Blood Trace-lysed (Negative) H 02/04/24 14:49 Urine Nitrite Negative (Negative) 02/04/24 14:49 Urine Bilirubin Negative (Negative) 02/04/24 14:49 Urine Urobilinogen Negative (Negative) 02/04/24 14:49 Ur Leukocyte Esterase 2+ (Negative) H 02/04/24 14:49 Urine RBC 0-2 /hpf (0-2) 02/04/24 14:49 Urine WBC 0-5 /hpf (0-5) 02/04/24 14:49 Ur Epithelial Cells >20 /hpf (0-2) H 02/04/24 14:49 Ur Renal Epithelial Cell Present /lpf (None Presnt) A 02/04/24 14:49 Urine Bacteria 1+ (None Seen) H 02/04/24 14:49 Impressions Chest X-Ray 02/04/24 13:57 XR chest 1V portable HISTORY: 83 years-old Female fluid build up acute shortness of breath COMPARISON: 01/15/2024 TECHNIQUE: AP view the chest FINDINGS: Cardiac silhouette is enlarged. Pulmonary vascular congestion with interstitial coarsening. No pneumothorax. Trace pleural effusions with bibasilar densities. Reverse left shoulder arthroplasty. Degenerative changes of the spine and right shoulder. IMPRESSION: 1. Cardiomegaly with mild interstitial pulmonary edema. 2. Trace pleural effusions. ACT 112: Negative or not required by law. The above report was generated using voice recognition software. It may contain grammatical, syntax or spelling errors. Electronically signed by: Eros Flores M.D. 02/04/2024 3:02 PM Hand X-Ray 02/04/24 15:55 EXAM:Radiographs of the Left Hand Complete 3 Views INDICATION: Pain and redness for about 1 week. Possible injury from pushing on hand due to shoulder immobility. TECHNIQUE: Frontal, lateral and oblique views of the left hand. COMPARISON: No relevant prior studies available. FINDINGS: Bones/joints: There is an acute minimally distracted fracture base of the second metacarpal along the radial side. Here is severe narrowing of the third and fourth distal interphalangeal joints. Mild to moderate narrowing of all other joints noted. Soft tissues: No abnormality noted. No radiopaque foreign body noted. IMPRESSION: 1. Acute minimally distracted fracture base of the second. 2. 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 ACT 112: Negative or not required by law. Electronically signed by Mary Ellen Brock 02-04-2024 4:20 PM Shoulder X-Ray 02/04/24 17:50 EXAM: Radiographs of the Right Shoulder Complete 2 Views INDICATION: Chronic shoulder pain. TECHNIQUE: 2 views of the right shoulder. COMPARISON: No relevant prior studies available. FINDINGS: Bones/joints: There is severe glenohumeral degenerative spurring and narrowing. There is significant loss of the supra humeral space consistent with chronic rotator cuff thinning and/or tear. There is moderate acromioclavicular spurring. No acute fracture. No subluxation or dislocation. Soft tissues: No abnormality noted. No radiopaque foreign body noted. IMPRESSION: Severe degenerative changes. No acute abnormality. ACT 112: Negative or not required by law. Electronically signed by Mary Ellen Brock 02-04-2024 6:19 PM (1) Right shoulder pain Chronicity: unspecified Qualified Code(s): M25.511 - Pain in right shoulder
[2024-02-05] MEDS: CYCLOBENZAPRINE HCL 10 MG TAB PO ONE (10:54)
--- NOTE | 2024-02-05 13:40 | Electrocardiogram Report ---
Test Reason : Blood Pressure : */* mmHG Vent. Rate : 66 BPM Atrial Rate : 66 BPM P-R Int : 158 ms QRS Dur : 98 ms QT Int : 434 ms P-R-T Axes : 49 -19 51 degrees QTcB Int : 454 ms Normal sinus rhythm Left ventricular hypertrophy with repolarization abnormality Poor R wave progression, consider anterior WI vs. lead placement vs. LVH Borderline ECG When compared with ECG of 04-Feb-2024 16:13, No significant change was found Confirmed by Deni Viera ([id number]) on 02/05/2024 1:39:49 PM Referred By: REFERRED SELF Confirmed By: Deni Viera
[2024-02-05] MEDS: POTASSIUM CHLORIDE CRTAB 20 MEQ TABCR PO ONE (13:50)
[2024-02-05] MEDS: AMOXICILLIN/CLAVULANATE 875 MG TAB PO SCH (16:57)
[2024-02-05] MEDS ORDERED: cefTRIAXone SODIUM 2,000 MG/50 ML BAG IV SCH (17:00)
[2024-02-06] MEDS: ACETAMINOPHEN 325 MG TAB PO PRN (06:21)
[2024-02-06 07:12] LABS: Basophils # (auto) 0.06 K/uL (0.00-0.20); Basophils % (auto) 0.4 %; Eosinophils # (auto) 0.23 K/uL (0.00-0.50); Eosinophils % (auto) 1.5 %; Hemoglobin 11.3 g/dl (12.0-16.0); Immature Granulocytes % (auto) 0.7 %; Lymphocytes # (auto) 1.25 K/uL (1.20-3.40); Lymphocytes % (auto) 8.4 %; Mean Corpuscular Hemoglobin 28.7 pg (25.0-34.0); Mean Corpuscular Hgb Conc 32.3 g/dL (32.0-36.0); Mean Corpuscular Volume 88.8 fL (80.0-100.0); Mean Platelet Volume 10.7 fL (9.4-12.4); Monocytes # (auto) 1.22 K/uL (0.11-0.59); Monocytes % (auto) 8.2 %; Neutrophils # (auto) 12.08 K/uL (1.40-6.50); Neutrophils % (auto) 80.8 %; Platelet Count 470 K/uL (130-400); RDW Coefficient of Variation 14.6 % (11.5-14.5); Red Blood Count 3.94 M/uL (4.20-5.40); White Blood Count 14.94 K/ul (4.8-10.8)
[2024-02-06 07:35] LABS: BUN Creatinine Ratio 17.2 (10-20); Calcium 9.4 mg/dl (8.6-10.3); Creatinine Clr Calc Pharmacy 55.5 ml/min; Potassium 3.9 mmol/L (3.5-5.1)
--- NOTE | 2024-02-06 08:21 | Electrocardiogram Report ---
Test Reason : Blood Pressure : */* mmHG Vent. Rate : 70 BPM Atrial Rate : 70 BPM P-R Int : 156 ms QRS Dur : 90 ms QT Int : 408 ms P-R-T Axes : 39 -16 50 degrees QTcB Int : 440 ms Normal sinus rhythm Left ventricular hypertrophy with repolarization abnormality Abnormal ECG When compared with ECG of 05-Feb-2024 05:59, No significant change was found Confirmed by Deni Viera ([id number]) on 02/06/2024 8:21:19 AM Referred By: REFERRED SELF Confirmed By: Deni Viera
--- NOTE | 2024-02-06 09:33 | Orthopedic Progress Note ---
Date of Service February 06, 2024 Assessment & Plan (1) Right shoulder pain: Plan: Patient complaining of more right sided neck pain then shoulder pain at this point. She has been sleeping in a recliner for the past few weeks and may have exacerbated her cervical musculature as she is very tender in the right cervical musculature extending into the trapezius musculature. Will order a lidocaine patch for this. Patient will be offered a corticosteroid injection. Continue pain medication per primary service. PT/OT. (2) Cellulitis of left hand: Plan: White blood cell count improving and redness and swelling has also improved. If this is cellulitisit is improving rapidly with antibiotics. Patient could also have had a flare of CMC arthritis given repetitive pushing off her recliner as she had complained of pain in the right hand in the same distribution. Discussed with Dr. Wu. Still no convincing evidence of second metacarpal fracture. Do not need to obtain CT scan. Continue antibiotics per primary service. Range of motion as tolerated. Elevate extremity. Admission and Anticipated Discharge Date Admission Date: February 04, 2024 Subjective Patient seen sitting upright in bed today. She is still having some pain in the right side of her neck radiating toward her shoulder. States that the Flexeril she was given yesterday knocked her out and she was able to sleep but the pain is still present. It feels tight when she turns her head from [id number]. The right shoulder pain is moderate, improved from when she initially presented to the emergency department. Her left hand swelling and redness has improved and she is having minimal discomfort in the palm at the base of her thumb. She denies any new numbness or tingling in her fingers. No fevers or chills. No vision changes. Patient thinks her neck may be bothering her because she has been sleeping upright in a recliner the past 3 weeks. Physical Exam Physical Exam: Resting comfortably no distress sitting upright in bed. Pleasant. Neck: No swelling, warmth, or redness appreciated. Decreased range of motion with head rotation to the left and right. There is reproducible tenderness in the right cervical musculature extending down into the trapezius musculature. Cardiovascular: Radial pulses 2+ bilaterally Musculoskeletal: Right upper extremity: Shoulder with no swelling or warmth. Range of motion limited by pain in all directions. Minimal crepitus noted within the joint. Elbow, wrist, fingers with full range of motion. Left upper extremity: Minimal swelling noted to the thenar eminence trace erythema in this region and very minimal tenderness in this area. Very minimal tenderness over the second metacarpal. Able to make a full fist without eliciting any pain. Wrist with full range of motion with flexion and extension, no tenderness in the wrist. Skin: Pain, warm, dry Neurologic: No sensory deficits in bilateral fingers to light touch Results & Data Vital Signs (Past 12 Hours) Vital Signs Temp Pulse Pulse Resp BP Pulse Ox O2 Del Method 02/06/24 07:38 97.5 F L 66 18 137/61 95 Nasal Cannula 02/06/24 07:31 73 02/06/24 03:55 98.1 F 67 20 110/63 96 Nasal Cannula 02/05/24 23:08 98.2 F 63 18 114/72 96 Nasal Cannula 02/05/24 22:04 65 O2 Flow Rate 02/06/24 07:38 2 02/06/24 07:31 02/06/24 03:55 2 02/05/24 23:08 2 02/05/24 22:04 Laboratory Results 02/04/24 14:49 Urine Culture - Final Urine,Clean Catch More than three types of organisms present, all high counts. Repeat collection recommended. No further identifications or sensitivities to follow. 02/04/24 16:18 Aerobic Blood Culture - Preliminary Blood No growth in Aerobic bottle after 24 hours. Anaerobic Blood Culture - Final 02/04/24 16:18 Aerobic Blood Culture - Preliminary Blood No growth in Aerobic bottle after 24 hours. Anaerobic Blood Culture - Final 02/06/24 02/05/24 06:41 20:33 WBC 14.94 H RBC 3.94 L Hgb 11.3 L Hct 35.0 L MCV 88.8 MCH 28.7 MCHC 32.3 RDW Std Deviation 47.0 H RDW Coeff of Marcio 14.6 H Plt Count 470 H MPV 10.7 Immature Gran % (Auto) 0.7 Neut % (Auto) 80.8 Lymph % (Auto) 8.4 [place] % (Auto) 8.2 Eos % (Auto) 1.5 Baso % (Auto) 0.4 Neut # (Auto) 12.08 H Lymph # (Auto) 1.25 [place] # (Auto) 1.22 H Eos # (Auto) 0.23 Baso # (Auto) 0.06 Immature Gran # (Auto) 0.10 Sodium 135 L Potassium 3.9 Chloride 95 L Carbon Dioxide 33 H Anion Gap 7 BUN 16 Creatinine 0.93 Est Cr Clr Drug Dosing 55.5 eGFR 61.75 BUN/Creatinine Ratio 17.2 Glucose 106 H POC Glucose 151 H Calcium 9.4 (1) Right shoulder pain Chronicity: unspecified Qualified Code(s): M25.511 - Pain in right shoulder
--- NOTE | 2024-02-06 10:04 | Cardiology Progress Note ---
Date of Service February 06, 2024 Assessment & Plan (1) Leukocytosis: (2) Neck pain: (3) Acute heart failure with preserved ejection fraction: (4) Aortic stenosis: Plan 02/05/24 Patient with persistent Leukocytosis since Mid Dec. initially felt to be LE cellulitis treated with antibiotics during that admission. Blood cultures not performed. Repeat admission now with severe right shoulder pain. No signs of septic arthritis per ortho. Concerns for Left hand cellulitis? Started on IV ceftriaxone. This morning, patient with worsening neck pain with movement. Difficulty moving head side to side. 8/10 pain reported by patient. Recommend cervical/thoracic spinal imaging to r/o infectious process. Blood cultures are pending. Echo pending. At this time, source of infection is not clear. Patient reported non compliance of her diuretics at home this week due to diffic ulty getting out of chair quickly due to shoulder and hand pain. Upon admission, she was mildly hypoxic and chest xray with pulm vascular congestion. Started on IV furosemide in ER. Continue furosemide 40 mg IV today. Add potassium 20 meq this morning. Monitor I+O's. Minimally elevated troponin at 26, likely demand ischemia. No ischemic EKG changes Continue ASA, statin, BB Echo results pending. Continue amlodipine for HTN. History of Mild , per last known echo in [place] records (2021). She reports she has yearly echo with Cardiology in [place]. History of PAF -continue metoprolol -currently NSR -Home dose Eliquis is 2.5 mg BID. She previously had findings of CKD stage 4 per review of labs several years ago, and likely was placed on low dose at that time. However, currently her labs would indicate she should be on higher dose Eliquis 5 mg BID given age, normal creatinine, weight. will not increase dose until further imaging is done on patients neck. May need to hold Eliquis. 02/06/24: Respiratory status improving. Wean supplemental O2 as tolerated. Continue furosemide 40 mg IV yet today. Monitor I+O's. Echo with preserved EF, moderate . Anticipate transitioning to oral furosemide in the next 1-2 days Persistent Leukocytosis. Urine culture + Continue antibiotics. Blood cultures negative x2 (prelim) Patient with persistent neck pain and chronic shoulder pain. neck pain is new in the last 48 hours. Limited range of motion. Would still consider advanced imaging to r/o infectious process/discitis. Continue all other oral/home medications including Eliquis, statin, ASA, BB, amlodipine. Would consider increasing Eliquis dose to 5 mg BID based on age/weight/renal function. Uncertain why she is on lower dose, possibly due to prior issues with renal insufficiency. Prescribed by outside PCP/Cardiology in [place]. Case discussed with Dr. Lane I spent a total of 30 minutes on the date of service in preparation, delivery, and documentation of the care provided to this patient, excluding any time spent in the performance of separately billed services. Jaz Robison PA-C Department of Cardiology, [facility] This chart was completed in part utilizing Speech Voice Recognition Software. Grammatical errors, random word insertions, pronoun errors, and incomplete sentences are an occasional consequence of this system due to software limitations, ambient noise, and hardware issues. Any formal questions or concerns about the content, text, or information contained within the body of this dictation should be directly addressed to the provider for clarification. Admission and Anticipated Discharge Date Admission Date: February 04, 2024 Supervising Physician Co-Signing Physician Notes Attending attestation: Case reviewed with the advanced practitioner. I have personally performed a history and physical examination on the patient. I have reviewed the advanced practitioner's documentation on the date of service referenced in note, and I agree with, and take responsibility for the plan of care. Volume status stable. Continue IV furosemide 40 mg IV daily. Lidocaine patch in place. Patient states R shoulder and neck feel a little better now that she is sitting upright in the bedside chair. I spent a total of 20 minutes coordinating, documenting, and providing care for this patient excluding time spent in the performance of separately billed services or time spent by another provider. Arnel Lane, DO Subjective Patient sitting at edge of bed today. Reports her breathing is "pretty good". Ongoing neck pain reported. Limited range of motion. Ongoing shoulder pain. No chest pain. No fevers or chills. Being treated for UTI. Review of Systems Review of Systems: All systems reviewed & are unremarkable except as noted in HPI & below Physical Exam Constitutional: + acute distress (neck pain) Neck: + thick neck Respiratory: no respiratory distress Auscultation: + diminished lung sounds and + rales (faint bibasilar rales) Cardiovascular: Rate/Rhythm: regular rate and regular rhythm Heart Sounds: + murmur (II/ systolic murmur LSB) Extremities: + edema (L>R 1+) Gastrointestinal (Abdomen): normal bowel sounds, soft, nontender, no hepatosplenomegaly Skin: no rashes, warm and dry Neurologic: PERRL, EOMI, accommodation nl, no face palsy, no dysarthria Results & Data Vital Signs (Past 12 Hours) Vital Signs Temp Pulse Pulse Resp BP Pulse Ox O2 Del Method 02/06/24 07:38 36.4 C L 66 18 137/61 95 Nasal Cannula 02/06/24 07:31 73 02/06/24 03:55 36.7 C 67 20 110/63 96 Nasal Cannula 02/05/24 23:08 36.8 C 63 18 114/72 96 Nasal Cannula 02/05/24 22:04 65 O2 Flow Rate 02/06/24 07:38 2 02/06/24 07:31 02/06/24 03:55 2 02/05/24 23:08 2 02/05/24 22:04 Laboratory Results CBC 02/06/24 Range/Units 06:41 WBC 14.94 H (4.8-10.8) K/ul RBC 3.94 L (4.20-5.40) M/uL Hgb 11.3 L (12.0-16.0) g/dl Hct 35.0 L (37.0-47.0) % Plt Count 470 H (130-400) K/uL Neut # (Auto) 12.08 H (1.40-6.50) K/uL Lymph # (Auto) 1.25 (1.20-3.40) K/uL [place] # (Auto) 1.22 H (0.11-0.59) K/uL Eos # (Auto) 0.23 (0.00-0.50) K/uL Baso # (Auto) 0.06 (0.00-0.20) K/uL Comprehensive Metabolic Panel 02/06/24 Range/Units 06:41 Sodium 135 L (136-145) mmol/L Potassium 3.9 (3.5-5.1) mmol/L Chloride 95 L (98-107) mmol/L Carbon Dioxide 33 H (21-32) mmol/L BUN 16 (6-23) mg/dl Creatinine 0.93 (0.6-1.2) mg/dl Glucose 106 H (70-99(Fasting)) mg/dl Calcium 9.4 (8.6-10.3) mg/dl Intake and Output 02/05/24 02/06/24 02/06/24 22:59 06:59 14:59 Intake Total 200 / 200 Output Total 400 / 800 150 / 800 Balance -200 / -600 -150 / -600 Intake: Oral 200 / 200 Output: Urine Amount (Catheter) 400 / 550 150 / 550 External 400 / 550 150 / 550 Other: Other Intake Source sips Weight 106.5 kg Weight Measurement Method Built in [facility] Diagnostic Findings Telemetry reviewed: NSR in the 60-80's. Medications Administered Current Inpatient Medications Acetaminophen (Acetaminophen 325 Mg Tab) 650 mg PO Q4H PRN PRN Reason: Pain or Fever Stop: 03/05/24 17:19 Last Admin: 02/06/24 06:21 Dose: 650 mg Al Hydrox/Mg Hydrox/Simethicone (Aluminum/Magnesium Susp 30 Ml Udc) 15 ml PO Q4H PRN PRN Reason: Dyspepsia Stop: 03/05/24 17:19 Amlodipine Besylate (Amlodipine Besylate 5 Mg Tab) [facility] Stop: 03/06/24 10:29 Last Admin: 02/05/24 09:31 Dose: 10 mg Amoxicillin/Clavulanate Potassium (Amoxicillin/Clavulanate 875 Mg Tab) 1 tab PO BIDM [facility]; Protocol Stop: 02/10/24 16:59 Last Admin: 02/06/24 08:50 Dose: 1 tab Apixaban (Apixaban 2.5 Mg Tab) 2.5 mg PO BID [facility] Stop: 03/05/24 20:59 Last Admin: 02/06/24 08:49 Dose: 2.5 mg Aspirin (Aspirin 81 Mg Ectab) 81 mg PO QAM [facility] Stop: 03/06/24 08:59 Last Admin: 02/06/24 08:49 Dose: 81 mg Atorvastatin Calcium (Atorvastatin 10 Mg Tab) 10 mg PO MoWeFr@0900 [facility] Stop: 03/05/24 20:59 Last Admin: 02/06/24 08:49 Dose: 10 mg Diclofenac Sodium (Diclofenac Sod 1% Gel 100 Gm Tube) 2 gm EXT QID [facility] Stop: 03/05/24 20:59 Last Admin: 02/06/24 08:50 Dose: 2 gm Docusate Sodium (Docusate Sodium 100 Mg Cap) 100 mg PO BID [facility] Stop: 03/05/24 20:59 Last Admin: 02/06/24 08:53 Dose: 100 mg Ergocalciferol (Ergocalciferol 1250 Mcg (50,000 Units) Cap) 1,250 mcg PO Fr@0900 [facility] Stop: 03/09/24 08:59 Furosemide (Furosemide 40 Mg/4 Ml Vial) 40 mg IV QAM [facility] Stop: 03/06/24 08:59 Last Admin: 02/06/24 08:49 Dose: 40 mg Hydromorphone HCl (Hydromorphone Inj 0.5 Mg/0.5 Ml Syr) 0.5 mg IV Q6H PRN PRN Reason: Severe Pain (Scale 7, 8, 9,10) Stop: 02/18/24 17:13 Last Admin: 02/05/24 04:49 Dose: 0.5 mg Labetalol HCl (Labetalol Hcl Iv 5 Mg/Ml 20ml) 10 mg IV Q6H PRN PRN Reason: Hypertension Stop: 03/05/24 18:25 Lactobacillus Acidophilus (Advanced Probiotic 625 Mg Capsule) 1,250 mg PO DAILY [facility] Stop: 03/06/24 08:59 Last Admin: 02/06/24 08:49 Dose: 1,250 mg Magnesium Hydroxide (Magnesium Hydroxide Susp 30 Ml Udc) 30 ml PO Q12H PRN PRN Reason: Constipation Stop: 03/05/24 17:19 Metoprolol Succinate (Metoprolol Succ 50mg Ext Rel Tab) 50 mg PO [facility] Stop: 03/05/24 20:59 Last Admin: 02/05/24 20:06 Dose: 50 mg Miscellaneous (Remove Lidoderm Patch) 1 each N/A DAILY@2100 [facility] Stop: 02/06/24 21:01 Nystatin (Nystatin Powder 15gm Btl) 1 appln EXT BID [facility] Stop: 03/05/24 22:44 Last Admin: 02/06/24 08:50 Dose: 1 appln Oxycodone HCl (Oxycodone Hcl Ir 5 Mg Tab (Immediate Release)) 5 mg PO Q6H PRN PRN Reason: Moderate Pain (Scale 4, 5, 6) Stop: 02/18/24 17:13 Last Admin: 02/05/24 16:56 Dose: 5 mg Pantoprazole Sodium (Pantoprazole 40 Mg Tab) [facility] [place] Stop: 03/06/24 08:59 Last Admin: 02/06/24 08:50 Dose: 40 mg Polyethylene Glycol (Polyethylene (Miralax) 17 Gm Pack) 17 gm PO DAILY PRN PRN Reason: Constipation Stop: 03/05/24 17:19 (1) Leukocytosis Leukocytosis type: unspecified Qualified Code(s): D72.829 - Elevated white blood cell count, unspecified (4) Aortic stenosis Cardiac valve disease etiology: nonrheumatic Qualified Code(s): I35.0 - Nonrheumatic aortic (valve) stenosis
[2024-02-06] MEDS: LIDOCAINE 5% 1 PATCH TD ONE (10:11)
[2024-02-06] MEDS: LIDOCAINE 1% LOCAL 20 ML VIAL INJ ONE (12:17)
[2024-02-06] MEDS: methylPREDNISolone acetate 40 MG/ML VIAL IA ONE (12:18)
--- NOTE | 2024-02-06 12:43 | Procedure Note ---
Procedure Note Date of Service February 06, 2024 Note Patient was seen and evaluated today by Jose Alfredo Mercado PA-C. Patient was admitted for right shoulder pain and left hand pain/swelling. Left hand is improved. She now complains of continued right shoulder pain. Improving since the beginning of her admission. Also complaining of right sided neck and posterior shoulder/muscle discomfort. Lidoderm patches were ordered and placed. She states that they are helping. She is due for her "regularly scheduled" shoulder injections. She typically gets these from Dr. Samano. He was made aware of patient's admission and request for shoulder injection. He asked that if warranted if we could give her the injection and she then could follow up with him in 3-4 months, on her normal schedule, for repeat injection in the future. She states that she is still unable to move it well, although it's back to normal for her. She has very limited range of motion chronically because of the arthritis. He daughter is with her today. They would like to proceed with the injection today. They do feel that will help ease a lot of her discomfort from the shoulder and neck as well. I explained to them that may not improve with this injection, but since she has done well with those in the past she would like to try again today. Time out and verbal consent obtained for right shoulder intra-articular injection. Risks and complication and benefits of injection discussed. Allerg ies confirmed. NurseTeresa was available for assistance and helped support her arm/hand during procedure. Injection site was marked, cleansed with alcohol, Then using a posterior approach for glenohumeral joint injection I injected 40 mg Depo-Medrol with 3 cc of 1% lidocaine plain. She tolerated the injection well. It was free-flowing throughout the joint. Pressure was applied for hemostasis and a Band-Aid was applied to the injection site. Postinjection she had some improved discomfort with range of motion. Crepitation was still present as expected. Coding
--- NOTE | 2024-02-06 14:47 | Hospitalist Progress Note ---
Date of Service February 06, 2024 Assessment & Plan (1) Acute on chronic heart failure with preserved ejection fraction: (2) Heart failure due to valvular disease: (3) Aortic stenosis: (4) Somatic dysfunction of spine, cervical: (5) Leukocytosis: (6) Rotator cuff arthropathy: (7) Cellulitis of left hand: (8) PAF (paroxysmal atrial fibrillation): Plan Patient presented with decompensated heart failure due to not taking her Lasix for couple days in the setting of aortic stenosis. Diuresis being directed by cardiology, anticipate transitioning back to oral Lasix tomorrow Monitor electrolytes Shoulder injected by orthopedics today, shoulder pain is improved, however now patient more symptomatic with her cervical spine pain. Suspect this is somatic dysfunction from arthritis and sleeping in recliner for several weeks. CT cervical spine to rule out other etiologies for her severe pain Patient has had leukocytosis since December 2023. Reviewed outside EMR. No CBCs to review recently there. WBCs actually have improved since December. May be due to steroid injections. Blood cultures sterile. Lower suspicion for infectious etiology for her leukocytosis. May be more due to an inflammatory arthropathy. Left hand cellulitis essentially resolved. Quickly resolved with treatment, raises suspicion that this may have been inflammation and redness of the hand due to her arthritis and increased use pushing herself out of the recliner. Per orthopedics no objective evidence of any fracture. Will continue current antibiotics since this will also be covering presumed UTI of multiple mixed bacteria. Continue with therapies Patient is hopeful she will be able to return home to independent living. Admission and Anticipated Discharge Date Admission Date: February 04, 2024 Subjective Patient complaining of severe cervical spine pain/neck pain with any type of range of motion. Left shoulder is a little better after the injection. Daughter at bedside. Patient's been sleeping in a recliner for the past few weeks prior to admission. Physical Exam Physical Exam: Constitutional: Alert, nontoxic in appearance HEENT: Mucous membranes moist. Lungs: Clear to auscultation, decreased, no wheezes rales or rhonchi CV: S1-S2, murmur, Regular Abdomen: Soft, nontender, nondistended Extremities: Lower extremity edema Musculoskeletal: Crepitus with range of motion of the left shoulder, severe paravertebral febrile muscle spasms, bogginess, tenderness of the cervical spine, decreased range of motion cervical spine Neuro: No focal deficits Psych: Cooperative, normal mood Results & Data Results & Data Vital Signs (Past 12 Hours) Vital Signs Temp Pulse Pulse Resp BP Pulse Ox O2 Del Method 02/06/24 14:33 73 02/06/24 11:16 36.8 C 70 17 129/65 97 Nasal Cannula 02/06/24 08:00 Nasal Cannula 02/06/24 07:38 36.4 C L 66 18 137/61 95 Nasal Cannula 02/06/24 07:31 73 02/06/24 03:55 36.7 C 67 20 110/63 96 Nasal Cannula O2 Flow Rate 02/06/24 14:33 02/06/24 11:16 2 02/06/24 08:00 2 02/06/24 07:38 2 02/06/24 07:31 02/06/24 03:55 2 Diagnostic Findings Reviewed imaging, laboratory and diagnostic studies. Pertinent findings as below. Personally reviewed EKG, sinus rhythm Reviewed echocardiogram, normal ejection fraction, moderate aortic stenosis WBCs 14.9 Hemoglobin [place] 0.3 Basic metabolic profile reviewed Blood cultures no growth Urine culture mixed growth of more than 3 types of bacteria (3) Aortic stenosis Cardiac valve disease etiology: nonrheumatic Qualified Code(s): I35.0 - Nonrheumatic aortic (valve) stenosis (5) Leukocytosis Leukocytosis type: unspecified Qualified Code(s): D72.829 - Elevated white blood cell count, unspecified
--- NOTE | 2024-02-06 15:28 | CT Scan Report ---
CT cervical spine wo con CLINICAL HISTORY: pain TECHNIQUE: Multidetector row helical CT of the cervical spine was performed without administration of intravenous contrast. Coronal and sagittal reformations were obtained. Automated dose lowering techn iques and/or adjustment according to patient size were utilized for this exam. Comparison: Comparison is made to CT chest 08/06/2021 FINDINGS: No acute fractures or subluxations are identified. Degenerative changes are seen in the visualized sp ine. The alignment is normal. Degenerative IMPRESSION: Degenerative changes without evidence of acute bony injury. ACT 112: Negative or not required by law. Electronically signed by: Raul Rehman M.D. 02/06/2024 3:27 PM
[2024-02-06] MEDS: APIXABAN 5 MG TABLET PO SCH (20:03)
[2024-02-07 07:27] LABS: Basophils # (auto) 0.03 K/uL (0.00-0.20); Basophils % (auto) 0.2 %; Eosinophils # (auto) 0.13 K/uL (0.00-0.50); Eosinophils % (auto) 0.9 %; Hematocrit (blood only) 32.3 % (37.0-47.0); Hemoglobin 10.5 g/dl (12.0-16.0); Immature Granulocytes # (auto) 0.07 K/uL (0.01-0.20); Immature Granulocytes % (auto) 0.5 %; Lymphocytes # (auto) 0.89 K/uL (1.20-3.40); Lymphocytes % (auto) 6.3 %; Mean Corpuscular Hemoglobin 29.1 pg (25.0-34.0); Mean Corpuscular Hgb Conc 32.5 g/dL (32.0-36.0); Mean Corpuscular Volume 89.5 fL (80.0-100.0); Monocytes # (auto) 0.85 K/uL (0.11-0.59); Neutrophils # (auto) 12.16 K/uL (1.40-6.50); Neutrophils % (auto) 86.1 %; Platelet Count 432 K/uL (130-400); RDW Coefficient of Variation 14.4 % (11.5-14.5); RDW Standard Deviation 46.9 fL (36.4-46.3); Red Blood Count 3.61 M/uL (4.20-5.40); White Blood Count 14.13 K/ul (4.8-10.8)
[2024-02-07 07:47] LABS: Calcium 9.4 mg/dl (8.6-10.3); Potassium 3.8 mmol/L (3.5-5.1)
[2024-02-07 08:11] LABS: C Reactive Protein 31.6 mg/dl (0-0.5)
[2024-02-07] MEDS: oxyCODONE HCL IR 5 MG TAB (IMMEDIATE RELEASE) PO PRN (08:50)
--- NOTE | 2024-02-07 14:44 | Hospitalist Progress Note ---
Date of Service February 07, 2024 Assessment & Plan (1) Acute on chronic heart failure with preserved ejection fraction: (2) Heart failure due to valvular disease: (3) Aortic stenosis: (4) Somatic dysfunction of spine, cervical: (5) Leukocytosis: (6) Rotator cuff arthropathy: (7) Cellulitis of left hand: (8) PAF (paroxysmal atrial fibrillation): Plan Patient presented with severe right shoulder pain and decompensated heart failure due to not taking her Lasix for several days because she did not want to get up out of the chair because of her pain. Patient now compensated from heart failure standpoint, continue her outpatient diuretic Patient has significant improvement of her shoulder and neck pain with the shoulder injection continue current pain management Leukocytosis slightly improved, suspect it is inflammatory, lower suspicion for infection, monitor intermittently Continue therapies Patient and family feel patient would benefit from rehab, physical therapy recommending rehab Case management involved, applications to [facility] Patient ready for discharge if rehab bed becomes available Admission and Anticipated Discharge Date Admission Date: February 04, 2024 Subjective Patient reports significant improvement of her right shoulder pain postinjection and states that her neck pain and range of motion has significantly improved as well. Physical Exam Physical Exam: Constitutional: Alert, sitting in chair HEENT: Mucous membranes moist. Lungs: Clear to auscultation, decreased, no wheezes rales or rhonchi CV: S1-S2, regular Abdomen: Soft, nontender, nondistended Extremities: Trace edema Musculoskeletal: Improve range of motion cervical spine testing. Cervical paravertebral musculature less tense and tender. Range of motion right shoulder improved, continued crepitus Neuro: No focal deficits Psych: Cooperative, normal mood Results & Data Results & Data Vital Signs (Past 12 Hours) Vital Signs Temp Pulse Resp BP Pulse Ox O2 Del Method O2 Flow Rate 02/07/24 11:09 37.1 C 66 16 135/88 94 Room Air 02/07/24 07:41 36.6 C 65 20 150/68 H 96 Nasal Cannula 2.0 02/07/24 03:03 36.6 C 72 16 132/80 96 Nasal Cannula 2.0 Diagnostic Findings Reviewed imaging, laboratory and diagnostic studies. Pertinent findings as below. CT cervical spine shows degeneration but no other acute abnormalities WBCs 14.1 Hemoglobin 10.5 BMP stable C-reactive protein 31.6 (3) Aortic stenosis Cardiac valve disease etiology: nonrheumatic Qualified Code(s): I35.0 - Nonrheumatic aortic (valve) stenosis (5) Leukocytosis Leukocytosis type: unspecified Qualified Code(s): D72.829 - Elevated white blood cell count, unspecified
--- NOTE | 2024-02-07 17:22 | Orthopedic Progress Note ---
Date of Service February 07, 2024 Assessment & Plan (1) Right shoulder pain: Plan: Patient with significant improvement today compared to yesterday. Shoulder is 90% subjectively improved after the corticosteroid injection. She has no redness or swelling to the left hand and no focal tenderness. Her neck range of motion has also improved and his cervical tenderness has resolved. Still some mild tenderness in the trapezius. Do suspect the neck was secondary to sleeping in the recliner and was more muscular than anything else. Recommend continue with lidocaine patches on the trapezius for any ongoing discomfort. Discussed following up with Orthopedics Dr. Samano on an outpatient basis to review the ongoing right shoulder arthritis pain. (2) Cellulitis of left hand: Plan: Seems to be resolved whether it was cellulitis versus arthritis flare as described in previous notes. Plan Orthopedics will sign off at this point. Do not hesitate to contact with any new concerns. Admission and Anticipated Discharge Date Admission Date: February 04, 2024 Subjective Patient seen in her room sitting in her chair eating lunch this afternoon. She reports her right shoulder feels 90% improved after the steroid injection yesterday. Her left hand has no swelling or pain and her neck is also feeling much better. The lidocaine patch did help her yesterday and was recently removed today. The range of motion in her neck is improving, feels a little tight still but nowhere near the discomfort she was feeling yesterday. Physical Exam Physical Exam: Resting comfortably no distress sitting upright in chair eating lunch. Pleasant. Appears to be much improved compared to yesterday. Neck: Nearly full range of motion with rotation to the right. Range of motion to the left slightly limited. Mild tenderness in the right trapezius musculature. No tenderness in the right cervical musculature. Cardiovascular: Radial pulses 2+ bilaterally Musculoskeletal: Right upper extremity: Shoulder with no swelling, redness, or warmth. There is still decreased range of motion in all directions and crepitus appreciated with passive range of motion causing discomfort.Elbow, wrist, hand with full range of motion. Left upper extremity: Hand without any redness or edema. There is no focal tenderness. Able to make a full fist without any pain. Wrist extension and flexion is full. Neurologic: No sensory deficits in bilateral fingers to light touch Results & Data Vital Signs (Past 12 Hours) Vital Signs Temp Pulse Pulse Resp BP Pulse Ox O2 Del Method 02/07/24 14:44 97.3 F L 78 18 161/78 H 94 Room Air 02/07/24 11:09 98.8 F 66 16 135/88 94 Room Air 02/07/24 07:41 97.9 F 65 20 150/68 H 96 Nasal Cannula O2 Flow Rate 02/07/24 14:44 02/07/24 11:09 02/07/24 07:41 2.0 (1) Right shoulder pain Chronicity: unspecified Qualified Code(s): M25.511 - Pain in right shoulder
[2024-02-08 07:34] VITALS: RESP 18
[2024-02-08] MEDS: ERGOCALCIFEROL 1250 MCG (50,000 UNITS) CAP PO SCH (08:34)
[2024-02-08] MEDS: FUROSEMIDE 40 MG TAB PO SCH (08:35)
--- NOTE | 2024-02-08 12:12 | Discharge Summary ---
Discharge Summary Date of Service February 08, 2024 Principal Dx & Hospital Course #1 = Principal Diagnosis (1) Acute on chronic heart failure with preserved ejection fraction: (2) Heart failure due to valvular disease: (3) Aortic stenosis: (4) Somatic dysfunction of spine, cervical: (5) Leukocytosis: (6) Rotator cuff arthropathy: (7) PAF (paroxysmal atrial fibrillation): Plan Patient is an 83-year-old female with known significant shoulder arthropathy presented to the emergency room with complaints of inflammation of her hand, and severe right shoulder pain. She also had some evidence of volume overload due to the fact that she had not taken her Lasix for couple days it was too painful for her to get up and get to the bathroom after taking her Lasix. Patient was cared for in the hospital. She was diuresed with IV Lasix. Cardiology consultation was obtained and agreed with diuresis and recommended the patient just needs to stay on her usual Lasix dose on a daily basis. Patient's severe shoulder pain was limiting her progress. Orthopedic consultation was obtained. They ruled out a fracture of the hand. [place] that potentially the left hand was not a cellulitis but an inflammatory arthropathy. Initially was concerned that there may be some cellulitis. She was treated with antibiotics here in the hospital. The redness and pain completely resolved. Low suspicion for cellulitis. Does not need any ongoing antibiotics at this time. Patient also was come planing of severe cervical pain. CT of the cervical spine showed degeneration but no evidence of any infection. Patient underwent steroid in jection of the right shoulder. Patient had excellent response to the injection. Her right shoulder pain essentially resolved completely. Her neck pain also improved significantly. Her range of motion of the cervical spine significantly improved. Her ability then to get herself up out of the chair and ambulate significantly improved. Physical therapy and Occupational Therapy were involved in her care. Initially recommending rehab but she improved greatly through her hospital stay while we are exploring those options. She improved the point where she could return home with home health. On the day of discharge her vital signs are stable. Pain is controlled. She is able to stand and ambulate on her own with a walker. She be discharged home with instructions to continue her medications as prescribed and follow-up with outpatient orthopedic physician and PCP. Updated patient's daughter plans of discharge and agreeable with plan of care Notes For Next Care Provider Follow-up with orthopedics Medication Changes From Visit Eliquis dose was increased based on her current renal function and requirements for anticoagulation. 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 She finds herself using her left hand more since last 3 weeks. Patient reports that she has been lying in recliner mostly since last few weeks. Patient reports she was supposed to get right shoulder injection but it was postponed until February next year, she has been trying heat pad/tramadol/Motrin without any help and hence she decided to come to the ED. Patient also reports that since last 2 weeks she has left hand swelling, denies any trauma, has started getting redness and warmth over the right hand since today. Patient was noted to be saturating in upper 80s at presentation, received IV Lasix in the ED, has congestions in the CXR, 2-3+ BLE pitting edema on exam. Patient denies any obvious shortness of breath but is needing 2 to 3 L oxygen at bedside exam. Patient does not use any oxygen at home. Patient did stop her Eliquis and Lasix about 3 days ago [employer] [employer], resumed last evening. She stopped Lasix because he could not move out of her recliner chair to go to the bathroom, says stopped her Eliquis because she wanted to take Motrin. Patient denies fever/sore throat/cough/chest pain/belly pain/nausea/vomiting/diarrhea. Last bowel movement today. Denies pain or burning with passing urine. Reports eating okay. Patient denies smoking/alcohol/recreational drug use. Full code as per my discussion with the patient. Medications reviewed with the patient in detail at bedside. Plan of care discussed with the patient and her daughter at bedside, they voiced understanding. Admission Exam Per Admitting Provider See H&P Discharge Exam Constitutional: Alert HEENT: Mucous membranes moist. Lungs: Clear to auscultation, decreased, no wheezes rales or rhonchi CV: S1-S2, regular, systolic murmur Abdomen: Soft, nontender, nondistended Extremities: Trace pretibial edema Neuro: No focal deficits Psych: Cooperative, normal mood Updated Medication List Medication Instructions Recorded Confirmed Type atorvastatin 10 mg tablet 10 mg PO 3XWK 07/10/18 02/04/24 History metoprolol succinate 50 mg 50 mg PO HS 07/10/18 02/04/24 History tablet,extended release 24 hr pantoprazole 20 mg tablet,delayed 20 mg PO QAM 11/21/18 02/04/24 History release cholecalciferol (vitamin D3) 1,250 1,250 mcg PO WK 10/18/21 02/04/24 History mcg (50,000 unit) capsule amlodipine 10 mg tablet 10 mg PO DAILYBL 01/15/24 02/04/24 History apixaban 2.5 mg tablet (Eliquis) 2.5 mg PO BID 01/15/24 02/04/24 History aspirin 81 mg tablet,delayed 81 mg PO QAM 01/15/24 02/04/24 History release furosemide 40 mg tablet 40 mg PO QAM 01/15/24 02/04/24 History diclofenac sodium 1 % topical gel 2 g EXT QID #100 grams 01/16/24 02/04/24 Rx (Voltaren Arthritis Pain) tramadol 50 mg tablet 50 mg PO TID PRN Severe Pain 02/04/24 02/04/24 History (Scale Score 7-10) apixaban 5 mg tablet (Eliquis) 5 mg PO BID #60 tabs 02/08/24 Rx Hospital Stay Data Consultations 02/04/24 16:46 ED Decision to Admit Stat 02/04/24 17:15 Consult Cardiology Routine Consult Orthopedic Surgery Routine Diagnostic Imagining Performed 02/06/24 13:11 CT cervical spine wo con Routine Reviewed imaging, laboratory and diagnostic studies. Pertinent findings as below. Cervical spine CT showed degenerative changes Shoulder x-ray showed severe degenerative changes Hand x-ray questionable fracture base of second metacarpal, however orthopedics did not confirm WBCs 14 B1. Chronically elevated Hemoglobin 10.5, baseline Basic metabolic profile stable Pending Results Patient Have Any Pending Studies at Discharge: No Discharge Instructions Given to Patient (Per Discharging Provider) You do not need any more antibiotics when you go home. Recommend doing the therapies you were taught at home on a daily basis You must take your fluid medicine/Lasix every day do not miss doses Follow-up with orthopedics Total Time Total Time Spent Total Time Spent (In Minutes): 33
[2024-02-08 15:16] VITALS: BP 160/71; PULSE 74; TEMP 97.9; O2SAT 93
== END 2024-02-08 16:49 | disposition home health service (06) | DRG 553 ==
LOC: ED 13:47 → SUATTDRO 17:20 → 2S 17:20 → 3N 02-07 14:49

== ENCOUNTER 2024-11-15 09:48 | Observation (INO) ==
--- NOTE | 2024-11-15 10:22 | Emergency Department Note ---
ED Provider Note History of Present Illness Chief Complaint: Leg Injury/Pain Stated Complaint: L FOOT/LEG PAIN, UPSET STOMACH, SWELLING-FOOT/LEG Time Seen by Provider: 11/15/24 10:04 Source: patient and family Mode of arrival: wheelchair Limitations: no limitations Patient is an 84-year-old female who presents to the emergency department with complaints of left foot and leg pain as well as swelling and redness to the area. Patient notes that her pain has been so severe today that it made her feel nauseous and she did have 1 episode of retching without true vomiting. Patient denies any chest pain or shortness of breath. Home Medications Medication Instructions Recorded Confirmed Type atorvastatin 10 mg tablet 10 mg PO [id number] 07/10/18 11/15/24 History metoprolol succinate 50 mg 50 mg PO HS 07/10/18 11/15/24 History tablet,extended release 24 hr pantoprazole 20 mg tablet,delayed 20 mg PO QAM 11/21/18 11/15/24 History release cholecalciferol (vitamin D3) 1,250 1,250 mcg PO WK 10/18/21 11/15/24 History mcg (50,000 unit) capsule amlodipine 10 mg tablet 5 mg PO DAILYBL 01/15/24 11/15/24 History aspirin 81 mg tablet,delayed 81 mg PO QAM 01/15/24 11/15/24 History release furosemide 40 mg tablet 20 mg PO QAM 01/15/24 11/15/24 History diclofenac sodium 1 % topical gel 2 g EXT QID #100 grams 01/16/24 11/15/24 Rx (Voltaren Arthritis Pain) tramadol 50 mg tablet 50 mg PO TID PRN Severe Pain 02/04/24 11/15/24 History (Scale Score 7-10) clopidogrel 75 mg tablet 75 mg DAILY 11/15/24 11/15/24 History magnesium oxide 400 mg (241.3 mg 400 mg QAM 11/15/24 11/15/24 History magnesium) tablet spironolactone 25 mg tablet 25 mg DAILY 11/15/24 11/15/24 History L.acidop,casei,lactis,rham-B.lact,do 1 cap PO DAILY 10 days #10 caps 11/18/24 Rx 625 mg (10 billion cell) capsule (Advanced Probiotic) cephalexin 500 mg capsule 500 mg PO Q8H 6 days #18 caps 11/18/24 Rx pantoprazole 40 mg tablet,delayed 40 mg PO QAM #30 tabs 11/18/24 Rx release Allergies Allergy/AdvReac Type Severity Reaction Status Date / Time colchicine AdvReac Intermediate Diarrhea Verified 01/15/24 10:17 Past Med/Surg History Problem List (Updated 11/18/24 @ 12:00 by LINNEA Sharp) Peroneal tendinitis of left lower extremity Edema of left lower extremity Contusion of left ankle Heart failure due to valvular disease Aortic stenosis Leukocytosis Cellulitis (Acute) CHF (congestive heart failure) (Acute) Weakness (Acute) Hypoxia (Acute) Cellulitis of left hand PAF (paroxysmal atrial fibrillation) Left ankle pain Cellulitis of left leg (Acute) Acute bronchitis due to Rhinovirus Hypoxia Rotator cuff arthropathy of right shoulder Osteoarthritis, knee Heart contusion Nausea & vomiting (Acute) Diarrhea (Acute) Hypomagnesemia (Acute) ALAN (acute kidney injury) (Acute) Dehydration (Acute) ARF (acute renal failure) Left-sided chest pain (Acute) Elevated troponin (Acute) Osteopenia Ribs, multiple fractures There are subacute appearing right anterior rib fractures (4th-7th). Chest pain Rheumatoid arthritis F/U PCP Status post replacement of left shoulder joint (~09/2019) Dyslipidemia Hypertension GERD (gastroesophageal reflux disease) Well controlled and stable S/P TKR (total knee replacement) LEFT TIA (transient ischemic attack) X 4- PLACED ON PLAVIX (FIRST TIA AFTER SURGERY- HAS HAD SURGERY SINCE WITHOUT ISSUES). NO ISSUES X YEARS Medical History (Updated 11/18/24 @ 12:00 by LINNEA Sharp) Aortic stenosis Mild per 11/2018 ECHO Seizure TIA vs SEIZURE: "BLACKED OUT IN HER HEAD AND CAME TO"/BECAME ALERT-NEVER DX'D ANY FURTHER-4 YRS AGO-NO OTHER OCCURRENCES Fracture of hand Hypomagnesemia Right shoulder pain Neck pain Acute heart failure with preserved ejection fraction Acute on chronic heart failure with preserved ejection fraction Somatic dysfunction of spine, cervical Acute hypoxemic respiratory failure Rotator cuff arthropathy Sciatica Can radiate down right or left side Hyperlipidemia Knee pain, right Right knee DJD Surgical History History of arthroplasty of left shoulder History of cataract surgery R/L History of anesthesia reaction SLOW TO WAKE UP-HAD TIA DURING SURGERY AND POST OP-[facility] [place]-AGE 66 History of esophagogastroduodenoscopy (EGD) History of colonoscopy S/P bilateral breast reduction AGE 66 YRS Family History Father Family history of diabetes mellitus Mother Family hx of colon cancer Social History Smoking Status: Never smoker Second Hand Exposure: No; Do You Dip or Chew Tobacco: No; Tobacco Cessation Education Requested by Patient: No Hx Alcohol Use: No Hx Substance Use: No Preferred Language: Ukrainian Communication Ability: Effective Coil Winding Supervisor Required: No Beliefs That Will Affect Care: None marital status: Current Living Situation: Spouse How many Children do You have: 2 Other Information That Helps Us Care for You: No Feels Safe at Home: Yes Safety Concerns: Feels Safe At This Time Assistive Devices: Lift Chair, Raised Toilet Seat, Walker and Wheelchair Physical Exam Vital Signs Vital Signs - 24 hr 11/15/24 09:58 11/15/24 10:16 11/15/24 11:04 Temperature 36.7 C Temperature Source Oral Pulse Rate 90 83 91 H Pulse Rate [Left Finger] Pulse Rate from SpO2 Sensor Respiratory Rate 20 22 Blood Pressure 143/82 H Blood Pressure [Right Arm] Blood Pressure Mean 102 Blood Pressure Mean [Right Arm] Pulse Oximetry 96 96 Oxygen Delivery Method Room Air Room Air Sepsis Recent Fever Within 48 Hours No Sepsis New/Unexplained Change in Mental Status N/A Sepsis Action Taken by Nursing No Action Required 11/15/24 12:35 11/15/24 12:35 Temperature Temperature Source Pulse Rate 81 Pulse Rate [Left Finger] 83 Pulse Rate from SpO2 Sensor 78 Respiratory Rate 30 H 22 Blood Pressure 129/56 L Blood Pressure [Right Arm] 129/56 L Blood Pressure Mean 78 Blood Pressure Mean [Right Arm] 80 Pulse Oximetry 98 94 Oxygen Delivery Method Sepsis Recent Fever Within 48 Hours Sepsis New/Unexplained Change in Mental Status Sepsis Action Taken by Nursing VITAL SIGNS - Vital signs and nursing notes were reviewed. GENERAL -84-year-old female appearing their stated age, who is in no acute distress. Communicates well with provider and answers questions appropriately. Patient's granddaughter is at bedside. HEAD - Normocephalic, Atraumatic. No Soares's Sign or Raccoon's Eyes. EYES - PERRL with EOMI bilaterally. Sclera anicteric. Conjunctiva pink and moist with no injection. EARS - No deformities of external structures noted on gross examination bilaterally. NECK - Neck with FROM. Supple to palpation. No lymphadenopathy noted. LUNGS - Chest wall symmetric without accessory muscle use, intercostals retractions, or central cyanosis. Normal vesicular breath sounds CTA B/L. No wheezes, rales, or rhonchi appreciated. CARDIAC - RRR with S1/S2. No murmur, rubs, or gallops appreciated. EXTREMITIES - +3 pitting edema noted to the left lower extremity. No edema noted in the right lower extremity. Patient has +4/5 strength noted in the left lower extremity, decreased length noted secondary due to discomfort. Patient has full active range of motion at the hip and knee in the left lower extremity. Skin is erythematous and warm to touch. NEUROLOGIC -Sensory intact to light touch throughout. PSYCH - A&Ox3 and cooperates fully with examiner. Pt is very pleasant and interacts well with examiner Course Administered Medications Acetaminophen (Acetaminophen 500 Mg Tab) 1,000 mg PO Q8 [facility] Stop: 12/15/24 17:59 Last Admin: 11/18/24 05:13 Dose: Not Given Documented By: fernie Admin: 11/17/24 21:16 Dose: Not Given Documented By: fernie Admin: 11/17/24 13:53 Dose: 1,000 mg Documented By: Admin: 11/17/24 05:05 Dose: 1,000 mg Documented By: fernie Admin: 11/16/24 21:03 Dose: Not Given Documented By: fernie Admin: 11/16/24 13:30 Dose: Not Given Documented By: Admin: 11/16/24 05:57 Dose: 1,000 mg Documented By: fernie Admin: 11/15/24 23:15 Dose: 1,000 mg Documented By: fernie Admin: 11/15/24 20:11 Dose: Not Given Documented By: LALITHA Aspirin (Aspirin 81 Mg Ectab) 81 mg PO QAM [facility] Stop: 12/15/24 17:59 Last Admin: 11/18/24 07:50 Dose: 81 mg Documented By: Admin: 11/17/24 08:11 Dose: 81 mg Documented By: Admin: 11/16/24 08:40 Dose: 81 mg Documented By: Admin: 11/15/24 18:56 Dose: 81 mg Documented By: LALITHA Atorvastatin Calcium (Atorvastatin 10 Mg Tab) 10 mg PO MoWeFr@[id number] [facility] Stop: 12/17/24 08:59 Last Admin: 11/17/24 08:12 Dose: 10 mg Documented By: MARVIN Clopidogrel Bisulfate (Clopidogrel Bisulfate 75 Mg Tab) 75 mg PO DAILY [facility] Stop: 12/15/24 17:59 Last Admin: 11/18/24 07:51 Dose: 75 mg Documented By: Admin: 11/17/24 08:12 Dose: 75 mg Documented By: CFBenja Admin: 11/16/24 08:40 Dose: 75 mg Documented By: Admin: 11/15/24 18:56 Dose: 75 mg Documented By: LALITHA Diclofenac Sodium (Diclofenac Sod 1% Gel 100 Gm Tube) 2 gm EXT QID [facility]; Protocol Stop: 12/15/24 17:59 Last Admin: 11/18/24 07:49 Dose: Not Given Documented By: Admin: 11/17/24 20:22 Dose: Not Given Documented By: fernie Admin: 11/17/24 16:10 Dose: Not Given Documented By: Admin: 11/17/24 12:13 Dose: Not Given Documented By: D Admin: 11/17/24 08:14 Dose: Not Given Documented By: Admin: 11/16/24 21:03 Dose: Not Given Documented By: fernie Admin: 11/16/24 17:00 Dose: Not Given Documented By: C Admin: 11/16/24 13:30 Dose: Not Given Documented By: [facility] Admin: 11/16/24 08:49 Dose: Not Given Documented By: [facility] Admin: 11/15/24 21:13 Dose: 2 gm Documented By: Admin: 11/15/24 18:57 Dose: 2 gm Documented By: LALITHA Heparin Sodium (Porcine) (Heparin Sod 5,000 Unit/0.5 Ml Vial) 5,000 units SQ Q8 [facility] Stop: 12/15/24 17:59 Last Admin: 11/18/24 05:12 Dose: 5,000 units Documented By: fernie Admin: 11/17/24 21:17 Dose: 5,000 units Documented By: heb Admin: 11/17/24 13:57 Dose: 5,000 units Documented By: Admin: 11/17/24 05:05 Dose: 5,000 units Documented By: fernie Admin: 11/16/24 21:02 Dose: 5,000 units Documented By: fernie Admin: 11/16/24 14:29 Dose: 5,000 units Documented By: Admin: 11/16/24 08:40 Dose: 5,000 units Documented By: Admin: 11/16/24 01:56 Dose: 5,000 units Documented By: fernie Admin: 11/15/24 18:56 Dose: 5,000 units Documented By: LALITHA Hydralazine HCl (Hydralazine Hcl 20 Mg/Ml Vial) 5 mg IV Q6H PRN PRN Reason: HTN Stop: 12/16/24 10:40 Last Admin: 11/18/24 07:50 Dose: 5 mg Documented By: CHUY Ceftriaxone Sodium (Rocephin) 2,000 mg in 50 mls @ 100 mls/hr IV Q24H [facility] Stop: 11/23/24 13:59 Last Infusion: 11/17/24 14:23 Dose: Infused Documented By: Admin: 11/17/24 13:49 Dose: 100 mls/hr Documented By: Infusion: 11/16/24 14:18 Dose: Infused Documented By: Admin: 11/16/24 13:31 Dose: 100 mls/hr Documented By: HARVEY Lactobacillus Acidophilus (Advanced Probiotic 625 Mg Capsule) 1,250 mg PO DAILY [facility] Stop: 12/16/24 08:59 Last Admin: 11/18/24 07:50 Dose: 1,250 mg Documented By: Admin: 11/17/24 08:11 Dose: 1,250 mg Documented By: Admin: 11/16/24 08:39 Dose: 1,250 mg Documented By: HARVEY Magnesium Oxide (Magnesium Oxide 400 Mg Tab) 400 mg PO QAM [facility] Stop: 12/15/24 17:59 Last Admin: 11/18/24 07:50 Dose: 400 mg Documented By: Admin: 11/17/24 08:11 Dose: 400 mg Documented By: Admin: 11/16/24 08:39 Dose: 400 mg Documented By: Admin: 11/15/24 18:56 Dose: 400 mg Documented By: LALITHA Metoprolol Succinate (Metoprolol Succ 50mg Ext Rel Tab) 50 mg PO HS [facility] Stop: 12/15/24 20:59 Last Admin: 11/17/24 20:23 Dose: 50 mg Documented By: fernie Admin: 11/16/24 21:03 Dose: 50 mg Documented By: fernie Admin: 11/15/24 21:14 Dose: 50 mg Documented By: LALITHA Pantoprazole Sodium (Pantoprazole 40 Mg Tab) 40 mg PO QAM [facility] Stop: 12/16/24 08:59 Last Admin: 11/18/24 07:50 Dose: 40 mg Documented By: Admin: 11/17/24 08:12 Dose: 40 mg Documented By: Admin: 11/16/24 08:39 Dose: 40 mg Documented By: HARVEY Discontinued Medications Acetaminophen (Ofirmev) 1,000 mg in 100 mls @ 400 mls/hr IV NOW STA Stop: 11/15/24 10:28 Last Infusion: 11/15/24 11:24 Dose: Infused Documented By: Admin: 11/15/24 10:47 Dose: 400 mls/hr Documented By: BLANCA Sodium Chloride (Nss) 250 mls @ 999 mls/hr IV .Q16M ONE Stop: 11/15/24 14:06 Last Infusion: 11/15/24 16:39 Dose: Infused Documented By: Admin: 11/15/24 15:41 Dose: 999 mls/hr Documented By: JORJE Ceftriaxone Sodium (Rocephin) 2,000 mg in 50 mls @ 100 mls/hr IV NOW STA Stop: 11/15/24 14:29 Last Infusion: 11/15/24 15:41 Dose: Infused Documented By: Admin: 11/15/24 14:53 Dose: 100 mls/hr Documented By: CHRIS Daptomycin 500 mg/ Syringe 10 mls @ 5 mls/min IV Q24H [facility]; Protocol Stop: 11/22/24 17:29 Last Admin: 11/17/24 16:29 Dose: 5 mls/min Documented By: Admin: 11/16/24 17:00 Dose: 5 mls/min Documented By: Admin: 11/15/24 17:53 Dose: 5 mls/min Documented By: DAMASO Lactobacillus Acidophilus (Advanced Probiotic 625 Mg Capsule) 1,250 mg PO NOW STA Stop: 11/15/24 15:01 Last Admin: 11/15/24 15:40 Dose: 1,250 mg Documented By: JORJE Morphine Sulfate (Morphine Sulfate 2 Mg/Ml Carp) 1 mg IV NOW STA Stop: 11/15/24 17:15 Last Admin: 11/15/24 17:53 Dose: 1 mg Documented By: DAMASO Pantoprazole Sodium (Pantoprazole 40 Mg Tab) 40 mg PO NOW STA Stop: 11/15/24 15:01 Last Admin: 11/15/24 15:41 Dose: 40 mg Documented By: JORJE Medical Decision Making Differential Diagnosis Fracture, dislocation, DVT, cellulitis, among others Medical Records Attestation: I reviewed the patient's medical records. Home Medications was personally reviewed by me Laboratory Data Attestation: I reviewed the patient's lab results. 11/18/24 05:41 11/18/24 09:41 Lab Results 11/15/24 11/15/24 11/15/24 Range/Units 10:30 11:53 13:05 WBC 17.53 H (4.8-10.8) K/ul RBC 4.09 L (4.20-5.40) M/uL Hgb 12.9 (12.0-16.0) g/dl Hct 38.3 (37.0-47.0) % MCV 93.6 (80.0-100.0) fL MCH 31.5 (25.0-34.0) pg MCHC 33.7 (32.0-36.0) g/dL RDW Std Deviation 47.7 H (36.4-46.3) fL RDW Coeff of Marcio 14.0 (11.5-14.5) % Plt Count 341 (130-400) K/uL MPV 11.1 (9.4-12.4) fL Immature Gran % (Auto) 0.7 % Neut % (Auto) 80.2 % Lymph % (Auto) 8.8 % Butler % (Auto) 9.5 % Eos % (Auto) 0.3 % Baso % (Auto) 0.5 % Neut # (Auto) 14.06 H (1.40-6.50) K/uL Lymph # (Auto) 1.54 (1.20-3.40) K/uL Butler # (Auto) 1.67 H (0.11-0.59) K/uL Eos # (Auto) 0.05 (0.00-0.50) K/uL Baso # (Auto) 0.09 (0.00-0.20) K/uL Immature Gran # (Auto) 0.12 (0.01-0.20) K/uL ESR 51 H (0-30) mm/hr PT 10.9 (9.0-12.0) Seconds INR 1.0 (0.9-1.1) APTT 25 (21-31) Seconds PTT Ratio 0.9 Sodium 137 (136-145) mmol/L Potassium 4.5 (3.5-5.1) mmol/L Chloride 99 (98-107) mmol/L Carbon Dioxide 30 (21-32) mmol/L Anion Gap 8 (3-11) BUN 22 (6-23) mg/dl Creatinine 1.50 H (0.6-1.2) mg/dl Est Cr Clr Drug Dosing Not Reportable eGFR 34.58 BUN/Creatinine Ratio 14.7 (10-20) Glucose 130 H (70-99(Fasting)) mg/dl Estimat Average Glucose 114 mg/dl Hemoglobin A1c 5.6 (4.5-5.6) % Lactate 1.9 (0.4-2.0) mmol/L Uric Acid 8.7 H (2.6-7.2) mg/dl Calcium 9.6 (8.6-10.3) mg/dl Total Bilirubin 1.1 H (0.2-1.0) mg/dl AST 20 (13-39) U/L ALT 12 (7-52) U/L Alkaline Phosphatase 80 (34-104) U/L Total Creatine Kinase 19 L (26-192) U/L Troponin I High Sens 260.1 H* 275.0 H* (0-14) pg/ml C-Reactive Protein 5.08 H (0-0.5) mg/dl Total Protein 6.6 (6.0-8.3) gm/dl Albumin 3.8 (3.4-5.0) gm/dl Globulin 2.8 (2.5-4.0) gm/dl Albumin/Globulin Ratio 1.4 (0.9-2) Lipase 16 (11-82) U/L Imaging Data Radiologist's Impression: Venous Doppler Study 11/15/24 10:14 Clinical History: Pain and swelling Technique: Venous ultrasound evaluation was performed utilizing grayscale, color Doppler and wave form evaluation. Images were also obtained with and without compression Findings: The left common femoral, superficial femoral, popliteal, and visualized calf veins demonstrate normal anechoic lumens with full compressibility. Normal flow is seen on color Doppler images. Expected waveforms were produced with augmentation maneuvers Impression: No evidence of left leg deep venous thrombosis Electronically signed by Jase Wharton 11-15-2024 12:55 PM Chest X-Ray 11/15/24 10:16 Clinical History: Weakness Technique: A frontal view of the chest was obtained Comparison is made to the prior examination dated 02/04/2024 Findings: There is mild right lung base opacity, likely due to atelectasis. The heart size is at the upper limit of normal. No pleural effusion or pneumothorax is seen. There is suspected mild pulmonary vascular congestion. No fracture is noted. There is a left shoulder arthroplasty. There is severe right glenohumeral osteoarthritis Impression: 1. Mild pulmonary vascular congestion 2. Right lung base atelectasis Electronically signed by Jase Wharton 11-15-2024 11:59 AM Hip/Pelvis X-Ray 11/15/24 10:21 Clinical History: Pain. 3 views of the pelvis and left hip are submitted for review. Findings: No fracture or dislocation is seen. No significant arthritic changes are noted. No other osseous abnormality is identified. There are no radiopaque foreign bodies. Impression: Unremarkable radiographs of the pelvis and left hip Electronically signed by Jase Wharton 11-15-2024 12:00 PM Knee X-Ray 11/15/24 10:21 Clinical History: Pain. 3 views of the left knee are submitted for review. Findings: No fracture is seen. There is a left knee total arthroplasty in expected position. There is no definite sign of infection or loosening. No other osseous abnormality is identified. There are no radiopaque foreign bodies. Impression: Left knee replacement Electronically signed by Jase Wharton 11-15-2024 11:[address] 11/15/24 13:46 CT LEFT FOOT WITHOUT CONTRAST: HISTORY: PAIN TECHNIQUE: CT of the left foot was obtained without intravenous contrast. Coronal and sagittal reformats were created. COMPARISON: None. FINDINGS: No acute fracture is identified. There is a small area of skin thinning/likely ulceration in the posterolateral corner of the heel. Subtle erosive changes are suggested in the posterolateral corner of the abutting calcaneus (series 7, images 19-24) Diffuse soft tissue swelling with submucosal edema and fluid. No organized/drainable fluid collection is identified within the constraint of a noncontrast CT examination. IMPRESSION: Diffuse soft tissue swelling without a drainable/organized fluid collection. This finding may be due to cellulitis and/or venous sufficiency. Small ulcerative defect suggested in the posterolateral corner of the heel with a subtle erosive change of the abutting calcaneus as above. Very mild osteomyelitis could be present. Electronically signed by Mohit San 11-15-2024 4:[address] 11/15/24 13:58 CT left tibia and fibula without contrast History: Pain and swelling. Comparison: January 15, 2024 left ankle and earlier same day left knee plain film exams. Technique: Routine axial CT images with coronal and sagittal reconstructions without contrast of the left tibia and fibula. Were obtained and reviewed. Dose reduction techniques were achieved by using automatic exposure control and/or adjustment of mA and/or kV according to patient size and/or use of iterative reconstruction technique. Findings: Board Layer film demonstrates left knee arthroplasty changes. Soft tissue windows demonstrate portions of the exam limited secondary to streak artifact from left knee arthroplasty hardware. Portions of the exam at this level are essentially nondiagnostic. Calcified atherosclerotic changes are noted. Further characterization limited on this noncontrast exam. There is mild diffuse increased reticular densities of the subcutaneous soft tissues. This is confluent along the mid and distal leg. No discrete drainable fluid collection is identified although this is limited on this noncontrast exam. Myofascial planes are intact. No soft tissue gas throughout the exam. Bone windows demonstrate arthroplasty hardware to be grossly intact. No appreciated loosening. No occult fracture. No malalignment Impression: Subcutaneous edematous changes of the mid and distal leg as described above. No soft tissue gas or myofascial edema. Further characterization is limiting. Etiology is uncertain. No underlying occult fracture or osseous abnormality. Please see above for details. Electronically signed by Toño Rios 11-15-2024 3:57 PM MDM Narrative Patient is an 84-year-old female who presents to the emergency department with complaints of left foot and leg pain as well as swelling and redness to the area. Patient notes that her pain has been so severe today that it made her feel nauseous and she did have 1 episode of retching without true vomiting. Patient denies any chest pain or shortness of breath. Patient was evaluated by myself and findings were noted in the physical exam above. Patient was ordered IV placement, lab work, EKG, x-rays of her left knee, left hip and pelvis. Patient was also ordered an ultrasound of her left lower extremity. Patient's EKG was interpreted by myself and noted the patient to be in a normal sinus rhythm with a rate in the 70s. No elevation or evidence of ectopy noted. Patient's lab work resulted with an elevated white blood cell count of 17.53. Patient had no indication of anemia with a hemoglobin of 12.9 and hematocrit of 38.3. Patient had no indication of electrolyte imbalance noted. Patient did have a mildly elevated creatinine of 1.5. Patient's coagulation levels were all within normal limits. Patient's initial troponin though however was 260.1. Patient was ordered a lactate at this time. Patient's lactate resulted at 1.9. Patient also had a venous Doppler study of her left lower extremity which was completed and interpreted by radiology to note no evidence of a DVT in her left lower extremity. Patient also had a chest x-ray that was completed and interpreted by radiology to note some mild pulmonary vascular congestion and and right lower lobe atelectasis. Patient then also had an x-ray of her left knee and left hip and pelvis. Both of those x-rays were completed and interpreted by radiology to show no evidence of any acute abnormalities. The patient's left knee replacement was noted on x-ray but no acute fractures or problems with the replacement were noted. Patient's hip x-ray was also negative for any acute abnormalities. I discussed all these findings with the patient and her family member at bedside. I discussed with the patient that while her x-rays and ultrasound were negative for any concerning findings such as a blood clot that the patient had a significantly elevated troponin as well as white blood cell count my concern was that she was experiencing cellulitis in this leg again would need to be treated in the hospital setting with IV antibiotics and have close follow-up with cardiology as well due to her elevated troponin level. The patient and her family member at bedside both verbalized understanding and were agreeable to the plan for admission to the hospital. I reached out and spoke with Dr. Alaina Rodriguez of the [facility] hospitalist group and discussed the case with her. I gave her a full report on the patient's chief complaint, current status and the results of her imaging and lab work. I discussed with Dr. Rodriguez that seems reasonable to keep the patient in the hospital for further evaluation and workup. Dr. Rodriguez agreed and was agreeable to admit the patient to the hospital under her service. Please refer the [facility]'s documentation for further evaluation and management of this patient. Impression Elevated troponin, Cellulitis of left leg Discharge Plan Visit Data Chief Complaint: Leg Injury/Pain Stated Complaint: L FOOT/LEG PAIN, UPSET STOMACH, SWELLING-FOOT/LEG ED Provider: Gene Prasad ED Midlevel Provider: Isa Schultz Discharge Problem: Elevated troponin, Cellulitis of left leg Patient Disposition: Admitted As Inpatient Condition: Fair Discharge Instructions Interventions: ED Discharge Assessment Last Done: 11/15/24 17:46 ED DC CONDITION Conditon at Discharge Condition at Discharge: Fair
--- NOTE | 2024-11-15 10:26 | Emergency Department Note ---
ED Visit Note I was consulted by the Advanced Practice Provider LINNEA Calderon. I performed a substantive portion of the visit including all aspects of medical decision making. .
[2024-11-15] MEDS: ACETAMINOPHEN 1,000 MG/100 ML VIAL IV STA (10:47)
[2024-11-15 11:07] LABS: Hematocrit (blood only) 38.3 % (37.0-47.0); Hemoglobin 12.9 g/dl (12.0-16.0); Immature Granulocytes # (auto) 0.12 K/uL (0.01-0.20); Immature Granulocytes % (auto) 0.7 %; Mean Corpuscular Hemoglobin 31.5 pg (25.0-34.0); Mean Corpuscular Volume 93.6 fL (80.0-100.0); Platelet Count 341 K/uL (130-400); RDW Standard Deviation 47.7 fL (36.4-46.3); Red Blood Count 4.09 M/uL (4.20-5.40); White Blood Count 17.53 K/ul (4.8-10.8)
[2024-11-15 11:25] LABS: Alanine Aminotransferase 12 U/L (7-52); Albumin Globulin Ratio 1.4 (0.9-2); Albumin Level 3.8 gm/dl (3.4-5.0); Alkaline Phosphatase 80 U/L (34-104); Anion Gap 8 (3-11); Bilirubin,Total 1.1 mg/dl (0.2-1.0); Blood Urea Nitrogen 22 mg/dl (6-23); Calcium 9.6 mg/dl (8.6-10.3); Carbon Dioxide 30 mmol/L (21-32); Chloride 99 mmol/L (98-107); Globulin 2.8 gm/dl (2.5-4.0); Glucose 130 mg/dl (70-99(Fasting)); Lipase 16 U/L (11-82); Potassium 4.5 mmol/L (3.5-5.1); Sodium 137 mmol/L (136-145); Total Protein 6.6 gm/dl (6.0-8.3)
[2024-11-15 11:36] LABS: INR 1.0 (0.9-1.1); Partial Thromboplastin Time 25 Seconds (21-31); Prothrombin Time 10.9 Seconds (9.0-12.0)
--- NOTE | 2024-11-15 12:00 | XRay Report ---
Clinical History: Weakness Technique: A frontal view of the chest was obtained Comparison is made to the prior examination dated 02/04/2024 Findings: There is mild right lung base opacity, likely due to atelectasis. The heart size is at the upper limit of normal. No pleural effusion or pneumothorax is seen. There is suspected mild pulmonary vascular congestion. No fracture is noted. There is a left shoulder arthroplasty. There is severe right glenohumeral osteoarthritis Impression: 1. Mild pulmonary vascular congestion 2. Right lung base atelectasis Electronically signed by Jase Wharton 11-15-2024 11:59 AM
--- NOTE | 2024-11-15 12:01 | XRay Report ---
Clinical History: Pain. 3 views of the pelvis and left hip are submitted for review. Findings: No fracture or dislocation is seen. No significant arthritic changes are noted. No other osseous abnormality is identified. There are no radiopaque foreign bodies. Impression: Unremarkable radiographs of the pelvis and left hip Electronically signed by Jase Wharton 11-15-2024 12:00 PM
--- NOTE | 2024-11-15 12:01 | XRay Report ---
Clinical History: Pain. 3 views of the left knee are submitted for review. Findings: No fracture is seen. There is a left knee total arthroplasty in expected position. There is no definite sign of infection or loosening. No other osseous abnormality is identified. There are no radiopaque foreign bodies. Impression: Left knee replacement Electronically signed by Jase Wharton 11-15-2024 11:59 AM
--- NOTE | 2024-11-15 12:55 | Ultrasound Report ---
Clinical History: Pain and swelling Technique: Venous ultrasound evaluation was performed utilizing grayscale, color Doppler and wave form evaluation. Images were also obtained with and without compression Findings: The left common femoral, superficial femoral, popliteal, and visualized calf veins demonstrate normal anechoic lumens with full compressibility. Normal flow is seen on color Doppler images. Expected waveforms were produced with augmentation maneuvers Impression: No evidence of left leg deep venous thrombosis Electronically signed by Jase Wharton 11-15-2024 12:55 PM
--- NOTE | 2024-11-15 13:20 | History & Physical Report ---
Date of Service November 15, 2024 Assessment & Plan (1) Left ankle pain: (2) Cellulitis of left leg: (3) ALAN (acute kidney injury): Plan Ms. 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 Patient appears nontoxic and notes that majority of pain and some of the bruising (especially around lateral malleolus of LLE) are new. Patient also correlates some of the nausea experienced to new OTC analgesic that seemingly has a diuretic like compound and tylenol in it. Plan to CT eval the LLE, empirically treat for superimposed nonpurulent cellulitis, and trend renal function. #Acute left foot pain #Possible cellulitis #Chronic LLE edema possible cellulitis, would question given presence of also ecchymosis behind left ankle and forefoot Will treat with CTX for now Uric acid, MRSA nare, ESR and CRP ordered Will order CT w/o con of LLE and foot schedule tylenol, voltaren gel, tramadol prn for severe pain hold amlodipine--would consider alternative antihypertensive #Leukocytosis up to 17.53, patient overall nontoxic in appearance and LLE doesn't appear overly cellulitic--review of trends notes patient with persistent leukocytosis since 2023 even iso no infection; could consider peripheral smear contingent Repeat CBC with diff in am #ALAN on CKDIII reports of poor po intake since taking "back aid", Cr 1.5 ( baseline 0.8-1.2) hold diuertics for now, gentle 250cc bolus and encourage po intake trend bmp in am #Elevated troponin, possibly demand #Moderate aortic stenosis #Chronic heart failure with preserved EF Reportedly with recent ECHO as OP with Dr Ayoub "normal"; EF 55-60% appears euvolemic, if not more on dry side would suspect demand 2/2 pain/dehydration/possible infection rather than ACS at this time Poor initial EKG--will repeat Trend troponin to peak admit to med/tele EKG with chest pain Hold diuretics for now iso ALAN, reassess gentle IVF and encourage PO Update ECHO #Ambulatory dysfunction ambulates with walker at baseline, mostly 2/2 concern given on DAPT PT/OT ordered #PAF no longer on eliquis, pending watchman discussion as op continue on metoprolol #HTN chronic continue metoprolol hold amlodipine--would consider alternative iso chronic edema holding lasix and aldactone given poor intake reported #HLD Chronic, stable continue statin #Prior CVA, residual left hemiparesis continue asa,plavix, statin #GERD reports ongoing issue with reflux, given need to be on dapt will increase to 40mg daily DVT heparin Full code per discussion with patient PCP Dr. Ayoub admit med/tele Admission and Anticipated Discharge Date Admission Date: Time spent evaluating patient, direct bedside care, chart review, placing orders, interpretation of diagnostic studies, discussion with consultants, patient, and family members, as well as other required patient management activities is 75 minutes. History of Present Illness Chief Complaint: Left leg pain Primary Care Provider: Coni Ayoub MD Ms. 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 Patient states she has been dealing with chronic leg swelling as an outpatient, predominately affecting her left leg for "months." This resulted in downtitration of amlodipine, recommendation of myra stocking, and diuertics. Patient states that in the last 6 weeks she has noted some "sciatic" like pain; however, today she felt very sharp pain in her left foot that made her shake and unable to put weight on it. She reports that the other day one of her grandchildren did drop a toy on her left fore foot, then last night she felt some pain behind her left ankle while doing ankle rolls. She denies falls or a traumatic roll to her left foot. She states the swelling is about the same as always, but does note the bruising is new on that foot--however, she points to her right foot that reveals a noted bruise on the forefoot as well 2/2 toy being dropped on her foot. She denies fevers. She reports the tremors she experienced earlier was related to the pain in her foot. She does note that she has had poor appetite--but correlates it to taking an "over the counter sciatica medication" from [employer]. It seems to be "back-aid max" which has a pamabrom and acetaminophen Patient denies chest pain or palpitations. Patient is no longer on eliquis and is undergoing evaluation for watchman device, She lives with her and ambulates with a walker. Granddaughter at bedside during exam. In the ED, vitals were notable for BP of 120-140s, HR of 80s and O2 sat of high 90s on room air Imaging revealed no DVT on doppler, CXR similar compared to prior exams, hip and knee XRAy without acute fracture EKG with notable artifact, repeat ordered ED interventions: IV tylenol. Labs with leucocytosis (though appears to have element of chronicity base on te nds, ALAN on ckd, elevated trop to 275) Patient to be admitted to med/tele for further evaluation and management of left leg pain and swelling, possible cellulitis v MSK injury, as well as abnormal tr op. Allergies Allergy/AdvReac Type Severity Reaction Status Date / Time colchicine AdvReac Intermediate Diarrhea Verified 01/15/24 10:17 Home Medications Medication Instructions Recorded Confirmed Type atorvastatin 10 mg tablet 10 mg PO 3XWK 07/10/18 11/15/24 History metoprolol succinate 50 mg 50 mg PO HS 07/10/18 11/15/24 History tablet,extended release 24 hr pantoprazole 20 mg tablet,delayed 20 mg PO QAM 11/21/18 11/15/24 History release cholecalciferol (vitamin D3) 1,250 1,250 mcg PO WK 10/18/21 11/15/24 History mcg (50,000 unit) capsule amlodipine 10 mg tablet 5 mg PO DAILYBL 01/15/24 11/15/24 History aspirin 81 mg tablet,delayed 81 mg PO QAM 01/15/24 11/15/24 History release furosemide 40 mg tablet 20 mg PO QAM 01/15/24 11/15/24 History diclofenac sodium 1 % topical gel 2 g EXT QID #100 grams 01/16/24 11/15/24 Rx (Voltaren Arthritis Pain) tramadol 50 mg tablet 50 mg PO TID PRN Severe Pain 02/04/24 11/15/24 History (Scale Score 7-10) clopidogrel 75 mg tablet 75 mg DAILY 11/15/24 11/15/24 History magnesium oxide 400 mg (241.3 mg 400 mg QAM 11/15/24 11/15/24 History magnesium) tablet spironolactone 25 mg tablet 25 mg DAILY 11/15/24 11/15/24 History Past Med/Surg History Problem List (Updated 11/15/24 @ 14:50 by Alaina Rodriguez MD) Heart failure due to valvular disease Aortic stenosis Leukocytosis Cellulitis (Acute) CHF (congestive heart failure) (Acute) Weakness (Acute) Hypoxia (Acute) Cellulitis of left hand PAF (paroxysmal atrial fibrillation) Left ankle pain Cellulitis of left leg Acute bronchitis due to Rhinovirus Hypoxia Rotator cuff arthropathy of right shoulder Osteoarthritis, knee Heart contusion Nausea & vomiting (Acute) Diarrhea (Acute) Hypomagnesemia (Acute) ALAN (acute kidney injury) (Acute) Dehydration (Acute) ARF (acute renal failure) Left-sided chest pain (Acute) Elevated troponin (Acute) Osteopenia Ribs, multiple fractures There are subacute appearing right anterior rib fractures (4th-7th). Chest pain Rheumatoid arthritis F/U PCP Status post replacement of left shoulder joint (~09/2019) Dyslipidemia Hypertension GERD (gastroesophageal reflux disease) Well controlled and stable S/P TKR (total knee replacement) LEFT TIA (transient ischemic attack) X 4- PLACED ON PLAVIX (FIRST TIA AFTER SURGERY- HAS HAD SURGERY SINCE WITHOUT ISSUES). NO ISSUES X YEARS Medical History (Updated 11/15/24 @ 14:50 by Alaina Rodriguez MD) Aortic stenosis Mild per 11/2018 ECHO Seizure TIA vs SEIZURE: "BLACKED OUT IN HER HEAD AND CAME TO"/BECAME ALERT-NEVER DX'D ANY FURTHER-4 YRS AGO-NO OTHER OCCURRENCES Fracture of hand Hypomagnesemia Right shoulder pain Neck pain Acute heart failure with preserved ejection fraction Acute on chronic heart failure with preserved ejection fraction Somatic dysfunction of spine, cervical Acute hypoxemic respiratory failure Rotator cuff arthropathy Sciatica Can radiate down right or left side Hyperlipidemia Knee pain, right Right knee DJD Surgical History History of arthroplasty of left shoulder History of cataract surgery R/L History of anesthesia reaction SLOW TO WAKE UP-HAD TIA DURING SURGERY AND POST OP-[facility] – [place]AGE 66 History of esophagogastroduodenoscopy (EGD) History of colonoscopy S/P bilateral breast reduction AGE 66 YRS Family History Father Family history of diabetes mellitus Mother Family hx of colon cancer Social History Smoking Status: Never smoker Second Hand Exposure: No; Do You Dip or Chew Tobacco: No; Hx Alcohol Use: No Hx Substance Use: No Preferred Language: [place] Communication Ability: Effective Rotating Equipment Engineer Required: No Beliefs That Will Affect Care: None marital status: Current Living Situation: Spouse How many Children do You have: 2 Feels Safe at Home: Yes Assistive Devices: Cane and Walker Review of Systems Review of Systems: Constitutional: (-) fever/chills, (-) recent loss of weight, (-) appetite changes, (-) night sweats. Head: (-) headache, (-) dizziness. Eye: (-) blurring of vision, (-) double vision, (-) redness. Ear: (-) hearing loss, (-) discharge, (-) vertigo Nose: (-) discharge, (-) bleeding, (-) congestion, (-) post nasal drip. Throat: (-) sore throat, (-) hoarseness of voice, (-) odynophagia. Cardiovascular: (-) chest pain, (-) palpitations, (-) syncope, (-) orthopnea, (- ) PND, (+) leg swelling, L>R Respiratory: (-) shortness of breath, (-) cough, (-) wheezing, (-) hemoptysis. Neuro: (-) weakness in extremities, (-) numbness, (-) tingling, (-) tremor. Gastrointestinal: (-) belly pain, (-) belly distension, (+) nausea, (-) vomiting, (-) diarrhea, (-) constipation, (-) na, (-) hematemesis, (-) hematochezia, (-) bowel incontinence Genitourinary: (-) hematuria, (-) dysuria, (-) polyuria, (-) hesitancy, (-) frequency, (-) urinary incontinence. Musculoskeletal: (-) myalgia, (-) arthralgia. Skin: (-) rashes. Endocrine: (-) heat/cold intolerance. Psychiatry: (-) depression, (-) hallucination. Physical Exam Physical Exam: GENERAL APPEARANCE: AxOx4, generally well-appearing female, non-toxic, no acute distress. HEENT: NC, AT. MMM. EOMI, clear conjunctiva, oropharynx clear. NECK: Supple without lymphadenopathy. No stiffness or restricted ROM. HEART: Normal rate and regular rhythm, normal S1/S1, no m/r/g LUNGS: CTAB, moving air well. No crackles or wheezes are heard. ABDOMEN: Soft, nontender, nondistended with good bowel sounds heard. BACK: No CVAT, no obvious deformity. EXTREMITIES: Without cyanosis, clubbing, Right lower extremity with no noted edema; left lower extremity with 2+ pitting edema 2/3rd up leg, notable pedal edema NEUROLOGICAL: Grossly nonfocal. Alert and oriented, moving all 4 extremities. CN not formally tested but appear grossly intact. Observed to ambulate with normal gait. Skin: scattered ecchymosis on BLE; healing ecchymosis on RLE forefoot, ecchymosis on LLE forefoot 1st-3rd digits tender to palpation, large ecchymosis posterior lateral malleolus with tenderness; mild erythema of ankle, no purulence noted, general tenderness to palpation along BLE Results & Data Results & Data Vital Signs (Past 12 Hours) Vital Signs Temp Pulse Pulse Resp BP BP Pulse Ox 11/15/24 12:35 83 30 H 129/56 L 98 11/15/24 11:04 91 H 11/15/24 10:16 83 22 96 11/15/24 09:58 36.7 C 90 20 143/82 H 96 O2 Del Method 11/15/24 12:35 11/15/24 11:04 11/15/24 10:16 Room Air 11/15/24 09:58 Room Air Laboratory Results Short CBC 11/15/24 Range/Units 10:30 WBC 17.53 H (4.8-10.8) K/ul Hgb 12.9 (12.0-16.0) g/dl Hct 38.3 (37.0-47.0) % Plt Count 341 (130-400) K/uL BMP 11/15/24 10:30 Sodium 137 Potassium 4.5 Chloride 99 Carbon Dioxide 30 BUN 22 Creatinine 1.50 H Glucose 130 H Calcium 9.6 Liver Function 11/15/24 Range/Units 10:30 Total Bilirubin 1.1 H (0.2-1.0) mg/dl AST 20 (13-39) U/L ALT 12 (7-52) U/L Alkaline Phosphatase 80 (34-104) U/L Albumin 3.8 (3.4-5.0) gm/dl Medications Administered Home Medications Medication Instructions Recorded Confirmed Last Taken atorvastatin 10 mg tablet 10 mg PO 3XWK 07/10/18 11/15/24 01/14/24 metoprolol succinate 50 mg 50 mg PO HS 07/10/18 11/15/24 01/14/24 tablet,extended release 24 hr pantoprazole 20 mg tablet,delayed 20 mg PO QAM 11/21/18 11/15/24 01/14/24 release cholecalciferol (vitamin D3) 1,250 1,250 mcg PO WK 10/18/21 11/15/24 01/11/24 mcg (50,000 unit) capsule amlodipine 10 mg tablet 5 mg PO DAILYBL 01/15/24 11/15/24 01/14/24 aspirin 81 mg tablet,delayed 81 mg PO QA 01/15/24 11/15/24 01/14/24 release furosemide 40 mg tablet 20 mg PO QA 01/15/24 11/15/24 01/14/24 diclofenac sodium 1 % topical gel 2 g EXT QID #100 grams 01/16/24 11/15/24 Unknown (Voltaren Arthritis Pain) tramadol 50 mg tablet 50 mg PO TID PRN Severe Pain 02/04/24 11/15/24 Unknown (Scale Score 7-10) clopidogrel 75 mg tablet 75 mg DAILY 11/15/24 11/15/24 Unknown magnesium oxide 400 mg (241.3 mg 400 mg QA 11/15/24 11/15/24 Unknown magnesium) tablet spironolactone 25 mg tablet 25 mg DAILY 11/15/24 11/15/24 Unknown
[2024-11-15] MEDS: cefTRIAXone SODIUM 2,000 MG/50 ML BAG IV STA (14:53)
[2024-11-15 15:15] LABS: Uric Acid 8.7 mg/dl (2.6-7.2)
[2024-11-15] MEDS: ADVANCED PROBIOTIC 625 MG CAPSULE PO STA (15:40)
[2024-11-15] MEDS: SODIUM CHLORIDE 0.9% 250 ML IV ONE (15:41)
--- NOTE | 2024-11-15 15:57 | CT Scan Report ---
CT left tibia and fibula without contrast History: Pain and swelling. Comparison: January 15, 2024 left ankle and earlier same day left knee plain film exams. Technique: Routine axial CT images with coronal and sagittal reconstructions without contrast of the left tibia and fibula. Were obtained and reviewed. Dose reduction techniques were achieved by using automatic exposure control and/or adjustment of mA and/or kV according to patient size and/or use of iterative reconstruction technique. Findings: Curtain Roller Assembler film demonstrates left knee arthroplasty changes. Soft tissue windows demonstrate portions of the exam limited secondary to streak artifact from left knee arthroplasty hardware. Portions of the exam at this level are essentially nondiagnostic. Calcified atherosclerotic changes are noted. Further characterization limited on this noncontrast exam. There is mild diffuse increased reticular densities of the subcutaneous soft tissues. This is confluent along the mid and distal leg. No discrete drainable fluid collection is identified although this is limited on this noncontrast exam. Myofascial planes are intact. No soft tissue gas throughout the exam. Bone windows demonstrate arthroplasty hardware to be grossly intact. No appreciated loosening. No occult fracture. No malalignment Impression: Subcutaneous edematous changes of the mid and distal leg as described above. No soft tissue gas or myofascial edema. Further characterization is limiting. Etiology is uncertain. No underlying occult fracture or osseous abnormality. Please see above for details. Electronically signed by Toño Rios 11-15-2024 3:57 PM
--- NOTE | 2024-11-15 16:24 | CT Scan Report ---
CT LEFT FOOT WITHOUT CONTRAST: HISTORY: PAIN TECHNIQUE: CT of the left foot was obtained without intravenous contrast. Coronal and sagittal reformats were created. COMPARISON: None. FINDINGS: No acute fracture is identified. There is a small area of skin thinning/likely ulceration in the posterolateral corner of the heel. Subtle erosive changes are suggested in the posterolateral corner of the abutting calcaneus (series 7, images 19-24) Diffuse soft tissue swelling with submucosal edema and fluid. No organized/drainable fluid collection is identified within the constraint of a noncontrast CT examination. IMPRESSION: Diffuse soft tissue swelling without a drainable/organized fluid collection. This finding may be due to cellulitis and/or venous sufficiency. Small ulcerative defect suggested in the posterolateral corner of the heel with a subtle erosive change of the abutting calcaneus as above. Very mild osteomyelitis could be present. Electronically signed by Mohit San 11-15-2024 4:24 PM
[2024-11-15] MEDS ORDERED: ONDANSETRON INJ 2 MG/ML 2 ML VIAL IV PRN (17:45)
[2024-11-15] MEDS ORDERED: MELATONIN 3 MG TAB PO PRN (17:45)
[2024-11-15] MEDS ORDERED: POLYETHYLENE (MIRALAX) 17 GM PACK PO PRN (17:45)
[2024-11-15] MEDS: MoRPHine SULFATE 2 MG/ML CARP IV STA (17:53)
[2024-11-15] MEDS: DAPTOmycin 500 MG in SYRINGE 0 ML IV SCH (17:53)
[2024-11-15 17:55] LABS: Hemoglobin A1C 5.6 % (4.5-5.6)
[2024-11-15] MEDS: CLOPIDOGREL BISULFATE 75 MG TAB PO SCH (18:56)
[2024-11-15] MEDS: HEPARIN SOD 5,000 UNIT/0.5 ML VIAL SQ SCH (18:56)
[2024-11-15] MEDS: MAGNESIUM OXIDE 400 MG TAB PO SCH (18:56)
[2024-11-15] MEDS: ASPIRIN 81 MG ECTAB PO SCH (18:56)
[2024-11-15] MEDS: DICLOFENAC SOD 1% GEL 100 GM TUBE EXT SCH (18:57)
[2024-11-15] MEDS: ACETAMINOPHEN 500 MG TAB PO SCH (20:11)
[2024-11-15 20:49] LABS: Creatine Kinase 19.0 U/L (26-192)
[2024-11-15] MEDS: METOPROLOL SUCC 50MG EXT REL TAB PO SCH (21:14)
[2024-11-16 05:53] LABS: Hematocrit (blood only) 34.7 % (37.0-47.0); Hemoglobin 11.0 g/dl (12.0-16.0); Immature Granulocytes # (auto) 0.04 K/uL (0.01-0.20); Immature Granulocytes % (auto) 0.4 %; Mean Corpuscular Hemoglobin 29.7 pg (25.0-34.0); Mean Corpuscular Volume 93.8 fL (80.0-100.0); Platelet Count 273 K/uL (130-400); RDW Standard Deviation 47.4 fL (36.4-46.3); Red Blood Count 3.70 M/uL (4.20-5.40); White Blood Count 9.42 K/ul (4.8-10.8)
[2024-11-16 06:07] LABS: Anion Gap 4.0 (3-11); Blood Urea Nitrogen 21.0 mg/dl (6-23); Calcium 9.1 mg/dl (8.6-10.3); Carbon Dioxide 30.0 mmol/L (21-32); Chloride 103.0 mmol/L (98-107); Creatinine Clr Calc Pharmacy 37.2 ml/min; Glucose 96.0 mg/dl (70-99(Fasting)); Magnesium 1.9 mg/dl (1.7-2.4); Potassium 4.2 mmol/L (3.5-5.1); Sodium 137.0 mmol/L (136-145)
[2024-11-16] MEDS: ADVANCED PROBIOTIC 625 MG CAPSULE PO SCH (08:39)
--- NOTE | 2024-11-16 10:23 | Hospitalist Progress Note ---
Date of Service November 16, 2024 Assessment & Plan (1) Left ankle pain: (2) Cellulitis of left leg: (3) ALAN (acute kidney injury): Plan Ms. 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 Patient appeared nontoxic and notes that majority of pain and some of the bruising (especially around lateral malleolus of LLE) are new at the time of presentation. #Acute left foot pain #Possible cellulitis, Possible osteomyelitis Lt heel #Chronic LLE edema possible cellulitis, would question given presence of also ecchymosis behind left ankle and forefoot MRSA scrn neg, ESR 51, CRP 5.[address]: cellulitis of left foot, ? osteomyelitis. c/w ceftriaxone 11/15 and Dapto 11/15. c/w probiotic, hold statin, get cpk level weekly (admitting (11/15) cpk 19) schedule tylenol, voltaren gel, tramadol prn for severe pain hold amlodipine--would consider alternative antihypertensive ID consult. Await podiatry eval Pt reports pain improving, WBC trended down. #ALAN on CKDIII reports of poor po intake since taking "back aid", Cr 1.5 ( baseline 0.8-1.2) hold diuertics for now, s/p IVF, encourage po intake Cr slightly down today to 1.34, BMP in am. #Elevated troponin, possibly demand #Moderate aortic stenosis #Chronic heart failure with preserved EF Reportedly with recent ECHO as OP with Dr Ayoub "normal"; EF 55-60% would suspect demand 2/2 pain/dehydration/possible infection rather than ACS at this time Trop trend flat, EKG w/ no acute ST-T changes. EKG with chest pain Hold diuretics for now iso ALAN, reassess f/u updated ECHO. Other chronic medical conditions: Continue with/resume home meds as and when able. Ambulatory dysfunction: Ambulates with walker at baseline, has residual left lower extremity weakness from prior stroke. PT/OT. PAF: No longer on Eliquis, pending Watchman discussion as outpatient. Continue home metoprolol. Hypertension: Chronic, continue metoprolol. Hold amlodipine/would consider alternative in the setting of chronic edema, hold Lasix and Aldactone given poor intake and ALAN over CKD. HLD: Chronic, stable, continue with statin Prior CVA, residual left hemiparesis: Continue ASA, Plavix, statin. GERD: Reports ongoing issue with reflux, continue pantoprazole at 40 mg d aily. DVT prophylaxis: Heparin subcu Full code PCP Dr. Ayoub Admission and Anticipated Discharge Date Admission Date: November 15, 2024 Subjective Patient was seen and examined at bedside. Patient was lying in bed, on room air, NAD, resting comfortably. Patient reports improvement in the pain left leg. Patient reports eating okay and moving bowels okay. Patient denies other review of symptoms. Physical Exam Physical Exam: GENERAL APPEARANCE: AxOx4, generally well-appearing female, non-toxic, no acute distress. HEENT: NC, AT. MMM. EOMI, clear conjunctiva, oropharynx clear. NECK: Supple without lymphadenopathy. No stiffness or restricted ROM. HEART: Normal rate and regular rhythm, normal S1/S1, no m/r/g LUNGS: CTAB, moving air well. No crackles or wheezes are heard. ABDOMEN: Soft, nontender, nondistended with good bowel sounds heard. BACK: No CVAT, no obvious deformity. EXTREMITIES: Without cyanosis, clubbing, Right lower extremity with no noted edema; left lower extremity with 2+ pitting edema 2/3rd up leg, notable pedal edema NEUROLOGICAL: Grossly nonfocal. Alert and oriented, moving all 4 extremities. CN not formally tested but appear grossly intact. Skin: scattered ecchymosis on BLE; healing ecchymosis on RLE forefoot, ecchymosis on LLE forefoot 1st-3rd digits tender to palpation, large ecchymosis posterior lateral malleolus with mild tenderness; mild erythema of ankle, no purulence noted, general tenderness to palpation along BLE Results & Data Results & Data Vital Signs (Past 12 Hours) Vital Signs Temp Pulse Pulse Resp BP Pulse Ox O2 Del Method 11/16/24 08:09 36.5 C 61 18 142/73 H 95 Room Air 11/16/24 07:16 54 L 11/16/24 02:03 36.7 C 61 18 117/70 95 Room Air 11/16/24 00:35 Room Air 11/16/24 00:35 36.5 C 97 H 18 167/71 H 95 Room Air
--- NOTE | 2024-11-16 12:30 | Electrocardiogram Report ---
Test Reason : Blood Pressure : */* mmHG Vent. Rate : 93 BPM Atrial Rate : 93 BPM P-R Int : 150 ms QRS Dur : 82 ms QT Int : 340 ms P-R-T Axes : 61 -21 82 degrees QTcB Int : 422 ms Normal sinus rhythm Left ventricular hypertrophy with repolarization abnormality ( R in aVL ) Abnormal ECG When compared with ECG of 06-Feb-2024 06:06, ST now depressed in Lateral leads Confirmed by Anne Herrera (Uzma) on 11/16/2024 12:29:57 PM Referred By: REFERRED SELF Confirmed By: Anne Herrera
--- NOTE | 2024-11-16 12:48 | Electrocardiogram Report ---
Test Reason : Blood Pressure : */* mmHG Vent. Rate : 78 BPM Atrial Rate : 78 BPM P-R Int : 152 ms QRS Dur : 82 ms QT Int : 384 ms P-R-T Axes : 42 -24 80 degrees QTcB Int : 437 ms Sinus rhythm with Premature atrial complexes Left ventricular hypertrophy with repolarization abnormality ( R in aVL , Alan product ) Abnormal ECG When compared with ECG of 15-Nov-2024 10:19, (unconfirmed) Premature atrial complexes are now Present Confirmed by Anne Herrera (Uzma) on 11/16/2024 12:48:06 PM Referred By: REFERRED SELF Confirmed By: Anne Herrera
[2024-11-16] MEDS: cefTRIAXone SODIUM 2,000 MG/50 ML BAG IV SCH (13:31)
[2024-11-17] MEDS: ATORVASTATIN 10 MG TAB PO SCH (08:12)
[2024-11-17 08:58] LABS: Hematocrit (blood only) 40.4 % (37.0-47.0); Hemoglobin 12.8 g/dl (12.0-16.0); Mean Corpuscular Hemoglobin 30.1 pg (25.0-34.0); Mean Corpuscular Volume 95.1 fL (80.0-100.0); Platelet Count 365 K/uL (130-400); RDW Standard Deviation 49.1 fL (36.4-46.3); Red Blood Count 4.25 M/uL (4.20-5.40); White Blood Count 12.92 K/ul (4.8-10.8)
[2024-11-17 09:10] LABS: Anion Gap 10.0 (3-11); Blood Urea Nitrogen 23.0 mg/dl (6-23); Calcium 9.8 mg/dl (8.6-10.3); Carbon Dioxide 27.0 mmol/L (21-32); Chloride 102.0 mmol/L (98-107); Creatinine Clr Calc Pharmacy 32.8 ml/min; Glucose 121.0 mg/dl (70-99(Fasting)); Potassium 4.1 mmol/L (3.5-5.1); Sodium 139.0 mmol/L (136-145)
--- NOTE | 2024-11-17 13:50 | Infectious Disease Consult ---
Date of Service November 17, 2024 Telehealth Information I performed this visit using a real-time telehealth connection between my location and the patients location ([facility]). After connecting through interactive tele-video, patient was identified by name and date of and/or wristband check.Patient (or authorized healthcare welding equipment sales representative) was informed that this was a telemedicine visit and it was being conducted confidentially over secure lines. My office door was closed and no one else was present in the room with me.Patient (or authorized healthcare welding equipment sales representative) provided consent to proceed with the visit, expressed an understanding of privacy and security of the telemedicine visit, and gave permission to have a hospital welding equipment sales representative in the room in order to assist with the visit and to conduct portions of the visit, as needed. I informed the patient (or authorized healthcare welding equipment sales representative) that I reviewed their record and presented the opportunity for them to ask any questions regarding the visit today. The patient agreed to participate. Assessment & Plan (1) Heart failure due to valvular disease: (2) Aortic stenosis: (3) Leukocytosis: (4) Cellulitis: Plan Assessment: Ms. 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 At [facility], CT Left LE showed left foot cellulitis with concern for OM. Plan: - Recommend Ceftriaxone and Daptomycin IV for now - Recommend MRI left foot to r/o OM, the CT scan was not conclusive and there would be a difference in management. - we will not active monitor patient, for additional recommendations please call the physician on teledoc via tiger text or call. History of Present Illness History of Present Illness Reason for consult: cellulitis, osteomyelitis lt foot Ms. 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 At [facility], CT Left LE showed left foot cellulitis with concern for OM. ID consu lted for evaluation and management. Allergies Allergy/AdvReac Type Severity Reaction Status Date / Time colchicine AdvReac Intermediate Diarrhea Verified 01/15/24 10:17 Home Medications Medication Instructions Recorded Confirmed Type atorvastatin 10 mg tablet 10 mg PO 3XWK 07/10/18 11/15/24 History metoprolol succinate 50 mg 50 mg PO HS 07/10/18 11/15/24 History tablet,extended release 24 hr pantoprazole 20 mg tablet,delayed 20 mg PO QAM 11/21/18 11/15/24 History release cholecalciferol (vitamin D3) 1,250 1,250 mcg PO WK 10/18/21 11/15/24 History mcg (50,000 unit) capsule amlodipine 10 mg tablet 5 mg PO DAILYBL 01/15/24 11/15/24 History aspirin 81 mg tablet,delayed 81 mg PO QAM 01/15/24 11/15/24 History release furosemide 40 mg tablet 20 mg PO QAM 01/15/24 11/15/24 History diclofenac sodium 1 % topical gel 2 g EXT QID #100 grams 01/16/24 11/15/24 Rx (Voltaren Arthritis Pain) tramadol 50 mg tablet 50 mg PO TID PRN Severe Pain 02/04/24 11/15/24 History (Scale Score 7-10) clopidogrel 75 mg tablet 75 mg DAILY 11/15/24 11/15/24 History magnesium oxide 400 mg (241.3 mg 400 mg QAM 11/15/24 11/15/24 History magnesium) tablet spironolactone 25 mg tablet 25 mg DAILY 11/15/24 11/15/24 History Patient History Medical History (Updated 11/15/24 @ 14:50 by Alaina Rodriguez MD) Aortic stenosis Mild per 11/2018 ECHO Seizure TIA vs SEIZURE: "BLACKED OUT IN HER HEAD AND CAME TO"/BECAME ALERT-NEVER DX'D ANY FURTHER-4 YRS AGO-NO OTHER OCCURRENCES Fracture of hand Hypomagnesemia Right shoulder pain Neck pain Acute heart failure with preserved ejection fraction Acute on chronic heart failure with preserved ejection fraction Somatic dysfunction of spine, cervical Acute hypoxemic respiratory failure Rotator cuff arthropathy Sciatica Can radiate down right or left side Hyperlipidemia Knee pain, right Right knee DJD Surgical History History of arthroplasty of left shoulder History of cataract surgery R/L History of anesthesia reaction SLOW TO WAKE UP-HAD TIA DURING SURGERY AND POST OP-[facility]-AGE 66 History of esophagogastroduodenoscopy (EGD) History of colonoscopy S/P bilateral breast reduction AGE 66 YRS Family History Father Family history of diabetes mellitus Mother Family hx of colon cancer Social History Smoking Status: Never smoker Second Hand Exposure: No; Do You Dip or Chew Tobacco: No; Tobacco Cessation Education Requested by Patient: No Hx Alcohol Use: No Hx Substance Use: No Preferred Language: Mozambican Communication Ability: Effective Master Ship Required: No Beliefs That Will Affect Care: None marital status: Current Living Situation: Spouse How many Children do You have: 2 Other Information That Helps Us Care for You: No Feels Safe at Home: Yes Safety Concerns: Feels Safe At This Time Assistive Devices: Glasses, Hospital Bed and Walker Review of Systems ROS all negative and reviewed Physical Exam NA Results & Data Vital Signs (Past 12 Hours) Vital Signs Temp Pulse Pulse Resp BP Pulse Ox O2 Del Method 11/17/24 11:13 36.9 C 62 20 173/78 H 97 Room Air 11/17/24 09:37 71 11/17/24 08:07 36.7 C 77 20 162/78 H 96 Room Air 11/17/24 07:12 66 11/17/24 04:04 36.8 C 77 20 162/64 H 93 Room Air Laboratory Results 11/17/24 08:22 WBC 12.92 H RBC 4.25 Hgb 12.8 Hct 40.4 MCV 95.1 MCH 30.1 MCHC 31.7 L RDW Std Deviation 49.1 H RDW Coeff of Marcio 14.1 Plt Count 365 MPV 11.2 Sodium 139 Potassium 4.1 Chloride 102 Carbon Dioxide 27 Anion Gap 10 BUN 23 Creatinine 1.52 H Est Cr Clr Drug Dosing 32.8 eGFR 34.03 BUN/Creatinine Ratio 15.1 Glucose 121 H Calcium 9.8 Diagnostic Findings Left foot CT on 11/15/2024 IMPRESSION: Diffuse soft tissue swelling without a drainable/organized fluid collection. This finding may be due to cellulitis and/or venous sufficiency. Small ulcerative defect suggested in the posterolateral corner of the heel with a subtle erosive change of the abutting calcaneus as above. Very mild osteomyelitis could be present. Medications Administered Home Medications Medication Instructions Recorded Confirmed Last Taken atorvastatin 10 mg tablet 10 mg PO 3XWK 07/10/18 11/15/24 01/14/24 metoprolol succinate 50 mg 50 mg PO HS 07/10/18 11/15/24 01/14/24 tablet,extended release 24 hr pantoprazole 20 mg tablet,delayed 20 mg PO QAM 11/21/18 11/15/24 01/14/24 release cholecalciferol (vitamin D3) 1,250 1,250 mcg PO WK 10/18/21 11/15/24 01/11/24 mcg (50,000 unit) capsule amlodipine 10 mg tablet 5 mg PO DAILYBL 01/15/24 11/15/24 01/14/24 aspirin 81 mg tablet,delayed 81 mg PO QAM 01/15/24 11/15/24 01/14/24 release furosemide 40 mg tablet 20 mg PO QAM 01/15/24 11/15/24 01/14/24 diclofenac sodium 1 % topical gel 2 g EXT QID #100 grams 01/16/24 11/15/24 Unknown (Voltaren Arthritis Pain) tramadol 50 mg tablet 50 mg PO TID PRN Severe Pain 02/04/24 11/15/24 Unknown (Scale Score 7-10) clopidogrel 75 mg tablet 75 mg DAILY 11/15/24 11/15/24 Unknown magnesium oxide 400 mg (241.3 mg 400 mg QAM 11/15/24 11/15/24 Unknown magnesium) tablet spironolactone 25 mg tablet 25 mg DAILY 11/15/24 11/15/24 Unknown Active Medications Generic Name Dose Route Start Last Admin Trade Name Freq PRN Reason Stop Dose Admin Acetaminophen 1,000 mg 11/15/24 18:00 11/17/24 13:53 Acetaminophen 500 Mg Tab PO 12/15/24 17:59 1,000 mg Q8 LAVERNE Administration Aspirin 81 mg 11/15/24 18:00 11/17/24 08:11 Aspirin 81 Mg Ectab PO 12/15/24 17:59 81 mg QAM LAVERNE Administration Atorvastatin Calcium 10 mg 11/17/24 09:00 11/17/24 08:12 Atorvastatin 10 Mg Tab PO 12/17/24 08:59 10 mg [id number] LAVERNE Administration Clopidogrel Bisulfate 75 mg 11/15/24 18:00 11/17/24 08:12 Clopidogrel Bisulfate 75 Mg Tab PO 12/15/24 17:59 75 mg DAILY LAVERNE Administration Diclofenac Sodium 2 gm 11/15/24 18:00 11/17/24 12:13 Diclofenac Sod 1% Gel 100 Gm Tube EXT 12/15/24 17:59 Not Given QID LAVERNE Protocol Heparin Sodium (Porcine) 5,000 units 11/15/24 18:00 11/17/24 05:05 Heparin Sod 5,000 Unit/0.5 Ml Vial SQ 12/15/24 17:59 5,000 units Q8 LAVERNE Administration Ceftriaxone Sodium 2,000 mg in 50 mls @ 100 mls/hr 11/16/24 14:00 11/17/24 13:49 Rocephin IV 11/23/24 13:59 100 mls/hr Q24H LAVERNE Administration Daptomycin 500 mg/ Syringe 10 mls @ 5 mls/min 11/15/24 17:30 11/16/24 17:00 IV 11/22/24 17:29 5 mls/min Q24H LAVERNE Administration Protocol Lactobacillus Acidophilus 1,250 mg 11/16/24 09:00 11/17/24 08:11 Advanced Probiotic 625 Mg Capsule PO 12/16/24 08:59 1,250 mg DAILY LAVERNE Administration Magnesium Oxide 400 mg 11/15/24 18:00 11/17/24 08:11 Magnesium Oxide 400 Mg Tab PO 12/15/24 17:59 400 mg QAM LAVERNE Administration Metoprolol Succinate 50 mg 11/15/24 21:00 11/16/24 21:03 Metoprolol Succ 50mg Ext Rel Tab PO 12/15/24 20:59 50 mg HS LAVERNE Administration Pantoprazole Sodium 40 mg 11/16/24 09:00 11/17/24 08:12 Pantoprazole 40 Mg Tab PO 12/16/24 08:59 40 mg QAM LAVERNE Administration (2) Aortic stenosis Cardiac valve disease etiology: nonrheumatic Qualified Code(s): I35.0 - Nonrheumatic aortic (valve) stenosis (3) Leukocytosis Leukocytosis type: unspecified Qualified Code(s): D72.829 - Elevated white blood cell count, unspecified (4) Cellulitis Laterality: left Site of cellulitis: extremity Site of cellulitis of extremity: upper extremity Qualified Code(s): L03.114 - Cellulitis of left upper limb
--- NOTE | 2024-11-17 14:13 | Hospitalist Progress Note ---
Date of Service November 17, 2024 Assessment & Plan (1) Left ankle pain: (2) Cellulitis of left leg: (3) ALAN (acute kidney injury): Plan Ms. 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 Patient appeared nontoxic and notes that majority of pain and some of the bruising (especially around lateral malleolus of LLE) are new at the time of presentation. #Acute left foot pain #Possible cellulitis, Possible osteomyelitis Lt heel #Chronic LLE edema possible cellulitis, would question given presence of also ecchymosis behind left ankle and forefoot MRSA scrn neg, ESR 51, CRP 5.[address]: cellulitis of left foot, ? osteomyelitis. c/w ceftriaxone 11/15 and Dapto 11/15. c/w probiotic, hold statin, get cpk level weekly (11/15 admitting cpk 19) schedule tylenol, voltaren gel, tramadol prn for severe pain hold amlodipine--would consider alternative antihypertensive ID consult. Await podiatry eval Pt reports pain improving, pt afebrile. #ALAN on CKDIII reports of poor po intake since taking "back aid", Cr 1.5 ( baseline 0.8-1.2) hold diuertics for now, s/p IVF, encourage po intake Cr about 1.5, BMP in am. #Elevated troponin, possibly demand #Moderate aortic stenosis #Chronic heart failure with preserved EF Reportedly with recent ECHO as OP with Dr Ayoub "normal"; EF 55-60% would suspect demand 2/2 pain/dehydration/possible infection rather than ACS at this time Trop trend flat, EKG w/ no acute ST-T changes. EKG with chest pain Hold diuretics for now iso ALAN, reassess f/u updated ECHO. reviewed ef 55-60%, no RWMA. Other chronic medical conditions: Continue with/resume home meds as and when able. Ambulatory dysfunction: Ambulates with walker at baseline, has residual left lower extremity weakness from prior stroke. PT/OT. PAF: No longer on Eliquis, pending Watchman discussion as outpatient. Continue home metoprolol. Hypertension: Chronic, continue metoprolol. Hold amlodipine/would consider alternative in the setting of chronic edema, hold Lasix and Aldactone given poor intake and ALAN over CKD. prn BP meds while meds are on hold. HLD: Chronic, stable, continue with statin Prior CVA, residual left hemiparesis: Continue ASA, Plavix, statin. GERD: Reports ongoing issue with reflux, continue pantoprazole at 40 mg d aily. DVT prophylaxis: Heparin subcu Full code PCP Dr. Ayoub Admission and Anticipated Discharge Date Admission Date: November 15, 2024 Subjective Patient was seen and examined at bedside. Patient was lying in bed, on room air, NAD, resting comfortably. Patient reports no pain left leg. Patient reports eating okay and moving bowels okay. Patient denies other review of symptoms. Physical Exam Physical Exam: GENERAL APPEARANCE: AxOx4, generally well-appearing female, non-toxic, no acute distress. HEENT: NC, AT. MMM. EOMI, clear conjunctiva, oropharynx clear. NECK: Supple without lymphadenopathy. No stiffness or restricted ROM. HEART: Normal rate and regular rhythm, normal S1/S1, no m/r/g LUNGS: CTAB, moving air well. No crackles or wheezes are heard. ABDOMEN: Soft, nontender, nondistended with good bowel sounds heard. BACK: No CVAT, no obvious deformity. EXTREMITIES: Without cyanosis, clubbing, Right lower extremity with no noted edema; left lower extremity with 2+ pitting edema 2/3rd up leg, notable pedal edema NEUROLOGICAL: Grossly nonfocal. Alert and oriented, moving all 4 extremities. CN not formally tested but appear grossly intact. Skin: scattered ecchymosis on BLE; healing ecchymosis on RLE forefoot, ecchymosis on LLE forefoot 1st-3rd digits tender to palpation, large ecchymosis posterior lateral malleolus with mild tenderness; mild erythema of ankle, no pu rulence noted, general tenderness to palpation along BLE Results & Data Results & Data Vital Signs (Past 12 Hours) Vital Signs Temp Pulse Pulse Resp BP Pulse Ox O2 Del Method 11/17/24 11:13 36.9 C 62 20 173/78 H 97 Room Air 11/17/24 09:37 71 11/17/24 08:07 36.7 C 77 20 162/78 H 96 Room Air 11/17/24 07:12 66 11/17/24 04:04 36.8 C 77 20 162/64 H 93 Room Air
--- NOTE | 2024-11-17 19:43 | Magnetic Resonance Report ---
Clinical History: Rule out osteomyelitis Technique: Multiple T1 and T2 magnetic resonance images were obtained of the left ankle without gadolinium contrast. Comparison is made to the CT dated 11/15/2024 Findings: There is tenosynovitis of the peroneus brevis and peroneus longus. The medial and anterior ankle tendons all appear intact without apparent tendinopathy, tenosynovitis, or tear. The anterior and posterior talofibular and tibiofibular ligaments appear to be intact. The deltoid ligament and calcaneofibular ligament appear intact also. There is mild Achilles tendinopathy without tear. The plantar fascia appears unremarkable with no sign of plantar fasciitis or plantar fibromatosis. The visualized bones demonstrate normal bone marrow signal intensity with no sign of fracture or focal osseous lesion. No significant arthritic changes are seen. There is no subluxation or dislocation Diffuse subcutaneous edema is again seen involving the ankle and the dorsum of the foot There is no joint effusion. The sinus tarsi appears unremarkable. No definite abnormality is seen within the tarsal tunnel. No soft tissue mass is evident. The talar dome appears normal. The visualized musculature appears unremarkable. No definite foreign body is seen. Impression: 1. Unchanged prominent subcutaneous edema that could be due to cellulitis 2. No definite soft tissue abscess or osteomyelitis 3. Mild Achilles tendinopathy 4. Tenosynovitis of the peroneus brevis and peroneus longus Electronically signed by Jase Wharton 11-17-2024 7:41 PM
--- NOTE | 2024-11-17 20:05 | Podiatry Consultation ---
Date of Consultation November 17, 2024 Assessment & Plan (1) Contusion of left ankle: Encounter type: initial encounter Qualified Code(s): S90.02XA - Contusion of left ankle, initial encounter (2) Cellulitis of left leg: (3) Edema of left lower extremity: (4) Peroneal tendinitis of left lower extremity: Plan MRI left ankle and CT left foot results reviewed and correlated clinically. No clinical signs of open wound or focal soft tissue infection in the location in question. No clinical concern for ongoing osteomyelitis of the calcaneus. Patient has lower extremity edema with cellulitis left lower leg in addition to pitting edema and recently resolved venous stasis type wounds to the anterior left leg. Recommend dressing recently resolved abrasion/venous stasis wound with Allevyn border foam and applying light compression with Tubigrip to the left lower extremity from the base of the toes to the knee. Continue elevation of the bilateral lower extremity while at rest and avoid extended periods of time with feet in dependent position. Patient denies pain with direct palpation of the lateral malleolus but does have pain along the peroneal tendons in the foot and behind the lateral malleolus. Thank you for consulting podiatry to aid in the care of this patient. Will continue to follow and recommend follow-up with podiatry following discharge for continued monitoring. History of Present Illness Reason for Consultation: ?OM, chronic issue with left foot swelling Attending Physician: Nalini Vines MD History of Present Illness 84-year-old female with past medical history significant for PAF, prior CVA x 4 with left-sided weakness, RA, aortic stenosis, PVD, hypertension, hyperlipidemia, GERD admitted for the recent onset increased left lower extremity swelling redness and bruising. Concern for cellulitis of left lower extremity with increased erythema and edema as well as some superficial abrasions to the anterior leg as possible entry point and a baseline edematous limb. CT of the left foot with some concern for osteomyelitis of the heel. Subsequent MRI with no signs of osteomyelitis in the calcaneus. Denies history of ulceration to the heel. She reports bumping the lateral malleolus on the bedpost approximately 1 week ago which may have contributed to some of the ecchymosis on the lateral outside of her leg however she did not have pain increased redness or swelling until just prior to admission. Since time of admission her pain is significantly reduced. Patient reports working with PT and denies pain or instability from baseline with the left lower extremity. Patient reports use of compression stockings however she has discontinued because these areas will often weep and stick fast to her stockings and then open as she removes the stockings. Allergies Allergy/AdvReac Type Severity Reaction Status Date / Time colchicine AdvReac Intermediate Diarrhea Verified 01/15/24 10:17 Home Medications Medication Instructions Recorded Confirmed Type atorvastatin 10 mg tablet 10 mg PO 3XWK 07/10/18 11/15/24 History metoprolol succinate 50 mg 50 mg PO HS 07/10/18 11/15/24 History tablet,extended release 24 hr pantoprazole 20 mg tablet,delayed 20 mg PO QAM 11/21/18 11/15/24 History release cholecalciferol (vitamin D3) 1,250 1,250 mcg PO WK 10/18/21 11/15/24 History mcg (50,000 unit) capsule amlodipine 10 mg tablet 5 mg PO DAILYBL 01/15/24 11/15/24 History aspirin 81 mg tablet,delayed 81 mg PO QAM 01/15/24 11/15/24 History release furosemide 40 mg tablet 20 mg PO QAM 01/15/24 11/15/24 History diclofenac sodium 1 % topical gel 2 g EXT QID #100 grams 01/16/24 11/15/24 Rx (Voltaren Arthritis Pain) tramadol 50 mg tablet 50 mg PO TID PRN Severe Pain 02/04/24 11/15/24 History (Scale Score 7-10) clopidogrel 75 mg tablet 75 mg DAILY 11/15/24 11/15/24 History magnesium oxide 400 mg (241.3 mg 400 mg QAM 11/15/24 11/15/24 History magnesium) tablet spironolactone 25 mg tablet 25 mg DAILY 11/15/24 11/15/24 History Patient History Medical History (Updated 11/17/24 @ 22:49 by Jamarcus Ho DPM) Aortic stenosis Mild per 11/2018 ECHO Seizure TIA vs SEIZURE: "BLACKED OUT IN HER HEAD AND CAME TO"/BECAME ALERT-NEVER DX'D ANY FURTHER-4 YRS AGO-NO OTHER OCCURRENCES Fracture of hand Hypomagnesemia Right shoulder pain Neck pain Acute heart failure with preserved ejection fraction Acute on chronic heart failure with preserved ejection fraction Somatic dysfunction of spine, cervical Acute hypoxemic respiratory failure Rotator cuff arthropathy Sciatica Can radiate down right or left side Hyperlipidemia Knee pain, right Right knee DJD Surgical History History of arthroplasty of left shoulder History of cataract surgery R/L History of anesthesia reaction SLOW TO WAKE UP-HAD TIA DURING SURGERY AND POST OP-[facility] [place]AGE 66 History of esophagogastroduodenoscopy (EGD) History of colonoscopy S/P bilateral breast reduction AGE 66 YRS Family History Father Family history of diabetes mellitus Mother Family hx of colon cancer Social History Smoking Status: Never smoker Second Hand Exposure: No; Do You Dip or Chew Tobacco: No; Tobacco Cessation Education Requested by Patient: No Hx Alcohol Use: No Hx Substance Use: No Preferred Language: Yakut Communication Ability: Effective Storage And Backup Administrator Required: No Beliefs That Will Affect Care: None marital status: Current Living Situation: Spouse How many Children do You have: 2 Other Information That Helps Us Care for You: No Feels Safe at Home: Yes Safety Concerns: Feels Safe At This Time Assistive Devices: Lift Chair, Raised Toilet Seat, Walker and Wheelchair Review of Systems Review of Systems: Denies nausea, vomiting, fever, chills, shortness of breath, chest pain. Resolving pain to the left lower leg and ankle. Physical Exam Physical Exam: Focused lower extremity exam: Increased edema to left lower extremity with erythema focused laterally and resolving ecchymosis around the lateral malleolus. There are few scabbed superficial abrasions to the anterior leg without open wound or focally increased erythema or edema. Skin below the knee on the left lower extremity is thin and atrophic with loss of hair growth and +2 pitting edema. evaluation of the bilateral posterior heel shows no signs of open wound or soft tissue irritation at this time. No pain with range of motion or palpation of the ankle joint medial or lateral malleolus. Mild/resolving ecchymosis overlying the lateral ankle. She does have focal pain to palpation following the peroneus brevis tendon from the posterior aspect of the lateral malleolus to its insertion on the base of the fifth metatarsal. Results & Data Vital Signs (Past 12 Hours) Vital Signs Temp Pulse Pulse Resp BP Pulse Ox O2 Del Method 11/17/24 15:21 36.7 C 68 18 148/60 H 98 Room Air 11/17/24 14:15 71 11/17/24 11:13 36.9 C 62 20 173/78 H 97 Room Air 11/17/24 09:37 71 11/17/24 08:07 36.7 C 77 20 162/78 H 96 Room Air Diagnostic Findings CT left foot 11/15/2024:IMPRESSION: Diffuse soft tissue swelling without a drainable/organized fluid collection. This finding may be due to cellulitis and/or venous sufficiency. Small ulcerative defect suggested in the posterolateral corner of the heel with a subtle erosive change of the abutting calcaneus as above. Very mild osteomyelitis could be present. Electronically signed by Mohit San 11-15-2024 4:24 PM MRI left ankle 11/17/2024: Impression: 1. Unchanged prominent subcutaneous edema that could be due to cellulitis 2. No definite soft tissue abscess or osteomyelitis 3. Mild Achilles tendinopathy 4. Tenosynovitis of the peroneus brevis and peroneus longus Electronically signed by Jase Wharton 11-17-2024 7:41 PM PG Care Time/CCT Total # of Minutes Spent Total Time Spent with Patient: Total time spent is greater than 50% in coordination of care (as documented) at patient's floor/unit and/or counseling patient: Coding Level of Care Code 87245 INT INP/OBS CARE 2/55MIN Diagnoses Contusion of left ankle, initial encounter S90.02XA Encounter type: initial encounter Cellulitis of left leg L03.116 Edema of left lower extremity R60.0 Peroneal tendinitis of left lower extremity M76.72
[2024-11-18 03:53] VITALS: RESP 20
[2024-11-18 07:21] LABS: Hematocrit (blood only) 35.2 % (37.0-47.0); Hemoglobin 11.0 g/dl (12.0-16.0); Mean Corpuscular Hemoglobin 29.8 pg (25.0-34.0); Mean Corpuscular Volume 95.4 fL (80.0-100.0); Platelet Count 325 K/uL (130-400); RDW Standard Deviation 48.7 fL (36.4-46.3); Red Blood Count 3.69 M/uL (4.20-5.40); White Blood Count 10.23 K/ul (4.8-10.8)
[2024-11-18 08:03] LABS: Blood Urea Nitrogen 27 mg/dl (6-23); Calcium 9.5 mg/dl (8.6-10.3); Carbon Dioxide 26 mmol/L (21-32); Chloride 104 mmol/L (98-107); Creatinine Clr Calc Pharmacy 37.0 ml/min; Glucose 91 mg/dl (70-99(Fasting))
[2024-11-18 10:22] LABS: Potassium 4.0 mmol/L (3.5-5.1); Sodium 139.0 mmol/L (136-145)
[2024-11-18 10:51] VITALS: PULSE 71; TEMP 98.4; O2SAT 98
--- NOTE | 2024-11-18 11:41 | Discharge Summary ---
Date of Service November 18, 2024 Admission HPI Per Admitting Provider Ms. 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 Patient states she has been dealing with chronic leg swelling as an outpatient, predominately affecting her left leg for "months." This resulted in downtitration of amlodipine, recommendation of myra stocking, and diuertics. Patient states that in the last 6 weeks she has noted some "sciatic" like pain; however, today she felt very sharp pain in her left foot that made her shake and unable to put weight on it. She reports that the other day one of her grandchildren did drop a toy on her left fore foot, then last night she felt some pain behind her left ankle while doing ankle rolls. She denies falls or a traumatic roll to her left foot. She states the swelling is about the same as always, but does note the bruising is new on that foot--however, she points to her right foot that reveals a noted bruise on the forefoot as well 2/2 toy being dropped on her foot. She denies fevers. She reports the tremors she experienced earlier was related to the pain in her foot. She does note that she has had poor appetite--but correlates it to taking an "over the counter sciatica medication" from [employer]. It seems to be "back-aid max" which has a pamabrom and acetaminophen Patient denies chest pain or palpitations. Patient is no longer on eliquis and is undergoing evaluation for watchman device, She lives with her and ambulates with a walker. Granddaughter at bedside during exam. In the ED, vitals were notable for BP of 120-140s, HR of 80s and O2 sat of high 90s on room air Imaging revealed no DVT on doppler, CXR similar compared to prior exams, hip and knee XRAy without acute fracture EKG with notable artifact, repeat ordered ED interventions: IV tylenol. Labs with leucocytosis (though appears to have element of chronicity base on tends, ALAN on ckd, elevated trop to 275) Patient to be admitted to [facility] for further evaluation and management of left leg pain and swelling, possible cellulitis v MSK injury, as well as abnormal trop. Admission Exam Per Admitting Provider GENERAL APPEARANCE: AxOx4, generally well-appearing female, non-toxic, no acute distress. HEENT: NC, AT. MMM. EOMI, clear conjunctiva, oropharynx clear. NECK: Supple without lymphadenopathy. No stiffness or restricted ROM. HEART: Normal rate and regular rhythm, normal S1/S1, no m/r/g LUNGS: CTAB, moving air well. No crackles or wheezes are heard. ABDOMEN: Soft, nontender, nondistended with good bowel sounds heard. BACK: No CVAT, no obvious deformity. EXTREMITIES: Without cyanosis, clubbing, Right lower extremity with no noted edema; left lower extremity with 2+ pitting edema 2/3rd up leg, notable pedal edema NEUROLOGICAL: Grossly nonfocal. Alert and oriented, moving all 4 extremities. CN not formally tested but appear grossly intact. Observed to ambulate with normal gait. Skin: scattered ecchymosis on BLE; healing ecchymosis on RLE forefoot, ecchymosis on LLE forefoot 1st-3rd digits tender to palpation, large ecchymosis posterior lateral malleolus with tenderness; mild erythema of ankle, no purulence noted, general tenderness to palpation along BLE Principal Diagnosis Acute left foot pain Possible cellulitis, ruled out osteomyelitis Lt heel Chronic LLE edema ALAN on CKD III Elevated troponin, possibly demand Moderate aortic stenosis Chronic heart failure with preserved EF Discharge Exam GENERAL APPEARANCE: AxOx4, generally well-appearing female, non-toxic, no acute distress. HEENT: NC, AT. MMM. EOMI, clear conjunctiva, oropharynx clear. NECK: Supple without lymphadenopathy. No stiffness or restricted ROM. HEART: Normal rate and regular rhythm, normal S1/S1, no m/r/g LUNGS: CTAB, moving air well. No crackles or wheezes are heard. ABDOMEN: Soft, nontender, nondistended with good bowel sounds heard. BACK: No CVAT, no obvious deformity. EXTREMITIES: Without cyanosis, clubbing, Right lower extremity with no noted edema; left lower extremity with 2+ pitting edema 2/3rd up leg, notable pedal edema NEUROLOGICAL: Grossly nonfocal. Alert and oriented, moving all 4 extremities. CN not formally tested but appear grossly intact. Skin: scattered ecchymosis on BLE; healing ecchymosis on RLE forefoot, ecchymosis on LLE forefoot 1st-3rd digits tender to palpation, erythema and tenderness lle improving. Discharge Data Allergies Allergy/AdvReac Type Severity Reaction Status Date / Time colchicine AdvReac Intermediate Diarrhea Verified 01/15/24 10:17 Consultations 11/15/24 13:18 ED Decision to Admit Stat 11/15/24 16:33 Consult Podiatry Routine 11/16/24 10:31 Consult Infectious Diseases Routine Ordered Studies 11/15/24 10:14 US leg [US venous doppler LE LT] Stat 11/15/24 13:46 CT foot LT wo con Routine 11/15/24 13:58 CT leg [CT tib/fib LT wo con] Routine 11/17/24 17:13 MR ankle LT wo con Routine Hospital Course (1) Left ankle pain: (2) Cellulitis of left leg: (3) ALAN (acute kidney injury): Plan Ms. 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 Patient appeared nontoxic and notes that majority of pain and some of the bruising (especially around lateral malleolus of LLE) are new at the time of presentation. #Acute left foot pain #Possible cellulitis, Possible osteomyelitis Lt heel #Chronic LLE edema possible cellulitis, would question given presence of also ecchymosis behind left ankle and forefoot MRSA scrn neg, ESR 51, CRP 5.[address]: cellulitis of left foot, ? osteomyelitis. c/w ceftriaxone 11/15 and Dapto 11/15. c/w probiotic MRI lt foot ruled out OM, dc dapto c/w rocephin while inpatient, on keflex to complete 10 day course on dc. d/w ID, ok for dc on po atb. podiatry evaled, appreciate recs. Pt reports pain improving, pt afebrile. #ALAN on CKDIII reports of poor po intake since taking "back aid", Cr 1.5 ( baseline 0.8-1.2) hold diuertics for now, s/p IVF, encourage po intake Cr about 1.35, downtrending, resume diuretics from [facility] at home, pt to f/u w/ PCP office in a week for BMP. #Elevated troponin, possibly demand #Moderate aortic stenosis #Chronic heart failure with preserved EF Reportedly with recent ECHO as OP with Dr Ayoub "normal"; EF 55-60% would suspect demand 2/2 pain/dehydration/possible infection rather than ACS at this time Trop trend flat, EKG w/ no acute ST-T changes. EKG with chest pain c/w home diuretics from [facility]. f/u updated ECHO. reviewed ef 55-60%, no RWMA. Other chronic medical conditions: Continue with/resume home meds as and when able. Ambulatory dysfunction: Ambulates with walker at baseline, has residual left lower extremity weakness from prior stroke. PT/OT. PAF: No longer on Eliquis, pending Watchman discussion as outpatient. Continue home metoprolol. Hypertension: Chronic, continue metoprolol. Hold amlodipine/would consider alternative in the setting of chronic edema, hold Lasix and Aldactone given poor intake and ALAN over CKD. prn BP meds while meds are on hold. HLD: Chronic, stable, continue with statin Prior CVA, residual left hemiparesis: Continue ASA, Plavix, statin. GERD: Reports ongoing issue with reflux, continue pantoprazole at 40 mg d aily. DVT prophylaxis: Heparin subcu Full code PCP Dr. Ayoub Patient is being discharged to home with following instructions at the point of discharge: Follow-up with your primary care physician within a week time and likely you will need labs CBC/CMP/magnesium/phosphorus. You will be discharged on antibiotic for your left lower leg cellulitis, complete the course as prescribed. You were also diagnosed with acute kidney injury over your chronic kidney injury, you can resume your diuretics from tomorrow, you will have to see your PCP office within a week time and further lab test at that point in time to monitor your kidney function. Because of your lower extremity swelling, your amlodipine has been held upon discharge. Recommend that you measure your blood pressure twice a day to maintain a log to take to your primary care physician, you will need alternative agents likely losartan if your blood pressure is not optimally controlled. Take your pantoprazole at 40 mg daily. Take your medications as prescribed. Please make sure that you are able to get your medications today by calling your pharmacy before you leave the hospital so that your treatment continuity is not broken. Home Health Attestation I certify that this patient is under my care and that I, or a physicians assistant analyst working with me, had a face to-face encounter that meets the home health [id number] encounter requirements with this patient. The encounter with the patient was in whole, or in part, for the following medical condition, which is the primary reason for home health care (list medical condition): I certify that, based on my findings, the following services are medically necessary home health services: My clinical findings support the need for the above services because: Further, I certify that my clinical findings support that this patient is homebound (i.e. absences from home require considerable and taxing effort and are for medical reasons or druze services or infrequently or of short duration when for other reasons) because: Certification for Home Health Services: Based on the above findings, I certify that this patient is confined to the home and needs intermittent usp care, physical therapy and/or speech therapy or continues to need occupational therapy. The patient is under my care, and I have initiated the establishment of the plan of care. This patient will be followed by a physician who will periodically review the plan of care. Total Time Total Time Spent Total Time Spent (In Minutes): 40 Discharge Plan Discharge Items Patient Disposition: Home - Self-Care Reason For Visit: LEFT LEG PAIN/SWELLING Discharge Diagnosis: Acute left foot pain Possible cellulitis, ruled out osteomyelitis Lt heel Chronic LLE edema ALAN on CKD III Elevated troponin, possibly demand Moderate aortic stenosis Chronic heart failure with preserved EF Activity: As commented below Activity Comment: Elevated lowers legs when sitting or lying. Ambulate as tolerated. Non-emergency contact: Primary Care Provider Call non-emergency contact if: you have any medication questions Follow-up/Referrals: Coni Ayoub MD [Primary Care Provider] - 11/26/24 10:45 am Diet: Heart Healthy Addtl Attending Provider Instructions: Follow-up with your primary care physician within a week time and likely you will need labs CBC/CMP/magnesium/phosphorus. You will be discharged on antibiotic for your left lower leg cellulitis, complete the course as prescribed. You were also diagnosed with acute kidney injury over your chronic kidney injury, you can resume your diuretics from tomorrow, you will have to see your PCP office within a week time and further lab test at that point in time to monitor your kidney function. Because of your lower extremity swelling, your amlodipine has been held upon discharge. Recommend that you measure your blood pressure twice a day to maintain a log to take to your primary care physician, you will need alternative agents likely losartan if your blood pressure is not optimally controlled. Take your pantoprazole at 40 mg daily. Take your medications as prescribed. Please make sure that you are able to get your medications today by calling your pharmacy before you leave the hospital so that your treatment continuity is not broken. Pending Studies at Discharge: No Stand-Alone Forms: [facility] Sm[facility] Cessation Medications and DC Order Prescriptions: New pantoprazole 40 mg Tablet,Delayed Release (Dr/Ec) 40 mg PO QAM Qty: 30 0RF Advanced Probiotic 625 mg (10 billion cell) Capsule 1 cap PO DAILY 10 Days Qty: 10 0RF cephalexin 500 mg capsule 500 mg PO Q8H 6 Days Qty: 18 0RF Continued atorvastatin 10 mg tablet 10 mg PO 3XWK Rx Instructions: Sun/Sun/Sun only metoprolol succinate 50 mg tablet extended release 24 hr 50 mg PO HS cholecalciferol (vitamin D3) 1,250 mcg (50,000 unit) capsule 1,250 mcg PO WK Rx Instructions: Fridays furosemide 40 mg tablet 20 mg PO QAM Rx Instructions: everyday except sunday and aspirin 81 mg Tablet,Delayed Release (Dr/Ec) 81 mg PO QAM diclofenac sodium [Voltaren Arthritis Pain] 1 % Gel 2 g EXT QID Qty: 100 0RF Rx Instructions: leg and shoulders tramadol 50 mg tablet 50 mg PO TID PRN (Reason: Severe Pain (Scale Score 7-10)) Rx Instructions: filled 01/29 7 day supply clopidogrel 75 mg tablet 75 mg DAILY spironolactone 25 mg tablet 25 mg DAILY magnesium oxide 400 mg (241.3 mg magnesium) tablet 400 mg QAM Discontinued pantoprazole 20 mg tablet,delayed release (DR/EC) 20 mg PO QAM Rx Instructions: take 1/2 hour before breakfast amlodipine 10 mg tablet 5 mg PO DAILYBL Discharge Orders: Discharge Order (Routine); Ordered 11/18/24 Ordered By: Nalini Vines Admission Data Admit Date/Time: 11/15/24 14:02 Attending Provider: Nalini Vines Admit Provider: Alaina Rodriguez Primary Care Provider: Coni Ayoub Other Providers: Alaina Rodriguez; Shahab Duarte; Estefania Jackson; Gopi Collazo I.; Pradip Goldman II; Zuleima Valentino; Vladimir Larry; Jasen Trevino; Cory Nascimento; Jamarcus Ho
[2024-11-18 13:19] VITALS: BP 161/52
[2024-11-21] MEDS ORDERED: ERGOCALCIFEROL 1250 MCG (50,000 UNITS) CAP PO SCH (09:00)
--- NOTE | 2024-11-24 12:59 | Coding Query ---
CODING QUERY To promote full compliance with coding requirements relating to patient care, provider participation is requested in all cases of supervisor histology uncertainty. Please assist us with the question(s) below: Coding Question(s): Please clarify if Cellulitis of left lower limb was ruled in or ruled out? ruled in Physician's Response(s): ruled in Thank you Esmer Mary Principal Diagnosis: "that condition established after study, to be chiefly responsible for occasioning the admission of the patient to the hospital for care." Co-Existing Principal Diagnosis: "when two or more diagnoses equally meet the criteria for principal diagnosis as determined by the circumstances of admission, diagnostic work up, and/or therapy provided, and the Alphabetic Index, Tabular List, or another coding guideline does not provide sequencing direction, any one of the diagnoses may be sequenced first." "When the physician has documented what appears to be a current diagnosis in the body of the record, but has not included the diagnosis in the final diagnostic statement, the physician should be asked whether the diagnosis should be added." (Source Coding [facility] 2 QTR90. p3-4) MEETA
== END 2024-11-18 15:10 | disposition home or self-care (01) ==
LOC: ED 09:48 → INTOOBSV 14:02 → SUATTDRO 14:02 → EDINP 14:02 → 2N 17:46